=== PATIENT | female | born 1940 | race Caucasian/White ===

== ENCOUNTER → 2018-03-18 10:06 | Outpatient (POV) | payer MEDICARE, SELFPAY | PROVIDERS: PCP Nurse Practitioner Family; Visit Provider Physician Assistant | DX: Z00.00 Encounter for general adult medical examination without abnormal findings (principal) ==

== ENCOUNTER → 2018-03-18 10:09 | Outpatient (POV) | payer MEDICARE, SELFPAY | PROVIDERS: Visit Provider Physician Assistant | DX: Z00.00 Encounter for general adult medical examination without abnormal findings (principal) ==

== ENCOUNTER → 2019-04-24 14:37 | Outpatient (CLI) | payer MEDICARE, SELFPAY | PROVIDERS: Visit Provider Urology | DX: N39.0 Urinary tract infection, site not specified (principal) | CPT/HCPCS: 87086; 87088; 87186 ==

== ENCOUNTER → 2019-04-29 13:47 | Outpatient (POV) | payer MEDICARE, SELFPAY | PROVIDERS: Visit Provider Dermatology | DX: Z00.00 Encounter for general adult medical examination without abnormal findings (principal) ==

== ENCOUNTER → 2020-09-21 15:11 | Outpatient (POV) | payer MEDICARE, SELFPAY | PROVIDERS: Visit Provider Dermatology | DX: Z00.00 Encounter for general adult medical examination without abnormal findings (principal) ==

== ENCOUNTER 2022-01-21 16:16 | Emergency (ER) | payer MEDICARE, SELFPAY ==
[2022-01-21] VITALS (11 sets, daily range): BP systolic 134–171; BP diastolic 67–89; PULSE 72–81; RESP 16–18; TEMP 36.8–36.9; O2SAT 91–95; BMI 26.6
--- NOTE | 2022-01-21 16:16 | CT_ITS ---
PROCEDURE INFORMATION: Exam: CT Head Without Contrast Exam date and time: 01/21/2022 4:22 PM Age: 81 years old Clinical indication: Injury or trauma; Fall; Blunt trauma (contusions or hematomas) TECHNIQUE: Imaging protocol: Computed tomography of the head without contrast. Radiation optimization: All CT scans at this facility use at least one of these dose optimization techniques: automated exposure control; mA and/or kV adjustment per patient size (includes targeted exams where dose is matched to clinical indication); or iterative reconstruction. COMPARISON: No relevant prior studies available. FINDINGS: Brain: Age related brain involution is present. No acute intracranial hemorrhage, mass effect, midline shift, or brain herniation. Diffuse subcortical and periventricular white matter hypodensities are most in favor with chronic small vessel disease. Intracranial atherosclerosis is present. Cerebral ventricles: There is ex vacuo ventriculomegaly. Paranasal sinuses: Visualized sinuses are unremarkable. No fluid levels. Mastoid air cells: Visualized mastoid air cells are well aerated. Orbital cavities: There is asymmetriy of the lenses consistent with right intraocular lens prosthesis. Bones/joints: Unremarkable. No acute fracture. Soft tissues: Right parietal scalp swelling. IMPRESSION: 1. Right parietal scalp swelling. 2. No acute intracranial pathology.
--- NOTE | 2022-01-21 16:16 | XR_ITS ---
PROCEDURE INFORMATION: Exam: XR Right Hip Exam date and time: 01/21/2022 4:39 PM Age: 81 years old Clinical indication: Injury or trauma; Fall; Blunt trauma (contusions or hematomas); Right; Hip TECHNIQUE: Imaging protocol: Radiologic exam of the Right hip. Views: 2 or 3 views hip with pelvis when performed. COMPARISON: No relevant prior studies available. FINDINGS: Bones/joints: No definite fracture or dislocation. Mild degenerative sclerosis and spurring of the right acetabulum. Minimal medial right femur head spurring. Degenerative enthesophytes of the greater trochanter of the right femur.There are no lytic skeletal lesions seen. Bones overall appear slightly demineralized. Left femur prosthesis appears grossly intact and normally aligned. There are degenerative changes in the lower lumbar spine with spondylosis and facet arthropathy. Soft tissues: No acute findings in the soft tissues at the right hip joint. Vasculature: Multiple rounded pelvic calcifications are probably phleboliths, less likely would be urinary tract stones. IMPRESSION: 1. No acute fracture or dislocation. 2. Mild degenerative changes in the right hip and lumbar spine. 3. Additional nonemergency and chronic findings as above.
--- NOTE | 2022-01-21 16:16 | CT_ITS ---
PROCEDURE INFORMATION: Exam: CT Cervical Spine Without Contrast Exam date and time: 01/21/2022 4:24 PM Age: 81 years old Clinical indication: Injury or trauma; Fall; Blunt trauma TECHNIQUE: Imaging protocol: Computed tomography of the cervical spine without contrast. Radiation optimization: All CT scans at this facility use at least one of these dose optimization techniques: automated exposure control; mA and/or kV adjustment per patient size (includes targeted exams where dose is matched to clinical indication); or iterative reconstruction. COMPARISON: CT HEAD/BRAIN WO CON 01/21/2022 4:22 PM FINDINGS: Bones/joints: Multilevel degenerative changes of the vertebra are present, as manifested by multilevel anterior osteophytes, endplate sclerosis, and multilevel posterior disc osteophyte complexes. The spinal canal is patent. There is no evidence of joint dislocation. No aggressive osseous lesions. There is no evidence of acutely displaced skeletal fractures. Discs/Spinal canal/Neural foramina: No significant bony neural foraminal stenosis. Lungs: Lung apices are normal. Soft tissues: Unremarkable. IMPRESSION: No acute skeletal pathology.
--- NOTE | 2022-01-21 16:24 | PC.NURSE ---
PT GOING TO X RAY
--- NOTE | 2022-01-21 16:37 | HMH.EDGENADL ---
ED Disposition Clinical Impression: Fall Qualifiers: Encounter type: initial encounter Qualified Code(s): W19.XXXA - Unspecified fall, initial encounter Contusion of right hip Qualifiers: Encounter type: initial encounter Qualified Code(s): S70.01XA - Contusion of right hip, initial encounter Closed head injury Qualifiers: Encounter type: initial encounter Qualified Code(s): S09.90XA - Unspecified injury of head, initial encounter Disposition: Home, Self-Care Condition on Discharge: Fair Instructions: How to Prevent Falls, DI for Closed Head Injury Additional Instructions: You have been evaluated for fall, closed head injury and right hip contusion. No fracture seen on x-rays. Please use care when standing and walking. Follow-up with your primary care doctor. Tylenol and Motrin for aches or pains. Return to the emergency department for any new or worsening symptoms. Referrals: Corina Berger [Primary Care Provider] - Time of Disposition: 17:46 - Critical Care Critical Care Time: No Attestation: On 01/21/22, the high probability of a clinically significant, sudden or life threatening deterioration of the following system(s) required my full and direct attention, intervention and personal management. The time I documented below is in addition to time spent performing reported procedures but includes the following listed in this critical care notation. Medical Decision Making - Medical Records Medical records reviewed: Yes: I reviewed the patient's medical records. - Raf Inquiry Pt receiving controlled substance: No Vital Signs: 01/21/22 16:14 01/21/22 16:41 01/21/22 17:12 Temperature 98.5 F Temperature Source Oral Pulse Rate 74 77 Pulse Rate [Right Radial] 72 Respiratory Rate 18 18 18 Blood Pressure 153/84 H 143/75 H Blood Pressure [Right Arm] 154/79 H Blood Pressure Mean 107 104 Blood Pressure Mean [Right Arm] 104 Blood Pressure Source [Right Arm] Automatic Cuff Blood Pressure Position [Right Arm] Sitting 02 Sat by Pulse Oximetry 95 92 L 92 L Oxygen Delivery Method Room Air Room Air 01/21/22 17:41 01/21/22 18:11 01/21/22 18:30 Temperature 98.3 F Temperature Source Pulse Rate 76 77 79 Pulse Rate [Right Radial] Respiratory Rate 18 18 16 Blood Pressure 140/72 134/68 134/68 Blood Pressure [Right Arm] Blood Pressure Mean 94 93 Blood Pressure Mean [Right Arm] Blood Pressure Source [Right Arm] Blood Pressure Position [Right Arm] 02 Sat by Pulse Oximetry 91 L 93 L Oxygen Delivery Method 01/21/22 18:41 01/21/22 19:11 Temperature Temperature Source Pulse Rate 80 78 Pulse Rate [Right Radial] Respiratory Rate 18 18 Blood Pressure 171/89 H 136/67 Blood Pressure [Right Arm] Blood Pressure Mean 116 94 Blood Pressure Mean [Right Arm] Blood Pressure Source [Right Arm] Blood Pressure Position [Right Arm] 02 Sat by Pulse Oximetry 92 L 94 L Oxygen Delivery Method - Lab Data Lab Results 01/21/22 18:45: WBC 12.8 H, RBC 4.64, Hgb 14.8, Hct 44.5, MCV 95.8, MCH 31.9 H, MCHC 33.3, RDW 12.8, Plt Count 257, MPV 7.9, Neut % (Auto) 79.7, Lymph % (Auto) 14.4, [place] % (Auto) 4.5, Eos % (Auto) 0.9, Baso % (Auto) 0.4, Neut # (Auto) 10.2 H, Lymph # (Auto) 1.9, [place] # (Auto) 0.6, Eos # (Auto) 0.1, Baso # (Auto) 0.1 01/21/22 18:45: Sodium 142, Potassium 3.7, Chloride 108 H, Carbon Dioxide 26, Anion Gap 11.7, BUN 19 H, Creatinine 0.60, Estimated Creat Clear 56, Estimated GFR 96, Est GFR ( Amer) 117, Glucose 201 H, Calcium 9.8, Total Bilirubin 0.6, AST 45 H, ALT 34, Alkaline Phosphatase 55, Total Protein 7.3, Albumin 4.5, Globulin 2.8, Albumin/Globulin Ratio 1.6 01/21/22 18:45: SARS-CoV-2 (PCR) Not detected, Influenza A Untype (PCR) Not detected, Influenza Type B (PCR) Not detected Result diagrams: 01/21/22 18:45 01/21/22 18:45 Orders (Tests/Meds): ED MEDICATIONS Generic Name Dose Route Start Last Admin Trade Name Freq PRN Reason Stop
--- NOTE | 2022-01-21 16:37 | PC.NURSE ---
pt returning from xr
--- NOTE | 2022-01-21 16:38 | PC.NURSE ---
PT BACK FROM CT, FAMILY AT BS
--- NOTE | 2022-01-21 17:05 | PC.NURSE ---
OTHER DAUGHTER IS HERE WANTING AN UPDATE ON HER MOM DR CHAU AWARE
--- NOTE | 2022-01-21 17:15 | PC.NURSE ---
at the bedside speaking to family
--- NOTE | 2022-01-21 18:12 | PC.NURSE ---
rounded on pt at this time. no needs voiced
[2022-01-21 18:55] LABS: Coronavirus 19, PCR Not Detected (NotDetected); Influenza A, PCR Not Detected (NotDetected); Influenza B, PCR Not Detected (NotDetected)
[2022-01-21 18:59] LABS: Basophils # 0.1 K/mm3 (0-0.2); Basophils % 0.4 % (0.1-2.0); Chloride 108 mmol/L (98-107); Eosinophils # 0.1 K/mm3 (0.0-0.4); Eosinophils % 0.9 % (0.1-12.0); Hematocrit 44.5 % (37.0-47.0); Hemoglobin 14.8 g/dL (12.2-16.2); Lymphocytes # 1.9 K/mm3 (0.7-4.5); Lymphocytes % 14.4 % (10-50); Mean Corpuscular HGB Conc 33.3 g/dL (31.8-35.4); Mean Corpuscular Hemoglobin 31.9 pg (27.0-31.2); Mean Corpuscular Volume 95.8 fl (81-99); Mean Platelet Volume 7.9 fl (7.4-10.4); Monocytes # 0.6 K/mm3 (0.1-1.0); Monocytes % 4.5 % (1.7-9.3); Neutrophils # 10.2 K/mm3 (1.8-7.8); Neutrophils % 79.7 % (37.0-80.0); Platelet Count 257 K/mm3 (142-424); Red Blood Count 4.64 M/mm3 (4.20-5.40); Red Cell Distribution Width 12.8 % (11.5-17.5); White Blood Count 12.8 K/mm3 (4.8-10.8)
[2022-01-21 19:00] LABS: Potassium 3.7 mmoL/L (3.5-5.1); Sodium 142 mmol/L (136-145)
[2022-01-21 19:02] LABS: Alanine Aminotransferase 34 U/L (12-78); Alkaline Phosphatase 55 U/L (38-126); Aspartate Amino Transferase 45 U/L (14-36); Bilirubin,Total 0.6 mg/dl (0.2-1.3); Blood Urea Nitrogen 19 mg/dl (7-17); Creatinine Clearance Estimated 56 mL/min (50-200); Estimated Glomerular Filt Rate 96 ml/min (>60); GFR (African American) 117 ML/MIN (>60)
[2022-01-21 19:03] LABS: Albumin Level 4.5 g/dl (3.5-5.0); Albumin/Globulin Ratio 1.6 (1.1-1.8); Anion Gap 11.7 mEq/L (5-15); Calcium 9.8 mg/dl (8.4-10.2); Carbon Dioxide 26 mmol/L (22.0-30.0); Globulin 2.8 g/dL (1.3-3.2); Glucose 201 mg/dl (74-100); Total Protein,Serum 7.3 g/dl (6.3-8.2)
--- NOTE | 2022-01-21 19:05 | PC.NURSE ---
WENT TO D/C PT , SHE GOT IN WHEEL CHAIR BECAME VERY DIZZY STARTED VOMITING AND GOT REALLY HOT AND DIAPHORETIC PT STATES THATS HOW SHE FELT WHEN SHE FELL EARLIER TODAY . WE GO PT BACK IN BED AND STARTED A WORK UP ON HER
--- NOTE | 2022-01-21 20:21 | PC.NURSE ---
Daughter updated on D/C and new test results. States she will be back soon to roller picker pt.
== END 2022-01-21 20:52 | disposition home or self-care (01) ==
PROVIDERS: Emergency Provider Emergency Medicine; PCP Nurse Practitioner Family
DX: S09.90XA Unspecified injury of head, initial encounter (principal); S70.01XA Contusion of right hip, initial encounter; W18.30XA Fall on same level, unspecified, initial encounter; E11.9 Type 2 diabetes mellitus without complications; I10 Essential (primary) hypertension; Z79.84 Long term (current) use of oral hypoglycemic drugs; Z95.0 Presence of cardiac pacemaker; G40.89 Other seizures
CPT/HCPCS: 70450; 72125; 73502; 80053; 85025; 93005; 96361; 96374; 99285; C9803; J2405; U0003; U0005

== ENCOUNTER 2023-07-03 08:49 | Outpatient (POV) | payer MEDICARE, SELFPAY | END 2023-07-03 23:59 | disposition home or self-care (01) | LOC: SC 08:49 | PROVIDERS: PCP Nurse Practitioner Family; Visit Provider Dermatology | DX: Z00.00 Encounter for general adult medical examination without abnormal findings (principal) ==

== ENCOUNTER 2025-06-30 10:46 | Outpatient (CLI) | payer MEDICARE, SELFPAY ==
[2025-06-30 17:14] LABS: Hematocrit 39.5 % (37.0-47.0); Hemoglobin 12.9 g/dL (12.2-16.2); Immature Granulocytes % 0.4 %; Mean Corpuscular HGB Conc 32.7 g/dL (31.8-35.4); Mean Corpuscular Hemoglobin 31.9 pg (27.0-31.2); Mean Corpuscular Volume 97.8 fl (81-99); Nucleated Red Blood Cells % 0 %; Platelet Count 195 K/mm3 (142-424); Red Blood Count 4.04 M/mm3 (4.20-5.40); Red Cell Distribution Width-SD 42.8 fL; White Blood Count 8.2 K/mm3 (4.8-10.8)
[2025-06-30 18:13] LABS: Chloride 104 mmol/L (98-107)
[2025-06-30 18:14] LABS: Albumin Level 4.2 g/dl (3.5-5.0); Potassium 4.6 mmoL/L (3.5-5.1); Sodium 138 mmol/L (136-145)
[2025-06-30 18:17] LABS: Alanine Aminotransferase 44 U/L (12-78); Albumin/Globulin Ratio 2.0 (1.1-1.8); Alkaline Phosphatase 52 U/L (38-126); Anion Gap 13.6 mEq/L (5-15); Aspartate Amino Transferase 37 U/L (14-36); Bilirubin,Total 0.3 mg/dl (0.2-1.3); Blood Urea Nitrogen 27 mg/dl (7-17); Carbon Dioxide 25 mmol/L (22.0-30.0); Creatinine,Serum 1.00 mg/dl (0.52-1.04); Estimated Glomerular Filt Rate 53 ml/min (>60); GFR (African American) 64 ML/MIN (>60); Globulin 2.1 g/dL (1.3-3.2); Total Protein,Serum 6.3 g/dl (6.3-8.2)
[2025-06-30 18:18] LABS: Calcium 9.8 mg/dl (8.4-10.2); Glucose 311 mg/dl (74-100)
[2025-06-30 19:06] LABS: Hepatitis C Ab Qual. W/ RFX NEGATIVE (Negative)
[2025-06-30 19:46] LABS: Hemoglobin A1C 9.4 % (4.0-6.0)
--- OUTSIDE RECORDS SUMMARY | 2025-07-01 10:26 | XMS_ITS | Encounter Summary ---
Author Organization [employer] ([place], [place], [place], [place], [place]) Address [address] [place] [address] Care Team Providers Care Rug Hooker Name Role Phone Unavailable Primary Care Provider Unavailabl e Encounter Details Date Type Department Care Team (Late st Contact Info) Description 12/20/[address] [facility] [place] Family Medicine [address] [place] [address] ProviderCl MD [address] [place] [address] Social History Tobacco Use Types Packs/Day Years Used Date Smoking Tobacco: Never Assessed Comments Unknown Sex and Gender Information Value Date Recorded Sex Assigned at Not on file Legal Sex Female 5:11 PM CDT Gender Identity Not on file Sexual Orientation Not on file documented as of this encounter Miscellaneous Notes * Cerner Conversion Note - Historical ProviderMD - 12/20/2019 2:11 PM CDT [facility] OR PACU Summary Primary Physician: TARIQ TILLMAN MD-ORT Finalized Date/Time: 12/20/19 16:11:29 Pt. Name: GALI JAMESJEREMIAH Coleman/Sex: 1940 Female Med Rec #: [id number] Physician: JUAN J DEL ROSARIO MD-INT Financial #: [id number] Pt. Type: I Room/Bed: 410/1 Admit/Disch: 12/19/19 18:29:00 - Institution: [facility] OR PACU Case Times Entry 1 In PACU I 12/20/19 15:35:00 Ready for PACU 12/20/19 16:11:00 Discharge Discharge from PACU 12/20/19 16:11:00 I Last Modified By: Amairani Head RN 12/20/19 16:11:27 [facility] OR PACU Case Times Audit 12/20/19 16:11:27 Blood Bank Credit Clerk: AMAIRANIABRAHAM Modifier: [email or web address] <+> 1 Ready for PACU Discharge <+> 1 Discharge from PACU I Finalized By: Amairani Head RN Document Signatures Signed By: Amairani Head RN 12/20/19 16:11 Electronically signed by [facility] Conversion Diesel Mechanic Apprentice Cerner at 10/17/2022 2:59 PM CDT documented in this encounter Plan of Treatment Not on file documented as of this encounter Visit Diagnoses Not on filedocumented in this encounter
--- OUTSIDE RECORDS SUMMARY | 2025-07-01 10:27 | XMS_ITS | Encounter Summary ---
Author Organization [employer] ([place], [place], [place], [place], [place]) Address [address] [place] [address] Care Team Providers Care Food Service Tray Attendant Name Role Phone Unavailable Primary Care Provider Unavailabl e Encounter Details Date Type Department Care Team (Late st Contact Info) Description 12/22/2019 Transcribed Document [facility] [place] Family Medicine [address] [place] [address] ProviderCl MD [address] [place] [address] Social History Tobacco Use Types Packs/Day Years Used Date Smoking Tobacco: Never Assessed Comments Unknown Sex and Gender Information Value Date Recorded Sex Assigned at Not on file Legal Sex Female 5:11 PM CDT Gender Identity Not on file Sexual Orientation Not on file documented as of this encounter Miscellaneous Notes * Cerner Conversion Note - Historical ProviderMD - 12/22/2019 1:09 PM CDT Treatment Intervention, OT Entered On: 12/25/2019 12:52 EDT Performed On: 12/25/2019 12:48 EDT by LOGAN LEDEZMA OTR/Ashley General Information, OT Visit Type, OT : Treatment Note Patient Orders : Order Date Order Ordering 12/20/2019 15:42 OT Evaluation and Treatment Ordered By: TARIQ TILLMAN MD-ORT 12/22/2019 13:09 Occupational Therapy Additional Tx Ordered By: Active Diagnoses : 12/21/2019 12:00 Other specified postprocedural states 12/19/2019 12:00 Essential (primary) hypertension 12/19/2019 12:00 Fracture of unspecified part of neck of left femur, initial encounter for closed fracture 12/19/2019 12:00 Gastro-esophageal reflux disease without esophagitis 12/19/2019 12:00 Hip injury - Minor 12/19/2019 12:00 Hip pain-swelling 12/19/2019 12:00 Hyperglycemia, unspecified 12/19/2019 12:00 Major depressive disorder, single episode, unspecified 12/19/2019 12:00 Other chronic pain 12/19/2019 12:00 Unspecified fall, initial encounter Therapy Diagnosis, OT : Aftercare following joint replacement surgery--L hip Admission Date : 12/19/2019 18:29 Assisted by, OT : miner assistant (CONSTRUCTION SCHEDULER) Personal Devices : Personal Devices No Devices Recorded Assistive Devices : Assistive Devices No Devices Recorded Precautions in Place : Fall prevention measures, Fall prevention measures, high risk, Hip precautions, posterior LOGAN LEDEZMA OTR/L - 12/25/2019 12:48 EDT General Status Patient Received Status : Supine in bed, Bed alarm activated, Other: abductor wedge Treatment Start Time : 12/25/2019 11:28 EDT Patient Left Status : Up in chair, Chair alarm activated, RN/PCT informed, All needs met and within reach, Other: abductor wedge RN/PCT Informed Comment : RN ok'd to tx, ID and verified Treatment End Time : 12/25/2019 11:43 EDT Treatment Time : 15 Minute(s) LOGAN LEDEZMA OTR/L - 12/25/2019 12:48 EDT Self Care/Home Management, OT Toileting Assist Level : Assist, maximal Toileting Device : Commode, bedside Toileting Comment : max/total for hygiene and clothing mgt, pt was incontinent of bowel in bed and soiled. pt was assisted to BSC to complete toileting and hygiene Toilet Transfer Assist Level : Assist, minimal Toilet Transfer Device : Belt, gait, Commode, bedside, Walker, rolling Toilet Transfer Device Comment : cues for safety bed to BSC Bed/Chair/WC Transfer Assist Level : Assist, minimal Bed/Chair/WC Transfer Device : Belt, gait, Walker, front wheel Bed/Chair/WC Device Comment : BSC to chair and cues LOGAN LEDEZMA OTR/L - 12/25/2019 12:48 EDT Mobility Device/Prosthesis/Wt Bearing Weight Bearing Status Maintained : Yes Weight Bearing Status : As tolerated Functional Mobility Device : Gait belt, Walker, front wheel Mobility Device/Prosthesis/Wt Bearing Cmnt : abductor wedge in bed and seated in chair LOGAN LEDEZMA OTR/L - 12/25/2019 12:48 EDT Functional Mobility Mobility Grid Supine to Sit : Rehab Minimal assistance Sit to Stand : Rehab Minimal assistance Bed to Chair : Rehab Minimal assistance Stand to Sit : Rehab Minimal assistance DARIENLOGANJENNIFFER/Ashley - 12/25/2019 12:48 EDT Functional MobilityComment : gait belt and rw, transfer bed to BSC to chair with min assist and cues for safety and maintain hip precautions LOGAN LEDEZMA OTR/Ashley - 12/25/2019 12:48 EDT Education OT Occupational Therapy Education Grid Activity of Daily Living Training : Returns demonstration, Needs further teaching Functional Mobility Training : Returns demonstration, Needs further teaching LOGAN LEDEZMA OTR/Ashley - 12/25/2019 12:48 EDT Plan of Care, OT OT Tx Plan/Goals Established w Patient : Yes DARIEN JENNIFFER FORD/Ashley - 12/25/2019 12:48 EDT Intermediate Goals, OT Other LTG Grid Goal #1 Goal #2 Goal : Perform LB ADL with mod A with use of AE PRN Perform ADL transfer with min A Date to Meet : 01/05/2020 EDT 01/05/2020 EDT Goal Status : Initial goal Goal met Date Met : 12/25/2019 EDT Comment : min A on 12/23 LOGAN LEDEZMA OTR/Ashley - 12/25/2019 12:48 EDT LOGAN LEDEZMA OTR/Ashley - 12/25/2019 12:48 EDT Treatment Note Subjective Comment : pt agrees to tx Additional Objective Information : ADL Assessment : pt met transfer goal, will continue to benefit from OT while inpt. pt again lethargic, demo some confusion Plan for Treatment : continue POC, may discharge to rehab today LOGAN LEDEZMA OTR/Ashley - 12/25/2019 12:48 EDT Pain Assessment Pain Scaled Used : 0-10 Pain scale Pain Score Pre-Intervention : 0 LOGAN LEDEZMA OTR/Ashley - 12/25/2019 12:48 EDT Image 1 - Images currently included in the form version of this document have not been included in the text rendition version of the form. [facility] OT Charges OT Selfcare/Hm Mgmt Ea 15 Min : 1 LOGAN LEDEZMA OTR/Ashley - 12/25/2019 12:48 EDT documented in this encounter Plan of Treatment Not on file documented as of this encounter Visit Diagnoses Not on filedocumented in this encounter
--- OUTSIDE RECORDS SUMMARY | 2025-07-01 10:27 | XMS_ITS | Encounter Summary ---
Author Organization [employer] ([place], [place], [place], [place], [place]) Address [address] [place] [address] Care Team Providers Care Public Health Sanitarian Name Role Phone Unavailable Primary Care Provider Unavailabl e Encounter Details Date Type Department Care Team (Late st Contact Info) Description 12/25/2019 Transcribed Document [facility] [place] Family Medicine [facility] [place] [address] ProviderCl MD [address] [place] [address] Social History Tobacco Use Types Packs/Day Years Used Date Smoking Tobacco: Never Assessed Comments Unknown Sex and Gender Information Value Date Recorded Sex Assigned at Not on file Legal Sex Female 5:11 PM CDT Gender Identity Not on file Sexual Orientation Not on file documented as of this encounter Miscellaneous Notes * Cerner Conversion Note - Historical ProviderMD - 12/25/2019 6:00 PM CDT Discharge Summary, PT Entered On: 12/29/2019 8:12 EDT Performed On: 12/25/2019 18:00 EDT by CARMINE GILL, PT Discharge Summary Reason for Discharge : Discharged from hospital Discharge Summary Comment, PT : At time of discharge from hospital, pt had met 2/5 acute care goals and was discharged home. At time of last PT treatment session, pt's functional status was documented as follows: chair to stand Kp with RWx - amb ~ 8' to EOB Kp with RWx - demonstrated slow pace, foot flat, 1 LOB - cues for safe sequence to bed - stand pivot to sit EOB CGA with RWx - cues for no hip flexion passed 90* - EOB to supine Kp with BLE - extra time spent attending to pt's needs CARMINE GILL, PT - 12/29/2019 8:12 EDT [facility] Goals Other PT LTG Grid Goal #1 Goal #2 Goal #3 Goal #4 Other : Patient will transfer with Min A to decrease caregiver burden. CARMINE GILL, PT - 12/29/2019 8:12 EDT Patient will ambulate 50' with RWx CGA/Min A for limited household distances. CARMINE GILL, PT - 12/29/2019 8:12 EDT Patient will perform LJ HEP A/AROM x 15 reps to improve strength/endurance with functional activities. CARMINE GILL, PT - 12/29/2019 8:12 EDT Patient will verbalized posterior hip precautions to prevent dislocation. CARMINE GILL, PT - 12/29/2019 8:12 EDT Date to Meet : 12/24/2019 EDT CARMINE GILL, PT - 12/29/2019 8:12 EDT 12/24/2019 EDT CARMINE GILL, PT - 12/29/2019 8:12 EDT 12/24/2019 EDT CARMINE GILL, PT - 12/29/2019 8:12 EDT 12/24/2019 EDT CARMINE GILL, PT - 12/29/2019 8:12 EDT Goal Status : Goal met CARMINE GILL, PT - 12/29/2019 8:12 EDT Not met CARMINE GILL, PT - 12/29/2019 8:12 EDT Goal met CARMINE GILL, PT - 12/29/2019 8:12 EDT Not met CARMINE GILL, PT - 12/29/2019 8:12 EDT Date Met : 12/24/2019 EDT CARMINE GILL, PT - 12/29/2019 8:12 EDT 12/24/2019 EDT CARMINE GILL, PT - 12/29/2019 8:12 EDT CARMINE GILL, PT - 12/29/2019 8:09 EDT CARMINE GILL, PT - 12/29/2019 8:09 EDT CARMINE GILL, PT - 12/29/2019 8:09 EDT CARMINE GILL, PT - 12/29/2019 8:09 EDT Goal #5 Other : Patient will ascend/descend 2 steps with RWx Min A. (IF D/C HOME) CARMINE GILL, PT - 12/29/2019 8:12 EDT Date to Meet : 12/24/2019 EDT CARMINE GILL, PT - 12/29/2019 8:12 EDT Goal Status : Not met CARMINE GILL, PT - 12/29/2019 8:12 EDT Date Met : CARMINE GILL, PT - 12/29/2019 8:09 EDT documented in this encounter Plan of Treatment Not on file documented as of this encounter Visit Diagnoses Not on filedocumented in this encounter
--- OUTSIDE RECORDS SUMMARY | 2025-07-01 10:27 | XMS_ITS | Encounter Summary ---
Author Organization [employer] ([place], [place], [place], [place], [place]) Address [address] [place] [address] Care Team Providers Care Construction Supervisor Name Role Phone Unavailable Primary Care Provider Unavailabl e Encounter Details Date Type Department Care Team (Late st Contact Info) Description 12/23/2019 Transcribed Document [facility] [place] [facility] [place] [address] ProviderCl MD [address] [place] [address] Social History Tobacco Use Types Packs/Day Years Used Date Smoking Tobacco: Never Assessed Comments Unknown Sex and Gender Information Value Date Recorded Sex Assigned at Not on file Legal Sex Female 5:11 PM CDT Gender Identity Not on file Sexual Orientation Not on file documented as of this encounter Miscellaneous Notes * Cerner Conversion Note - Cl ProviderMD - 12/23/2019 11:02 AM CDT On Going Discharge Planning Entered On: 12/23/2019 11:04 EDT Performed On: 12/23/2019 11:02 EDT by LAZ GLEASON RN-Automatic Mold SanderShooter Helper Progress Note Discharge Arrangements : Patient Post-Acute Information Patient Name: JAMES BUSTILLO Gender: Female : [birth year] Age: 79 Years No Post-Acute Placement(s) Listed No Post-Acute Service(s) Listed No [place] Referral(s) Listed Discharge Options Discussed with Patient : Other: TBD Barriers to Discharge Identified : Clinical Condition of Patient, Follow-Up appointments needed Barriers to Discharge Unresolved : Clinical Condition of Patient LAZ GLEASON RN-Automatic Mold Sander - 12/23/2019 11:02 EDT Narrative Progress Note Narrative Progress Note : Received call from [facility], can accept patient on 12/24/19, however, will need another Covid test due to results not being within the allotted time frame from the first test.................allen Historical Progress Note : Spoke with patient regarding transport to facility on 12/24/2019 she will call her spouse to transport. LARISSA THORNTON Rn-Court Assistant - 12/22/19 14:15:07 Recieved call from Rina at [facility] with bed offer. Spoke with Ms Bustillo she is in agreement with this plan notified Rina she will init precert. Patient will need a Covid 19 test prior to going to their facility will order test. LARISSA THORNTON Rn-Court Assistant - 12/22/19 10:19:13 Patient extremely drowsy and lethargic upon trying to speak with patient. Patient was accidently dropping phone in floor multiple times, spilled her water and was knocking over things on her table while attempting to speak. Pain medication has not wore off yet for lengthy conversation. Patient did state her does not get out of the house due to Pulmonary Fibrosis and she normally takes care of him at home. Has RW and commode at home, is agreeable for inaptient rehab, would like [facility] for rehab in [place] or [facility]. Patient wants to stay close to home if all possible. SNF referrals sent through [facility]....................LAZ Grasyon RN-Automatic Mold Sander - 12/21/19 14:52:39 LAZ GLEASON RN-Automatic Mold Sander - 12/23/2019 11:02 EDT documented in this encounter Plan of Treatment Not on file documented as of this encounter Visit Diagnoses Not on filedocumented in this encounter
--- OUTSIDE RECORDS SUMMARY | 2025-07-01 10:27 | XMS_ITS | Encounter Summary ---
Author Organization [employer] ([place], [place], [place], [place], [place]) Address [address] [place] [address] Care Team Providers Care Corporate Attorney Name Role Phone Unavailable Primary Care Provider Unavailabl e Encounter Details Date Type Department Care Team (Late st Contact Info) Description 12/20/2019 Transcribed Document [facility] [place] [address] [place] [address] ProviderCl MD [address], [place] [id number] Social History Tobacco Use Types Packs/Day Years Used Date Smoking Tobacco: Never Assessed Comments Unknown Sex and Gender Information Value Date Recorded Sex Assigned at Not on file Legal Sex Female 5:11 PM CDT Gender Identity Not on file Sexual Orientation Not on file documented as of this encounter Miscellaneous Notes * Cerner Conversion Note - Cl ProviderMD - 12/20/2019 11:34 AM CDT Patient: JAMES TALBERT Age: 79 years Sex: Female : 1940 Associated Diagnoses: Fall; Chronic pain syndrome; Depression; Diabetes mellitus; Hip pain-swelling; Hip injury - Minor; GERD; Hip fracture, left; Hypertension Author: JUAN J DEL ROSARIO MD-INT Basic Information awake alert comfortable, ???Pain under control ???Hemoglobin A1c is 8.6 ???Vitamin D level 15.6 Review of Systems Constitutional: No fever, No chills. Eye: No discharge, No blurring, No double vision, No visual disturbances. Ear/Nose/Mouth/Throat: No nasal congestion, No sore throat. Respiratory: No shortness of breath, No cough. Cardiovascular: No chest pain, No palpitations. Gastrointestinal: No nausea, No vomiting. Genitourinary: No change in urine stream. Musculoskeletal: Negative. Integumentary: wound stable covered w. clean dressing. Neurologic: Alert and oriented X4. Health Status Allergies: Allergies (1) Active Reaction No Known Medication Allergies None Documented Current medications: Medications (32) Active Scheduled: (11) amLODIPine 5 mg tab 5 mg 1 Tab, Oral, Daily ceFAZolin/D5w 2 Gram 50 mL, IV Piggyback, 1-Time cyanocobalamin 1,000 mcg tab 1,000 mcg 1 Tab, Oral, Daily docusate sodium 100 mg cap 100 mg 1 Cap, Oral, BID DULoxetine DR 60 mg cap 60 mg 1 Cap, Oral, Daily furosemide 20 mg tab 20 mg 1 Tab, Oral, Daily gabapentin 300 mg cap 300 mg 1 Cap, Oral, TID insulin lispro 1 unit/0.01 mL inj Scale A:, SubCutaneous, AC and at Bedtime metoprolol succinate XL 100 mg tab 100 mg 1 Tab, Oral, Daily NaCl 0.45% 500 mL, IV Piggyback, 1-Time oxybutynin 5 mg tab 10 mg 2 Tab, Oral, Daily Continuous: (1) NaCl 0.45% 1,000 mL 1,000 mL, IntraVENous, 100 mL/Hr PRN: (20) acetaminophen 325 mg tab 650 mg 2 Tab, Oral, Q4H ALPRAZolam 0.25 mg tab 0.25 mg 1 Tab, Oral, Q6H bisacodyl 10 mg supp 10 mg 1 Supp, Rectal, BID calcium gluconate 1 Gram 10 mL, IV Piggyback, Daily calcium gluconate + NaCl 0.9% 100 mL 2 Gram 20 mL, IV Piggyback, Daily calcium gluconate + NaCl 0.9% 100 mL 2 Gram 20 mL, IV Piggyback, Q12H cloNIDine 0.1 mg tab 0.1 mg 1 Tab, Oral, Q4H HYDROmorphone 1 mg/1 mL inj 0.5 mg 0.5 mL, IV Push, Q2H magnesium hydroxide 8% liq 30 mL 30 mL, Oral, Daily magnesium sulfate 2 Gram 50 mL, IV Piggyback, Daily magnesium sulfate 2 Gram 50 mL, IV Piggyback, Q2H metoclopramide 10 mg/2 mL inj 5 mg 1 mL, IV Push, Q6H ondansetron 4 mg/2 mL inj 4 mg 2 mL, IV Push, Q4H potassium chloride 10 mEq 100 mL, IV Piggyback, Q1H potassium chloride CR 20 mEq tab 20 mEq 1 Tab, Oral, Q2H potassium chloride CR 20 mEq tab 60 mEq 3 Tab, Oral, Q2H scopolamine 1.5 mg/72 hr patch 1 Patch, TransDermal, Q3Days sodium phosphate 15 mMole 5 mL, IV Piggyback, Daily sodium phosphate 15 mMole 5 mL, IV Piggyback, Q6H traZODone 50 mg tab 50 mg 1 Tab, Oral, At Bedtime Problem list: Active Problems (9) Acid reflux At risk for sleep apnea Chronic pain Depression H. pylori infection Heart murmur Hypertension Incontinent of urine Kidney stones Physical Examination VS/Measurements Vital Measurements 12/20/2019 9:31 EDT Systolic Blood Pressure 146 mmHg HI Diastolic Blood Pressure 53 mmHg LOW Mean Arterial Pressure (MAP)-BMDI 78 Temperature Source Oral Temperature Mode Fahrenheit Temperature, Fahrenheit 98.8 Deg F Clinical Temperature, C 37.1 Deg C Heart Rate Monitored 90 bpm Respiratory Rate 17 Breaths/Min Oxygen Saturation 98 % Oxygen Therapy Mode Nasal cannula Oxygen Flow Rate 2 Liter/Min General: Alert and oriented, No acute distress. Eye: Pupils are equal, round and reactive to light, Extraocular movements are intact. HENT: Oral mucosa is moist. Neck: Supple, No carotid bruit, No jugular venous distention, No lymphadenopathy, No thyromegaly. Respiratory: Lungs are clear to auscultation, Breath sounds are equal. Cardiovascular: Normal rate, Regular rhythm, No murmur. Gastrointestinal: Soft, Non-tender, Normal bowel sounds, No organomegaly. Genitourinary: No costovertebral angle tenderness, No inguinal tenderness. Lymphatics: No lymphadenopathy neck, axilla, groin. Musculoskeletal: Normal strength, No swelling. Integumentary: Warm, Intact, No rash, WOUND STABLE. Neurologic: Alert, Oriented, No focal deficits. Psychiatric: Cooperative, Appropriate mood & affect. Review / Management Results review: All Results 12/20/2019 6:13 EDT Glucose POC2 145 mg/dL HI 12/20/2019 3:42 EDT Sodium Level 143 mmol/L Potassium Level 4.1 mmol/L Chloride Level 107 mmol/L Carbon Dioxide Level 13 mmol/L LOW Anion Gap 27 HI Glucose Level 149 mg/dL HI Blood Urea Nitrogen 15 mg/dL Creatinine Level 0.76 mg/dL eGFR >60 mL/min/1.73m2 eGFR NonAfrican >60 mL/min/1.73m2 Bun/Creatinine 19.7 Calcium Level 8.9 mg/dL Protein Total 7.7 Gram/dL Albumin Level 4.2 Gram/dL Globulin 3.5 Gram/dL A/G Ratio 1.2 Bilirubin Total 0.6 mg/dL Alk Phos 69 Units/Liter AST 20 Units/Liter ALT 34 Units/Liter WBC 13.0 K/uL HI RBC 4.83 Million/uL Hgb 15.4 Gram/dL Hct 48.7 % HI MCV 100.8 fL HI MCH 31.9 pg MCHC 31.6 Gram/dL LOW Platelet Count 226 K/uL MPV 11.2 fL RDW 12.4 % Neut % 82.2 % HI Neut # 10.66 K/uL HI Lymph % 12.7 % LOW Lymph # 1.65 K/uL [place] % 4.4 % LOW [place] # 0.57 K/uL Eos % 0.0 % LOW Eos # 0.00 K/uL LOW Baso % 0.2 % Baso # 0.03 K/uL Slide Review No IG# 0 x10(3)/uL IG% 0 % 12/19/2019 14:41 EDT Potassium Level 4.1 mmol/L Chloride Level 106 mmol/L Carbon Dioxide Level 24 mmol/L Anion Gap 13 Glucose Level 212 mg/dL HI Blood Urea Nitrogen 16 mg/dL Creatinine Level 0.73 mg/dL eGFR >60 mL/min/1.73m2 eGFR NonAfrican >60 mL/min/1.73m2 Bun/Creatinine 21.9 HI Calcium Level 8.6 mg/dL Protein Total 7.5 Gram/dL Albumin Level 3.9 Gram/dL Globulin 3.6 Gram/dL A/G Ratio 1.1 Bilirubin Total 0.5 mg/dL Alk Phos 60 Units/Liter AST 21 Units/Liter ALT 35 Units/Liter Hgb A1C 8.40 % HI eAVG Glucose 194 mg/dL NA WBC 11.7 K/uL HI RBC 4.41 Million/uL Hgb 14.1 Gram/dL Hct 43.2 % MCV 98.0 fL HI MCH 32.0 pg MCHC 32.6 Gram/dL Platelet Count 176 K/uL MPV 10.8 fL RDW 12.2 % Neut % 82.4 % HI Neut # 9.61 K/uL HI Lymph % 11.0 % LOW Lymph # 1.28 K/uL [place] % 5.4 % [place] # 0.63 K/uL Eos % 0.4 % LOW Eos # 0.05 K/uL Baso % 0.3 % Baso # 0.04 K/uL Slide Review No IG# 0 x10(3)/uL IG% 0 % 12/19/2019 14:02 EDT Urine Type U CleanCatch Urine Color Yellow Urine Appearance Clear Urine Specific [place] 1.024 Urine pH Dipstick 7.0 Urine Leukocyte Esterase Negative Urine Nitrite Negative Urine Protein Dipstick Negative Urine Glucose Dipstick >=1000 Urine Ketones Dipstick 40 Urine Urobilinogen Dipstick 0.2 EU/dL Urine Bilirubin Dipstick Negative Urine Blood Dipstick Negative Ur RBC 0-2 /HPF Ur WBC 5-10 /HPF Ur Bacteria 3+ Ur Epithelial Cells 0-2 /HPF . Condition: Stable. Impression and Plan Diagnosis Fall - Admitting, Emergency medicine, Medical. Chronic pain syndrome - Admitting, Patient Stated. Depression - Admitting, Medical. Diabetes mellitus - Admitting, Emergency medicine, Medical. Complaint of Hip pain-swelling - Reason For Visit, Medical. Hip injury - Minor - Reason For Visit, Emergency medicine, Medical. GERD - Admitting, Patient Stated. Hip fracture, left - Admitting, Emergency medicine, Medical. Hypertension - Admitting, Emergency medicine, Medical. Course: Plan/ cont. current care, pt/ot, nutritional support, encourage use of respirometer, motoring blood pressure, renal function, blood glucose, and urine output. IV hydration. Continue nothing by mouth for now for surgical intervention today . Orders Order Profile (Selected) Inpatient Orders Ordered (Scheduled) CMP Comprehensive Metabolic Panel: Specimen Type: Blood, AM Draw collect, 12/21/19 4:00:00 EDT, 1-Time, Stop: 12/21/19 4:00:00 EDT, Lab Collect Hemoglobin and Hematocrit: Specimen Type: Blood, AM Draw collect, 12/21/19 4:00:00 EDT, 1-Time, Stop: 12/21/19 4:00:00 EDT, Lab Collect. documented in this encounter Plan of Treatment Not on file documented as of this encounter Visit Diagnoses Not on filedocumented in this encounter
--- OUTSIDE RECORDS SUMMARY | 2025-07-01 10:27 | XMS_ITS | Encounter Summary ---
Author Organization [employer] ([place], [place], [place], [place], [place]) Address [address] [place] [address] Care Team Providers Care Town Planner Name Role Phone Unavailable Primary Care Provider Unavailabl e Encounter Details Date Type Department Care Team (Late st Contact Info) Description 12/19/2019 Transcribed Document [facility] [place] [address] [place] [address] ProviderCl MD [address] [place] [address] Social History Tobacco Use Types Packs/Day Years Used Date Smoking Tobacco: Never Assessed Comments Unknown Sex and Gender Information Value Date Recorded Sex Assigned at Not on file Legal Sex Female 5:11 PM CDT Gender Identity Not on file Sexual Orientation Not on file documented as of this encounter Miscellaneous Notes * Cerner Conversion Note - Cl Landaverde MD - 12/19/2019 7:18 PM CDT Patient: JAMES BUSTILLO Age: 79 years Sex: Female : 1940 Associated Diagnoses: Fall; Chronic pain syndrome; Depression; Diabetes mellitus; Hip pain-swelling; Hip injury - Minor; GERD; Hip fracture, left; Hypertension Author: JUAN J DEL ROSARIO MD-INT Date of admission 12/19/2019 PCP Halie Aguiar NP Admitting physician: Internal medicineJuan J M.D. Admitting diagnosis: 1???left hip fracture status post a fall 2???accidental fall 3???left hip pain 4???uncontrolled diabetes mellitus 5???hypertension 6???GERD 7???History of H. pylori Infection 8???chronic pain syndrome 9???depression History of present illness 79 years old white female with a history of DM, HTN, GERD, chronic pain syndrome, depression, who was coming out of the shower and then she tripped on a cord on the floor and fell on the left side. Patient was unable to get up and walk and bear weight in addition she was complaining of severe intractable pain and swelling on her left hip. Patient was then brought to [facility] ED where x-ray revealed left hip fracture. Patient Usually Is ambulating well without a walker or a cane. She denies any head trauma, loss of consciousness, headache, dizziness, seizure activity, syncopal or presyncopal symptoms. Review of Systems Constitutional: No fever, No chills. Eye: No visual disturbances. Ear/Nose/Mouth/Throat: No nasal congestion, No sore throat. Respiratory: No shortness of breath, No cough. Cardiovascular: No chest pain, No tachycardia. Gastrointestinal: No nausea, No vomiting, No abdominal pain. Genitourinary: No change in urine stream. Hematology/Lymphatics: No bleeding tendency. Endocrine: No polyuria, No cold intolerance, No heat intolerance. Immunologic: Negative. Musculoskeletal: left hip pain and swelling. Integumentary: Negative. Neurologic: No confusion, No numbness, No tingling, No headache. Psychiatric: No anxiety, No depression. All other systems are negative Health Status Allergies: Allergies (1) Active Reaction No Known Medication Allergies None Documented Current medications: Home Medications (10) Active Cymbalta 60 mg, Oral, Daily Ditropan 10 mg, Oral, Daily gabapentin 300 mg, Oral, TID Lasix 20 mg, Oral, Daily Levsin SL Metoprolol Tartrate 100 mg oral tablet , Oral, Daily Micro-K 10 oral capsule, extended release 10 mEq = 1 Cap, Oral, Daily Norvasc 5 mg, Oral, Daily Percocet 10/325 oral tablet 2 Tab, PRN, Oral, BID Vitamin B12 1,000 mg, Oral, Daily , Medications (31) Active Scheduled: (9) amLODIPine 5 mg tab 5 mg 1 Tab, Oral, Daily cefTRIAXone + NaCl 0.9% 50 mL 1 Gram, IV Piggyback, 1-Time cyanocobalamin 1,000 mg, Oral, Daily docusate sodium 100 mg cap 100 mg 1 Cap, Oral, BID DULoxetine DR 60 mg cap 60 mg 1 Cap, Oral, Daily furosemide 20 mg tab 20 mg 1 Tab, Oral, Daily gabapentin 300 mg cap 300 mg 1 Cap, Oral, TID insulin lispro Scale C:, SubCutaneous, AC and at Bedtime oxybutynin 5 mg tab 10 mg 2 Tab, Oral, Daily Continuous: (0) PRN: (22) acetaminophen 325 mg tab 650 mg 2 Tab, Oral, Q4H acetaminophen/oxyCODONE 325/10 mg tab 2 Tab, Oral, QID ALPRAZolam 0.25 mg tab 0.25 mg 1 Tab, Oral, Q6H bisacodyl 10 mg supp 10 mg 1 Supp, Rectal, BID calcium gluconate 1 Gram 10 mL, IV Piggyback, Daily calcium gluconate 2 Gram, IV Piggyback, Daily calcium gluconate 2 Gram, IV Piggyback, Q12H cloNIDine 0.1 mg tab 0.1 mg 1 Tab, Oral, Q4H HYDROmorphone 0.5 mg 0.5 mL, IV Push, Q2H magnesium hydroxide 8% liq 30 mL 30 mL, Oral, Daily magnesium sulfate 2 Gram, IV Piggyback, Daily magnesium sulfate 2 Gram, IV Piggyback, Q2H metoclopramide 10 mg/2 mL inj 5 mg 1 mL, IV Push, Q6H ondansetron 4 mg/2 mL inj 4 mg 2 mL, IV Push, Q4H potassium chloride 20 mEq, Oral, Q2H potassium chloride 60 mEq, Oral, Q2H potassium chloride 10 mEq 50 mL, IV Piggyback, Q1H scopolamine 1.5 mg/72 hr patch 1 Patch, TransDermal, Q3Days sodium phosphate 15 mMole 5 mL, IV Piggyback, Daily sodium phosphate 15 mMole 5 mL, IV Piggyback, Q6H temazepam 15 mg cap 15 mg 1 Cap, Oral, At Bedtime traZODone 50 mg tab 50 mg 1 Tab, Oral, At Bedtime Problem list: Active Problems (8) Acid reflux Chronic pain Depression H. pylori infection Heart murmur Hypertension Incontinent of urine Kidney stones Histories Family History: family history significant for CAD, DM, HTN and cancer Procedure history: choleycystectomy. hysterectomy 2012. back sugery x 2. Social History patient is and has 2 children that is no history of smoking or drinking alcohol. Physical Examination VS/Measurements Vital Signs/Vital Measures 12/19/2019 13:15 EDT Systolic Blood Pressure 194 mmHg HI Diastolic Blood Pressure 92 mmHg HI Temperature Source Temporal artery scanning Temperature Mode Fahrenheit Temperature, Fahrenheit 97.7 Deg F Clinical Temperature, C 36.5 Deg C Peripheral Pulse Rate 66 bpm Respiratory Rate 18 Breaths/Min Oxygen Saturation 91 % LOW Oxygen Therapy Mode Room air General: Alert and oriented, No acute distress. Eye: Pupils are equal, round and reactive to light, Normal conjunctiva, Vision unchanged. HENT: Normocephalic, Tympanic membranes are clear, Normal hearing, Oral mucosa is moist, No pharyngeal erythema, No sinus tenderness. Neck: Supple, Non-tender, No carotid bruit, No jugular venous distention, No lymphadenopathy, No thyromegaly. Respiratory: Lungs are clear to auscultation, Respirations are non-labored, Breath sounds are equal, Symmetrical chest wall expansion, No chest wall tenderness. Cardiovascular: Normal rate, Regular rhythm, No murmur, No gallop, Good pulses equal in all extremities, Normal peripheral perfusion, No edema. Gastrointestinal: Soft, Non-tender, Non-distended, Normal bowel sounds, No organomegaly. Genitourinary: No costovertebral angle tenderness, No inguinal tenderness, No urethral discharge, No lesions. Lymphatics: No lymphadenopathy neck, axilla, groin. Musculoskeletal: left hip pain with any movement. Integumentary: Warm, [place], Intact, No pallor, No rash. Neurologic: Alert, Oriented, Normal sensory, Normal motor function, No focal deficits, Cranial Nerves II-XII are grossly intact, Normal deep tendon reflexes. Psychiatric: Cooperative, Appropriate mood & affect, Normal judgment, Non-suicidal. Review / Management Results review: Lab results 12/19/2019 14:41 EDT Sodium Level 139 mmol/L Potassium Level 4.1 mmol/L Chloride Level 106 mmol/L Carbon Dioxide Level 24 mmol/L Anion Gap 13 Glucose Level 212 mg/dL HI Blood Urea Nitrogen 16 mg/dL CREATININE 0.73 mg/dL eGFR >60 mL/min/1.73m2 eGFR NonAfrican >60 mL/min/1.73m2 Bun/Creatinine 21.9 HI Calcium Level 8.6 mg/dL Protein Total 7.5 Gram/dL Albumin Level 3.9 Gram/dL Globulin 3.6 Gram/dL A/G Ratio 1.1 Bilirubin Total 0.5 mg/dL Alk Phos 60 Units/Liter AST 21 Units/Liter ALT 35 Units/Liter WBC 11.7 K/uL HI RBC 4.41 Million/uL Hgb 14.1 Gram/dL Hct 43.2 % MCV 98.0 fL HI MCH 32.0 pg MCHC 32.6 Gram/dL Platelet Count 176 K/uL MPV 10.8 fL RDW 12.2 % Neut % 82.4 % HI Neut # 9.61 K/uL HI Lymph % 11.0 % LOW Lymph # 1.28 K/uL [place] % 5.4 % [place] # 0.63 K/uL Eos % 0.4 % LOW Eos # 0.05 K/uL Baso % 0.3 % Baso # 0.04 K/uL Slide Review No IG# 0 x10(3)/uL IG% 0 % 12/19/2019 14:02 EDT Urine Type U CleanCatch Urine Color Yellow Urine Appearance Clear Urine Specific [place] 1.024 Urine pH Dipstick 7.0 Urine Leukocyte Esterase Negative Urine Nitrite Negative Urine Protein Dipstick Negative Urine Glucose Dipstick >=1000 Urine Ketones Dipstick 40 Urine Urobilinogen Dipstick 0.2 EU/dL Urine Bilirubin Dipstick Negative Urine Blood Dipstick Negative Ur RBC 0-2 /HPF Ur WBC 5-10 /HPF Ur Bacteria 3+ Ur Epithelial Cells 0-2 /HPF . Impression and Plan Diagnosis Fall - Admitting, [...] Hypertension - Admitting, Emergency medicine, Medical. Course: Plan/pain control. DVT prophylaxis. Close monitoring fluid and electrolytes. Fall risk precautions. Sleep apnea precautions. Stress ulcer prophylaxis. Close monitoring blood pressure, blood glucose and renal function. We'll check her hemoglobin A1c and 25 hydroxyvitamin D level. Nothing by mouth after midnight.. documented in this encounter Plan of Treatment Not on file documented as of this encounter Visit Diagnoses Not on filedocumented in this encounter
--- OUTSIDE RECORDS SUMMARY | 2025-07-01 10:27 | XMS_ITS | Encounter Summary ---
Author Organization [employer] ([place], [place], [place], [place], [place]) Address [address] [place] [address] Care Team Providers Care Lumber Kiln Operator Name Role Phone Unavailable Primary Care Provider Unavailabl e Encounter Details Date Type Department Care Team (Late st Contact Info) Description 12/20/2019 Transcribed Document [facility] [place] [address] [place] [address] ProviderCl MD [address] [place] [address] Social History Tobacco Use Types Packs/Day Years Used Date Smoking Tobacco: Never Assessed Comments Unknown Sex and Gender Information Value Date Recorded Sex Assigned at Not on file Legal Sex Female 5:11 PM CDT Gender Identity Not on file Sexual Orientation Not on file documented as of this encounter Miscellaneous Notes * Cerner Conversion Note - Historical ProviderMD - 12/20/2019 2:00 AM CDT [employer] Details Entered On: 12/20/2019 6:10 EDT Performed On: 12/20/2019 2:00 EDT by Shena Sharma, RN Order Details Transport Mode Order Detail : Stretcher/Gurney Isolation Precautions Order Detail : Standard Precautions Order Detail : N/A IV Order Detail : 1 Oxygen Order Detail : 0 Nurse Collect Order Detail : 0 Lift/Transfer : Maximal assist Central Line Order Detail : No Arterial Line : No Shena Sharma, RN - 12/20/2019 6:10 EDT documented in this encounter Plan of Treatment Not on file documented as of this encounter Visit Diagnoses Not on filedocumented in this encounter
--- OUTSIDE RECORDS SUMMARY | 2025-07-01 10:27 | XMS_ITS | Encounter Summary ---
Author Organization [employer] ([place], [place], [place], [place], [place]) Address [address] [place] [address] Care Team Providers Care Honing Machine Operator Tool Name Role Phone Unavailable Primary Care Provider Unavailabl e Encounter Details Date Type Department Care Team (Late st Contact Info) Description 12/20/2019 Transcribed Document [facility] [place] [facility] [place] [address] ProviderCl MD [address], [place] [id number] Social History Tobacco Use Types Packs/Day Years Used Date Smoking Tobacco: Never Assessed Comments Unknown Sex and Gender Information Value Date Recorded Sex Assigned at Not on file Legal Sex Female 5:11 PM CDT Gender Identity Not on file Sexual Orientation Not on file documented as of this encounter Miscellaneous Notes * Cerner Conversion Note - Cl ProviderMD - 12/20/2019 3:53 PM CDT DATE OF PROCEDURE: 12/20/2019 SURGEON: Demarcus Malloy MD PREOPERATIVE DIAGNOSIS: Left hip femoral neck fracture. POSTOPERATIVE DIAGNOSIS: Left hip femoral neck fracture. PROCEDURE: Left hip hemiarthroplasty. ANESTHESIA: General. IMPLANTS USED: Joe Accolade II press-fit stem size 3 with a 46 mm outer diameter head and a +8 neck. ESTIMATED BLOOD LOSS: 200 cc. COMPLICATIONS: None apparent. SPECIMENS: None. INDICATIONS FOR SURGERY: Patient is a 79-year-old female who presented after a trip and fall, landing on the left side, sustaining left hip femoral neck fracture. Treatment options were discussed with the patient including operative versus nonoperative treatment. We discussed the risks and benefits of surgery including but not limited to bleeding, infection, injury to surrounding structures such as blood vessels, tendons, and nerves. We discussed the risk of instability, leg length discrepancy, persistent pain, persistent weakness, persistent stiffness, loss of function, need for future surgery, as well as risk of heart attack, stroke, or . She does understand all these and does like to proceed with surgical treatment at this point. DESCRIPTION OF PROCEDURE: The patient was identified in the preoperative holding area and her left hip was marked. She was transported to the operating room where she was placed supine while still supine on the operative stretcher. General anesthesia was induced. She was then transferred to the surgical table where she was flipped right lateral decubitus with all bony prominences padded. The left leg was then prepped and draped in the usual sterile fashion. Preoperative time-out was performed, indicating correct patient, correct site, correct procedure, and that preoperative antibiotics had been given. Next, an incision was made over the posterior aspect of the hip using the standard posterior lateral approach. This was carried down through the subcutaneous tissues and the fascia shania was split in line with the incision. The hip was externally rotated and the short external rotators were removed off the posterior aspect of the hip, exposing the capsule. A T capsulotomy was performed exposing the femoral head. The femoral head was noted to be fractured as anticipated. It was removed from the acetabulum using a corkscrew. This was taped on the back table where it was sized. Retractors were then placed around the acetabulum and sizing using trial heads was undertaken and a 46 mm head was found to be appropriate size. Next, I turned my attention to the femoral side, a saw was used to perform a neck cut approximately 1 cm from the lesser trochanter. Excess bone and soft tissue were removed. I next proceeded with preparing the femur. I did feel that she had pretty good bone quality; therefore, I felt that she would be a reasonable candidate for press-fit stem as I thought that the shape of her bone would allow for appropriate press-fit fixation. Therefore, using the press-fit broaches, she was sequentially broached until a size 3 was noted to be appropriate fit and fill. I next trialed and found that the hip had good stability between a size 4 and size 8; therefore, the femoral canal was washed and cleaned and the final femoral implant was malleted into place. I again trialed using a +4 and +8 sized head and I felt that the +8 provided slightly additional stability. It may have slightly lengthened her leg, but I felt this was reasonable to ensure a stable hip. Once this was decided, the final head and neck were then malleted into place. The hip was reduced. The stability was checked 1 more time and found to have good stability intraoperatively. Leg lengths were again checked and found to be symmetric. The wound was then copiously irrigated. A dilute Betadine solution was then used to help with irrigation process. This was rinsed out after allowing it to sit for approximately 3 minutes. The posterior capsular tissue was then closed using 0 Vicryl, as were the short external rotators with 0 Vicryl suture. Next, the fascial layer was closed with a running #1 Stratafix followed by 2-0 Monocryl in subcuticular and subcutaneous layers. The wound was then closed with Prineo dressing. The leg was washed and dressed. The patient was then flipped supine and transferred to the stretcher where she was awoken and taken to the recovery room. DISPOSITION: Patient will be weightbearing as tolerated to her left lower extremity. She will start physical therapy as soon as possible. She will have posterior hip precautions. She will be placed on Lovenox for 30 days for DVT prophylaxis. She will be given antibiotics for 24 hours. She will be admitted back to the hospital for pain control and likely will need rehab placement. /[id number] Demarcus Malloy MD OM/AQ / NONA / MODL /[id number] Electronically signed by Ryanne Moise Conversion Manufacturing Engineering Professor Roberto at 10/17/2022 3:03 PM CDT documented in this encounter Plan of Treatment Not on file documented as of this encounter Visit Diagnoses Not on filedocumented in this encounter
--- OUTSIDE RECORDS SUMMARY | 2025-07-01 10:27 | XMS_ITS | Encounter Summary ---
Author Organization [employer] ([place], [place], [place], [place], [place]) Address [address] [place] [address] Care Team Providers Care Shredder Operator Name Role Phone Unavailable Primary Care Provider Unavailabl e Encounter Details Date Type Department Care Team (Late st Contact Info) Description 12/20/2019 Transcribed Document [facility] [place] Family Medicine [address] [place] [address] ProviderCl MD [address] [place] [address] Social History Tobacco Use Types Packs/Day Years Used Date Smoking Tobacco: Never Assessed Comments Unknown Sex and Gender Information Value Date Recorded Sex Assigned at Not on file Legal Sex Female 5:11 PM CDT Gender Identity Not on file Sexual Orientation Not on file documented as of this encounter Miscellaneous Notes * Cerner Conversion Note - Historical ProviderMD - 12/20/2019 6:23 PM CDT Event Note Entered On: 12/20/2019 18:23 EDT Performed On: 12/20/2019 18:23 EDT by Candida Meza RN Event Note Event Date/Time : 12/20/2019 18:15 EDT Event Location : Assigned room Description of Event : attempted to transfer pt to chair. pt is very somnolent and unable to sit up in bed. will defer transfer at this time. Candida Meza, JOSE ALBERTO - 12/20/2019 18:23 EDT documented in this encounter Plan of Treatment Not on file documented as of this encounter Visit Diagnoses Not on filedocumented in this encounter
--- OUTSIDE RECORDS SUMMARY | 2025-07-01 10:27 | XMS_ITS | Encounter Summary ---
Author Organization [employer] ([place], [place], [place], [place], [place]) Address [address] [place] [address] Care Team Providers Care Foreign Collection Clerk Name Role Phone Unavailable Primary Care Provider Unavailabl e Encounter Details Date Type Department Care Team (Late st Contact Info) Description 12/19/2019 Transcribed Document [facility] [place] Family Medicine [address] [place] [address] ProviderCl MD [address] [place] [id number] Social History Tobacco Use Types Packs/Day Years Used Date Smoking Tobacco: Never Assessed Comments Unknown Sex and Gender Information Value Date Recorded Sex Assigned at Not on file Legal Sex Female 5:11 PM CDT Gender Identity Not on file Sexual Orientation Not on file documented as of this encounter Miscellaneous Notes * Cerner Conversion Note - Historical ProviderMD - 12/19/2019 8:33 PM CDT ED Discharge Entered On: 12/19/2019 20:33 EDT Performed On: 12/19/2019 20:33 EDT by HAROLDO ECHEVARRIA RN Discharge Process Patient Disposition : Admit/Observe Personal Belongings With Patient : Yes Patient Education Completed : Yes Teaching Evaluation : Verbalizes understanding IV Discontinued : No HAROLDO ECHEVARRIA RN - 12/19/2019 20:33 EDT Admission, ED Nurse Report Accepted By : car LawsonNurse Report (Hand Off) : Called Accompanied By, Discharge : Care provider HAROLDO ECHEVARRIA RN - 12/19/2019 20:33 EDT Electronically signed by Ryanne Moise Conversion Infection Prevention Practitioner Cerner at 10/17/2022 3:20 PM CDT documented in this encounter Plan of Treatment Not on file documented as of this encounter Visit Diagnoses Not on filedocumented in this encounter
--- OUTSIDE RECORDS SUMMARY | 2025-07-01 10:27 | XMS_ITS | Encounter Summary ---
Author Organization [employer] ([place], [place], [place], [place], [place]) Address [address] [place] [address] Care Team Providers Care Armored Car Messenger Name Role Phone Unavailable Primary Care Provider Unavailabl e Encounter Details Date Type Department Care Team (Late st Contact Info) Description 12/19/2019 Transcribed Document [facility] [place] Family Medicine [address] [place] [address] ProviderCl MD [address] [place] [address] Social History Tobacco Use Types Packs/Day Years Used Date Smoking Tobacco: Never Assessed Comments Unknown Sex and Gender Information Value Date Recorded Sex Assigned at Not on file Legal Sex Female 5:11 PM CDT Gender Identity Not on file Sexual Orientation Not on file documented as of this encounter Miscellaneous Notes * Cerner Conversion Note - Cl ProviderMD - 12/19/2019 8:34 PM CDT [address] [address] PERSON INFORMATION Name JAMES BUSTILLO Age 79 Years 1940 Sex Female Language [place] PCP JANICE ARNETT NP-DEBORAH Marital Status Med Service Internal Medicine Acct# Arrival 12/19/2019 13:12:00 Visit Reason Hip injury - Minor; Hip pain-swelling; DISPLACED INTERTROCHANTERIC FRACTURE OF LEFT FEMUR, INIT Acuity 3 - Urgent LOS 000 07:22 Depart Date: 00:00 AM Address: [place] [address] Comment: PROVIDER INFORMATION Provider Role Assigned Unassigned LINDA OLVERA MD-[facility] ED Physician 12/19/2019 13:27:27 12/19/2019 19:21:15 Mariza Stanley, SHIFT MANAGER Nurse 12/19/2019 15:32:07 12/19/2019 19:19:36 HAROLDO ECHEVARRIA, SHIFT MANAGER Nurse 12/19/2019 19:19:37 [facility] ED Physician 12/19/2019 19:21:16 DIAGNOSIS PHYS DOC NOTES VITALS INFORMATION Vital Sign Triage Latest Temp Source Temporal artery scanning Oral Temp Mode Fahrenheit Fahrenheit Temp Fahrenheit 97.7 Deg F 98.0 Deg F Temp Celsius 02 Sat 91 % 96 % Respiratory Rate 18 Breaths/Min 20 Breaths/Min Peripheral Pulse Rate 66 bpm 62 bpm Apical Heart Rate Blood Pressure 194 mmHg / 92 mmHg 132 mmHg / 91 mmHg Comment: MEDICAL INFORMATION Allergy Info: No Known Medication Allergies Medications: Comment: DISCHARGE INFORMATION Discharge Disposition: Admitted as Inpatient Discharge Location: PATIENT EDUCATION INFORMATION Instructions: Follow up: Comment: Electronically signed by Ryanne Moise Conversion Aboriginal Education Worker Coordinator Cerner at 10/17/2022 3:11 PM CDT documented in this encounter Plan of Treatment Not on file documented as of this encounter Visit Diagnoses Not on filedocumented in this encounter
--- OUTSIDE RECORDS SUMMARY | 2025-07-01 10:27 | XMS_ITS | Encounter Summary ---
Author Organization [employer] ([place], [place], [place], [place], [place]) Address [address] [place] [address] Care Team Providers Care State Editor Name Role Phone Unavailable Primary Care Provider Unavailabl e Encounter Details Date Type Department Care Team (Late st Contact Info) Description 12/20/2019 Transcribed Document [facility] [place] Family Medicine [address] [place] [address] ProviderCl MD [address] [place] [address] Social History Tobacco Use Types Packs/Day Years Used Date Smoking Tobacco: Never Assessed Comments Unknown Sex and Gender Information Value Date Recorded Sex Assigned at Not on file Legal Sex Female 5:11 PM CDT Gender Identity Not on file Sexual Orientation Not on file documented as of this encounter Miscellaneous Notes * Cerner Conversion Note - Historical ProviderMD - 12/20/2019 5:00 AM CDT Chart Check - Review Order Profile Entered On: 12/20/2019 6:10 EDT Performed On: 12/20/2019 5:00 EDT by Shena Sharma RN Chart Check Powerplans Initiated/Discontinued as Appropriate : Yes All Active Orders Reviewed : Yes Shena Sharma RN - 12/20/2019 6:10 EDT Electronically signed by Ryanne Moise Conversion Automatic Punch Press Operator Cerner at 10/17/2022 3:29 PM CDT documented in this encounter Plan of Treatment Not on file documented as of this encounter Visit Diagnoses Not on filedocumented in this encounter
--- OUTSIDE RECORDS SUMMARY | 2025-07-01 10:27 | XMS_ITS | Encounter Summary ---
Author Organization [employer] ([place], [place], [place], [place], [place]) Address [address] [place] [address] Care Team Providers Care Cafeteria Assistant Name Role Phone Unavailable Primary Care Provider Unavailabl e Encounter Details Date Type Department Care Team (Late st Contact Info) Description 12/20/2019 Transcribed Document [facility] Family Medicine [facility] [place] [address] ProviderCl MD [facility] [place] [address] Social History Tobacco Use Types Packs/Day Years Used Date Smoking Tobacco: Never Assessed Comments Unknown Sex and Gender Information Value Date Recorded Sex Assigned at Not on file Legal Sex Female 5:11 PM CDT Gender Identity Not on file Sexual Orientation Not on file documented as of this encounter Miscellaneous Notes * Cerner Conversion Note - Cl ProviderMD - 12/20/2019 2:11 PM CDT MARK Main OR IntraOp Summary Primary Physician: TARIQ TILLMAN MD-ORT Finalized Date/Time: 12/22/19 09:21:04 Pt. Name: POLY TALBERT Soy GrajedaB./Sex: 1940 Female Med Rec #: [id number] Physician: JUAN J DEL ROSARIO MD-INT Financial #: [id number] Pt. Type: I Room/Bed: [facility]/1 Admit/Disch: 12/19/19 18:29:00 - Institution: [facility] IntraOp Case Attendance Entry 1 Entry 2 Entry 3 Case Attendee TARIQ TILLMAN MD-LINDY PANG, RN Anastacia Parra Role Performed Surgeon/Proceduralist, Airway Controller, First Scrub, First First Time In 12/20/19 13:43:00 12/20/19 13:43:00 12/20/19 13:43:00 Time Out 12/20/19 15:33:00 12/20/19 15:33:00 12/20/19 15:33:00 Procedure Hip Eduardo Replacement Hip Eduardo Replacement Hip Eduardo Replacement Other Attendee Superficial Wound Closed By: Last Modified By: LINDY RODRIGUEZ, LINDY MENENDEZ, LINDY MENENDEZ RN 12/20/19 15:24:31 12/20/19 15:24:31 12/20/19 15:24:31 Entry 4 Entry 5 Entry 6 Case Attendee Tez Euceda, Alexander FULLER, VALENTIN ENGEL, OTHER, ATTENDEE Grapple Yarder Operator SJ Role Performed Photographic Colorist, First Anesthesiologist Surgeon/Proceduralist, Third Time In 12/20/19 13:43:00 12/20/19 13:43:00 12/20/19 13:43:00 Time Out 12/20/19 15:33:00 12/20/19 15:33:00 12/20/19 15:33:00 Procedure Hip Eduardo Replacement Hip Eduardo Replacement Hip Eduardo Replacement Other Attendee miguel hussein Superficial Wound Closed By: Last Modified By: LINDY RODRIGUEZ, LINDY MENENDEZ, LINDY MENENDEZ RN 12/20/19 15:24:31 12/20/19 15:24:31 12/20/19 14:15:39 SJ IntraOp Case Attendance Audit 12/20/19 15:24:31 News Cameraman: VERONIQUE Modifier: VERONIQUE 1 <+> Time Out 1 <*> Procedure Hip Eduardo Replacement 2 <+> Time Out 2 <*> Procedure Hip Eduardo Replacement 3 <+> Time Out 3 <*> Procedure Hip Eduardo Replacement 4 <+> Time Out 4 <*> Procedure Hip Eduardo Replacement 5 <+> Time Out 5 <*> Procedure Hip Eduardo Replacement 6 <+> Time Out 6 <*> Procedure Hip Eduardo Replacement 12/20/19 14:15:39 News Cameraman: VERONIQUE Modifier: VERONIQUE 1 <+> Time In 1 <*> Procedure Hip Eduardo Replacement <+> 2 Case Attendee <+> 2 Role Performed <+> 2 Time In <+> 2 Procedure <+> 3 Case Attendee <+> 3 Role Performed <+> 3 Time In <+> 3 Procedure <+> 4 Case Attendee <+> 4 Role Performed <+> 4 Time In <+> 4 Procedure <+> 5 Case Attendee <+> 5 Role Performed <+> 5 Time In <+> 5 Procedure <+> 6 Case Attendee <+> 6 Role Performed <+> 6 Time In <+> 6 Procedure <+> 6 Other Attendee 12/20/19 14:09:44 News Cameraman: VERONIQUE Modifier: VERONIQUE 1 <*> Procedure Hip Eduardo Replacement, Femur Intramedullary Nailing Hip Gamma [facility] IntraOp Case Times Entry 1 Patient In Room Time 12/20/19 13:43:00 Out Room Time 12/20/19 15:33:00 Anesthesia Start Time 12/20/19 13:43:00 Stop Time 12/20/19 15:33:00 Anesthesia Ready 12/20/19 13:43:00 Surgery / Procedure Times Start Time 12/20/19 14:11:00 Stop Time 12/20/19 15:23:00 Last Modified By: LINDY RODRIGUEZ RN 12/20/19 14:11:33 [facility] IntraOp Case Times Audit 12/20/19 15:24:15 News Cameraman: VERONIQUE Modifier: VERONIQUE <+> 1 Out Room Time <+> 1 Stop Time <+> 1 Stop Time [facility] IntraOp Cautery Entry 1 ESU Identification Cautery Type Monopolar ESU ID Number [id number] ID Type Hospital Number Cautery Settings Cut Setting 40 Coag Setting 40 ESU Grounding Pad Ground Pad Type Adult Grounding Pad Site Right thigh Grounding Pad LINDY RODRIGUEZ RN Applied By Grounding Pad Site Intact Skin Condition Before Cautery Grounding Pad Site Unchanged Skin Condition After Cautery Last Modified By: LINDY RODRIGUEZ RN 12/20/19 14:23:23 [facility] IntraOp Counts Verification Entry 1 Entry 2 Procedure Hip Eduardo Replacement Hip Eduardo Replacement Count Info Count Type Sponge, Sharps Sponge, Sharps Counts Verification Baseline/pre-procedure Before wound closure Sequence Count Results Not Applicable Correct, surgeon notified If Incorrect or Waived complete the Counts Action Taken form: If Intentional Retention, complete the Intential Retention form: Counts Performed By Count Performed By Anastacia Parra Sarah (Scrub) Count Performed By LINDY RODRIGUEZ RN GRAHAM, KIMBERLY RN (RN) Last Modified By: LINDY RODRIGUEZ RN GRAHAM, KIMBERLY, RN 12/20/19 14:21:54 12/20/19 14:21:54 [facility] IntraOp Counts Final Entry 1 Procedure Hip Eduardo Replacement Final Count Info Count Type Sponge, Sharps Counts Verification Skin Closure/end of Sequence procedure Count Results Correct, surgeon notified Counts Performed By Count Performed By Anastacia Parra (Scrub) Count Performed By LINDY RODRIGUEZ RN (RN) Last Modified By: LINDY RODRIGUEZ RN 12/20/19 14:24:33 [facility] IntraOp Cultures and Spec Summary Entry 1 Cultrures and Specimens Specimen Ordered: Yes Test(s) Routine/Path-Lab Requested/Final Disposition Last Modified By: LINDY RODRIGUEZ RN 12/20/19 14:24:16 [facility] IntraOp Departure from OR Entry 1 Integumentary Assessment Integumentary WDL Assessment WDL Transfer/Handoff Transfer to PACU Phase I Handoff Method Bedside/Face to face Post-op Transport Bed (including Via specialty) Patient Transport LINDY RODRIGUEZ RN, Accompanied by VALENTIN FULLER MD-ANS Last Modified By: LINDY RODRIGUEZ RN 12/20/19 14:25:03 [facility] IntraOp Dressing and Packing Entry 1 Type Dressing Location OPERATIVE SITE Wound Dressing Item Occlusive dressing Tape Type Paper Applied By Tez Euceda, Coal Getter Other Comments AQUACEL DRESSING X 2 Last Modified By: LINDY RODRIGUEZ RN 12/20/19 14:24:39 [facility] IntraOp Fire Risk Assessment Entry 1 Fire Info Surgical Site or 0- No Incision Above the Xyphoid Open O2 Source 0- No (Mask or Cannula) Available Ignition 1- Yes (ESU, Laser, Light Source) Fire Risk 1 Assessment Score Fire Score Fire Risk Yes Assessment Complete Fire Risk LINDY RODRIGUEZ RN Assessment Verified By Fire Risk 12/20/19 13:43:00 Assessment Verified Date/Time Fire Risk Standard Fire Yes Safety Precautions Followed Last Modified By: LINDY RODRIGUEZ RN 12/20/19 14:09:37 [facility] IntraOp Fire Risk Assessment Audit 12/20/19 14:19:41 News Cameraman: VERONIQUE Modifier: VERONIQUE <+> 1 Fire Risk Assessment Verified By <+> 1 Fire Risk Assessment Verified Date/Time S[facility] IntraOp General Case Radioactive Waste Disposal Dispatcher 1 Case Information OR OR 01 [facility] Case Level 1 Room Verified Yes Wound Class I - Clean Specialty SN Orthopedic Anesthesia Type General ASA Class 3 Diagnosis Preop Diagnosis fracture left hip Postop Same As Preop Yes Postop Diagnosis fracture left hip Last Modified By: LINDY RODRIGUEZ RN 12/20/19 14:22:13 [facility] IntraOp Implant Log Entry 1 Entry 2 Entry 3 Type Implant (Synthetic) Implant (Synthetic) Implant (Synthetic) Implant Log Implant Type Bone Cement Hardware Hardware Tissue Implant Type Implant CEMENT BONE SMPLX TOBRA HIP STEM ACCOLADE II HEAD FEM BPLR UNIV UHR Identification [id number] Description Implant Quantity 2 1 1 Implant Site Implant Identification Model Number Implant Identification Serial Number Implant [id number] Identification Lot Number Implant Woodstock:Joe Woodstock:Joe Woodstock:Woodstock Identification Orthopaedics Orthopaedics Orthopaedics Training And Development Coordinator Name: Implant [id number] Identification Catalog Number Implant Size Implant Has an Yes Yes Yes Expiration Date Implant Expiration 03/01/21 09/08/23 11/10/23 Date Wasted Yes Radioactive Material Time Implanted Tissue Implant Continue for Tissue Implant Documentation Tissue Identification Number Graft Prep Per Training And Development Coordinator Instructions: Tissue Preparation Method: Reconstitution Solution: Reconstitution Solution Lot Number Reconstitution Solution Expiration Date: Thawing Solution Thawing Solution Lot Number Thawing Solution Expiration Date Preparation Materials, Other Preparation Materials, Other Lot Number Preparation Materials, Other Expiration Date Tissue Prepared/Processed By Training And Development Coordinator Paperwork Completed Implant Type Comment Last Modified By: LINDY RODRIGUEZ RN GRAHAM, KIMBERLY, LINDY MENENDEZ RN 12/20/19 14:42:43 12/20/19 15:04:57 12/20/19 15:04:57 Entry 4 Type Implant (Synthetic) Implant Log Implant Type Hardware Tissue Implant Type Implant HEAD FEM LFIT [id number] 28MM Identification [id number] Description Implant Quantity 1 Implant Site Implant Identification Model Number Implant Identification Serial Number Implant [id number] Identification Lot Number Implant Joe:Woodstock Identification Orthopaedics Training And Development Coordinator Name: Implant [id number] Identification Catalog Number Implant Size Implant Has an Yes Expiration Date Implant Expiration 11/04/23 Date Wasted Radioactive Material Time Implanted Tissue Implant Continue for Tissue Implant Documentation Tissue Identification Number Graft Prep Per Training And Development Coordinator Instructions: Tissue Preparation Method: Reconstitution Solution: Reconstitution Solution Lot Number Reconstitution Solution Expiration Date: Thawing Solution Thawing Solution Lot Number Thawing Solution Expiration Date Preparation Materials, Other Preparation Materials, Other Lot Number Preparation Materials, Other Expiration Date Tissue Prepared/Processed By Training And Development Coordinator Paperwork Completed Implant Type Comment Last Modified By: LINDY RODRIGUEZ RN 12/20/19 15:04:57 [facility] IntraOp Implant Log Audit 12/20/19 15:04:57 News Cameraman: VERONIQUE Modifier: VERONIQUE 1 <*> Implant Identification Description CEMENT BONE SMPLX TOBRA [id number] <+> Wasted <+> 2 Implant Identification Description <+> 2 Implant Identification Lot Number <+> 2 Implant Identification Training And Development Coordinator Name: <+> 2 Implant Expiration Date <+> 2 Implant Quantity <+> 2 Implant Identification Catalog Number <+> 2 Implant Type <+> 2 Implant Has an Expiration Date <+> 2 Type <+> 3 Implant Identification Description <+> 3 Implant Identification Lot Number <+> 3 Implant Identification Training And Development Coordinator Name: <+> 3 Implant Expiration Date <+> 3 Implant Quantity <+> 3 Implant Identification Catalog Number <+> 3 Implant Type <+> 3 Implant Has an Expiration Date <+> 3 Type <+> 4 Implant Identification Description <+> 4 Implant Identification Lot Number <+> 4 Implant Identification Training And Development Coordinator Name: <+> 4 Implant Expiration Date <+> 4 Implant Quantity <+> 4 Implant Identification Catalog Number <+> 4 Implant Type <+> 4 Implant Has an Expiration Date <+> 4 Type [facility] IntraOp Intraoperative Assessment Entry 1 Handoff Method Bedside/Face to face Valid History / Yes Physical in Chart Preoperative Yes Checklist Reviewed/Evaluated Allergies Reviewed Yes Patient is Latex No Sensitive Isolation Not applicable Precautions Noted Level of WDL Consciousness (WDL = Alert, Oriented to Person, Place, and Time) Skin Assessment Yes Verified Present Upon IVs, Urinary catheter Arrival to OR Last Modified By: LINDY RODRIGUEZ RN 12/20/19 14:21:24 [facility] IntraOp Intraoperative Equipment Entry 1 Equipment Intraop Monitoring Electrocardiogram Three lead placement (ECG) Electrode Placement Blood Pressure Non-Invasive BP Device Source Blood Pressure Arm, right upper Location Pulse Oximeter Hand, left Probe Site Antiembolic Devices Antiembolic Devices Sequential compression device, knee high Antiembolic Device Right Location Scopes Photo/Video Documentation Photo No Video No Last Modified By: LINDY RODRIGUEZ RN 12/20/19 14:22:53 [facility] IntraOp Medication Admin Entry 1 Medication/Irrigant TRANEXAMIC ACID 1000MG/10 ML [id number] Combo Med List 1 - Combo Med Route of iv Administration Dose Dose 0.8 Unit of Measure ml Administered By VALENTIN FULLER MD-ANS Procedure Irrigation Last Modified By: LINDY RODRIGUEZ RN 12/20/19 14:23:54 S[facility] IntraOp Patient Positioning Entry 1 Procedure Hip Eduardo Replacement Body Position Supine Left Arm Position Secured across chest Right Arm Position Secured on padded arm board Left Leg Position Held on field Right Leg Position Uncrossed, parallel Feet Uncrossed Yes Pressure Points Yes Checked Positioning Devices Arm Board, Peg Board, Safety Strap, Chest Device Position OPERATIVE LEG PLACED IN TRACTION, PADDED WITH SOFT ROLL. NON-OPERATIVE LEG SUPPORTED ON POPLITEAL WELL LEG LUCIANO, PADDED WITH GEL PAD. OPERATIVE-SIDE ARM SECURED ACROSS CHEST WITH PADDING AND LG. IRA WRAP. NON-OPERATIVE ARM ON PADDED ARM BOARD. Positioned By Tez Euceda, Coal Getter, TARIQ TILLMAN MD-ORT, LINDY RODRIGUEZ, JOSE ALBERTO Position Verified Positioning Yes Verified by Anesthesia Positioning Yes Verified by Surgeon Last Modified By: LINDY RODRIGUEZ RN 12/20/19 14:18:51 [facility] IntraOp Sign In Entry 1 Patient, Site, Yes Procedure Identified Surgical Consent Yes Confirmed Relevant Surgical Yes Documents Available Surgical Site Yes Marked by person performing procedure Anesthesia Machine Yes Check Completed Medication Checks Yes Completed Allergies No Airway Difficult No Airway/Aspiration Risk Difficult No Airway/Aspiration Intervention Equipment Available Blood Loss Risk No Blood Loss No Intervention Equipment Prepared and Ready Blood Identifiers Not applicable Verified Per Policy Hypothermia Risk Yes Warming Measures Yes Taken Last Modified By: LINDY RODRIGUEZ RN 12/20/19 14:11:49 [facility] Intra Op Sign Out Entry 1 RN Confirmation Surgical Yes Procedure(s) Identified Instrument, Sponge Yes and Sharps Counts Correct/Documented Equipment Problems N/A Documented Specimen Labeled N/A Correctly Urinary Catheter N/A Documented in IView Wall Patient Yes Recovery Concerns Reviewed with Anesthesia Provider, Surgeon and RN Wall Patient Yes Management Concerns Reviewed with Anesthesia Provider, Surgeon and RN Safety Checklist Yes Elements Complete? RN Sign Out LINDY RODRIGUEZ RN Signature RN Sign Out 12/20/19 15:23:00 Signature Date/Time Plan of Care Outcome - Fire Risk OUTCOME STATEMENT: Goal met Patient is free from injury related to surgical fire Plan of Care Outcome - Pt Positioning OUTCOME STATEMENT: Goal met Absence of signs and symptoms of positioning injury. Plan of Care Outcome - Skin Prep OUTCOME STATEMENT: Goal met Intraoperative care is consistent with measures to prevent infection Plan of Care Outcome - Xray/Images OUTCOME STATEMENT: Goal met Absence of observable signs or symptoms of radiation injury Plan of Care Outcome - Counts OUTCOME STATEMENT: Goal met Absence of signs and symptoms of injury related to extraneous objects Last Modified By: LINDY RODRIGUEZ RN 12/20/19 14:24:52 [facility] Intra Op Sign Out Audit 12/20/19 15:24:02 News Cameraman: VERONIQUE Modifier: VERONIQUE <+> 1 RN Sign Out Signature Date/Time [facility] IntraOp Skin Prep Entry 1 Procedure Hip Eduardo Replacement Prescribed Yes Pre-Surgical Prep Completed Prep Area OPERATIVE SITE Intraop Prep Integumentary WDL Assessment WDL Prep Agents Chloraprep Prep by LINDY RODRIGUEZ RN Hair Removal Last Modified By: LINDY RODRIGUEZ RN 12/20/19 14:22:21 [facility] IntraOp Surgical Procedures Entry 1 Procedure Hip Eduardo Replacement Additional right hip Procedure hemiarthroplasty Description Primary Procedure Yes Primary Surgeon TARIQ TILLMAN MD-ORT Start 12/20/19 14:11:00 Stop 12/20/19 15:23:00 Anesthesia Type General Specialty SN Orthopedic Wound Class I - Clean Last Modified By: LINDY RODRIGUEZ RN 12/20/19 14:43:21 [facility] IntraOp Surgical Procedures Audit 12/20/19 15:23:49 News Cameraman: VERONIQUE Modifier: VERONIQUE 1 <*> Procedure Hip Eduardo Replacement 1 <+> Primary Procedure 1 <+> Stop 12/20/19 14:43:21 News Cameraman: VERONIQUE Modifier: VERONIQUE 1 <*> Procedure Hip Eduardo Replacement 1 <+> Additional Procedure Description 12/20/19 14:18:57 News Cameraman: VERONIQUE Modifier: VERONIQUE <+> 1 Start 12/20/19 14:11:03 News Cameraman: VERONIQUE Modifier: JENNIFERLAUREEN Entry 1 was deleted. Higher numbered entries shifted one position to fill the gap. <-> 1 Procedure Femur Intramedullary Nailing Hip Gamma <-> 1 Primary Procedure Yes <-> 1 Primary Surgeon TARIQ TILLMAN MD-ORT <-> 1 Specialty <-> 1 Wound Class I - Clean <-> 1 Anesthesia Type General <-> 1 Additional Procedure Description Left Hip Im nail [facility] IntraOp Temp Regulation Devices Entry 1 Temp Regulation Temperature Forced Air Warming Regulation Device device Temperature VALENTIN FULLER, Regulation Device SJ Applied by Last Modified By: LINDY RODRIGUEZ RN 12/20/19 14:23:01 [facility] IntraOp Time Out Entry 1 Procedure to be Hip Eduardo Replacement Performed Time Out Time Out Pause Time 12/20/19 14:10:00 All activity Yes suspended (unless life threatening emergency) Team Verbally Correct patient Confirms Information identity, Correct side and site are marked, Consent form is present and accurate, Agreement on the procedure to be done, Correct patient position, Relevant images/results properly labeled/appropriately displayed, Confirm antibiotics have been administered, Confirm the skin prep has dried, Confirm prosthesis/implant/devic e is present, Performed in location of procedure after prepped/draped Antibiotic Yes Prophylaxis Administered Or In Progress Within the Last 60 Minutes Beta Don Yes Administered Venous Yes Thromboembolism Prophylaxis Required Anticipated Critical Events Surgeon None expected Anesthesia Provider None expected Nursing Assures Sterility of instruments Essential Imaging N/A Labeled and Displayed Last Modified By: LINDY RODRIGUEZ RN 12/20/19 14:21:11 Case Comments <None> Finalized By: Cierra Stafford, RN Document Signatures Signed By: LINDY RODRIGUEZ RN 12/20/19 15:24 Cierra Stafford RN 12/22/19 09:21 Unfinalized History Date/Time Username Reason for Unfinalizing Freetext Reason for Unfinalizing 12/22/19 09:20 LEATHA Correct Billing Electronically signed by Navid Moise Conversion Classroom Technology Technician Cerner at 10/17/2022 3:12 PM CDT documented in this encounter Plan of Treatment Not on file documented as of this encounter Visit Diagnoses Not on filedocumented in this encounter
--- OUTSIDE RECORDS SUMMARY | 2025-07-01 10:27 | XMS_ITS | Encounter Summary ---
Author Organization [employer] ([place], [place], [place], [place], [place]) Address [address] [place] [address] Care Team Providers Care Brush And Broom Clipper Name Role Phone Unavailable Primary Care Provider Unavailabl e Encounter Details Date Type Department Care Team (Late st Contact Info) Description 12/19/2019 Transcribed Document [facility] [address] [place] [address] ProviderCl MD [address] [place] [address] Social History Tobacco Use Types Packs/Day Years Used Date Smoking Tobacco: Never Assessed Comments Unknown Sex and Gender Information Value Date Recorded Sex Assigned at Not on file Legal Sex Female 5:11 PM CDT Gender Identity Not on file Sexual Orientation Not on file documented as of this encounter Miscellaneous Notes * Cerner Conversion Note - Historical ProviderMD - 12/19/2019 1:12 PM CDT ED Assessment Entered On: 12/19/2019 19:44 EDT Performed On: 12/19/2019 14:00 EDT by Mariza Stanley RN ED Quick Look Assessment Level of Consciousness : Alert, Awake Affect/Behavior : Appropriate, Calm, Cooperative Orientation : Oriented x 4 Skin Description : Normal for ethnicity Mariza Stanley RN - 12/19/2019 19:43 EDT ED General-Functional Assess Preferred Communication Mode : Verbal Communication Barrier : None Primary Language : Slovenian Any Spiritual/Cultural Needs or Requests : No Currently in Unsafe Situation : No Mariza Stanley RN - 12/19/2019 19:43 EDT Social Habits Smoking Status : Never (less than 100 in lifetime; none in last 30 days) Smokeless Tobacco Status : Never Desires Tobacco Cessation Calc : 0 Mariza Stanley RN - 12/19/2019 19:43 EDT Social History (As Of: 12/19/2019 19:44:34 EDT) Tobacco: Use in Last 12 Months: No. Smoking Status Never smoker. (Last Updated: 12/16/2013 06:28:55 EDT by LUC ACOSTA, JOSE ALBERTO) Never (less than 100 in lifetime) Smoking Status. (Last Updated: 12/19/2019 19:44:06 EDT by Mariza Stanley, RN) Alcohol: Use in Last 12 Months: No. (Last Updated: 12/16/2013 06:28:59 EDT by LUC ACOSTA, RN) Alcohol Use History No. (Last Updated: 12/19/2019 19:44:06 EDT by Mariza Stanley, JOSE ALBERTO) Substance Abuse: Drug Use Hx: No. (Last Updated: 12/19/2019 19:44:06 EDT by Mariza Stanley, JOSE ALBERTO) Cardiovascular ASMT, ED Cardiovascular Assessment WDL : WDL Mariza Stanley RN - 12/19/2019 19:43 EDT Respiratory Respiratory Assessment WDL : WDL Cough : None Mariza Stanley RN - 12/19/2019 19:43 EDT Breath Sounds Assessment Grid All Lobes Breath Sounds : Clear Mariza Stanley RN - 12/19/2019 19:43 EDT Musculoskeletal Musculoskeletal Assessment WDL : WDL with exceptions Musculoskeletal Assessment Comment : left pain s/p fall Mariza Stanley RN - 12/19/2019 19:43 EDT documented in this encounter Plan of Treatment Not on file documented as of this encounter Visit Diagnoses Not on filedocumented in this encounter
--- OUTSIDE RECORDS SUMMARY | 2025-07-01 10:27 | XMS_ITS | Encounter Summary ---
Author Organization [employer] ([place], [place], [place], [place], [place]) Address [address] [place] [address] Care Team Providers Care President And Chief Commercial Officer Name Role Phone Unavailable Primary Care Provider Unavailabl e Encounter Details Date Type Department Care Team (Late st Contact Info) Description 12/25/2019 Transcribed Document [facility] [place] [facility] [place] [address] ProviderCl MD [address] [place] [address] Social History Tobacco Use Types Packs/Day Years Used Date Smoking Tobacco: Never Assessed Comments Unknown Sex and Gender Information Value Date Recorded Sex Assigned at Not on file Legal Sex Female 5:11 PM CDT Gender Identity Not on file Sexual Orientation Not on file documented as of this encounter Miscellaneous Notes * Cerner Conversion Note - Cl Landaverde MD - 12/25/2019 2:24 PM CDT Patient Education Materials Follows: Discharge Instructions for Posterior Total Hip Replacement Your Hip Incision: No swimming, soaking or bathing in a tub until cleared by the surgeon. If you have an Aquacel (light brown) dressing: Keep your dressing in place for 7-10 days. This type of dressing is water resistant. Please check the edges of the dressing, if they are intact, you may shower until the dressing is removed. Either the home health Physical Therapist or Nurse will remove the dressing after 7- 10 days, or your surgeon will take it off at your follow-up appointment. Then your incision may be open to air. Ideally, sponge bathe from the time the dressing is removed until your follow-up appointment. If you have a dry, white dressing: Change every day as needed. Wash your hands before and after changing the dressing. Activity: ?? You may put weight on your leg as tolerated, unless your surgeon instructs otherwise. Use your walker until cleared by therapist. Continue your exercises from physical therapy. ?? Stay active, getting up every 1-2 hours, walk short distances, and walk a little more each week. No driving until cleared by your surgeon. ?? If your surgery was from the back approach, remember to follow your hip precautions, written out on the last page. ?? If your surgeon has ordered support hose, continue to wear them for 6 weeks in order to prevent blood clots. Take them off 1-2 times per day for about 30 minutes-1 hour. Check your skin for red or open areas under stockings. Thigh-high support hose can be bought online and at many pharmacies, be sure that compression is 15-20mmHg. ?? For swelling, prop your leg up above your heart. Cold therapy 30 minutes on 30 minutes off frequently. General Instructions: ?? Eat more protein and fiber. ?? Drink 8-10 glasses of water a day and take stool softeners while you are on pain medication, since they cause constipation. If you do not have a bowel movement in 3-4 days after your surgery, try an over the counter laxative, such as milk of magnesia, miralax, dulcolax tablet or suppository, or fleets enema. If you do not have success after this, contact your home health nurse or surgeon office. ?? Keep using your incentive spirometer so you do not get a fever or lung infection. Aim for 10 breaths every hour while you are awake. ?? Take pain medicine as needed, especially before therapy. ?? Let your doctors and dentist know you have a prosthetic hip. They may need to give you an antibiotic before a procedure. Call Your Surgeon: Infection: Your hip has increased swelling that does not get better with time, propping up your leg and with rest. Your incision has a foul smell or your incision begins to open. Your incision gets red, is warm or has increased drainage after 2 days. You have a fever over 101 degrees for more than 24 hours. A blood clot: You have increased swelling, redness, warmth or pain in your calf. A Fall You fall without obvious injury Call 911: 1) Sudden shortness of breath and/or chest pain 2) You fall down and cannot get up 3) Stroke signs and symptoms: Facial droop, uneven smile, arm numbness, arm weakness, slurred speech, difficulty speaking or understanding Remember your hip precautions! Be sure to avoid movements that will cause your new hip to come out of joint: DO NOT point or turn your toes or leg inward, bend down to flower picker objects, bend at the waist or knee over 90 degrees, cross your legs in your sleep, when sitting or lying down. DO sleep with triangle pillow and knee brace on. Last revised August 2016 Total Hip Replacement, Posterior, Care After This sheet gives you information about how to care for yourself after your procedure. Your doctor may also give you more specific instructions. If you have problems or questions, contact your doctor. What can I expect after the procedure? After the procedure, it is common to have: ??? Pain and swelling. ??? A small amount of blood or clear fluid coming from the cut that was made during surgery (incision). Follow these instructions at home: Medicines ??? Take cvly-liu-hslfdcs and prescription medicines only as told by your doctor. ??? If you were prescribed a medicine to thin your blood (anticoagulant), take it as told by your doctor. Activity ??? Ask your doctor what activities are safe for you. ??? Do exercises as told by your doctor or physical therapist. ??? Rest often, but move around as much as you can. Movement helps you heal and helps prevent problems. ??? Do not use your legs to support (bear) your body weight until your doctor says it is okay. Follow instructions about how much weight you may safely support on your affected leg (weight-bearing restrictions). ??? Use crutches or a walker as told by your doctor. Movement restrictions ??? To keep from dislocating your hip, follow instructions about movement restrictions as told by your doctor. For example: ? Do not cross your legs at the knees. To remind yourself about this, you may keep a pillow between your legs while lying in bed. ? Do not bend farther than 90 degrees at the hip and waist. To keep from bending this far: ? Do not bring your knees higher than your hips. ? Do not flower picker something from the floor while sitting in a chair. ? Avoid sitting in low chairs. ? Use a raised toilet seat. ? When standing up from a seated position, keep the injured leg out in front of you. ? Avoid twisting at your waist and reaching across your body to the side of the affected leg. ? Avoid rotating your toes inward on the affected leg. ??? When getting into a car: 1. Raise the seat as high as you can. 2. Move the seat as far back as it will go. 3. Recline the upper part of the seat slightly. 4. Sit down into the seat with your injured leg extended out of the car. 5. Scoot back in the seat as you move the lower half of your body into the car. Try to avoid bumping your foot or leg as you bring it into the car. To make this motion smooth and easy on a cloth seat, try placing a plastic bag on the seat. Surgery cut care ??? Follow instructions from your doctor about how to take care of your cut from surgery. Make sure you: ? Wash your hands with soap and water before you change your bandage (dressing). If you cannot use soap and water, use alcohol-based hand lcac radar operator/navigator. ? Change your bandage as told by your doctor. ? Leave stitches (sutures), skin glue, or skin tape (adhesive) strips in place. They may need to stay in place for 2 weeks or longer. If tape strips get loose and curl up, you may trim the loose edges. Do not remove tape strips completely unless your doctor tells you to do that. ??? Do not take baths, swim, or use a hot tub until your doctor says it is okay. ??? Check your surgical cut every day for signs of infection. Check for: ? More redness, swelling, or pain. ? More fluid or blood. ? Warmth. ? Pus or a bad smell. Managing pain, stiffness, and swelling ??? If directed, put ice on the hip area. ? Put ice in a plastic bag. ? Place a towel between your skin and the bag. ? Leave the ice on for 20 minutes, 2?3 times a day. ??? Move your toes often to avoid stiffness and to lessen swelling. ??? Raise (elevate) your leg above the level of your heart while you are sitting or lying down. Driving ??? Ask your doctor when it is safe to drive. This may not be recommended for up to 6 weeks after surgery. ??? Do not drive or use heavy machinery while taking prescription pain medicine. General instructions ??? Do not use any products that have nicotine or tobacco in them, such as cigarettes and e-cigarettes. These can delay bone healing. If you need help quitting, ask your doctor. ??? Tell your doctor before you have any dental procedures done, including teeth cleaning. ??? Wear compression stockings as told by your doctor. These help to prevent blood clots and reduce swelling in your legs. ??? If you are taking prescription pain medicine, take actions to prevent or treat constipation. Your doctor may recommend that you: ? Drink enough fluid to keep your pee (urine) pale yellow. ? Eat foods that are high in fiber. This includes fresh fruits and vegetables, whole grains, and beans. ? Limit foods that are high in fat and processed sugars, such as fried or sweet foods. ? Take an bdzm-upz-gsclckn or prescription medicine for constipation. ??? Keep all follow-up visits as told by your doctor. This is important. Contact a doctor if: ??? You have trouble breathing. ??? You have either of these at your surgery site: ? Any signs of infection. ? Bleeding that will not stop. ??? Your surgical cut opens up after stitches or sukhi are taken out. ??? You have a fever. Get help right away if: ??? You have more redness, swelling, or pain in the leg you had surgery on. ??? You have pain or swelling in your thigh or on the back of your lower leg. ??? You have shortness of breath. ??? You have chest pain. ??? You have pain that is not helped by pain medicine. Summary ??? Do not use your legs to support your body weight until your doctor says it is okay. Use crutches or a walker as told. ??? To keep from dislocating your hip, follow instructions about movement restrictions as told. ??? If you were prescribed a medicine to thin your blood (anticoagulant), take it as told by your doctor. ??? Keep all follow-up visits as told by your doctor. This is important. This information is not intended to replace advice given to you by your health care provider. Make sure you discuss any questions you have with your health care provider. Document Released: 09/09/2012 Document Revised: 07/11/2019 Document Reviewed: 07/30/2018 [employer] Patient Education ? 2020 [employer] What to expect after the Procedure: After the procedure, it is common to have: ?? Pain and swelling. ?? A small amount of blood or clear fluid coming from your incision for up to 7 days ?? It is normal to have a moderate amount of bleeding from the site of the drain that was pulled on the morning after surgery. You can hold pressure on the area for 3-5 minutes and cover with a bandage as needed. Diet: ?? Resume usual diet ?? No alcoholic beverages while taking pain medication ?? Drink 8-10 glasses of water a day to prevent constipation from pain medication ?? Increase fiber to help prevent constipation. Straining can cause increased pressure and pain in your incision area ?? Increase protein to promote healing Driving: ?? Do not drive until your health care provider approves. Ask your health care provider when it is safe to drive if you have an immobilizer on your knee. ?? Do not drive or operate heavy machinery while taking prescription pain medicine. ?? Do not drive for 24 hours if you received a sedative. Activity: ?? Do not lift anything that is heavier than 10 lb (4.5 kg) until your health care provider approves. ?? No strenuous activity ?? Avoid high-impact activities, including running, jumping rope, and jumping jacks. ?? Avoid sitting for a long time without moving. Get up and move around at least every few hours. ?? Keep legs elevated while seated and place surgery leg on 2-3 pillows, this will decrease swelling ?? Continue using walker until cleared by physical therapy Bathing: ?? Do not take baths, swim, or use a hot tub for one month after surgery. ?? May shower on the third day after surgery by covering incision with Glad Brand Press and Seal saran wrap. After showering, dry off completely BEFORE removing saran wrap. ?? Use Press and Seal saran wrap to shower for one month after surgery ?? You must be seated to shower until you are no longer using the walker Other: ?? Use ice therapy for 20-30 minutes at a time and leave off for 20-30 minutes at a time. Always keep a towel or cloth between the ice pack and your skin ?? Continue to use Incentive Spirometer 10 times an hour while awake for one month to help prevent pneumonia Contact a health care provider if: ?? You have more redness, swelling, or pain around your incision. ?? You have more fluid or blood coming from your incision. ?? Your incision or drain site feels warm to the touch. ?? You have pus or a bad smell coming from your incision. ?? You have a fever. ?? Your incision breaks open after your health care provider removes your sutures, skin glue, or adhesive tape. ?? Your prosthesis feels loose. ?? You have knee pain that does not go away. DVT: Blood Clot Blood clots are a common risk after an orthopedic surgery Symptoms: ?? Swelling of your leg or arm, especially if one side is much worse. ?? Warmth and redness of your leg or arm, especially if one side is much worse. ?? Pain in your arm or leg. If the clot is in your leg, symptoms may be more noticeable or worse when you stand or walk. ?? A feeling of pins and needles, if the clot is in the arm. The symptoms of a DVT that has traveled to the lungs (pulmonary embolism, PE) usually start suddenly and include: ?? Shortness of breath while active or at rest. ?? Coughing or coughing up blood or blood-tinged mucus. ?? Chest pain that is often worse with deep breaths. ?? Rapid or irregular heartbeat. ?? Feeling light-headed or dizzy. ?? Fainting. ?? Feeling anxious. ?? Sweating. There may also be pain and swelling in a leg if that is where the blood clot started. How is this prevented? ?? Exercise regularly. For at least 30 minutes every day, engage in: -Activity that involves moving your arms and legs. -Activity that encourages good blood flow through your body by increasing your heart rate. ?? Exercise your arms and legs every hour during long-distance travel (over 4 hours). ?? Drink plenty of water and avoid drinking alcohol while traveling. ?? Avoid sitting or lying in bed for long periods of time without moving your legs. ?? Maintain a weight that is appropriate for your height. Ask your health care provider what weight is healthy for you. ?? If you are a woman who is over 35 years of age, avoid unnecessary use of medicines that contain estrogen. These include control pills. ?? Do not smoke, especially if you take estrogen medicines. If you need help quitting, ask your health care provider. ?? Wear compression stockings (if told by your health care provider) to help prevent blood clots from forming. High Fiber/High Protein Diet High fiber foods: To prevent constipation Grains Whole-grain breads. Multigrain cereal. Oats and oatmeal. Brown rice. Barley. Bulgur wheat. Millet. Bran muffins. Popcorn. [place] wafer crackers. Vegetables Sweet potatoes. Spinach. Kale. Artichokes. Cabbage. Broccoli. Green peas. Carrots. Squash. Fruits Berries. Pears. Apples. Oranges. Avocados. Prunes and raisins. Dried figs. Meats and Other Protein Sources Barnett, kidney, mayfield, and soy beans. Split peas. Lentils. Nuts and seeds. Dairy Fiber-fortified yogurt. Beverages Fiber-fortified soy milk. Fiber-fortified orange juice. Other Fiber bars. High-protein foods: To promote healing High-protein foods contain 4 grams (4 g) or more of protein per serving. They include: ?? Beef, ground sirloin (cooked) - 3 oz have 24 g of protein. ?? Cheese (hard) - 1 oz has 7 g of protein. ?? Chicken breast, boneless and skinless (cooked) - 3 oz have 13.4 g of protein. ?? Cottage cheese - 1/2 cup has 13.4 g of protein. ?? Egg - 1 egg has 6 g of protein. ?? Fish, filet (cooked) - 1 oz has 6-7 g of protein. ?? Garbanzo beans (canned or cooked) - 1/2 cup has 6-7 g of protein. ?? Kidney beans (canned or cooked) - 1/2 cup has 6-7 g of protein. ?? Euceda (cooked) - 3 oz has 24 g of protein. ?? Milk - 1 cup (8 oz) has 8 g of protein. ?? Nuts (peanuts, pistachios, almonds) - 1 oz has 6 g of protein. ?? Peanut butter - 1 oz has 7-8 g of protein. ?? Pork tenderloin (cooked) - 3 oz has 18.4 g of protein. ?? Pumpkin seeds - 1 oz has 8.5 g of protein. ?? Soybeans (roasted) - 1 oz has 8 g of protein. ?? Soybeans (cooked) - 1/2 cup has 11 g of protein. ?? Soy milk - 1 cup (8 oz) has 5-10 g of protein. ?? Soy or vegetable rios - 1 rios has 11 g of protein. ?? Cavalier seeds - 1 oz has 5.5 g of protein. ?? Tofu (firm) - 1/2 cup has 20 g of protein. ?? Tuna (canned in water) - 3 oz has 20 g of protein. ?? Yogurt - 6 oz has 8 g of protein. Fall Prevention ?? Use night lights. ?? Install grab bars by the toilet and in the tub and shower. Do not use towel bars as grab bars. ?? Use non-skid mats or decals on the floor of the tub or shower. ?? If you need to sit down while you are in the shower, use a plastic, non-slip stool. ?? Keep the floor dry. Immediately clean up any water that spills on the floor. ?? Remove soap buildup in the tub or shower on a regular basis. ?? Remove throw rugs and other tripping hazards from the floor. ?? Place frequently used items in tspi-bb-irazy places ?? Keep electrical cables out of the way. ?? Do not leave any items on the stairs. ?? Make sure that there are handrails on both sides of the stairs. Fix handrails that are broken or loose. Make sure that handrails are as long as the stairways. ?? Check any carpeting to make sure that it is firmly attached to the stairs. Fix any carpet that is loose or worn. ?? Avoid having throw rugs at the top or bottom of stairways, or secure the rugs with carpet tape to prevent them from moving. ?? Wear closed-toe shoes that fit well and support your feet. Wear shoes that have rubber soles or low heels. ?? Use mobility aids as needed, such as canes, walkers, scooters, and crutches. ?? Turn on lights if it is dark. Replace any light bulbs that burn out. ?? Set up furniture so that there are clear paths. Keep the furniture in the same spot. ?? Be aware of any and all pets. ?? Review your medicines with your healthcare provider. Some medicines can cause dizziness or changes in blood pressure, which increase your risk of falling. Hand Washing You should wash your hands whenever you think they are dirty. You should also wash your hands: ??? After: ?? Working or playing outside. ?? Touching an animal or its toys or leash. ?? Handling livestock. ?? Using the bathroom. ?? Using household analytical technician or toxic chemicals. ?? Touching or taking out the garbage. ?? Touching anything dirty around your home. ?? Handling soiled clothes or rags. ?? Taking care of a sick child. This includes touching used tissues, toys, and clothes. ?? Sneezing, coughing, or blowing your nose. ?? Using public transportation. ?? Shaking hands. ?? Using a phone, including your mobile phone. ?? Touching money. ??? Before and after: ?? Preparing food. ?? Feeding a baby or young child. ?? Eating. ?? Visiting or taking care of someone who is sick. ?? Changing a diaper. ?? Changing a bandage (dressing) or taking care of an injury or wound. ?? Giving or taking medicine. If soap and clean water are not available, use an alcohol-based wipe, spray, or hand gel. Use a hand-sanitizing agent that contains at least 60% alcohol. If you are preparing food, hand sanitizers are not recommended as a substitute for hand washing. Walker Use To Walk With a Front-Wheeled Walker: 1. Slide your front-wheeled walker one step-length in front of you. Your toes should be farther forward than the back legs of your walker. 2. Hold on to the walker for support, and step your weaker (surgery) leg into the middle of the walker. 3. Step your stronger leg forward to land next to your weaker leg. 4. Repeat the process for each step. ?? Always keep both feet within the width of the walker's legs or wheels. ?? When using your walker, you should not feel like you need to lean forward or to the side to keep your hands on the handgrips. ?? Make sure you are following any weight-bearing instructions that your health care provider has given you. ?? Be careful not to let the walker get too far ahead of you as you walk. ?? If your walker does not glide well over carpet, consider cutting an X into two tennis balls and placing the balls over the back legs of your walker. How to use a walker on a curb or step To Use a Walker to Step Up: 1. Put all four legs of the walker on the curb or step. 2. Get your feet as close to the curb or step as you can. 3. Test the steadiness of the walker by pressing down on the handgrips. 4. If the walker is steady, press down on it with your hands as you step up with your stronger leg. 5. Step up with your weaker leg. To Use a Walker to Step Down: 1. Put all four legs of the walker on the surface that is lower than the curb or step. 2. Get your feet as close to the curb or step as you can. 3. Test the steadiness of the walker by pressing down on the handgrips. 4. If the walker is steady, press down on it with your hands as you step down with your weaker leg. 5. Step down with your stronger leg. documented in this encounter Plan of Treatment Not on file documented as of this encounter Visit Diagnoses Not on filedocumented in this encounter
--- OUTSIDE RECORDS SUMMARY | 2025-07-01 10:27 | XMS_ITS | Encounter Summary ---
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 Tender Name Role Phone Unavailable Primary Care Provider Unavailabl e Encounter Details Date Type Department Care Team (Late st Contact Info) Description 12/19/2019 Transcribed Document [facility] [place] Family Medicine Formerly [facility], [facility] [place] [address] ProviderCl MD [address] [place], [place] [id number] Social History Tobacco Use Types Packs/Day Years Used Date Smoking Tobacco: Never Assessed Comments Unknown Sex and Gender Information Value Date Recorded Sex Assigned at Not on file Legal Sex Female 5:11 PM CDT Gender Identity Not on file Sexual Orientation Not on file documented as of this encounter Miscellaneous Notes * Cerner Conversion Note - Historical ProviderMD - 12/19/2019 1:55 PM CDT Patient: JAMES BUSTILLO Age: 79 years Sex: Female : 1940 Associated Diagnoses: Hip fracture, left; Hyperglycemia; Hypertension; Fall Author: LINDA OLVERA MD-EMR Basic Information Time seen: Date & time 12/19/2019 13:38:00. History source: Patient. Arrival mode: Ambulance. History limitation: None. 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 History of Present Illness The patient presents with left, hip injury. The onset was just prior to arrival. The course/duration of symptoms is constant. Type of injury: fall. Location: Left hip. The character of symptoms is pain, not redness and no bleeding. The degree at onset was moderate. The degree at present is moderate. The exacerbating factor is movement. The relieving factor is immobilization. The location where the incident occurred was at home. Risk factors consist of hypertension. Therapy today: see nurses notes. Associated symptoms: denies fever, denies vomiting, denies chest pain, denies syncope, denies dizziness, denies palpitations, denies back pain, denies abdominal pain and denies focal weakness. Patient complaining of tripped on the cord, lost balance, fell on her left hip, was unable to stand up, denies hitting her head, no loss of consciousness, denies any numbness, tingling, focal weakness, denies any headache, no neck pain, no chest pain, no back pain, no abdominal pain, denies any other injuries or symptoms. Review of Systems Constitutional symptoms: No fever, no chills, no decreased activity. Skin symptoms: No rash, no pruritus, no teixeira, no petechiae, no lesion. Eye symptoms: No recent vision problems, no pain, no discharge. ENMT symptoms: No ear pain, no sore throat, no nasal congestion. Respiratory symptoms: No shortness of breath, no cough. Cardiovascular symptoms: No chest pain, no palpitations, no syncope, no diaphoresis, no peripheral edema. Gastrointestinal symptoms: No abdominal pain, no nausea, no vomiting, no diarrhea. Genitourinary symptoms: No dysuria, no hematuria. Musculoskeletal symptoms: No back pain, Neurologic symptoms: No headache, no dizziness, no altered level of consciousness, no numbness, no tingling, no weakness. Psychiatric symptoms: No anxiety, no depression. Endocrine symptoms: No polyuria, Hematologic/Lymphatic symptoms: Bleeding tendency negative, Allergy/immunologic symptoms: No seasonal allergies, Additional review of systems information: No recent travel or surgery. No Abx recently. No change in meds recently -NO TRAVEL OR EXPOSURE TO POTENTIAL OR DIAGNOSED COVID-19 VIRUS . Health Status Allergies: Allergic Reactions (Selected) No Known Medication Allergies. Medications: (Selected) Documented Medications Documented Cymbalta: 60 mg, Oral, Daily Ditropan: 10 mg, Oral, Daily Lasix: 20 mg, Oral, Daily Levsin SL: Metoprolol Tartrate 100 mg oral tablet: Oral, Daily Micro-K 10 oral capsule, extended release: 1 Cap, Oral, Daily Norvasc: 5 mg, Oral, Daily Percocet 10/325 oral tablet: 2 Tab, Oral, BID, PRN: for pain Vitamin B12: 1,000 mg, Oral, Daily gabapentin: 300 mg, Oral, TID. Immunizations: Per nurse's notes. Past Medical/ Family/ Social History Medical history Reviewed as documented in chart. Cardiovascular: hypertension. Gastrointestinal: gastroesophageal reflux. Genitourinary: renal stone. Psychiatric: depression. Musculoskeletal: chronic pain. Surgical history: choleycystectomy. hysterectomy 2013. back sugery x 2., Reviewed as documented in chart. Family history: No family history items have been selected or recorded., Reviewed as documented in chart. Social history: Social & Psychosocial Habits Alcohol 12/16/2013 Alcohol Use in Last Twelve Months No Tobacco 12/16/2013 Tobacco Use Within Last Twelve Months No Smoking Status Never smoker , Reviewed as documented in chart. Problem list: Active Problems (8) Acid reflux Chronic pain Depression H. pylori infection Heart murmur Hypertension Incontinent of urine Kidney stones , per nurse's notes. Physical Examination Vital Signs Vital Signs/Vital Measures 12/19/2019 13:15 EDT Systolic Blood Pressure 194 mmHg HI Diastolic Blood Pressure 92 mmHg HI Temperature Source Temporal artery scanning Temperature Mode Fahrenheit Temperature, Fahrenheit 97.7 Deg F Clinical Temperature, C 36.5 Deg C Peripheral Pulse Rate 66 bpm Respiratory Rate 18 Breaths/Min Oxygen Saturation 91 % LOW Oxygen Therapy Mode Room air . Measurements 12/19/2019 13:15 EDT Height Source Stated Height Entry Format [place] Height/Length, MONEGASQUE (ft) 5 ft Height/Length MONE[place]QUE 7 Inch CLINICALHEIGHT 170.18 cm [place] Body Weight 61.16 kg Weight Source, ED Critical estimated dosing weight Weight Entry Format [place] Weight [place] lb 169 lb CLINICALWEIGHT 76.82 kg Body Surface Area (BSA) 1.88 m2 Body Mass Index 26.5 kg/m2 HI . Oxygen Saturation 12/19/2019 13:15 EDT Oxygen Saturation 91 % LOW . General: Alert, no acute distress. Skin: Warm, dry, pink, intact, no pallor, no rash, not cyanotic, not cool, not pale. Head: Normocephalic, atraumatic. Neck: Supple, no JVD, NECK: No Swelling, no redness, no tenderness, Normal alignment, No Step-offs or deformities ROM full. Eye: Pupils are equal, round and reactive to light, extraocular movements are intact, normal conjunctiva. Ears, nose, mouth and throat: Oral mucosa moist, no pharyngeal erythema or exudate, Hearing unchanged. Cardiovascular: Regular rate and rhythm, No murmur, Normal peripheral perfusion, No edema, no cardiac rub, no click. Respiratory: Lungs are clear to auscultation, respirations are non-labored, breath sounds are equal, Symmetrical chest wall expansion. Chest wall: No tenderness, No deformity. Back: Nontender, Normal range of motion, Normal alignment, no step-offs. Musculoskeletal: LEFT HIP: Shortening and external rotation of the left lower extremity, no redness, positive tenderness over left hip joint tenderness, ROM unable to move left hip because of pain LEFT KNEE/ANKLE/FOOT: No swelling, no redness, no tenderness, ROM full LEFT THIGH/LEG: No Swelling, no redness, no tenderness. No signs of DVT LEFT Femoral, DP & PT Arteries normal, Capillary Refil brisk Sensations normal. . Gastrointestinal: Soft, Nontender, Non distended, No organomegaly. Neurological: Alert and oriented to person, place, time, and situation, No focal neurological deficit observed, CN II-XII intact, normal sensory observed, normal motor observed, normal speech observed, normal coordination observed. Lymphatics: No lymphadenopathy. Psychiatric: Cooperative, appropriate mood & affect, normal judgment. Medical Decision Making Differential Diagnosis: Hip fracture, hip contusion, hip sprain, hip dislocation, pelvic fracture, fall, hip strain. Documents reviewed: Emergency department nurses' notes. Electrocardiogram: Time 12/19/2019 13:19:00, rate 69, normal sinus rhythm, no ectopy, EP Interp, Prolonged QTC of 482 ms, nonspecific ST-T abnormality. Results review: Lab results : Lab Results 12/19/2019 14:41 EDT Sodium Level 139 mmol/L [...] 11.0 % LOW Lymph # 1.28 K/uL [place] % 5.4 % [place] # 0.63 K/uL Eos % 0.4 % LOW Eos # 0.05 K/uL Baso % 0.3 % Baso # 0.04 K/uL Slide Review No IG# 0 x10(3)/uL IG% 0 % . Radiology results: Radiology Results (Last 48 hours) [id number] -- 12/19/2019 13:12 CR Chest 1 Vw Portable (12/19/2019 14:25) Result: PORTABLE CHEST 12/19/2019 1:56 PM HISTORY: Left-sided chest pain from a fall today.COMPARISON: None.FINDINGS: The heart is proper size. The mediastinum is unremarkable.There is a right infrahilar opacity. There is no pneumothorax. Theosseous structures are unremarkable. IMPRESSION: Opacity as above, probably secondary to pneumonia.Follow-up to complete resolution recommended.LEFT HIP SERIES.HISTORY: Left hip pain from a fall today.COMPARISON: None.FINDINGS: A two view exam demonstrates an impacted subcapital hipfracture. No other fracture identified. IMPRESSION: Acute hip fracture as above. Images reviewed, interpreted, and dictated by Dr. Chai Centeno.Transcribed by Augusto García (R).I have personally viewed, interpreted and dictated the examination. Ihave read and agree with the above final transcribed report. CR Hip Uni Comp Min 2 Vws LT (12/19/2019 14:25) Result: PORTABLE CHEST 12/19/2019 1:56 PM HISTORY: Left-sided chest pain from a fall today.COMPARISON: None.FINDINGS: The heart is proper size. The mediastinum is unremarkable.There is a right infrahilar opacity. There is no pneumothorax. Theosseous structures are unremarkable. IMPRESSION: Opacity as above, probably secondary to pneumonia.Follow-up to complete resolution recommended.LEFT HIP SERIES.HISTORY: Left hip pain from a fall today.COMPARISON: None.FINDINGS: A two view exam demonstrates an impacted subcapital hipfracture. No other fracture identified. IMPRESSION: Acute hip fracture as above. Images reviewed, interpreted, and dictated by Dr. Chai Centeno.Transcribed by Augusto García (R).I have personally viewed, interpreted and dictated the examination. Ihave read and agree with the above final transcribed report. CTA Chest PE Protocol (12/19/2019 17:51) Result: PE PROTOCOL CHEST CT: HISTORY: Low oxygen saturation.COMPARISON: None.The patient was injected with IV contrast . Axial images were obtainedthrough the chest in a PE protocol. 3 D reconstruction images were alsoperformed. Individualized dose reduction techniques using automatedexposure control or adjustment of the mA and/or kV according to patientsize were employed.FINDINGS: There is no axillary adenopathy. There is no hilar ormediastinal adenopathy . The heart size is normal. There is nopericardial or pleural effusion . No filling defects are identified tosuggest PE . There is no aortic dissection . Limited images of theupper abdomen are unremarkable . The gallbladder is surgically absent.There is mild bibasilar atelectasis or scarring. IMPRESSION: 1. No convincing evidence of acute pulmonary embolism. Images reviewed, interpreted, and dictated by Ozzie Ortez MD . Reexamination/ Reevaluation Time: 12/19/2019 14:23:00 . Course: improving. Pain status: decreased. Assessment: exam unchanged. Time: 12/19/2019 15:14:00 . Course: improving. Pain status: decreased. Assessment: exam unchanged. Notes: Discussed with patient/family, her x-rays, her diagnosis, will call hospitalist and orthopedic. Time: 12/19/2019 17:05:00 . Course: unchanged. Assessment: exam unchanged. Notes: Patient was seen by Dr. Juan J Del Rosario, still trying to get hold of the orthopedic. Time: 12/19/2019 18:36:00 . Course: improving. Assessment: exam unchanged. Notes: Spoke with Dr. Malloy, will admit the patient. Impression and Plan Diagnosis Hip fracture, left - Admitting, Emergency medicine, Medical Hyperglycemia - Discharge, Emergency medicine, Medical Hypertension - Discharge, Emergency medicine, Medical Fall - Discharge, Emergency medicine, Medical Calls-Consults - 12/19/2019 16:27:00 , TARIQ MALLOY MD-ORT, recommends Paged him, did not get any call back. - 12/19/2019 16:49:00 , JUAN J DEL ROSARIO MD-INT, phone call, recommends will admit pt, advised to give patient Rocephin for possible pneumonia, and get a CTA chest to rule out PE/pneumonia. - 12/19/2019 16:51:00 , TARIQ MALLOY MD-ORT, recommends Dr. Juan J Del Rosario also try to call TARIQ Greene,, did not get hold of him. - 12/19/2019 17:34:00 , TARIQ MALLOY MD-ORT, recommends Called TARIQ MALLOY MD-ORT, again, did not get any call back. - 12/19/2019 18:10:00 , MONIE JAMES MD-ORT, phone call, recommends He said to go ahead and admit the patient, Dr. Durham is probably doing surgery at [facility]. - 12/19/2019 18:27:00 , TARIQ MALLOY MD-ORT, phone call, recommends He will see the patient,. Plan Condition: Improved, Stable. Disposition: Admit Admit/Transfer/Discharge: Admit to Inpatient (Order): Start: 12/19/2019 18:29 EDT, Admit reason: Left hip fracture, hyperglycemia, fall, Estimated length of stay 2 Midnights or LONGER, Level of Care: Med-Surg, Admitting: JUAN J DEL ROSARIO MD-INT. Counseled: Patient, Family, Regarding diagnosis, Regarding diagnostic results, Regarding treatment plan, Regarding prescription, Patient indicated understanding of instructions. documented in this encounter Plan of Treatment Not on file documented as of this encounter Visit Diagnoses Not on filedocumented in this encounter
--- OUTSIDE RECORDS SUMMARY | 2025-07-01 10:27 | XMS_ITS | Encounter Summary ---
Author Organization [employer] ([place], [place], [place], [place], [place]) Address [address] [place] [address] Care Team Providers Care Barrel Raiser Helper Name Role Phone Unavailable Primary Care Provider Unavailabl e Encounter Details Date Type Department Care Team (Late st Contact Info) Description 12/23/2019 Transcribed Document [facility] [place] [address] [place] [address] ProviderCl MD [address] [place], [place] [id number] Social History Tobacco Use Types Packs/Day Years Used Date Smoking Tobacco: Never Assessed Comments Unknown Sex and Gender Information Value Date Recorded Sex Assigned at Not on file Legal Sex Female 5:11 PM CDT Gender Identity Not on file Sexual Orientation Not on file documented as of this encounter Miscellaneous Notes * Cerner Conversion Note - Historical ProviderMD - 12/23/2019 2:00 AM CDT Regulatory Compliance Officer Details Entered On: 12/23/2019 3:12 EDT Performed On: 12/23/2019 2:00 EDT by Yanique Jimenez, RN Order Details Transport Mode Order Detail : Wheelchair Isolation Precautions Order Detail : Standard Precautions Order Detail : N/A IV Order Detail : 1 Oxygen Order Detail : 0 Nurse Collect Order Detail : 0 Lift/Transfer : Maximal assist Central Line Order Detail : No Room Service : Not Appropriate Arterial Line : No Yanique Jimenez, RN - 12/23/2019 3:12 EDT documented in this encounter Plan of Treatment Not on file documented as of this encounter Visit Diagnoses Not on filedocumented in this encounter
--- OUTSIDE RECORDS SUMMARY | 2025-07-01 10:27 | XMS_ITS | Encounter Summary ---
Author Organization [employer] ([place], [place], [place], [place], [place]) Address [address] [place] [address] Care Team Providers Care Chief Talent Officer Name Role Phone Unavailable Primary Care Provider Unavailabl e Encounter Details Date Type Department Care Team (Late st Contact Info) Description 12/20/2019 Transcribed Document [facility] [address] [place] [address] ProviderCl MD [address] [place] [address] Social History Tobacco Use Types Packs/Day Years Used Date Smoking Tobacco: Never Assessed Comments Unknown Sex and Gender Information Value Date Recorded Sex Assigned at Not on file Legal Sex Female 5:11 PM CDT Gender Identity Not on file Sexual Orientation Not on file documented as of this encounter Miscellaneous Notes * Cerner Conversion Note - Historical ProviderMD - 12/20/2019 5:00 PM CDT Chart Check - Review Order Profile Entered On: 12/20/2019 18:31 EDT Performed On: 12/20/2019 17:00 EDT by Candida Meza RN Chart Check Powerplans Initiated/Discontinued as Appropriate : Yes All Active Orders Reviewed : Yes Candida Meza RN - 12/20/2019 18:31 EDT documented in this encounter Plan of Treatment Not on file documented as of this encounter Visit Diagnoses Not on filedocumented in this encounter
--- OUTSIDE RECORDS SUMMARY | 2025-07-01 10:27 | XMS_ITS | Encounter Summary ---
Author Organization [employer] ([place], [place], [place], [place], [place]) Address [address] [place] [address] Care Team Providers Care Topper Packer Name Role Phone Unavailable Primary Care Provider Unavailabl e Encounter Details Date Type Department Care Team (Late st Contact Info) Description 12/24/2019 Transcribed Document [facility] [place] Family Medicine [facility] [place] [address] ProviderCl MD [address] [place] [address] Social History Tobacco Use Types Packs/Day Years Used Date Smoking Tobacco: Never Assessed Comments Unknown Sex and Gender Information Value Date Recorded Sex Assigned at Not on file Legal Sex Female 5:11 PM CDT Gender Identity Not on file Sexual Orientation Not on file documented as of this encounter Miscellaneous Notes * Cerner Conversion Note - Cl ProviderMD - 12/24/2019 12:47 PM CDT Patient: JAMES BUSTILLO Age: 79 Years Sex: Female : 1940 Assessment/Plan Of note patient seen on 12/23/19 79F POD#3 s/p left hip hemiarthroplasty. Labs show she has improving DANI. if returns back to baseline can change lovenox dose back to 40mg daily. Plan will be for 30 days total. WBAT, posterior hip precautions PT/OT Analgesia prn Bowel Regimen Dispo- will likely need d/c to rehab once medically stabilized from DANI. She should follow up with me in 2-3 weeks. Dressing should be removed in 1 week. waterproof dressing underneath should stay until follow up with me. WBAT Posterior hip precautions DVT ppx with lovenox. Will be for 30 days. call [phone] to make an appointment at my office. VTE Prophylaxis - Medical Enoxaparin 40 mg, SubCutaneous, Inj, [id number], Routine, Start 12/25/19 7:00:00 EDT (TARIQ TILLMAN) Sequential Compression Device Start: 12/19/19 19:16:00 EDT, Bilateral, Length: Knee High, While patient is in bed, Continuous Order (JUAN J DEL ROSARIO) Subjective No acute issues. She is somnolent but easily arousable Vital Signs T: 36.6 ??C TMIN: 36.4 ??C TMAX: 36.7 ??C HR: 70 RR: 16 BP: 160/62 SpO2: 97% Oxygen Settings (Last) Oxygen Therapy Mode: Room air (12/23/19 15:27:00) Oxygen Flow Rate: 2 Liter/Min (12/21/19 17:29:00) Intake & Output Totals Last 24 Hours (7a-7a) Input Total: 840 mL Output Total: 1950 mL Balance: -1110 mL Physical Exam NAD LLE: Dressing c/d/i no significant pain with log roll or gentle axial load leg appears equal length to contralateral side SILT in s/s/dp/sp/t dist fires ankle plantar flexors, dorsiflexor, inverts, everters wwp dist Medications calcium gluconate calcium gluconate + Sodium Chloride 0.9% intravenous solution 100 mL calcium gluconate + Sodium Chloride 0.9% intravenous solution 100 mL cloNIDine, 0.1 mg= 1 Tab, Oral, Q4H, PRN Colace, 100 mg= 1 Cap, Oral, BID Cymbalta, 60 mg= 1 Cap, Oral, Daily Ditropan, 10 mg= 2 Tab, Oral, Daily Dulcolax Laxative, 10 mg= 1 Supp, Rectal, BID, PRN insulin lispro sliding scale, Scale A:, SubCutaneous, AC and at Bedtime Lasix, 20 mg= 1 Tab, Oral, Daily Lovenox, 40 mg= 0.4 mL, SubCutaneous, [id number] magnesium sulfate, 2 Gram= 50 mL, IV Piggyback, Daily, PRN magnesium sulfate, 2 Gram= 50 mL, IV Piggyback, Q2H, PRN metoclopramide, 5 mg= 1 mL, IV Push, Q6H, PRN Milk of Magnesia 8% oral suspension, 30 mL, Oral, Daily, PRN Norvasc, 5 mg= 1 Tab, Oral, Daily oxyCODONE, 5 mg= 1 Tab, Oral, Q4H, PRN potassium chloride 10 mEq/50 mL intravenous solution, 10 mEq= 100 mL, IV Piggyback, Q1H, PRN potassium chloride 20 mEq oral tablet, extended release, 20 mEq= 1 Tab, Oral, Q2H, PRN potassium chloride 20 mEq oral tablet, extended release, 60 mEq= 3 Tab, Oral, Q2H, PRN Sodium Chloride 0.45% intravenous solution 1,000 mL, 1000 mL, IntraVENous sodium phosphate sodium phosphate Toprol-XL, 100 mg= 1 Tab, Oral, Daily Transderm-Scop 1.5 mg transdermal film, extended release, 1 Patch, TransDermal, Q3Days, PRN Tylenol, 650 mg= 2 Tab, Oral, Q4H, PRN Vitamin B12, 1000 mcg= 1 Tab, Oral, Daily Zofran, 4 mg= 2 mL, IV Push, Q4H, PRN Lab Results Test Name Test Result Date/Time Sodium Level 137 mmol/L 12/24/2019 05:13 EDT Potassium Level 3.5 mmol/L 12/24/2019 05:13 EDT Chloride Level 102 mmol/L 12/24/2019 05:13 EDT Carbon Dioxide Level 16 mmol/L (Low) 12/24/2019 05:13 EDT Anion Gap 22 (High) 12/24/2019 05:13 EDT Glucose Level 147 mg/dL (High) 12/24/2019 05:13 EDT Blood Urea Nitrogen 14 mg/dL 12/24/2019 05:13 EDT Creatinine Level 0.83 mg/dL 12/24/2019 05:13 EDT eGFR >60 mL/min/1.73m2 12/24/2019 05:13 EDT eGFR NonAfrican >60 mL/min/1.73m2 12/24/2019 05:13 EDT Bun/Creatinine 16.9 12/24/2019 05:13 EDT Calcium Level 8.4 mg/dL (Low) 12/24/2019 05:13 EDT documented in this encounter Plan of Treatment Not on file documented as of this encounter Visit Diagnoses Not on filedocumented in this encounter
--- OUTSIDE RECORDS SUMMARY | 2025-07-01 10:27 | XMS_ITS | Encounter Summary ---
Author Organization [employer] ([place], [place], [place], [place], [place]) Address [address] [place] [address] Care Team Providers Care Freight Loader Name Role Phone Unavailable Primary Care Provider Unavailabl e Encounter Details Date Type Department Care Team (Late st Contact Info) Description 12/25/2019 Transcribed Document [facility] [place] [address] ProviderCl MD [address] [place] [address] Social History Tobacco Use Types Packs/Day Years Used Date Smoking Tobacco: Never Assessed Comments Unknown Sex and Gender Information Value Date Recorded Sex Assigned at Not on file Legal Sex Female 5:11 PM CDT Gender Identity Not on file Sexual Orientation Not on file documented as of this encounter Miscellaneous Notes * Cerner Conversion Note - Cl ProviderMD - 12/25/2019 3:03 PM CDT On Going Discharge Planning Entered On: 12/25/2019 15:04 EDT Performed On: 12/25/2019 15:03 EDT by LAZ GLEASON RN-Crisis TherapistInformation Systems Auditor Progress Note Discharge Arrangements : Patient Post-Acute Information Patient Name: JAMES BUSTILLO Gender: Female : 44 Age: 79 Years [place] Referral(s): Service: Organization: Business Address: Phone Number: [phone] [facility], [place], [address] Discharge Options Discussed with Patient : Other: TBD Barriers to Discharge Identified : Clinical Condition of Patient, Follow-Up appointments needed Barriers to Discharge Unresolved : Clinical Condition of Patient LAZ GLEASON RN-Crisis Therapist - 12/25/2019 15:03 EDT Narrative Progress Note Narrative Progress Note : Faxed dc summary to [facility], packet along with report # attached to chart. Family to transport at time of dc.................................allen Historical Progress Note : Faxed Covid testing results to [facility]. Plan for dc today with family transporting. Awaiting dc summary.................LAZ Grayson, JOSE ALBERTO-Crisis Therapist - 12/25/19 09:10:13 Received call from [facility], can accept patient on 12/24/19, however, will need another Covid test due to results not being within the allotted time frame from the first test.................LAZ Grayson RN-Crisis Therapist - 12/23/19 11:04:32 Spoke with patient regarding transport to facility on 12/24/2019 she will call her spouse to transport. LARISSA THORNTON Rn-Senior J2Ee Developer - 12/22/19 14:15:07 Recieved call from Rina at [facility] with bed offer. Spoke with Ms Bustillo she is in agreement with this plan notified Rina she will init precert. Patient will need a Covid 19 test prior to going to their facility will order test. LARISSA THORNTON Rn-Senior J2Ee Developer - 12/22/19 10:19:13 Patient extremely drowsy and [...] is agreeable for inaptient rehab, would like [facility] for rehab in [place] or [facility]. Patient wants to stay close to home if all possible. SNF referrals sent through [facility]....................sds LAZ GLEASON RN-Crisis Therapist - 12/21/19 14:52:39 LAZ GLEASON RN-Crisis Therapist - 12/25/2019 15:03 EDT Electronically signed by Suma [facility] Conversion Riding Silks Custodian Cerner at 10/17/2022 3:10 PM CDT documented in this encounter Plan of Treatment Not on file documented as of this encounter Visit Diagnoses Not on filedocumented in this encounter
--- OUTSIDE RECORDS SUMMARY | 2025-07-01 10:27 | XMS_ITS | Encounter Summary ---
Author Organization [employer] ([place], [place], [place], [place], [place]) Address [address] [place] [address] Care Team Providers Care Materials Management Manager Name Role Phone Unavailable Primary Care Provider Unavailabl e Encounter Details Date Type Department Care Team (Late st Contact Info) Description 12/24/2019 Transcribed Document [facility] [place] Family Medicine [address] [place] [address] ProviderCl MD [address] [place] [address] Social History Tobacco Use Types Packs/Day Years Used Date Smoking Tobacco: Never Assessed Comments Unknown Sex and Gender Information Value Date Recorded Sex Assigned at Not on file Legal Sex Female 5:11 PM CDT Gender Identity Not on file Sexual Orientation Not on file documented as of this encounter Miscellaneous Notes * Cerner Conversion Note - Historical ProviderMD - 12/24/2019 5:00 AM CDT Chart Check - Review Order Profile Entered On: 12/24/2019 3:16 EDT Performed On: 12/24/2019 5:00 EDT by Yanique Jimenez RN Chart Check Powerplans Initiated/Discontinued as Appropriate : Yes All Active Orders Reviewed : Yes Yanique Jimenez RN - 12/24/2019 3:16 EDT Electronically signed by Ryanne Moise Conversion Bottling Equipment Sales Representative Cerner at 10/17/2022 3:30 PM CDT documented in this encounter Plan of Treatment Not on file documented as of this encounter Visit Diagnoses Not on filedocumented in this encounter
--- OUTSIDE RECORDS SUMMARY | 2025-07-01 10:27 | XMS_ITS | Encounter Summary ---
Author Organization [employer] ([place], [place], [place], [place], [place]) Address [address] [place] [address] Care Team Providers Care Field Services Manager Name Role Phone Unavailable Primary Care Provider Unavailabl e Encounter Details Date Type Department Care Team (Late st Contact Info) Description 12/24/2019 Transcribed Document [facility] [place] [address] [place] [address] ProviderCl MD [address] [place] [address] Social History Tobacco Use Types Packs/Day Years Used Date Smoking Tobacco: Never Assessed Comments Unknown Sex and Gender Information Value Date Recorded Sex Assigned at Not on file Legal Sex Female 5:11 PM CDT Gender Identity Not on file Sexual Orientation Not on file documented as of this encounter Miscellaneous Notes * Cerner Conversion Note - Historical ProviderMD - 12/24/2019 5:00 PM CDT Chart Check - Review Order Profile Entered On: 12/24/2019 16:20 EDT Performed On: 12/24/2019 17:00 EDT by Kia Bunch RN Chart Check Powerplans Initiated/Discontinued as Appropriate : Yes All Active Orders Reviewed : Yes Kia Bunch RN - 12/24/2019 16:20 EDT documented in this encounter Plan of Treatment Not on file documented as of this encounter Visit Diagnoses Not on filedocumented in this encounter
--- OUTSIDE RECORDS SUMMARY | 2025-07-01 10:27 | XMS_ITS | Encounter Summary ---
Author Organization [employer] ([place], [place], [place], [place], [place]) Address [address] [place] [address] Care Team Providers Care Poultry Farmworker Name Role Phone Unavailable Primary Care Provider Unavailabl e Encounter Details Date Type Department Care Team (Late st Contact Info) Description 12/20/2019 Transcribed Document [facility] [place] [address] [place] [address] ProviderCl MD [address] [place] [address] Social History Tobacco Use Types Packs/Day Years Used Date Smoking Tobacco: Never Assessed Comments Unknown Sex and Gender Information Value Date Recorded Sex Assigned at Not on file Legal Sex Female 5:11 PM CDT Gender Identity Not on file Sexual Orientation Not on file documented as of this encounter Miscellaneous Notes * Cerner Conversion Note - Historical ProviderMD - 12/20/2019 3:40 PM CDT Evaluation, Occupational Therapy Entered On: 12/22/2019 13:09 EDT Performed On: 12/22/2019 10:52 EDT by ISABELLA ACOSTA OTR/Ashley General Information, OT Visit Type, OT : Initial evaluation Patient Orders : Order Date Order Ordering 12/20/2019 15:42 OT Evaluation and Treatment Ordered By: TARIQ TILLMAN MD-ORT Active Diagnoses : 12/21/2019 12:00 Other specified [...] : Aftercare following joint replacement surgery--L hip Onset of Problem, OT : 12/19/2019 EDT Admission Date : 12/19/2019 18:29 Personal Devices : Personal Devices No Devices Recorded Assistive Devices : Assistive Devices No Devices Recorded Precautions in Place : Fall prevention measures, Fall prevention measures, high risk, Hip precautions, posterior General Information Comment, OT : WBAT; posterior hip precautions. Pt somewhat lethargic throughout eval. ISABELLA ACOSTA OTR/L - 12/22/2019 12:57 EDT General Status Patient Received Status : Supine in bed, Bed alarm activated Treatment Start Time : 12/22/2019 10:52 EDT Patient Left Status : Up in chair, Chair alarm activated, RN/PCT informed, All needs met and within reach RN/PCT Informed Comment : RN ok'ed to see Treatment End Time : 12/22/2019 11:20 EDT Treatment Time : 28 Minute(s) Actual Treatment Time : 28 Minute(s) ISABELLA ACOSTA OTR/L - 12/22/2019 12:57 EDT History and Environment, OT Living Situation, Therapy : Home Patient Lives With : Spouse Persons Assisting Patient at Home : Spouse Professional Skilled Services : None Persons Providing Information : Patient Home Equipment, Therapy : Shower Equipment, Walker Shower Equipment : Shower Chair, with back Walker : Walker, four wheel, Walker, front wheel Home Setup : One story Stairs : Yes Stair Location(s) : Outside Outside Stairs, Number of Steps : 4 Railing Outside : No ISABELLA ACOSTA OTR/L - 12/22/2019 12:57 EDT Prior LOF Bathing, OT : Independent Prior LOF Bed Mobility : Independent Prior LOF Upper Body Dressing, OT : Independent Prior LOF Lower Body Dressing, OT : Independent Prior LOF Toileting : Independent Prior LOF Transfer : Independent Prior LOF Grooming, OT : Independent ISABELLA ACOSTA OTR/L - 12/22/2019 12:57 EDT Prior LOF Assist with ADL Comment : Pt reports her is not in good health; she has to A him with things at home ISABELLA ACOSTA OTR/L - 12/22/2019 12:57 EDT Upper Extremity Upper Extremity Dominance : Right Right UE Active ROM : WFL Right UE Strength : WFL Left UE Active ROM : WFL Left UE Strength : WFL Right UE Strength Comment : Grossly 4/5 Left UE Strength Comment : Grossly 4/5 Hand Customer Development Manager Test : WFL bilaterally Fine Motor Coordination Impaired : No ACOSTA, ISABELLA OTR/Ashley - 12/22/2019 12:57 EDT Functional Mobility Mobility Grid Bed Roll Left : Rehab Moderate assistance (Comment: x 2 [ISABELLA ACOSTA OTR/Ashley - 12/22/2019 12:57 EDT] ) Bed Roll Right : Rehab Moderate assistance (Comment: x 2 [ISABELLA ACOSTA OTWarren/Ashley - 12/22/2019 12:57 EDT] ) Supine to Sit : Rehab Moderate assistance (Comment: x 2 [ISABELLA ACOSTA OTWarren/Ashley - 12/22/2019 12:57 EDT] ) Sit to Stand : Rehab Minimal assistance (Comment: x 2 [ISABELLA ACOSTA OTWarren/Ashley - 12/22/2019 12:57 EDT] ) Bed to Chair : Rehab Minimal assistance (Comment: x 2 [ISABELLA ACOSTA OTWarren/Ashley - 12/22/2019 12:57 EDT] ) Stand to Sit : Rehab Minimal assistance ISABELLA ACOSTA OTR/Ashley - 12/22/2019 12:57 EDT Functional MobilityComment : F safety awareness ISABELLA ACOSTA OTR/Ashley - 12/22/2019 12:57 EDT Activity Tolerance, OT Activity Comment : F- act. tolerance ISABELLA ACOSTA OTR/Ashley - 12/22/2019 12:57 EDT Neurological/Sensory Light Touch Response : Intact ISABELLA ACOSTA OTR/Ashley - 12/22/2019 12:57 EDT Cognition Assessment, OT Orientation : Oriented x 4 Cognition Assessment, OT : Intact ISABELLA ACOSTA OTR/Ashley - 12/22/2019 12:57 EDT Education OT Occupational Therapy Education Grid Activity of Daily Living Training : Verbalizes understanding Functional Mobility Training : Verbalizes understanding, Returns demonstration Home Safety : Verbalizes understanding Positioning : Verbalizes understanding Precaution/Contraindication : Verbalizes understanding Role of Occupational Therapy : Verbalizes understanding ISABELLA ACOSTA OTR/Ashley - 12/22/2019 12:57 EDT Teaching/Learning Assessment Barriers To Learning : Acuity of Illness, Other: Fatigue/lethargy Individuals Taught : Patient Readiness to Learn : Cooperative Baseline Knowledge of Topic : Limited Readiness to Learn : Demonstration, Explanation Learning Style Preferences Patient : None ACOSTA, GAYE MASON - 12/22/2019 12:57 EDT Indication Assessment, OT Occupational Therapy Indicated : Yes Problem List, OT : Impaired, bed mobility, Impaired, activities daily living, Impaired, endurance tolerance, Impaired functional mobility, Impaired, joint mobility, Impaired, muscle tone, Impaired, standing balance, Impaired, strength, Impaired, transfers Potential Barriers, OT : Acuity of illness, Desire/Motivation, Fatigue, Knowledge/education, Pain, Patient compliance Rehabilitation Potential, OT : Good ISABELLA ACOSTA OTR/L - 12/22/2019 12:57 EDT Plan of Care, OT OT Tx Plan/Goals Established w Patient : Yes OT Frequency Rehab : Other: 3-5x/wk Other OT Treatment Provided This Date : Self care: pt instruction provided re: ADL performance, safety, home safety, posterior hip precautions Eval=8 min Self care=20 min OT Duration Rehab : Fourteen days OT Treatments Planned : Activities of daily living, Caregiver training, Functional mobility training, Neuromuscular reeducation, Safety education, Therapeutic activities, Therapeutic exercises ISABELLA ACOSTA OTR/L - 12/22/2019 12:57 EDT Parts Professional Goals, OT Other LTG Grid Goal #1 Goal #2 Goal : Perform LB ADL with mod A with use of AE PRN Perform ADL transfer with min A Date to Meet : 01/05/2020 EDT 01/05/2020 EDT Goal Status : Initial goal Initial goal ISABELLA ACOSTA OTR/L - 12/22/2019 12:57 EDT ISABELLA ACOSTA OTR/L - 12/22/2019 12:57 EDT Pain Assessment Pain Scaled Used : 0-10 Pain scale Pain Score Pre-Intervention : 0 ISABELLA ACOSTA OTR/L - 12/22/2019 12:57 EDT Image 1 - Images currently included in the form version of this document have not been included in the text rendition version of the form. [facility] OT Charges OT Selfcare/Hm Mgmt Ea 15 Min : 1 OT Eval Moderate Complexity : 1 ISABELLA ACOSTA OTR/L - 12/22/2019 12:57 EDT Electronically signed by Suma, [facility] Conversion Heliarc Welder Cerner at 10/17/2022 3:14 PM CDT documented in this encounter Plan of Treatment Not on file documented as of this encounter Visit Diagnoses Not on filedocumented in this encounter
--- OUTSIDE RECORDS SUMMARY | 2025-07-01 10:27 | XMS_ITS | Encounter Summary ---
Author Organization [employer] ([place], [place], [place], [place], [place]) Address [address] [place] [address] Care Team Providers Care Global Marketing Coordinator Name Role Phone Unavailable Primary Care Provider Unavailabl e Encounter Details Date Type Department Care Team (Late st Contact Info) Description 12/19/2019 Transcribed Document [facility] [place] [facility] [place] [address] ProviderCl MD [address] [place] [address] Social History Tobacco Use Types [...] ProviderMD - 12/19/2019 1:12 PM CDT ED Triage Entered On: 12/19/2019 13:19 EDT Performed On: 12/19/2019 13:15 EDT by Mariza Stanley RN ED Triage Across the Room Chief Complaint : C/o L hip pain, tripped and fell, 50 mcg of Fentanyl given instructional systems designer Triage Date/Time : 12/19/2019 13:15 EDT Mariza Stanley RN - 12/19/2019 13:15 EDT DCP GENERIC CODE Tracking Acuity : 3 - Urgent Tracking Group : [facility] Mariza Stanley RN - 12/19/2019 13:15 EDT Mode of Arrival : Stretcher Transported to ED by : Ambulance/ALS EMS Service : [facility][note 3] To Room Via : Stretcher Accompanied By : Unaccompanied ED Vital Signs : Document Height & Weight : Document ED Allergies : Document ED Reason for Visit : Document Mariza Stanley RN - 12/19/2019 13:15 EDT Infectious Disease History Has the patient ever been tested for COVID-19? : No, Patient stated COVID19 Screening : No Experiencing Infectious Disease Symptoms : No symptoms Physical contact outside [place] in the last 30 days : No Infectious Disease Symptoms Score : 0 Infectious Disease History : None Tuberculosis Symptoms : None Mariza Stanley RN - 12/19/2019 13:15 EDT Vital Signs ED Temperature Source : Temporal artery scanning Temperature Mode : Fahrenheit Temperature, Fahrenheit : 97.7 Deg F Clinical Temperature, C : 36.5 Deg C Oxygen Therapy Mode : Room air Peripheral Pulse Rate : 66 bpm Respiratory Rate : 18 Breaths/Min Systolic Blood Pressure : 194 mmHg (HI) Diastolic Blood Pressure : 92 mmHg (HI) Oxygen Saturation : 91 % (LOW) Mariza Stanley RN - 12/19/2019 13:15 EDT Allergy (As Of: 12/19/2019 13:19:58 EDT) Allergies (Active) No Known Medication Allergies Estimated Onset Date: Unspecified ; Created By: WINSOME NAIK RN; Reaction Status: Active ; Category: Drug ; Substance: No Known Medication Allergies ; Type: Allergy ; Updated By: WINSOME NAIK RN; Reviewed Date: 12/16/2013 8:59 EDT Diagnosis Control ED (As Of: 12/19/2019 13:19:58 EDT) Problems(Active) Acid reflux (SNOMED CT :739093744 ) Name of Problem: Acid reflux ; Recorder: LUC ACOSTA RN; Confirmation: Confirmed ; Classification: Patient Stated ; Code: [id number] ; Contributor System: Fatsoma ; Last Updated: 12/16/2013 6:27 EDT ; Life Cycle Date: 12/16/2013 ; Life Cycle Status: Active ; Vocabulary: SNOMED CT Chronic pain (SNOMED CT :693475769 ) Name of Problem: Chronic pain ; Recorder: LUC ACOSTA RN; Confirmation: Confirmed ; Classification: Patient Stated ; Code: 216937633 ; Contributor System: Fatsoma ; Last Updated: 12/16/2013 6:25 EDT ; Life Cycle Date: 12/16/2013 ; Life Cycle Status: Active ; Vocabulary: SNOMED CT Depression (SNOMED CT :56432909 ) Name of Problem: Depression ; Recorder: WINSOME NAIK RN; Confirmation: Confirmed ; Classification: Medical ; Code: 54777256 ; Contributor System: PowerChart ; Last Updated: 12/15/2013 15:58 EDT ; Life Cycle Date: 12/15/2013 ; Life Cycle Status: Active ; Vocabulary: SNOMED CT H. pylori infection (SNOMED CT :665406931 ) Name of Problem: H. pylori infection ; Recorder: LUC ACOSTA RN; Confirmation: Confirmed ; Classification: Patient Stated ; Code: 139210020 ; Contributor System: PowerChart ; Last Updated: 12/16/2013 6:27 EDT ; Life Cycle Date: 12/16/2013 ; Life Cycle Status: Active ; Vocabulary: SNOMED CT Heart murmur (SNOMED CT :562477240 ) Name of Problem: Heart murmur ; Recorder: WINSOME NAIK RN; Confirmation: Confirmed ; Classification: Medical ; Code: 675544299 ; Contributor System: PowerChart ; Last Updated: 12/15/2013 15:55 EDT ; Life Cycle Date: 12/15/2013 ; Life Cycle Status: Active ; Vocabulary: SNOMED CT Hypertension (SNOMED CT :5189797145 ) Name of Problem: Hypertension ; Recorder: WINSOME NAIK RN; Confirmation: Confirmed ; Classification: Medical ; Code: [id number] ; Contributor System: PowerChart ; Last Updated: 12/15/2013 15:54 EDT ; Life Cycle Date: 12/15/2013 ; Life Cycle Status: Active ; Vocabulary: SNOMED CT Incontinent of urine (SNOMED CT :0803399617 ) Name of Problem: Incontinent of urine ; Recorder: WINSOME NAIK RN; Confirmation: Confirmed ; Classification: Medical ; Code: [id number] ; Contributor System: PowerChart ; Last Updated: 12/15/2013 15:56 EDT ; Life Cycle Date: 12/15/2013 ; Life Cycle Status: Active ; Vocabulary: SNOMED CT Kidney stones (SNOMED CT :702018525 ) Name of Problem: Kidney stones ; Recorder: WINSOME NAIK RN; Confirmation: Confirmed ; Classification: Medical ; Code: 323107113 ; Contributor System: PowerChart ; Last Updated: 12/15/2013 15:55 EDT ; Life Cycle Date: 12/15/2013 ; Life Cycle Status: Active ; Vocabulary: SNOMED CT Diagnoses(Active) Hip pain-swelling Date: 12/19/2019 ; Diagnosis Type: Reason For Visit ; Confirmation: Complaint of ; Clinical Dx: Hip pain-swelling ; Classification: Medical ; Clinical Service: Non-Specified ; Code: PNED ; Probability: 0 ; Diagnosis Code: [id number] ED Height and Weight Height Source : Stated Height Entry Format : [place] Height, Feet : 5 ft(Converted to: 152 cm, 60 Inch) Height, Inches : 7 Inch(Converted to: 0 ft 7 Inch, 17.78 cm) Clinical Height : 170.18 cm Weight Source, ED : Critical estimated dosing weight Weight Entry Format : [place] Weight, Pounds : 169 lb Clinical Dosing Weight : 76.82 kg Body Surface Area (BSA) : 1.88 m2 Body Mass Index : 26.5 kg/m2 (HI) [place] Body Weight (IBW) : 61.16 kg Mariza Stanley RN - 12/19/2019 13:15 EDT documented in this encounter Plan of Treatment Not on file documented as of this encounter Visit Diagnoses Not on filedocumented in this encounter
--- OUTSIDE RECORDS SUMMARY | 2025-07-01 10:27 | XMS_ITS | Encounter Summary ---
Author Organization [employer] ([place], [place], [place], [place], [place]) Address [address] [place] [address] Care Team Providers Care Highway Design Engineer Name Role Phone Unavailable Primary Care Provider Unavailabl e Encounter Details Date Type Department Care Team (Late st Contact Info) Description 12/25/2019 Transcribed Document [facility] [place] Family Medicine [address] [place] [address] ProviderCl MD [address] [place] [address] Social History Tobacco Use Types Packs/Day Years Used Date Smoking Tobacco: Never Assessed Comments Unknown Sex and Gender Information Value Date Recorded Sex Assigned at Not on file Legal Sex Female 5:11 PM CDT Gender Identity Not on file Sexual Orientation Not on file documented as of this encounter Miscellaneous Notes * Cerner Conversion Note - Historical ProviderMD - 12/25/2019 3:00 AM CDT Nutrition Assessment Entered On: 12/25/2019 12:26 EDT Performed On: 12/25/2019 15:37 EDT by Linda Bowen, IMANI, LD Nutrition Assessment Current Nutrition Regimen Comment : (12/25) RD rescreen; pt was asleep at time of visit. Noted that pt intake continues to be low. (12/21) Consult rec'd for wt loss with decrease in appetite (MST=2). Pt admitted s/p fal with left hip fracture s/p hemiarthroplasty. Pt was wanting to get back in bed at time of visit and therapy arrived at the same time to work with pt. Noted that pt has had minimal po intake. Will continue to monitor. Dx: fall, left hip fracture s/p hemiarthroplasty, DANI PMH: DM, HTN, GERD, chronic pain syndrome Labs: K+ 3.1, Glu 137 Ha1c 8.40 Meds: Vit B12, colace, lovenox, SSI, lasix Skin: left hip incision GI: LBM 12/24 Diet: regular + Ensure TID Eatin.5% x 6 meals Ht: 67 Wt: 169#, no new wt (12/24) BMI: 26.6 IBW/%IBW: 135#/125% Linda Bowen RD, LD - 12/25/2019 15:35 EDT Nutrition Assessment Reason : Follow Up Linda Bowen RD, LD - 12/25/2019 12:26 EDT Nutrition Diagnoses Oral or Nutrition Support Intake : Inadequate oral intake Oral or Nutr Support Intake Related To : decreased po intake Oral or Nutr Support Intake Evidenced by : 27.5% x 6 meals Oral or Nutrition Support Intake Status : Active Weight : Unintended weight loss Weight Related to : decreased appetite Weight As Evidenced by : reported wt loss of 2-13# per MST Weight Status : Active Linda Bowen RD, LD - 12/25/2019 15:35 EDT Nutrition Interventions Meals and Snacks : Carbohydrate-modified diet Nutrition Supplement Therapy : Commercial beverage Linda Bowen RD, LD - 12/25/2019 15:35 EDT Monitoring/Evaluation Energy Intake : Total energy intake Weight Status : Weight Maintanence Gastrointestinal Function : Bowel Function Linda Bowen RD, LD - 12/25/2019 15:35 EDT Nutrition Recommendations Dietitian Recommendations : 1. Continue current diet regimen. IMANI will add Glucerna TID to aid in po intake. goal: po intake >50% from meals and supplements 2. Monitor wt 2x/wk goal: no significant involuntary changes in wt Nutritional Risk: high Linda Bowen RD, LD - 12/25/2019 15:35 EDT documented in this encounter Plan of Treatment Not on file documented as of this encounter Visit Diagnoses Not on filedocumented in this encounter
--- OUTSIDE RECORDS SUMMARY | 2025-07-01 10:27 | XMS_ITS | Encounter Summary ---
Author Organization [employer] ([place], [place], [place], [place], [place]) Address [address] [place] [address] Care Team Providers Care Home Improvement Contractor Name Role Phone Unavailable Primary Care Provider Unavailabl e Encounter Details Date Type Department Care Team (Late st Contact Info) Description 12/25/2019 Transcribed Document [facility] [place] Family Medicine [address] [place] [address] ProviderCl MD [address] [place] [address] Social History Tobacco Use Types Packs/Day Years Used Date Smoking Tobacco: Never Assessed Comments Unknown Sex and Gender Information Value Date Recorded Sex Assigned at Not on file Legal Sex Female 5:11 PM CDT Gender Identity Not on file Sexual Orientation Not on file documented as of this encounter Miscellaneous Notes * Cerner Conversion Note - Historical ProviderMD - 12/25/2019 5:00 AM CDT Chart Check - Review Order Profile Entered On: 12/25/2019 5:38 EDT Performed On: 12/25/2019 5:00 EDT by Yanique Jimenez RN Chart Check Powerplans Initiated/Discontinued as Appropriate : Yes All Active Orders Reviewed : Yes Yanique Jimenez RN - 12/25/2019 5:38 EDT documented in this encounter Plan of Treatment Not on file documented as of this encounter Visit Diagnoses Not on filedocumented in this encounter
--- OUTSIDE RECORDS SUMMARY | 2025-07-01 10:27 | XMS_ITS | Encounter Summary ---
Author Organization [employer] ([place], [place], [place], [place], [place]) Address [address] [place] [address] Care Team Providers Care Supervisor Taping Name Role Phone Unavailable Primary Care Provider Unavailabl e Encounter Details Date Type Department Care Team (Late st Contact Info) Description 12/24/2019 Transcribed Document [facility] [place] Family Medicine [facility] [place] [address] ProviderCl MD [address] [id number] Social History Tobacco Use Types Packs/Day Years Used Date Smoking Tobacco: Never Assessed Comments Unknown Sex and Gender Information Value Date Recorded Sex Assigned at Not on file Legal Sex Female 5:11 PM CDT Gender Identity Not on file Sexual Orientation Not on file documented as of this encounter Miscellaneous Notes * Cerner Conversion Note - Cl Landaverde MD - 12/24/2019 10:23 PM CDT Patient: JAMES BUSTILLO Age: 79 years Sex: Female : 1940 Associated Diagnoses: Status post hemiarthroplasty of left hip fracture; Fall; Hip fracture, left; Diabetes mellitus; GERD; Hypertension; Chronic pain syndrome; Depression; Hip pain-swelling; Hip injury - Minor Author: JUAN J DEL ROSARIO MD-INT Basic Information awake alert comfortable, asympt. , pain under control, no trouble w. urination. Review of Systems Constitutional: No fever, No [...] Medication Allergies None Documented Current medications: Medications (28) Active Scheduled: (9) amLODIPine 5 mg tab 5 mg 1 Tab, Oral, Daily cyanocobalamin 1,000 mcg tab 1,000 mcg 1 Tab, Oral, Daily docusate sodium 100 mg cap 100 mg 1 Cap, Oral, BID DULoxetine DR 60 mg cap 60 mg 1 Cap, Oral, Daily enoxaparin 40 mg/0.4 mL inj 40 mg 0.4 mL, SubCutaneous, [id number] furosemide 20 mg tab 20 mg 1 Tab, Oral, Daily insulin lispro 1 unit/0.01 mL inj Scale A:, SubCutaneous, AC and at Bedtime metoprolol succinate XL 100 mg tab 100 mg 1 Tab, Oral, Daily oxybutynin 5 mg tab 10 mg 2 Tab, Oral, Daily Continuous: (1) NaCl 0.45% 1,000 mL 1,000 mL, IntraVENous, 100 mL/Hr PRN: (18) acetaminophen 325 mg tab 650 mg 2 Tab, Oral, Q4H bisacodyl 10 mg supp 10 mg 1 Supp, Rectal, BID calcium gluconate 1 Gram 10 mL, IV Piggyback, Daily calcium gluconate + NaCl 0.9% 100 mL 2 Gram 20 mL, IV Piggyback, Daily calcium gluconate + NaCl 0.9% 100 mL 2 Gram 20 mL, IV Piggyback, Q12H cloNIDine 0.1 mg tab 0.1 mg 1 Tab, Oral, Q4H magnesium hydroxide 8% liq 30 mL 30 mL, Oral, Daily magnesium sulfate 2 Gram 50 mL, IV Piggyback, Daily magnesium sulfate 2 Gram 50 mL, IV Piggyback, Q2H metoclopramide 10 mg/2 mL inj 5 mg 1 mL, IV Push, Q6H ondansetron 4 mg/2 mL inj 4 mg 2 mL, IV Push, Q4H oxyCODONE 5 mg tab 5 mg 1 Tab, Oral, Q4H potassium chloride 10 mEq 100 mL, IV Piggyback, Q1H potassium chloride CR 20 mEq tab 20 mEq 1 Tab, Oral, Q2H potassium chloride CR 20 mEq tab 60 mEq 3 Tab, Oral, Q2H scopolamine 1.5 mg/72 hr patch 1 Patch, TransDermal, Q3Days sodium phosphate 15 mMole 5 mL, IV Piggyback, Daily sodium phosphate 15 mMole 5 mL, IV Piggyback, Q6H Problem list: Active Problems (9) Acid reflux At risk for sleep apnea Chronic pain Depression H. pylori infection Heart murmur Hypertension Incontinent of urine Kidney stones Physical Examination VS/Measurements Vital Measurements 12/24/2019 17:54 EDT Systolic Blood Pressure 146 mmHg HI Diastolic Blood Pressure 61 mmHg Mean Arterial Pressure (MAP)-BMDI 83 Temperature Source Oral Temperature Mode Fahrenheit Temperature, Fahrenheit 99.2 Deg F Clinical Temperature, C 37.3 Deg C Heart Rate Monitored 61 bpm Respiratory Rate 15 Breaths/Min Oxygen Saturation 95 % General: Alert and oriented, No acute distress. [...] Review / Management Results review: All Results 12/24/2019 5:13 EDT Sodium Level 137 mmol/L Potassium Level 3.5 mmol/L Chloride Level 102 mmol/L Carbon Dioxide Level 16 mmol/L LOW Anion Gap 22 HI Glucose Level 147 mg/dL HI Blood Urea Nitrogen 14 mg/dL Creatinine Level 0.83 mg/dL eGFR >60 mL/min/1.73m2 eGFR NonAfrican >60 mL/min/1.73m2 Bun/Creatinine 16.9 Calcium Level 8.4 mg/dL LOW 12/23/2019 3:32 EDT Sodium Level 138 mmol/L Potassium Level 3.4 mmol/L LOW Chloride Level 105 mmol/L Carbon Dioxide Level 13 mmol/L LOW Anion Gap 23 HI Glucose Level 153 mg/dL HI Blood Urea Nitrogen 17 mg/dL Creatinine Level 0.85 mg/dL eGFR >60 mL/min/1.73m2 eGFR NonAfrican >60 mL/min/1.73m2 Bun/Creatinine 20.0 Calcium Level 7.9 mg/dL LOW Protein Total 5.7 Gram/dL LOW Albumin Level 2.5 Gram/dL LOW Globulin 3.2 Gram/dL A/G Ratio 0.8 LOW Bilirubin Total 0.7 mg/dL Alk Phos 54 Units/Liter AST 30 Units/Liter ALT 20 Units/Liter Hgb 12.5 Gram/dL Hct 38.2 % . Condition: Stable. Impression and Plan Diagnosis Status post hemiarthroplasty of left hip fracture - Admitting, Medical. Fall - Admitting, Emergency medicine, Medical. Hip fracture, left - Admitting, Emergency medicine, Medical. Diabetes mellitus - Admitting, Emergency medicine, Medical. GERD - Admitting, Patient Stated. Hypertension - Admitting, Emergency medicine, Medical. Chronic pain syndrome - Admitting, Patient Stated. Depression - Admitting, Medical. Complaint of Hip pain-swelling - Reason For Visit, Medical. Hip injury - Minor - Reason For Visit, Emergency medicine, Medical. Course: Plan/ cont. current care, pt/ot, encourage oral fluid intake, nutritional support, encourage use of respirometer, motoring blood pressure, renal function, blood glucose, and urine output. in control. DVT prophylaxis. Close monitoring fluid and electrolytes. Fall risk precautions. Sleep apnea precautions. Stress ulcer prophylaxis. pending insurance approval for rehabilitation. documented in this encounter Plan of Treatment Not on file documented as of this encounter Visit Diagnoses Not on filedocumented in this encounter
--- OUTSIDE RECORDS SUMMARY | 2025-07-01 10:27 | XMS_ITS | Encounter Summary ---
Author Organization [employer] ([place], [place], [place], [place], [place]) Address [address] [place] [address] Care Team Providers Care Form Grader Name Role Phone Unavailable Primary Care Provider Unavailabl e Encounter Details Date Type Department Care Team (Late st Contact Info) Description 12/20/2019 Transcribed Document [facility] [place] Family Medicine [address] [place] [address] ProviderCl MD [address] [place] [address] Social History Tobacco Use Types Packs/Day Years Used Date Smoking Tobacco: Never Assessed Comments Unknown Sex and Gender Information Value Date Recorded Sex Assigned at Not on file Legal Sex Female 5:11 PM CDT Gender Identity Not on file Sexual Orientation Not on file documented as of this encounter Miscellaneous Notes * Cerner Conversion Note - Historical ProviderMD - 12/20/2019 10:45 AM CDT UM Authorization Entered On: 12/20/2019 10:45 EDT Performed On: 12/20/2019 10:45 EDT by BORIS COLEMAN Rn-Utilization Review Primary Insurance Authorization Authorization and Policy Numbers : Insurance 1 Health Plan: [employer] PPO Policy Number: [id number] Authorization Number: Insurance Primary Name : [employer] PPO Authorization Status-Primary : Awaiting callback Reference Number-Primary : [id number] Authorization Number-Primary : PENDED Authorized Service Begin Date-Primary : 12/19/2019 EDT Authorization Comments-Primary : Auth retrieved from [employer] and clinicals attached Historical Authorization Comments-Primary : No Authorization Comments Found BORIS COLEMAN Rn-Utilization Review - 12/20/2019 10:45 EDT documented in this encounter Plan of Treatment Not on file documented as of this encounter Visit Diagnoses Not on filedocumented in this encounter
--- OUTSIDE RECORDS SUMMARY | 2025-07-01 10:27 | XMS_ITS | Encounter Summary ---
Author Organization [employer] ([place], [place], [place], [place], [place]) Address [address] [place] [address] Care Team Providers Care Complex Manager Name Role Phone Unavailable Primary Care Provider Unavailabl e Encounter Details Date Type Department Care Team (Late st Contact Info) Description 12/20/2019 Transcribed Document [facility] [place] [address] [place] [address] ProviderCl MD [address] [place] [address] Social History Tobacco Use [...] ProviderMD - 12/20/2019 3:40 PM CDT Evaluation, Physical Therapy Entered On: 12/21/2019 10:29 EDT Performed On: 12/21/2019 9:43 EDT by YORDAN FRENCH, PT General Information, PT Visit Type, PT : Initial evaluation Patient Orders : Order Date Order Ordering 12/20/2019 15:42 PT Evaluation and Treatment Ordered By: TARIQ TILLMAN [...] 12:00 Unspecified fall, initial encounter Therapy Diagnosis, PT : aftercare following L posterior hip hemiarthroplasty Admission Date : 12/19/2019 18:29 Personal Devices : Personal Devices No Devices Recorded Assistive Devices : Assistive Devices No Devices Recorded Precautions in Place : Fall prevention measures, high risk General Information Comment, PT : 79yo female s/p fall with L femur fracture - s/p posterior L hip hemiarthroplasty by Dr. Villalobos on 12/20/19. WBAT Posterior Hip Precautions PMH: chronic pain syndrome, depression, DM YORDAN FRENCH, PT - 12/21/2019 10:08 EDT General Status Patient Received Status : Supine in bed, Bed alarm activated, Other: 3L O2, IV, SCDS, PureWick catheter, hip abduction pillow Treatment Start Time : 12/21/2019 9:12 EDT Patient Left Status : Up in chair, Chair alarm activated, RN/PCT informed, Communication board completed, All needs met and within reach, Other: as found RN/PCT Informed Comment : RN ok'd PT EVAL. Patient agreeable to PT EVAL. Treatment End Time : 12/21/2019 9:43 EDT Treatment Time : 31 Minute(s) Actual Treatment Time : 31 Minute(s) YORDAN FRENCH, PT - 12/21/2019 10:08 EDT History and Environment Living Situation, Therapy : Home Patient Lives With : Spouse Professional Skilled Services : None Persons Providing Information : Patient (Comment: Very hard to keep patient awake and answering questions throughout EVAL. [YORDAN FRENCH, PT - 12/21/2019 10:08 EDT] ) Home Equipment Therapy, PT : Cane, Shower Equipment, Walker Cane : Cane, quad based Shower Equipment : Shower bench, with back Walker Comment : Patient was unsure what kind of walker she had at home. Home Setup : One story Stairs : Yes Stair Location(s) : Outside Outside Stairs, Number of Steps : 2 Railing Outside : No YORDAN FRENCH, PT - 12/21/2019 10:08 EDT Prior Level of Function PT GRID Prior LOF Ambulation, Household : Independent Prior LOF Ambulation, Community : Independent Prior LOF Bed Mobility : Independent Prior LOF Toileting : Independent Prior LOF Transfer : Independent YORDAN FRENCH, PT - 12/21/2019 10:08 EDT Prior LOF Assist with ADL Comment : Independent per patient report. Patient stated her is not in good shape to be able to help her out if she would need it. YORDAN FRENCH, PT - 12/21/2019 10:08 EDT Intervention Summary BP Systolic During Intervention : 130 mmHg BP Diastolic During Intervention : 49 mmHg SpO2 Post-Intervention : 96 % YORDAN FRENCH, PT - 12/21/2019 10:08 EDT Upper Extremity Upper Extremity Dominance : Right Right UE Active ROM : WFL Left UE Active ROM : WFL Left UE Strength : WFL YORDAN FRENCH, PT - 12/21/2019 10:08 EDT Lower Extremity RLE Active ROM : WFL Right LE Strength : WF LLE Active ROM : Impaired Left LE Strength : Impaired Lower Extremity Comment : L LE AROM/strength impaired d/t recent surgery YORDAN FRENCH, PT - 12/21/2019 10:08 EDT Functional Mobility Mobility Grid Bed Scooting : Rehab Maximal assistance (Comment: drawsheet used to scoot patient out to EOB [YORDAN FRENCH, PT - 12/21/2019 10:08 EDT] ) Supine to Sit : Rehab Moderate assistance (Comment: patient pulling on PT's hand [YORDAN FRENCH, PT - 12/21/2019 10:08 EDT] ) Stand to Sit : Rehab Moderate assistance (Comment: Patient thought she was going to fall - tipping walker up on 2 legs- posterior lean - not listening to cues to reach back for chair prior to sitting [YORDAN FRENCH, PT - 12/21/2019 10:08 EDT] ) YORDAN FRENCH, PT - 12/21/2019 10:08 EDT Sit to Stand Device : Belt, gait, Walker, front wheel Functional MobilityComment : Patient sat EOB with CGA to maintain position. YORDAN FRENCH, PT - 12/21/2019 10:08 EDT Gait Training/Assessment, PT Weight Bearing Status : As tolerated Gait Assistance Level : Assist, moderate Walking Distance : 5' bed to chair Ambulatory Devices : Gait belt, Walker, front wheel Gait Training Comment : Patient ambulated 5' with RWx Min/Mod A + verbal cues for gait sequencing and safety. Max A to help turn RWx and bring it backwards while backing up to chair. YORDAN FRENCH, PT - 12/21/2019 10:08 EDT Neuromuscular Reeducation, PT Balance Comment : Poor/Fair - needs AD YORDAN FRENCH, PT - 12/21/2019 10:08 EDT Neurological/Sensory Overall Sensory Response Comment : NT YORDAN FRENCH, PT - 12/21/2019 10:08 EDT Activity Tolerance, PT Activity Comment : Fair/Poor YORDAN FRENCH, PT - 12/21/2019 10:08 EDT Cognition Assessment, PT Orientation : Oriented x 4 Safety/Judgment Comment : Impaired Follows Basic Command Assessment : At times - otherwise just too groggy. Attention Assessment : Other: sleepy/groggy - kept eyes closed for most of EVAL. YORDAN FRENCH, PT - 12/21/2019 10:08 EDT Edu Topics Physical Therapy Education Grid Bed Mobility Training : Needs further teaching Gait Training : Needs further teaching Precaution/Contraindication : Needs further teaching (Comment: Posterior Hip Precautions: No flexion > 90 degrees, No crossing midline, No IR of hip [YORDAN FRENCH, PT - 12/21/2019 10:08 EDT] ) Safety : Needs further teaching Stair Training : Needs further teaching Therapeutic Exercises : Needs further teaching Transfer Training : Needs further teaching Use of Assistive Device : Needs further teaching YORDAN FRENCH, PT - 12/21/2019 10:08 EDT Teaching/Learning Assessment Barriers To Learning : None evident Individuals Taught : Patient Readiness to Learn : Cooperative Readiness to Learn : Demonstration, Explanation, Printed materials YORDAN FRENCH, PT - 12/21/2019 10:08 EDT Indication Assesessment, PT Physical Therapy Indicated : Yes PT Problem List : Impaired, bed mobility, Impaired, endurance tolerance, Impaired, gait, Impaired, sitting balance, Impaired, stair mobility, Impaired, standing balance, Impaired, strength, Impaired, transfers Potential Barriers To Therapy : Fatigue Rehabilitation Potential : YORDAN Monroe, PT - 12/21/2019 10:08 EDT Plan of Care, PT PT Tx Plan/Goals Established w Patient : Yes PT Frequency Rehab : Daily, twice (bid) PT Duration Rehab : Three days PT Treatments Planned : Balance training, Bed mobility training, Caregiver training, Gait training, Safety education, Stair training, Therapeutic exercises, Transfer training YORDAN FRENCH, PT - 12/21/2019 10:08 EDT Senior Care Goals Other PT LTG Grid Goal #1 Goal #2 Goal #3 Goal #4 Other : Patient will transfer with Min A to decrease caregiver burden. Patient will ambulate 50' with RWx CGA/Min A for limited household distances. Patient will perform LJ HEP A/AROM x 15 reps to improve strength/endurance with functional activities. Patient will verbalized posterior hip precautions to prevent dislocation. Date to Meet : 12/24/2019 EDT 12/24/2019 EDT 12/24/2019 EDT 12/24/2019 EDT Goal Status : Initial goal Initial goal Initial goal Initial goal YORDAN FRENCH, PT - 12/21/2019 10:08 EDT YORDAN FRENCH, PT - 12/21/2019 10:08 EDT YORDAN FRENCH, PT - 12/21/2019 10:08 EDT YORDAN FRENCH, PT - 12/21/2019 10:08 EDT Goal #5 Other : Patient will ascend/descend 2 steps with RWx Min A. (IF D/C HOME) Date to Meet : 12/24/2019 EDT Goal Status : Initial goal YORDAN FRENCH, PT - 12/21/2019 10:08 EDT Treatment Note Subjective Comment : [place] RN reports patient had no PO pain medicine ordered, so she was getting IV dilaudid all night and that is the likely explanation of how she is presenting currently. Patient started saying I'm burning up repeatedly once up in chair. PT gave patient cold ice water to drink and a cool rag for forhead + turned thermostat down. Patient's Response to Treatment : Poor - groggy/sleepy/eyes closed throughout EVAL. Assessment : Patient will benefit from acute skilled PT services for post op posterior LJ and to maxamize functional mobility potential prior to discharge. Patient with multiple impairments at this time and is a MODERATE EVAL. YORDAN FRENCH, PT - 12/21/2019 10:08 EDT Pain Assessment Pain Comment : When asked about pain, patient responded yes but when asked where and how bad - patient responded I don't know . FACES 10/09 YORDAN FRENCH, PT - 12/21/2019 10:08 EDT Image 1 - Images currently included in the form version of this document have not been included in the text rendition version of the form. Anticipated Discharge Needs, OT/PT Anticipated Discharge to : Unit, rehabilitation, Unit, usp Anticipated Home Equipment : Commode, Walker Recommend Continued Therapy at Discharge : Yes Commode : Commode, bedside Walker : Walker, front wheel YORDAN FRENCH, PT - 12/21/2019 10:[address] [facility] PT Charges PT Ther Activities Ea 15 Min : 1 Gait Training Each 15 Min : 1 PT Eval Moderate Complexity : 1 YORDAN FRENCH, PT - 12/21/2019 10:08 EDT documented in this encounter Plan of Treatment Not on file documented as of this encounter Visit Diagnoses Not on filedocumented in this encounter
--- OUTSIDE RECORDS SUMMARY | 2025-07-01 10:27 | XMS_ITS | Encounter Summary ---
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 Name Role Phone Unavailable Primary Care Provider Unavailabl e Encounter Details Date Type Department Care Team (Late st Contact Info) Description 12/25/2019 Transcribed Document [facility] [place] [facility] [place] [address] ProviderCl MD [address] [place] [address] Social History Tobacco Use Types Packs/Day Years Used Date Smoking Tobacco: Never Assessed Comments Unknown Sex and Gender Information Value Date Recorded Sex Assigned at Not on file Legal Sex Female 5:11 PM CDT Gender Identity Not on file Sexual Orientation Not on file documented as of this encounter Miscellaneous Notes * Cerner Conversion Note - Cl Landaverde MD - 12/25/2019 4:16 [place] [address] JAMES BUSTILLO :1940 Visit Time:12/19/2019 Your Visit Summary Your Care Team Admitting Physician - LINDA OLVERA MD-EMR HANNA, GEORGE T, MD-ANNA BUTCHER, UNKNOWN Attending Physician - LINDA OLVERA MD-EMR HANNA, GEORGE T, MD-INT Primary Care Physician - JANICE ARNETT NP-[facility] Referring Physician - HADLEY, SELF REFERRED Your Diagnosis Chronic pain syndrome Depression Diabetes mellitus2 Displaced intertrochanteric fracture of left femur, initial encounter for closed fracture, Displaced intertrochanteric fracture of left femur, initial encounter for closed fracture Fall GERD Hip fracture, left Hip injury - Minor Hip pain-swelling Hypertension Status post hemiarthroplasty of left hip fracture These Are Your Goals hip to feel better, pain control What to do next Instructions From Your Care Team Discharge Follow Up Instructions: Follow-up with Dr. Malloy is scheduled, Order Comment: Follow-up with PCP as scheduled or PRN Activity: As per recommendations, Discharge Activity: Other (use Special Instructions) Diet: Discharge Diet: Resume usual diet as tolerated Follow-Up Appointments Follow Up with TARIQ MALLOY MD-ORT When 01/06/2020 09:30 AM EDT Where: [address] [place] [id number]- Medications What How Much When Instructions Next Dose acetaminophen (Tylenol 325 mg oral tablet) 2 Tablet(s) Oral Every 4 Hours as needed for Other (See Comment) as needed amlodipine (Norvasc) 5 Milligram(s) Oral Every Day tomorrow cyanocobalamin (Vitamin B12) 1,000 Milligram(s) Oral Every Day tomorrow duloxetine (Cymbalta) 60 Milligram(s) Oral Every Day tomorrow furosemide (Lasix) 20 Milligram(s) Oral Every Day tomorrow hyoscyamine (Levsin SL) metoprolol (Metoprolol Tartrate 100 mg oral tablet) Oral Every Day tomorrow oxybutynin (Ditropan) 10 Milligram(s) Oral Every Day tomorrow potassium chloride (Micro-K 10 oral capsule, extended release) 1 Capsule(s) Oral Every Day tomorrow Take your medications faithfully. Do NOT skip medication. Do NOT stop taking medications without the direction of a physician. Carry a list of your medications with you at all times, and take this medication list with you to your first follow up visit. Report any side effects. Avoid herbal remedies unless discussed with your physician. As part of your treatment plan, your physician may have prescribed a limited course of a controlled substance. This medication may be given to help people with moderate or severe pain or for other medical conditions, but there are risks involved with treatment. Common side effects may include nausea, constipation, drowsiness, sweating, itching, dry mouth, and rash. More serious side effects may include cognitive and motor impairment, like problems with thinking, concentrating, alertness, and movement (e.g. slowed reflexes), and driving and operating heavy machinery can be dangerous. It is important for you to talk to your physician if you have these side effects or questions. These controlled substances can produce physical dependence and be habit-forming if taken for an extended period of time, which means that the body has gotten used to them and may experience withdrawal symptoms if they are abruptly stopped. Withdrawal symptoms can include runny nose, sweating, goose bumps, diarrhea, abdominal cramping, rapid heartbeat, difficulty sleeping, and nervousness. Please dispose of unused and medications per your retail pharmacy guidance. Allergies No Known Medication Allergies Immunizations This Visit No Immunizations Found Education Materials Discharge Instructions for Posterior Total Hip Replacement [...] before and after changing the dressing. Activity: ??? You may put weight on your leg as tolerated, unless your surgeon instructs otherwise. Use your walker until cleared by therapist. Continue your exercises from physical therapy. ??? Stay active, getting up every 1-2 hours, walk short distances, and walk a little more each week. No driving until cleared by your surgeon. ??? If your surgery was from the back approach, remember to follow your hip precautions, written out on the last page. ??? If your surgeon has ordered support hose, continue to wear them for 6 weeks in order to prevent blood clots. Take them off 1-2 times per day for about 30 minutes-1 hour. Check your skin for red or open areas under stockings. Thigh-high support hose can be bought online and at many pharmacies, be sure that compression is 15-20mmHg. ??? For swelling, prop your leg up above your heart. Cold therapy 30 minutes on 30 minutes off frequently. General Instructions: ??? Eat more protein and fiber. ??? Drink 8-10 glasses of water a day [...] your home health nurse or surgeon office. ??? Keep using your incentive spirometer so you do not get a fever or lung infection. Aim for 10 breaths every hour while you are awake. ??? Take pain medicine as needed, especially before therapy. ??? Let your doctors and dentist know you [...] toes or leg inward, bend down to excelsior picker objects, bend at the waist or [...] these instructions at home: Medicines ??? Take [id number] and prescription medicines only as told by [...] higher than your hips. ? Do not excelsior picker something from the floor while sitting [...] use soap and water, use alcohol-based hand urologist physician. ? Change your bandage as told by [...] Leave the ice on for 20 minutes, 2???3 times a day. ??? Move your toes [...] fried or sweet foods. ? Take an [id number] or prescription medicine for constipation. ??? Keep [...] 09/09/2012 Document Revised: 07/11/2019 Document Reviewed: 07/30/2018 [employer] Interactive Patient Education ?? 2020 [employer] What to expect after the Procedure: After the procedure, it is common to have: ??? Pain and swelling. ??? A small amount of blood or clear fluid coming from your incision for up to 7 days ??? It is normal to have a moderate amount of bleeding from the site of the drain that was pulled on the morning after surgery. You can hold pressure on the area for 3-5 minutes and cover with a bandage as needed. Diet: ??? Resume usual diet ??? No alcoholic beverages while taking pain medication ??? Drink 8-10 glasses of water a day to prevent constipation from pain medication ??? Increase fiber to help prevent constipation. Straining can cause increased pressure and pain in your incision area ??? Increase protein to promote healing Driving: ??? Do not drive until your health care provider approves. Ask your health care provider when it is safe to drive if you have an immobilizer on your knee. ??? Do not drive or operate heavy machinery while taking prescription pain medicine. ??? Do not drive for 24 hours if you received a sedative. Activity: ??? Do not lift anything that is heavier than 10 lb (4.5 kg) until your health care provider approves. ??? No strenuous activity ??? Avoid high-impact activities, including running, jumping rope, and jumping jacks. ??? Avoid sitting for a long time without moving. Get up and move around at least every few hours. ??? Keep legs elevated while seated and place surgery leg on 2-3 pillows, this will decrease swelling ??? Continue using walker until cleared by physical therapy Bathing: ??? Do not take baths, swim, or use a hot tub for one month after surgery. ??? May shower on the third day after surgery by covering incision with Glad Brand Press and Seal saran wrap. After showering, dry off completely BEFORE removing saran wrap. ??? Use Press and Seal saran wrap to shower for one month after surgery ??? You must be seated to shower until you are no longer using the walker Other: ??? Use ice therapy for 20-30 minutes at a time and leave off for 20-30 minutes at a time. Always keep a towel or cloth between the ice pack and your skin ??? Continue to use Incentive Spirometer 10 times an hour while awake for one month to help prevent pneumonia Contact a health care provider if: ??? You have more redness, swelling, or pain around your incision. ??? You have more fluid or blood coming from your incision. ??? Your incision or drain site feels warm to the touch. ??? You have pus or a bad smell coming from your incision. ??? You have a fever. ??? Your incision breaks open after your health care provider removes your sutures, skin glue, or adhesive tape. ??? Your prosthesis feels loose. ??? You have knee pain that does not go away. DVT: Blood Clot Blood clots are a common risk after an orthopedic surgery Symptoms: ??? Swelling of your leg or arm, especially if one side is much worse. ??? Warmth and redness of your leg or arm, especially if one side is much worse. ??? Pain in your arm or leg. If the clot is in your leg, symptoms may be more noticeable or worse when you stand or walk. ??? A feeling of pins and needles, if the clot is in the arm. The symptoms of a DVT that has traveled to the lungs (pulmonary embolism, PE) usually start suddenly and include: ??? Shortness of breath while active or at rest. ??? Coughing or coughing up blood or blood-tinged mucus. ??? Chest pain that is often worse with deep breaths. ??? Rapid or irregular heartbeat. ??? Feeling light-headed or dizzy. ??? Fainting. ??? Feeling anxious. ??? Sweating. There may also be pain and swelling in a leg if that is where the blood clot started. How is this prevented? Exercise regularly. For at least 30 minutes every day, engage in: -Activity that involves moving your arms and legs. -Activity that encourages good blood flow through your body by increasing your heart rate. ??? Exercise your arms and legs every hour during long-distance travel (over 4 hours). ??? Drink plenty of water and avoid drinking alcohol while traveling. ??? Avoid sitting or lying in bed for long periods of time without moving your legs. ??? Maintain a weight that is appropriate for your height. Ask your health care provider what weight is healthy for you. ??? If you are a woman who is over 35 years of age, avoid unnecessary use of medicines that contain estrogen. These include control pills. ??? Do not smoke, especially if you take estrogen medicines. If you need help quitting, ask your health care provider. ??? Wear compression stockings (if told by your health care provider) to help prevent blood clots from forming. High Fiber/High Protein Diet High fiber foods: To prevent constipation Grains Whole-grain breads. Multigrain cereal. Oats and oatmeal. Brown rice. Barley. Bulgur wheat. Millet. Bran muffins. Popcorn. [place] wafer crackers. Vegetables Sweet potatoes. Spinach. Kale. Artichokes. Cabbage. Broccoli. Green peas. Carrots. Squash. Fruits Berries. Pears. Apples. Oranges. Avocados. Prunes and raisins. Dried figs. Meats and Other Protein Sources [place], kidney, [place], and soy beans. Split peas. Lentils. Nuts and seeds. Dairy Fiber-fortified yogurt. Beverages Fiber-fortified soy milk. Fiber-fortified orange juice. Other Fiber bars. High-protein foods: To promote healing High-protein foods contain 4 grams (4 g) or more of protein per serving. They include: ??? Beef, ground sirloin (cooked) ??? 3 oz have 24 g of protein. ??? Cheese (hard) ??? 1 oz has 7 g of protein. ??? Chicken breast, boneless and skinless (cooked) ??? 3 oz have 13.4 g of protein. ??? Cottage cheese ??? 1/2 cup has 13.4 g of protein. ??? Egg ??? 1 egg has 6 g of protein. ??? Fish, filet (cooked) ??? 1 oz has 6???7 g of protein. ??? Garbanzo beans (canned or cooked) ??? 1/2 cup has 6???7 g of protein. ??? Kidney beans (canned or cooked) ??? 1/2 cup has 6???7 g of protein. ??? Euceda (cooked) ??? 3 oz has 24 g of protein. ??? Milk ??? 1 cup (8 oz) has 8 g of protein. ??? Nuts (peanuts, pistachios, almonds) ??? 1 oz has 6 g of protein. ??? Peanut butter ??? 1 oz has 7???8 g of protein. ??? Pork tenderloin (cooked) ??? 3 oz has 18.4 g of protein. ??? Pumpkin seeds ??? 1 oz has 8.5 g of protein. ??? Soybeans (roasted) ??? 1 oz has 8 g of protein. ??? Soybeans (cooked) ??? 1/2 cup has 11 g of protein. ??? Soy milk ??? 1 cup (8 oz) has 5???10 g of protein. ??? Soy or vegetable rios ??? 1 rios has 11 g of protein. ??? Quitman seeds ??? 1 oz has 5.5 g of protein. ??? Tofu (firm) ??? 1/2 cup has 20 g of protein. ??? Tuna (canned in water) ??? 3 oz has 20 g of protein. ??? Yogurt ??? 6 oz has 8 g of protein. Fall Prevention ??? Use night lights. ??? Install grab bars by the toilet and in the tub and shower. Do not use towel bars as grab bars. ??? Use non-skid mats or decals on the floor of the tub or shower. ??? If you need to sit down while you are in the shower, use a plastic, non-slip stool. ??? Keep the floor dry. Immediately clean up any water that spills on the floor. ??? Remove soap buildup in the tub or shower on a regular basis. ??? Remove throw rugs and other tripping hazards from the floor. ??? Place frequently used items in gkig-sj-phvcn places ??? Keep electrical cables out of the way. ??? Do not leave any items on the stairs. ??? Make sure that there are handrails on both sides of the stairs. Fix handrails that are broken or loose. Make sure that handrails are as long as the stairways. ??? Check any carpeting to make sure that it is firmly attached to the stairs. Fix any carpet that is loose or worn. ??? Avoid having throw rugs at the top or bottom of stairways, or secure the rugs with carpet tape to prevent them from moving. ??? Wear closed-toe shoes that fit well and support your feet. Wear shoes that have rubber soles or low heels. ??? Use mobility aids as needed, such as canes, walkers, scooters, and crutches. ??? Turn on lights if it is dark. Replace any light bulbs that burn out. ??? Set up furniture so that there are clear paths. Keep the furniture in the same spot. ??? Be aware of any and all pets. ??? Review your medicines with your healthcare provider. Some medicines can cause dizziness or changes in blood pressure, which increase your risk of falling. Hand Washing You should wash your hands whenever you think they are dirty. You should also wash your hands: ??? After: ??? Working or playing outside. ??? Touching an animal or its toys or leash. ??? Handling livestock. ??? Using the bathroom. ??? Using household dairy inspector or toxic chemicals. ??? Touching or taking out the garbage. ??? Touching anything dirty around your home. ??? Handling soiled clothes or rags. ??? Taking care of a sick child. This includes touching used tissues, toys, and clothes. ??? Sneezing, coughing, or blowing your nose. ??? Using public transportation. ??? Shaking hands. ??? Using a phone, including your mobile phone. ??? Touching money. ??? Before and after: ??? Preparing food. ??? Feeding a baby or young child. ??? Eating. ??? Visiting or taking care of someone who is sick. ??? Changing a diaper. ??? Changing a bandage (dressing) or taking care of an injury or wound. ??? Giving or taking medicine. If soap and [...] 4. Repeat the process for each step. ??? Always keep both feet within the width of the walker's legs or wheels. ??? When using your walker, you should not feel like you need to lean forward or to the side to keep your hands on the handgrips. ??? Make sure you are following any weight-bearing instructions that your health care provider has given you. ??? Be careful not to let the walker get too far ahead of you as you walk. ??? If your walker does not glide well [...] 5. Step down with your stronger leg. Emergency Awareness and Preventative Care STROKE is an EMERGENCY Every Minute Counts Act FAST and Check for these signs: FACE Does the face look uneven? ARM Does one arm drift down? SPEECH Does their speech sound strange? TIME Call at any sign of stroke Stroke Risk Factors Atrial Fibrillation (irregular heartbeat) Diabetes Family history of stroke Heart Disease Heavy alcohol use High Blood Pressure High Cholesterol Physical inactivity and obesity Smoking Cigarette Smoking The facts are clear, cigarette smoking will shorten your life. Smoking can cause many illnesses along the way. As a healthcare provider, we recommend that you stop smoking. Assistance with quitting is available by contacting -NOW. This is a free resource providing counseling, support, and referral. Or you may contact your personal physician. National Suicide Prevention Lifeline: The National Suicide Prevention Lifeline is a national network of local crisis centers that provides free and confidential emotional support to people in suicidal crisis or emotional distress 24 hours a day, 7 days a week. Don't Wait! Stop a Heart Attack Before it Starts What is a heart attack? A heart attack is damage or to a part of the heart from severely decreased or lack of blood flow to the heart. Over time, arteries can become narrow from the buildup of fat and cholesterol, which is called plaque. The plaque can rupture causing a blood clot to form. When the blood clot forms, the artery can become severely narrowed or completely blocked, causing a heart attack. Heart attack is the leading cause of in the [place]. 85% of muscle damage occurs within the first 2 hours. Delay in the recognition of heart attack symptoms increases the chances of . Know the early symptoms of a heart attack: Nausea Feeling of fullness in chest Jaw Pain Pain that travels down one or both arms Fatigue/being tired Anxiety Back Pain Chest pressure, squeezing, or discomfort Shortness of breath Sweating, or a cold sweat Feeling of impending doom There are unusual signs of a heart attack, too! Women, the elderly, and diabetics may present with atypical symptoms: Fainting/dizziness Weakness Confusion Risk Factors for a Heart Attack Some heart disease risk factors, such as age and family history, cannot be changed. Others, like smoking and lack of exercise, can be changed. Smoking High Cholesterol High Blood Pressure Family History Obesity Age Gender (Males are at higher risk) Lack of Exercise Diabetes Diet Stress Excessive Alcohol Intake If you or someone you know is experiencing the signs and symptoms of a heart attack, DON???T DELAY. Call immediately and seek help. If someone collapses, perform CPR! Do not attempt to drive if you are having symptoms of heart attack. Hands-Only CPR Why Hands-Only CPR? Hands-Only CPR has been shown to be as effective as conventional CPR for cardiac arrests that occur outside of a hospital. Survival depends on immediately receiving CPR from someone nearby. How do you perform Hands-Only CPR? There are two easy steps: Call if you see a teen or adult collapse Push hard and fast in the center of the chest at a beat of 100 beats per minute. Save a life! 4 WAYS TO GET AHEAD OF SEPSIS SEPSIS is a MEDICAL EMERGENCY. Time matters! Infections put you and your family at risk for a life-threatening condition called sepsis. Sepsis is the body's extreme response to an infection. It is life-threatening, and without timely treatment, sepsis can rapidly lead to tissue damage, organ failure, and . Sepsis happens when an infection you already have-in your skin, lungs, urinary tract or somewhere else-triggers a chain reaction throughout your body. 1 PREVENT INFECTIONS Take good care of chronic conditions. Talk to your doctor about getting the recommended vaccines. 2 PRACTICE GOOD HYGIENE Wash your hands frequently. Keep cuts or open sores clean and covered until they are healed. 3 KNOW THE SYMPTOMS Confusion or disorientation Shortness of breath High heart rate Fever, shivering, or feeling very cold Extreme pain or discomfort Clammy or sweaty skin 4 ACT FAST Get medical care IMMEDIATELY if you suspect sepsis or if you have an infection that is not getting better or is getting worse. To learn more about sepsis and how to prevent infections, visit www.cdc.gov/sepsis. Test Results Laboratory or Other Results This Visit (last charted value for your 12/19/2019 visit) Hematology 12/23/2019 3:32 AM Hct: 38.2 % -- Normal range between ( 34.1 and 44.9 ) Hgb: 12.5 Gram/dL -- Normal range between ( 11.2 and 15.7 ) 12/20/2019 3:42 AM WBC: 13.0 K/uL -- Normal range between ( 3.9 and 10.0 ) RBC: 4.83 Million/uL -- Normal range between ( 3.93 and 5.22 ) Platelet Count: 226 K/uL -- Normal range between ( 163 and 369 ) MCH: 31.9 pg -- Normal range between ( 25.6 and 32.2 ) MCHC: 31.6 Gram/dL -- Normal range between ( 32.3 and 36.5 ) MCV: 100.8 fL -- Normal range between ( 79.0 and 94.8 ) Slide Review: No Eos %: 0.0 % -- Normal range between ( 1.0 and 7.0 ) [place] #: 0.57 K/uL -- Normal range between ( 0.24 and 0.82 ) Eos #: 0.00 K/uL -- Normal range between ( 0.04 and 0.54 ) [place] %: 4.4 % -- Normal range between ( 4.7 and 12.5 ) Baso %: 0.2 % -- Normal range between ( 0.0 and 1.0 ) Baso #: 0.03 K/uL -- Normal range between ( 0.01 and 0.08 ) RDW: 12.4 % -- Normal range between ( 11.6 and 14.4 ) Neut %: 82.2 % -- Normal range between ( 34.0 and 71.0 ) Neut #: 10.66 K/uL -- Normal range between ( 1.56 and 6.13 ) Lymph %: 12.7 % -- Normal range between ( 19.3 and 53.0 ) Lymph #: 1.65 K/uL -- Normal range between ( 1.18 and 3.74 ) MPV: 11.2 fL -- Normal range between ( 9.4 and 12.4 ) IG#: 0 x10(3)/uL IG%: 0 % -- Normal range between ( 0 and 1 ) Urinalysis 12/19/2019 2:02 PM Ur RBC: 0-2 /HPF Urine Nitrite: Negative Urine Leukocyte Esterase: Negative Ur Epithelial Cells: 0-2 /HPF Urine Appearance: Clear Urine Glucose Dipstick: >=1000 Urine Blood Dipstick: Negative Urine Type: U CleanCatch Urine Urobilinogen Dipstick: 0.2 EU/dL -- Normal range between ( 0.2 and 1.0 ) Urine Protein Dipstick: Negative Ur Bacteria: 3+ Urine Color: Yellow Ur WBC: 5-10 /HPF Urine Ketones Dipstick: 40 Urine pH Dipstick: 7.0 -- Normal range between ( 6.0 and 8.0 ) Urine Bilirubin Dipstick: Negative Urine Specific [place]: 1.024 -- Normal range between ( 1.005 and 1.030 ) Microbiology 12/23/2019 11:44 AM Novel Coronavirus 2019: Negative General Chemistry 12/25/2019 4:34 AM Creatinine Level: 0.79 mg/dL -- Normal range between ( 0.55 and 1.02 ) Sodium Level: 137 mmol/L -- Normal range between ( 136 and 146 ) Potassium Level: 3.1 mmol/L -- Normal range between ( 3.5 and 5.1 ) Chloride Level: 102 mmol/L -- Normal range between ( 102 and 112 ) Carbon Dioxide Level: 21 mmol/L -- Normal range between ( 21 and 32 ) Anion Gap: 17 -- Normal range between ( 9 and 20 ) Bun/Creatinine: 17.7 -- Normal range between ( 8.0 and 20.0 ) Calcium Level: 8.2 mg/dL -- Normal range between ( 8.5 and 10.1 ) eGFR : >60 mL/min/1.73m2 eGFR NonAfrican: >60 mL/min/1.73m2 Glucose Level: 167 mg/dL -- Normal range between ( 74 and 106 ) Blood Urea Nitrogen: 14 mg/dL -- Normal range between ( 7 and 22 ) 12/23/2019 3:32 AM Bilirubin Total: 0.7 mg/dL -- Normal range between ( 0.2 and 1.3 ) A/G Ratio: 0.8 -- Normal range between ( 1.1 and 2.5 ) ALT: 20 Units/Liter -- Normal range between ( 12 and 78 ) AST: 30 Units/Liter -- Normal range between ( 5 and 37 ) Globulin: 3.2 Gram/dL -- Normal range between ( 1.5 and 4.5 ) Alk Phos: 54 Units/Liter -- Normal range between ( 27 and 136 ) Protein Total: 5.7 Gram/dL -- Normal range between ( 6.4 and 8.2 ) Albumin Level: 2.5 Gram/dL -- Normal range between ( 3.4 and 5.0 ) 12/20/2019 3:49 PM Glucose POC2: 202 mg/dL -- Normal range between ( 70 and 110 ) 12/19/2019 2:41 PM Hgb A1C: 8.40 % -- Normal range between ( 4.20 and 6.30 ) eAVG Glucose: 194 mg/dL Vitamin Chemistry 12/19/2019 7:41 PM Vitamin D 25 Hydroxy: 15.6 ng/mL -- Normal range between ( 30.0 and 100.0 ) Computed Tomography 12/19/2019 5:51 PM CTA Chest PE Protocol: CTA Chest PE Protocol Diagnostic Radiology 12/20/2019 4:13 PM CR Pelvis Portable: CR Pelvis Portable 12/19/2019 9:17 PM CR Femur 2 Vws LT: CR Femur 2 Vws LT 12/19/2019 2:25 PM CR Chest 1 Vw Portable: CR Chest 1 Vw Portable CR Hip Uni Comp Min 2 Vws LT: CR Hip Uni Comp Min 2 Vws LT Patient Name:JAMES BUSTILLO I have received and understand this information and was given the opportunity to ask questions. Patient/Rabies Inspector Name: Patient/Rabies Inspector Signature: Relationship to Patient: Clinician/Hospital Rabies Inspector Signature: Date: documented in this encounter Plan of Treatment Not on file documented as of this encounter Visit Diagnoses Not on filedocumented in this encounter
--- OUTSIDE RECORDS SUMMARY | 2025-07-01 10:27 | XMS_ITS | Encounter Summary ---
Author Organization [employer] ([place], [place], [place], [place], [place]) Address [address] [place] [address] Care Team Providers Care Superintendent System Operation Name Role Phone Unavailable Primary Care Provider Unavailabl e Encounter Details Date Type Department Care Team (Late st Contact Info) Description 12/25/2019 Transcribed Document [facility] [place] [address] [place] [address] ProviderCl MD [address] [place] [address] Social History Tobacco Use Types Packs/Day Years Used Date Smoking Tobacco: Never Assessed Comments Unknown Sex and Gender Information Value Date Recorded Sex Assigned at Not on file Legal Sex Female 5:11 PM CDT Gender Identity Not on file Sexual Orientation Not on file documented as of this encounter Miscellaneous Notes * Cerner Conversion Note - Historical ProviderMD - 12/25/2019 3:04 PM CDT Final Discharge Planning Entered On: 12/25/2019 15:04 EDT Performed On: 12/25/2019 15:04 EDT by LAZ GLEASON RN-Patternmaker Pressure Cast Final Discharge Planning Discharge Arrangements : Patient Post-Acute Information Patient Name: JAMES BUSTILLO Gender: Female : [birth year] Age: 79 Years [place] Referral(s): Service: Organization: Business Address: Phone Number: Shelter [facility] [address], [place], [address] Important Medicare Message Reviewed With : Patient Transportation Needs : Family/Friend Patient/Family Notified of Plan : Yes Discharge To Care Management : SNF with Medicare Certification-03 LAZ GLEASON RN-Patternmaker Pressure Cast - 12/25/2019 15:04 EDT Electronically signed by [facility] Conversion Kitchen Runner Cerner at 10/17/2022 3:14 PM CDT documented in this encounter Plan of Treatment Not on file documented as of this encounter Visit Diagnoses Not on filedocumented in this encounter
--- OUTSIDE RECORDS SUMMARY | 2025-07-01 10:27 | XMS_ITS | Encounter Summary ---
Author Organization [employer] ([place], [place], [place], [place], [place]) Address [address] [place] [address] Care Team Providers Care Document Restorer Name Role Phone Unavailable Primary Care Provider Unavailabl e Encounter Details Date Type Department Care Team (Late st Contact Info) Description 12/21/2019 Transcribed Document [facility] [place] Family Medicine [address] [place] [address] ProviderCl MD [address] [place] [address] Social History Tobacco Use Types Packs/Day Years Used Date Smoking Tobacco: Never Assessed Comments Unknown Sex and Gender Information Value Date Recorded Sex Assigned at Not on file Legal Sex Female 5:11 PM CDT Gender Identity Not on file Sexual Orientation Not on file documented as of this encounter Miscellaneous Notes * Cerner Conversion Note - Historical ProviderMD - 12/21/2019 2:00 AM CDT Frozen Food Department Manager Details Entered On: 12/21/2019 5:43 EDT Performed On: 12/21/2019 2:00 EDT by Ildefonso Lange Rn-Charge Order Details Transport Mode Order Detail : Wheelchair Isolation Precautions Order Detail : Standard Precautions Order Detail : N/A IV Order Detail : 1 Oxygen Order Detail : 1 Nurse Collect Order Detail : 0 Lift/Transfer : Maximal assist Central Line Order Detail : No Room Service : Not Appropriate Arterial Line : No Ildefonso Lange Rn-Charge - 12/21/2019 5:42 EDT documented in this encounter Plan of Treatment Not on file documented as of this encounter Visit Diagnoses Not on filedocumented in this encounter
--- OUTSIDE RECORDS SUMMARY | 2025-07-01 10:27 | XMS_ITS | Encounter Summary ---
Author Organization [employer] ([place], [place], [place], [place], [place]) Address [address] [place] [address] Care Team Providers Care Warehouse Worker Name Role Phone Unavailable Primary Care Provider Unavailabl e Encounter Details Date Type Department Care Team (Late st Contact Info) Description 12/23/2019 Transcribed Document [facility] [place] [address] [place] [address] ProviderCl MD [address] [place] [address] Social History Tobacco Use Types Packs/Day Years Used Date Smoking Tobacco: Never Assessed Comments Unknown Sex and Gender Information Value Date Recorded Sex Assigned at Not on file Legal Sex Female 5:11 PM CDT Gender Identity Not on file Sexual Orientation Not on file documented as of this encounter Miscellaneous Notes * Cerner Conversion Note - Historical ProviderMD - 12/23/2019 5:00 AM CDT Chart Check - Review Order Profile Entered On: 12/23/2019 3:14 EDT Performed On: 12/23/2019 5:00 EDT by Yanique Jimenez RN Chart Check Powerplans Initiated/Discontinued as Appropriate : Yes All Active Orders Reviewed : Yes Yanique Jimenez RN - 12/23/2019 3:14 EDT documented in this encounter Plan of Treatment Not on file documented as of this encounter Visit Diagnoses Not on filedocumented in this encounter
--- OUTSIDE RECORDS SUMMARY | 2025-07-01 10:27 | XMS_ITS | Encounter Summary ---
Author Organization [employer] ([place], [place], [place], [place], [place]) Address [address] [place] [address] Care Team Providers Care Scene Shifter Name Role Phone Unavailable Primary Care Provider Unavailabl e Encounter Details Date Type Department Care Team (Late st Contact Info) Description 12/24/2019 Transcribed Document [facility] [place] [address] [place] [address] ProviderCl MD [address] [place], [place] [id number] Social History Tobacco Use Types Packs/Day Years Used Date Smoking Tobacco: Never Assessed Comments Unknown Sex and Gender Information Value Date Recorded Sex Assigned at Not on file Legal Sex Female 5:11 PM CDT Gender Identity Not on file Sexual Orientation Not on file documented as of this encounter Miscellaneous Notes * Cerner Conversion Note - Historical ProviderMD - 12/24/2019 2:00 AM CDT Mammographer Details Entered On: 12/24/2019 3:14 EDT Performed On: 12/24/2019 2:00 EDT by Yanique Jimenez, RN Order Details Transport Mode Order Detail : Wheelchair Isolation Precautions Order Detail : Standard Precautions Order Detail : N/A IV Order Detail : 0 Oxygen Order Detail : 0 Nurse Collect Order Detail : 0 Lift/Transfer : Maximal assist Central Line Order Detail : No Room Service : Not Appropriate Arterial Line : No Yanique Jimenez, RN - 12/24/2019 3:14 EDT documented in this encounter Plan of Treatment Not on file documented as of this encounter Visit Diagnoses Not on filedocumented in this encounter
--- OUTSIDE RECORDS SUMMARY | 2025-07-01 10:27 | XMS_ITS | Encounter Summary ---
Author Organization [employer] ([place], [place], [place], [place], [place]) Address [address] [place] [address] Care Team Providers Care Gate Clerk Name Role Phone Unavailable Primary Care Provider Unavailabl e Encounter Details Date Type Department Care Team (Late st Contact Info) Description 12/19/2019 Transcribed Document [facility] [place] Medicine [facility] [place] [address] ProviderCl MD [facility] [place] [address] Social History Tobacco Use Types Packs/Day Years Used Date Smoking Tobacco: Never Assessed Comments Unknown Sex and Gender Information Value Date Recorded Sex Assigned at Not on file Legal Sex Female 5:11 PM CDT Gender Identity Not on file Sexual Orientation Not on file documented as of this encounter Miscellaneous Notes * Cerner Conversion Note - Historical ProviderMD - 12/19/2019 6:34 PM CDT Admission History, Adult Entered On: 12/19/2019 23:39 EDT Performed On: 12/19/2019 23:30 EDT by Shena Sharma RN Advance Directive Patient has Advance Directive *Q : Yes, Advance Directive not with the patient Advance Directive Type : Living will Copy Advance Directive Verified/on Chart : No Shena Sharma RN - 12/19/2019 23:33 EDT Anesthesia/Transfusion History Family History of Anesthesia Reaction : Prior transfusion reaction Type of Transfusion Reaction : Rash Transfusion History : No prior anesthesia Family History of Anesthesia Reaction : None Shena Sharma RN - 12/19/2019 23:33 EDT Anticipated Discharge Needs Discharge To, Anticipated : Home Shena Sharma RN - 12/19/2019 23:33 EDT Education Topics, Admission Orientation DCP GENERIC CODE Advance Directives : Verbalizes understanding Allergy Band Applied : Verbalizes understanding Assessment/Vital Signs : Verbalizes understanding Bed Control : Verbalizes understanding Call Light : Verbalizes understanding Confidentiality : Verbalizes understanding Diet/Room Service : Verbalizes understanding Fall Prevention : Verbalizes understanding Hand Hygiene : Verbalizes understanding Healthcare Provider Visit : Verbalizes understanding ID Band Applied : Verbalizes understanding Isolation Precautions : Verbalizes understanding Orientation to Room/Bathroom : Verbalizes understanding Patient Bill of Rights : Verbalizes understanding Patient Rights/Responsibilities : Verbalizes understanding Patient Safety : Verbalizes understanding Personal Privacy Code : Verbalizes understanding Rapid Response Initiated by Patient/Family : Verbalizes understanding Rounding : Verbalizes understanding Siderails use/risks : Verbalizes understanding Skin Precautions : Verbalizes understanding Smoking Policy : Verbalizes understanding Telemetry Monitoring : Verbalizes understanding Television/Phone : Verbalizes understanding Visiting Policy : Verbalizes understanding Shena Sharma RN - 12/19/2019 23:33 EDT Functional Assessment Living Situation : Home KE[place] Hx Falls Immediate/Within 3 Months : Yes Current Home Treatments : Blood glucose monitoring Shena Sharma RN - 12/19/2019 23:33 EDT General Info Mode of Arrival on Unit : Stretcher Legal Guardian : Unaccompanied Support Person/Patient Host/Hostess Ground : No Support Person/Pt Rep Name : Ashwini Andi - sister Support Person/Pt Rep Contact Information : [phone] Want Family/Rep/Phys Notified of Admit : No Emergency Contact #1 : vero sorenson Emergency Contact #1 Phone Number : [phone] Emergency Contact #1 Relationship : daughter Emergency Contact #2 : ashwini valle Emergency Contact #2 Phone Number : [phone] Emergency Contact #2 Relationship : sister Chief Complaint : C/o L hip pain, tripped and fell, 50 mcg of Fentanyl given block captain Primary Language : [place] Preferred Communication Mode : Verbal Communication Barrier : None Shena Sharma RN - 12/19/2019 23:33 EDT Fall Risk Scales ABCs Fall Injury Risk Identification : Age, Bones ABC Fall Injury Risk : Moderate to high injury risk KEENE Hx Falls Immediate/Within 3 Months : Yes Ke[place] Secondary Diagnosis : Yes KEENE Use of Ambulatory Aid : Crutches/Cane/Walker KEENE IV Therapy or IV Access : Yes [place] Gait/Transferring : Impaired [place] Mental Status : Oriented to own ability [place] Fall Risk Score : 95 KEENE Fall Scale Risk Level : 46 or > High Risk [place] Fall Interventions : Adequate lighting, Assistive devices within reach, Bed in low position, Call device within reach, Frequent orientation to call device, Frequent orientation to surroundings, Hourly comfort/safety rounds, Non-slip footwear, Personal items within reach, Reinforced to call for assistance before getting out of bed, Room free of clutter/spills, Upper side-rails up, Wheels locked, Wires/Cords secured Shena Sharma RN - 12/19/2019 23:33 EDT Health Histories Smoking Status : Never (less than 100 in lifetime; none in last 30 days) Smokeless Tobacco Status : Never Shena Sharma RN - 12/19/2019 23:33 EDT Social History (As Of: 12/19/2019 23:40:00 EDT) Tobacco: Use in Last 12 Months: No. Smoking Status Never smoker. (Last Updated: 12/16/2013 06:28:55 EDT by LUC ACOSTA, RN) Never (less than 100 in lifetime) Smoking Status. (Last Updated: 12/19/2019 19:44:06 EDT by Mariza Stanley, RN) Alcohol: Use in Last 12 Months: No. (Last Updated: 12/16/2013 06:28:59 EDT by LUC ACOSTA, RN) Alcohol Use History No. (Last Updated: 12/19/2019 19:44:06 EDT by Mariza Stanley, RN) Substance Abuse: Drug Use Hx: No. (Last Updated: 12/19/2019 19:44:06 EDT by Mariza Stanley, RN) Height and Weight, Clinical Dosing Height Source : Stated Height Entry Format : [place] Height, Feet : 5 ft(Converted to: 152 cm, 60 Inch) Height, Inches : 7 Inch(Converted to: 0 ft 7 Inch, 17.78 cm) Clinical Height : 170.18 cm Weight Source : Bed scale Weight Entry Format : [place] Clinical Dosing Weight : 76.82 kg Weight, Pounds : 169 lb Body Surface Area (BSA) : 1.88 m2 Body Mass Index : 26.5 kg/m2 (HI) [place] Body Weight : 61 kg Shena Sharma RN - 12/19/2019 23:33 EDT Infectious Disease History Has the patient ever been tested for COVID-19? : No, Patient stated Date of COVID-19 test known? : Yes Date of COVID-19 Test : 12/19/2019 EDT COVID19 Screening : No Experiencing Infectious Disease Symptoms : No symptoms Physical contact outside [place] in the last 30 days : No Infectious Disease Symptoms Score : 0 Infectious Disease History : None Tuberculosis Symptoms : None Shena Sharma RN - 12/19/2019 23:33 EDT Tetanus Immunization Status Previous Tetanus Immunizations : No qualifying data available. Tetanus Immunization : Less than 5 years Shena Sharma RN - 12/19/2019 23:33 EDT Influenza Vaccine Asmt, Adult Previous Vaccines from Immunization Schedule : No qualifying data available. Influenza Immunization, Current Season : Yes Shena Sharma RN - 12/19/2019 23:33 EDT Pneumococcal Vaccine Previous Vaccines from Immunization Schedule : No qualifying data available. Pneumonia Immunization Received : Yes Shena Sharma RN - 12/19/2019 23:33 EDT Order Details Transport Mode Order Detail : Stretcher/Gurney Isolation Precautions Order Detail : Standard Precautions Order Detail : N/A IV Order Detail : 1 Oxygen Order Detail : 0 Nurse Collect Order Detail : 0 Lift/Transfer : Maximal assist Central Line Order Detail : No Arterial Line : No Shena Sharma RN - 12/19/2019 23:33 EDT Nutrition History Eating Poorly Due to Decreased Appetite : Yes Unplanned Weight Loss in Past 3-6 Months : Yes Unplanned Weight Loss Amount : 2-13 lbs/0.9-5.9 kg Malnutrition Screening Tool Total(mal) : 2 Malnutrition Screening Tool Risk Level : Patient at risk Shena Sharma RN - 12/19/2019 23:33 EDT [place] Suicide Severity Rating Scale (C-SSRS) CSSRS Past Month Wish to be : No CSSRS Past Month Suicidal Thoughts : No CSSRS Lifetime Suicide Behavior : No Suicide Severity Rating Score : 0 Suicide Severity Rating : No Additional Care Required at this time Shena Sharma RN - 12/19/2019 23:33 EDT Psychosocial History Currently in Unsafe Situation : No Shena Sharma RN - 12/19/2019 23:33 EDT Sleep Apnea Risk Assmt Hx of Obstructive Sleep Apnea Diagnosis : No Snore Loudly : No Tired, Fatigued, or Sleepy During Day : No Observed Stopping Breathing During Sleep : No Have/Are Being Treated for Hypertension : Yes BMI Greater Than 35 kg/m2 : No Age over 50 Years Old : Yes Neck Circumference Greater Than 40 cm : No Gender Male : No STOP-BANG Sleep Apnea Risk Level Score : 2 Shena Sharma RN - 12/19/2019 23:33 EDT Spiritual/Cultural Needs Any Spiritual/Cultural Needs or Requests : No Shena Sharma RN - 12/19/2019 23:33 EDT Valuables and Belongings Valuables and Belongings : Clothing Clothing : Common streetwear Clothing Disposition : Bedside, Declines to send to security/safe Shena Sharma RN - 12/19/2019 23:33 EDT Electronically signed by Ryanne Moise Conversion Regional Environmental Manager Cerner at 10/17/2022 3:11 PM CDT documented in this encounter Plan of Treatment Not on file documented as of this encounter Visit Diagnoses Not on filedocumented in this encounter
--- OUTSIDE RECORDS SUMMARY | 2025-07-01 10:27 | XMS_ITS | Encounter Summary ---
Author Organization [employer] ([place], [place], [place], [place], [place]) Address [address] [place] [address] Care Team Providers Care Trimming Machine Operator Name Role Phone Unavailable Primary Care Provider Unavailabl e Encounter Details Date Type Department Care Team (Late st Contact Info) Description 12/21/2019 Transcribed Document [facility] [place] [facility] [place] [address] ProviderCl MD [address] [place], [place] [id number] Social History Tobacco Use Types Packs/Day Years Used Date Smoking Tobacco: Never Assessed Comments Unknown Sex and Gender Information Value Date Recorded Sex Assigned at Not on file Legal Sex Female 5:11 PM CDT Gender Identity Not on file Sexual Orientation Not on file documented as of this encounter Miscellaneous Notes * Cerner Conversion Note - Cl ProviderMD - 12/21/2019 9:53 AM CDT Patient: JAMES TALBERT Age: 79 years Sex: Female : 1940 Associated Diagnoses: Fall; Status post hemiarthroplasty of left hip fracture; Chronic pain syndrome; Depression; Diabetes mellitus; Hip pain-swelling; Hip injury - Minor; GERD; Hip fracture, left; Hypertension Author: JUAN J DEL ROSARIO MD-INT Basic Information ???Had left hip hemiarthroplasty yesterday ???Very somnolent and lethargic ???Unable to participate with PT/OT ???dehydrated ???Has acute kidney injury Review of Systems Constitutional: No fever, No [...] Medication Allergies None Documented Current medications: Medications (34) Active Scheduled: (13) amLODIPine 5 mg tab 5 mg 1 Tab, Oral, Daily cyanocobalamin 1,000 mcg tab 1,000 mcg 1 Tab, Oral, Daily docusate sodium 100 mg cap 100 mg 1 Cap, Oral, BID DULoxetine DR 60 mg cap 60 mg 1 Cap, Oral, Daily enoxaparin 40 mg/0.4 mL inj 40 mg 0.4 mL, SubCutaneous, [id number] furosemide 20 mg tab 20 mg 1 Tab, Oral, Daily gabapentin 300 mg cap 300 mg 1 Cap, Oral, TID insulin lispro 1 unit/0.01 mL inj Scale A:, SubCutaneous, AC and at Bedtime metoprolol succinate XL 100 mg tab 100 mg 1 Tab, Oral, Daily NaCl 0.45% 500 mL, IV Piggyback, 1-Time oxybutynin 5 mg tab 10 mg 2 Tab, Oral, Daily tranexamic acid 1 Gram 10 mL, IV Piggyback, Post Procedure tranexamic acid 1 Gram 10 mL, IV Piggyback, 1-Time Continuous: (1) NaCl 0.45% 1,000 mL 1,000 [...] Incontinent of urine Kidney stones Physical Examination General: Alert and oriented, No acute distress. [...] Review / Management Results review: All Results 12/21/2019 3:59 EDT Sodium Level 144 mmol/L Potassium Level 4.4 mmol/L Chloride Level 112 mmol/L Carbon Dioxide Level 14 mmol/L LOW Anion Gap 22 HI Glucose Level 251 mg/dL HI Blood Urea Nitrogen 36 mg/dL HI Creatinine Level 1.49 mg/dL HI eGFR 41 mL/min/1.73m2 LOW eGFR NonAfrican 34 mL/min/1.73m2 LOW Bun/Creatinine 24.2 HI Calcium Level 7.9 mg/dL LOW Protein Total 6.2 Gram/dL LOW Albumin Level 3.2 Gram/dL LOW Globulin 3.0 Gram/dL A/G Ratio 1.1 Bilirubin Total 0.7 mg/dL Alk Phos 56 Units/Liter AST 32 Units/Liter ALT 25 Units/Liter Hgb 13.1 Gram/dL Hct 42.1 % 12/20/2019 3:42 EDT Sodium Level 143 mmol/L [...] 12.7 % LOW Lymph # 1.65 K/uL [place] % 4.4 % LOW [place] # 0.57 K/uL Eos % 0.0 % LOW Eos # 0.00 K/uL LOW Baso % 0.2 % Baso # 0.03 K/uL Slide Review No IG# 0 x10(3)/uL IG% 0 % . Impression and Plan Diagnosis Fall - Admitting, Emergency medicine, Medical. Status post hemiarthroplasty of left hip fracture - Admitting, Medical. Chronic pain syndrome - Admitting, Patient [...] function, blood glucose, and urine output. IV fluid boluses.then Continue IV fluid to 100 h . DC Neurontin. DC IV Dilaudid. Oral pain medication when necessary. Tylenol for pain. May need to go to rehabilitation. We'll order COVID . documented in this encounter Plan of Treatment Not on file documented as of this encounter Visit Diagnoses Not on filedocumented in this encounter
--- OUTSIDE RECORDS SUMMARY | 2025-07-01 10:27 | XMS_ITS | Encounter Summary ---
Author Organization [employer] ([place], [place], [place], [place], [place]) Address [address] [place] [address] Care Team Providers Care Industrial Maintenance Millwright Name Role Phone Unavailable Primary Care Provider Unavailabl e Encounter Details Date Type Department Care Team (Late st Contact Info) Description 12/24/2019 Transcribed Document [facility] [place] [address] [place] [address] ProviderCl MD [address] [id number] Social History Tobacco Use Types Packs/Day Years Used Date Smoking Tobacco: Never Assessed Comments Unknown Sex and Gender Information Value Date Recorded Sex Assigned at Not on file Legal Sex Female 5:11 PM CDT Gender Identity Not on file Sexual Orientation Not on file documented as of this encounter Miscellaneous Notes * [employer]ner Conversion Note - Historical ProviderMD - 12/24/2019 8:00 PM CDT Patch Check Entered On: 12/24/2019 23:06 EDT Performed On: 12/24/2019 20:00 EDT by Yanique Jimenez RN Patch Check Patch Check Result : No Patch Check - Type of Patch : scopolamine (Transderm-Scop) Yanique Jimenez RN - 12/24/2019 23:06 EDT documented in this encounter Plan of Treatment Not on file documented as of this encounter Visit Diagnoses Not on filedocumented in this encounter
--- OUTSIDE RECORDS SUMMARY | 2025-07-01 10:27 | XMS_ITS | Encounter Summary ---
Author Organization [employer] ([place], [place], [place], [place], [place]) Address [address] [place] [address] Care Team Providers Care Poultry Processor Name Role Phone Unavailable Primary Care Provider Unavailabl e Encounter Details Date Type Department Care Team (Late st Contact Info) Description 12/25/2019 Transcribed Document [facility] [place] Family Medicine [facility] [place] [address] ProviderCl MD [address] [place] [address] Social History Tobacco Use Types Packs/Day Years Used Date Smoking Tobacco: Never Assessed Comments Unknown Sex and Gender Information Value Date Recorded Sex Assigned at Not on file Legal Sex Female 5:11 PM CDT Gender Identity Not on file Sexual Orientation Not on file documented as of this encounter Miscellaneous Notes * Cerner Conversion Note - Cl ProviderMD - 12/25/2019 11:33 AM CDT Patient: JAMES BUSTILLO Age: 79 Years Sex: Female : 1940 Assessment/Plan 79F POD#5 s/p left hip hemiarthroplasty. Lovenox for 30 days total. WBAT, posterior hip precautions PT/OT Analgesia prn Bowel Regimen Dispo- will likely need d/c to rehab once medically cleared and placement available. She should follow up with me in 2-3 weeks. Dressing should be removed in 1 week. waterproof dressing underneath should stay until follow up with me. WBAT Posterior hip precautions DVT ppx with lovenox. Will be for 30 days. call [phone] to make an appointment at my office. VTE Prophylaxis - Medical Enoxaparin 40 mg, SubCutaneous, Inj, Q97IBed, Routine, Start 12/25/19 7:00:00 EDT (TARIQ TILLMAN) Sequential Compression Device Start: 12/19/19 19:16:00 EDT, Bilateral, Length: Knee High, While patient is in bed, Continuous Order (JUAN J DEL ROSARIO) Subjective No acute issues. Vital Signs T: 36.4 ??C TMIN: 36 ??C TMAX: 37.3 ??C HR: 74 RR: 14 BP: 176/66 SpO2: 94% Oxygen Settings (Last) Oxygen Therapy Mode: Room air (12/24/19 10:21:00) Oxygen Flow Rate: 2 Liter/Min (12/21/19 17:29:00) Intake & Output Totals Last 24 Hours (7a-7a) Input Total: 1200 mL Output Total: 2600 mL Balance: -1400 mL Physical Exam NAD LLE: Dressing c/d/i [...] Daily Lovenox, 40 mg= 0.4 mL, SubCutaneous, [id number] magnesium sulfate, 2 Gram= 50 mL, IV [...] Test Result Date/Time Sodium Level 137 mmol/L 12/25/2019 04:34 EDT Potassium Level 3.1 mmol/L (Low) 12/25/2019 04:34 EDT Chloride Level 102 mmol/L 12/25/2019 04:34 EDT Carbon Dioxide Level 21 mmol/L 12/25/2019 04:34 EDT Anion Gap 17 12/25/2019 04:34 EDT Glucose Level 167 mg/dL (High) 12/25/2019 04:34 EDT Blood Urea Nitrogen 14 mg/dL 12/25/2019 04:34 EDT Creatinine Level 0.79 mg/dL 12/25/2019 04:34 EDT eGFR >60 mL/min/1.73m2 12/25/2019 04:34 EDT eGFR NonAfrican >60 mL/min/1.73m2 12/25/2019 04:34 EDT Bun/Creatinine 17.7 12/25/2019 04:34 EDT Calcium Level 8.2 mg/dL (Low) 12/25/2019 04:34 EDT documented in this encounter Plan of Treatment Not on file documented as of this encounter Visit Diagnoses Not on filedocumented in this encounter
--- OUTSIDE RECORDS SUMMARY | 2025-07-01 10:27 | XMS_ITS | Encounter Summary ---
Author Organization [employer] ([place], [place], [place], [place], [place]) Address [address] [place] [address] Care Team Providers Care Apron Cleaner Name Role Phone Unavailable Primary Care Provider Unavailabl e Encounter Details Date Type Department Care Team (Late st Contact Info) Description 12/19/2019 Transcribed Document [facility] [place] Family Medicine [address] [place] [address] ProviderCl MD [address] [place] [address] Social History Tobacco Use Types Packs/Day Years Used Date Smoking Tobacco: Never Assessed Comments Unknown Sex and Gender Information Value Date Recorded Sex Assigned at Not on file Legal Sex Female 5:11 PM CDT Gender Identity Not on file Sexual Orientation Not on file documented as of this encounter Miscellaneous Notes * Cerner Conversion Note - Historical ProviderMD - 12/19/2019 7:16 PM CDT Education-(VTE) / (DVT) Entered On: 12/20/2019 0:11 EDT Performed On: 12/19/2019 23:00 EDT by Shena Sharma, RN Teaching/Learning Assessment Barriers To Learning : None evident Individuals Taught : Patient Readiness to Learn : Cooperative Shena Sharma RN - 12/20/2019 0:10 EDT documented in this encounter Plan of Treatment Not on file documented as of this encounter Visit Diagnoses Not on filedocumented in this encounter
--- OUTSIDE RECORDS SUMMARY | 2025-07-01 10:27 | XMS_ITS | Encounter Summary ---
Author Organization [employer] ([place], [place], [place], [place], [place]) Address [address] [place] [address] Care Team Providers Care Delivery Director Name Role Phone Unavailable Primary Care Provider Unavailabl e Encounter Details Date Type Department Care Team (Late st Contact Info) Description 12/19/2019 Transcribed Document [facility] [place] Family Medicine [address] [place] [address] ProviderCl MD [address] [place] [address] Social History Tobacco Use Types [...] Historical ProviderMD - 12/19/2019 7:16 PM CDT Education-Diabetes Topics Entered On: 12/20/2019 0:11 EDT Performed On: 12/19/2019 23:00 EDT by Shena Sharma RN Teaching/Learning Assessment Barriers To Learning : None evident Individuals Taught : Patient Readiness to Learn : Cooperative Shena Sharma RN - 12/20/2019 0:11 EDT documented in this encounter Plan of Treatment Not on file documented as of this encounter Visit Diagnoses Not on filedocumented in this encounter
--- OUTSIDE RECORDS SUMMARY | 2025-07-01 10:27 | XMS_ITS | Encounter Summary ---
Author Organization [employer] ([place], [place], [place], [place], [place]) Address [address] [place] [address] Care Team Providers Care Store Loss Prevention Manager Name Role Phone Unavailable Primary Care Provider Unavailabl e Encounter Details Date Type Department Care Team (Late st Contact Info) Description 12/20/2019 Transcribed Document [facility] [place] Family Medicine [facility] [place] [address] ProviderCl MD [address] [place], [place] [id number] Social History Tobacco Use Types Packs/Day Years Used Date Smoking Tobacco: Never Assessed Comments Unknown Sex and Gender Information Value Date Recorded Sex Assigned at Not on file Legal Sex Female 5:11 PM CDT Gender Identity Not on file Sexual Orientation Not on file documented as of this encounter Miscellaneous Notes * Cerner Conversion Note - Cl ProviderMD - 12/20/2019 7:19 AM CDT Patient: JAMES BUSTILLO Age: 79 Years Sex: Female : 1940 Chief Complaint C/o L hip pain, tripped and fell, 50 mcg of 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 Patient was unable to get up and walk due to pain in her left hip. Presented to [facility] ED where x-ray revealed left hip femoral neck fracture. Patient reports at baseline she ambulates without a walker or a cane. She denies any head trauma, loss of consciousness, headache, dizziness, seizure activity, syncopal or presyncopal symptoms. No other injuries from the fall. Review of Systems Right hip pain. no other complaints Vital Signs T: 37.1 ??C TMIN: 36.5 ??C TMAX: 37.1 ??C HR: 96(Monitored) RR: 16 BP: 162/67 SpO2: 94% HT: 170.18 cm WT: 76.82 kg BMI: 26.5 Oxygen Settings (Last) Oxygen Therapy Mode: Nasal cannula (12/20/19 05:00:00) Physical Exam Well appearing in NAD Alert and answers questions appropriately LLE: Skin intact ROM and strength about the hip was deferred due to known fracture. NO ttp at the knee, ankle, or foot wwp distally, 2+dp pulse SILT in s/s/dp/sp/t dist fires ankle plantarflexors, dorsiflexor, inverts, everters RLE and bilateral upper extremities show no outward signs of trauma. she moves the freely without pain. no ttp Assessment/Plan 79F with left hip displaced femoral neck fracture. Plan will be for left hip hemiarthroplasty. We discussed treatment options at length including operative vs nonoperative treatment. We discussed the risks and benefits of surgery including but not limited to bleeding, injury to surrounding structures such as blood vessels, tendons, nerves, infection, instability, leg length difference, blood clot, loss of function, persistent pain, weakness, stiftness, need for future surgeries, heart attack, stroke, or . She does understand and wishes to proceed. Plan for OR today NPO hold chemical dvt ppx analgesia prn nwb LLE bed rest Chronic pain syndrome Depression Diabetes mellitus Displaced intertrochanteric fracture of left femur, initial encounter for closed fracture, Displaced intertrochanteric fracture of left femur, initial encounter for closed fracture Fall GERD Hip fracture, left Hip injury - Minor Hip pain-swelling Hypertension Orders: ceFAZolin, 2 Gram, IV Piggyback, Inj, 1-Time, Routine, Start 12/20/19 11:00:00 EDT, Stop 12/20/19 11:00:00 EDT, Indication: Surgical Prophylaxis Verify Patient Consent Obtained VTE Prophylaxis - Medical Sequential Compression Device Start: 12/19/19 19:16:00 EDT, Bilateral, Length: Knee High, While patient is in bed, Continuous Order (JUAN J DEL ROSARIO) Provider Information Primary Care Physician - JANICE ARNETT, [facility] Attending Physician - JUAN J DEL ROSARIO MD-INT Admitting Physician - JUAN J DEL ROSARIO MD-INT Consulting Physician - TARIQ TILLMAN MD-ORT Consulting Physician - VALENTIN FULLER MD-ANS Referring Physician - HADLEY, SELF REFERRED Problem List/Past Medical History Ongoing Acid reflux At risk for sleep apnea Chronic pain Depression H. pylori infection Heart murmur Hypertension Incontinent of urine Kidney stones Historical No qualifying data Procedure/Surgical History back sugery x 2, choleycystectomy, hysterectomy 2012. Medications Inpatient Ancef, 2 Gram, IV Piggyback, 1-Time calcium gluconate calcium gluconate + Sodium Chloride 0.9% intravenous solution 100 mL calcium gluconate + Sodium Chloride 0.9% intravenous solution 100 mL cloNIDine, 0.1 mg= 1 Tab, Oral, Q4H, PRN Colace, 100 mg= 1 Cap, Oral, BID Cymbalta, 60 mg= 1 Cap, Oral, Daily Dilaudid, 0.5 mg= 0.5 mL, IV Push, Q2H, PRN Ditropan, 10 mg= 2 Tab, Oral, Daily Dulcolax Laxative, 10 mg= 1 Supp, Rectal, BID, PRN gabapentin, 300 mg= 1 Cap, Oral, TID insulin lispro sliding scale, Scale A:, SubCutaneous, AC and at Bedtime Lasix, 20 mg= 1 Tab, Oral, Daily magnesium sulfate, 2 Gram= 50 mL, IV Piggyback, Daily, PRN magnesium sulfate, 2 Gram= 50 mL, IV Piggyback, Q2H, PRN metoclopramide, 5 mg= 1 mL, IV Push, Q6H, PRN Milk of Magnesia 8% oral suspension, 30 mL, Oral, Daily, PRN Norvasc, 5 mg= 1 Tab, Oral, Daily potassium chloride 10 mEq/50 mL intravenous solution, 10 mEq= 100 mL, IV Piggyback, Q1H, PRN potassium chloride 20 mEq oral tablet, extended release, 20 mEq= 1 Tab, Oral, Q2H, PRN potassium chloride 20 mEq oral tablet, extended release, 60 mEq= 3 Tab, Oral, Q2H, PRN sodium phosphate sodium phosphate Toprol-XL, 100 mg= 1 Tab, Oral, Daily Transderm-Scop 1.5 mg transdermal film, extended release, 1 Patch, TransDermal, Q3Days, PRN traZODone, 50 mg= 1 Tab, Oral, At Bedtime, PRN Tylenol, 650 mg= 2 Tab, Oral, Q4H, PRN Vitamin B12, 1000 mcg= 1 Tab, Oral, Daily Xanax, 0.25 mg= 1 Tab, Oral, Q6H, PRN Zofran, 4 mg= 2 mL, IV Push, Q4H, PRN Home Cymbalta, 60 mg, Oral, Daily Ditropan, 10 mg, Oral, Daily gabapentin, 300 mg, Oral, TID Lasix, 20 mg, Oral, Daily Levsin SL Metoprolol Tartrate 100 mg oral tablet, Oral, Daily Micro-K 10 oral capsule, extended release, 10 mEq= 1 Cap, Oral, Daily Norvasc, 5 mg, Oral, Daily Percocet 10/325 oral tablet, 2 Tab, Oral, BID, PRN Vitamin B12, 1000 mg, Oral, Daily Allergies No Known Medication Allergies Social History Alcohol Alcohol Use History No. Use in Last 12 Months: No. Substance Abuse Drug Use Hx: No. Tobacco Never (less than 100 in lifetime) Smoking Status. Use in Last 12 Months: No. Smoking Status Never smoker. Lab Results Test Name Test Result Date/Time Sodium Level 143 mmol/L 12/20/2019 03:42 EDT Sodium Level 139 mmol/L 12/19/2019 14:41 EDT Potassium Level 4.1 mmol/L 12/20/2019 03:42 EDT Potassium Level 4.1 mmol/L 12/19/2019 14:41 EDT Chloride Level 107 mmol/L 12/20/2019 03:42 EDT Chloride Level 106 mmol/L 12/19/2019 14:41 EDT Carbon Dioxide Level 13 mmol/L (Low) 12/20/2019 03:42 EDT Carbon Dioxide Level 24 mmol/L 12/19/2019 14:41 EDT Anion Gap 27 (High) 12/20/2019 03:42 EDT Anion Gap 13 12/19/2019 14:41 EDT Glucose Level 149 mg/dL (High) 12/20/2019 03:42 EDT Glucose Level 212 mg/dL (High) 12/19/2019 14:41 EDT Blood Urea Nitrogen 15 mg/dL 12/20/2019 03:42 EDT Blood Urea Nitrogen 16 mg/dL 12/19/2019 14:41 EDT Creatinine Level 0.76 mg/dL 12/20/2019 03:42 EDT Creatinine Level 0.73 mg/dL 12/19/2019 14:41 EDT eGFR >60 mL/min/1.73m2 12/20/2019 03:42 EDT eGFR >60 mL/min/1.73m2 12/19/2019 14:41 EDT eGFR NonAfrican >60 mL/min/1.73m2 12/20/2019 03:42 EDT eGFR NonAfrican >60 mL/min/1.73m2 12/19/2019 14:41 EDT Bun/Creatinine 19.7 12/20/2019 03:42 EDT Bun/Creatinine 21.9 (High) 12/19/2019 14:41 EDT Calcium Level 8.9 mg/dL 12/20/2019 03:42 EDT Calcium Level 8.6 mg/dL 12/19/2019 14:41 EDT Protein Total 7.7 Gram/dL 12/20/2019 03:42 EDT Protein Total 7.5 Gram/dL 12/19/2019 14:41 EDT Albumin Level 4.2 Gram/dL 12/20/2019 03:42 EDT Albumin Level 3.9 Gram/dL 12/19/2019 14:41 EDT Globulin 3.5 Gram/dL 12/20/2019 03:42 EDT Globulin 3.6 Gram/dL 12/19/2019 14:41 EDT A/G Ratio 1.2 12/20/2019 03:42 EDT A/G Ratio 1.1 12/19/2019 14:41 EDT Bilirubin Total 0.6 mg/dL 12/20/2019 03:42 EDT Bilirubin Total 0.5 mg/dL 12/19/2019 14:41 EDT Alk Phos 69 Units/Liter 12/20/2019 03:42 EDT Alk Phos 60 Units/Liter 12/19/2019 14:41 EDT AST 20 Units/Liter 12/20/2019 03:42 EDT AST 21 Units/Liter 12/19/2019 14:41 EDT ALT 34 Units/Liter 12/20/2019 03:42 EDT ALT 35 Units/Liter 12/19/2019 14:41 EDT Glucose POC2 145 mg/dL (High) 12/20/2019 06:13 EDT Glucose POC2 165 mg/dL (High) 12/19/2019 20:55 EDT Hgb A1C 8.40 % (High) 12/19/2019 14:41 EDT eAVG Glucose 194 mg/dL 12/19/2019 14:41 EDT Vitamin D 25 Hydroxy 15.6 ng/mL (Low) 12/19/2019 19:41 EDT WBC 13.0 K/uL (High) 12/20/2019 03:42 EDT WBC 11.7 K/uL (High) 12/19/2019 14:41 EDT RBC 4.83 Million/uL 12/20/2019 03:42 EDT RBC 4.41 Million/uL 12/19/2019 14:41 EDT Hgb 15.4 Gram/dL 12/20/2019 03:42 EDT Hgb 14.1 Gram/dL 12/19/2019 14:41 EDT Hct 48.7 % (High) 12/20/2019 03:42 EDT Hct 43.2 % 12/19/2019 14:41 EDT MCV 100.8 fL (High) 12/20/2019 03:42 EDT MCV 98.0 fL (High) 12/19/2019 14:41 EDT MCH 31.9 pg 12/20/2019 03:42 EDT MCH 32.0 pg 12/19/2019 14:41 EDT MCHC 31.6 Gram/dL (Low) 12/20/2019 03:42 EDT MCHC 32.6 Gram/dL 12/19/2019 14:41 EDT Platelet Count 226 K/uL 12/20/2019 03:42 EDT Platelet Count 176 K/uL 12/19/2019 14:41 EDT MPV 11.2 fL 12/20/2019 03:42 EDT MPV 10.8 fL 12/19/2019 14:41 EDT RDW 12.4 % 12/20/2019 03:42 EDT RDW 12.2 % 12/19/2019 14:41 EDT Neut % 82.2 % (High) 12/20/2019 03:42 EDT Neut % 82.4 % (High) 12/19/2019 14:41 EDT Neut # 10.66 K/uL (High) 12/20/2019 03:42 EDT Neut # 9.61 K/uL (High) 12/19/2019 14:41 EDT Lymph % 12.7 % (Low) 12/20/2019 03:42 EDT Lymph % 11.0 % (Low) 12/19/2019 14:41 EDT Lymph # 1.65 K/uL 12/20/2019 03:42 EDT Lymph # 1.28 K/uL 12/19/2019 14:41 EDT [place] % 4.4 % (Low) 12/20/2019 03:42 EDT [place] % 5.4 % 12/19/2019 14:41 EDT [place] # 0.57 K/uL 12/20/2019 03:42 EDT [place] # 0.63 K/uL 12/19/2019 14:41 EDT Eos % 0.0 % (Low) 12/20/2019 03:42 EDT Eos % 0.4 % (Low) 12/19/2019 14:41 EDT Eos # 0.00 K/uL (Low) 12/20/2019 03:42 EDT Eos # 0.05 K/uL 12/19/2019 14:41 EDT Baso % 0.2 % 12/20/2019 03:42 EDT Baso % 0.3 % 12/19/2019 14:41 EDT Baso # 0.03 K/uL 12/20/2019 03:42 EDT Baso # 0.04 K/uL 12/19/2019 14:41 EDT Slide Review No 12/20/2019 03:42 EDT Slide Review No 12/19/2019 14:41 EDT IG# 0 x10(3)/uL 12/20/2019 03:42 EDT IG# 0 x10(3)/uL 12/19/2019 14:41 EDT IG% 0 % 12/20/2019 03:42 EDT IG% 0 % 12/19/2019 14:41 EDT Urine Type U CleanCatch 12/19/2019 14:02 EDT Urine Color YELLOW2 12/19/2019 14:02 EDT Urine Appearance CLEAR2 12/19/2019 14:02 EDT Urine Specific [place] 1.024 12/19/2019 14:02 EDT Urine pH Dipstick 7.0 12/19/2019 14:02 EDT Urine Leukocyte Esterase NEGATIVE2 12/19/2019 14:02 EDT Urine Nitrite NEGATIVE2 12/19/2019 14:02 EDT Urine Protein Dipstick NEGATIVE2 12/19/2019 14:02 EDT Urine Glucose Dipstick >=1000 (Abnormal) 12/19/2019 14:02 EDT Urine Ketones Dipstick 40 (Abnormal) 12/19/2019 14:02 EDT Urine Urobilinogen Dipstick 0.2 12/19/2019 14:02 EDT Urine Bilirubin Dipstick NEGATIVE2 12/19/2019 14:02 EDT Urine Blood Dipstick NEGATIVE2 12/19/2019 14:02 EDT Ur RBC 0-2 (Abnormal) 12/19/2019 14:02 EDT Ur WBC 5-10 (Abnormal) 12/19/2019 14:02 EDT Ur Bacteria 3+ (Abnormal) 12/19/2019 14:02 EDT Ur Epithelial Cells 0-2 (Abnormal) 12/19/2019 14:02 EDT Electronically signed by Ryanne Moise Conversion [facility] Manager Cerner at 10/17/2022 3:05 PM CDT documented in this encounter Plan of Treatment Not on file documented as of this encounter Visit Diagnoses Not on filedocumented in this encounter
--- OUTSIDE RECORDS SUMMARY | 2025-07-01 10:28 | XMS_ITS | Encounter Summary ---
Author Organization [email or web address] ([place], [place], [place], [place], [place]) Address [address] [place] [address] Care Team Providers Care Account Executive Metalworking Name Role Phone Unavailable Primary Care Provider Unavailabl e Encounter Details Date Type Department Care Team (Late st Contact Info) Description 12/21/2019 Transcribed Document [facility] [place] Family Medicine [address] [place] [address] ProviderCl MD [address] [id number] Social History Tobacco Use Types Packs/Day Years Used Date Smoking Tobacco: Never Assessed Comments Unknown Sex and Gender Information Value Date Recorded Sex Assigned at Not on file Legal Sex Female 5:11 PM CDT Gender Identity Not on file Sexual Orientation Not on file documented as of this encounter Miscellaneous Notes * [employer]ner Conversion Note - Historical ProviderMD - 12/21/2019 9:45 AM CDT Event Note Entered On: 12/21/2019 9:48 EDT Performed On: 12/21/2019 9:45 EDT by Brooklyn Euceda RN Event Note Event Date/Time : 12/21/2019 9:47 EDT Description of Event : Discussed with Dr. Barr that patient is very drowsy/lethargic. Patient will respond when spoken to but has difficulty keeping eyes open. Noted that patient received IV dilaudid for pain overnight and has no oral pain medication ordered. I discussed this with Dr. Barr nad he is placing new orders. Vitals stable. Brooklyn Euceda RN - 12/21/2019 9:45 EDT documented in this encounter Plan of Treatment Not on file documented as of this encounter Visit Diagnoses Not on filedocumented in this encounter
--- OUTSIDE RECORDS SUMMARY | 2025-07-01 10:28 | XMS_ITS | Encounter Summary ---
Author Organization [employer] ([place], [place], [place], [place], [place]) Address [address] [place] [address] Care Team Providers Care Fuel Testing Technician Name Role Phone Unavailable Primary Care Provider Unavailabl e Encounter Details Date Type Department Care Team (Late st Contact Info) Description 12/23/2019 Transcribed Document [facility] [place] [facility] [place] [address] ProviderCl MD [address] [place] [address] Social History Tobacco Use Types Packs/Day Years Used Date Smoking Tobacco: Never Assessed Comments Unknown Sex and Gender Information Value Date Recorded Sex Assigned at Not on file Legal Sex Female 5:11 PM CDT Gender Identity Not on file Sexual Orientation Not on file documented as of this encounter Miscellaneous Notes * Cerner Conversion Note - Historical ProviderMD - 12/23/2019 6:34 PM CDT Event Note Entered On: 12/23/2019 18:39 EDT Performed On: 12/23/2019 18:34 EDT by Kia Bunch RN Event Note Event Date/Time : 12/23/2019 15:00 EDT Event Location : Assigned room Event Details : Nursing assessment additional narrative Description of Event : Patient has increased confusion throughout the day, Dr miller notifed 3 times. patients family came to visit and expressed concerns because she was talking to people who were not in the room and was out of her mind i expressed concern to that it was worse than yesterday that she would get confused when she woke up from a nap but not to this extent. PT expressed concern that she was falling asleep while working with them. Pt very drowsy. No new ordered recieved from Kia Hennessy, JOSE ALBERTO - 12/23/2019 18:34 EDT Electronically signed by [facility] Conversion Quirk Sander Cerner at 10/17/2022 3:04 PM CDT documented in this encounter Plan of Treatment Not on file documented as of this encounter Visit Diagnoses Not on filedocumented in this encounter
--- OUTSIDE RECORDS SUMMARY | 2025-07-01 10:28 | XMS_ITS | Referral Summary ---
Author Organization [employer] ([place], [place], [place], [place], [place]) Address [address] [place] [address] Care Team Providers Care Financial Operations Analyst Name Role Phone Unavailable Primary Care Provider Unavailabl e Social History Tobacco Use Types Packs/Day Years Used Date Smoking Tobacco: Never Assessed Comments Unknown Sex and Gender Information Value Date Recorded Sex Assigned at Not on file Legal Sex Female 5:11 PM CDT Gender Identity Not on file Sexual Orientation Not on file Plan of Treatment Not on file Insurance [employer] MEDICARE HMO
--- OUTSIDE RECORDS SUMMARY | 2025-07-01 10:28 | XMS_ITS | Encounter Summary ---
Author Organization [employer] ([place], [place], [place], [place], [place]) Address [address] [place] [address] Care Team Providers Care Pattern Hanger Name Role Phone Unavailable Primary Care Provider Unavailabl e Encounter Details Date Type Department Care Team (Late st Contact Info) Description 12/25/2019 Transcribed Document [facility] [place] [facility] [place] [address] ProviderCl MD [address] [place] [address] Social History Tobacco Use Types Packs/Day Years Used Date Smoking Tobacco: Never Assessed Comments Unknown Sex and Gender Information Value Date Recorded Sex Assigned at Not on file Legal Sex Female 5:11 PM CDT Gender Identity Not on file Sexual Orientation Not on file documented as of this encounter Miscellaneous Notes * [employer]ner Conversion Note - Historical ProviderMD - 12/25/2019 4:10 PM CDT Nursing Discharge Summary Entered On: 12/25/2019 16:12 EDT Performed On: 12/25/2019 16:10 EDT by Kia Bunch RN Discharge Documentation Discharge Date/Time : 12/25/2019 17:32 EDT Transporter Signature : Kia Bunch RN Meade, Makayla, RN - 12/25/2019 17:32 EDT Patient Disposition, General : Discharge Discharge To : care home facility Name of Receiving Facility/Provider : [facility] Mode Of Departure, General Discharge : Private vehicle, Wheelchair Accompanied By, Discharge : Daughter IV Discontinued : Yes Prescriptions Given to Patient : No Teaching Method : Explanation Teaching Evaluation : Verbalizes understanding Education Comment : continued education with each interaction. Report called to [facility] Discharge, Comment : Report called to [facility]. Kia Bunch RN - 12/25/2019 16:10 EDT Electronically signed by Suma, [facility] Conversion Vegetable Packer Cerner at 10/17/2022 3:02 PM CDT documented in this encounter Plan of Treatment Not on file documented as of this encounter Visit Diagnoses Not on filedocumented in this encounter
--- OUTSIDE RECORDS SUMMARY | 2025-07-01 10:28 | XMS_ITS | Encounter Summary ---
Author Organization [employer] ([place], [place], [place], [place], [place]) Address [address] [place] [address] Care Team Providers Care Foam Rubber Mixer Name Role Phone Unavailable Primary Care Provider Unavailabl e Encounter Details Date Type Department Care Team (Late st Contact Info) Description 12/23/2019 Transcribed Document [facility] [place] Family Medicine [address] [place] [address] ProviderCl MD [address] [place] [address] Social History Tobacco Use Types Packs/Day Years Used Date Smoking Tobacco: Never Assessed Comments Unknown Sex and Gender Information Value Date Recorded Sex Assigned at Not on file Legal Sex Female 5:11 PM CDT Gender Identity Not on file Sexual Orientation Not on file documented as of this encounter Miscellaneous Notes * Cerner Conversion Note - Cl Landaverde MD - 12/23/2019 2:19 PM CDT Patient: JAMES BUSTILLO Age: 79 years Sex: Female : 1940 Associated Diagnoses: Status post hemiarthroplasty of left hip fracture; Fall; Hip fracture, left; Diabetes mellitus; GERD; Hypertension; Chronic pain syndrome; Depression; Hip pain-swelling; Hip injury - Minor Author: JUAN J DEL ROSARIO MD-INT Basic Information awake alert comfortable, ???Walked only 10 feet with PT/OT ???Talking to herself ???When I started to communicate with her she knows where she is, she knows the name of the president of [employer]. She knows that she is is a hospital , shows that she is in [place]. I think the patient might have a psychological problem and/or dementia ???Labs reviewed ???Vitals reviewed Review of Systems Constitutional: No fever, No [...] 60 mg 1 Cap, Oral, Daily enoxaparin 30 mg/0.3 ml inj 30 mg 0.3 mL, SubCutaneous, [id number] furosemide 20 mg tab 20 mg 1 [...] Kidney stones Physical Examination VS/Measurements Vital Measurements 12/23/2019 6:00 EDT Systolic Blood Pressure 158 mmHg HI Diastolic Blood Pressure 69 mmHg Mean Arterial Pressure (MAP)-BMDI 91 Temperature, Fahrenheit 97.4 Deg F Clinical Temperature, C 36.3 Deg C Heart Rate Monitored 76 bpm Respiratory Rate 14 Breaths/Min General: Alert and oriented, No acute distress. [...] Review / Management Results review: All Results 12/23/2019 3:32 EDT Sodium Level 138 mmol/L [...] Units/Liter Hgb 12.5 Gram/dL Hct 38.2 % 12/22/2019 4:05 EDT Sodium Level 138 mmol/L Potassium Level 3.6 mmol/L Chloride Level 108 mmol/L Carbon Dioxide Level 14 mmol/L LOW Anion Gap 20 Glucose Level 154 mg/dL HI Blood Urea Nitrogen 22 mg/dL Creatinine Level 0.98 mg/dL eGFR >60 mL/min/1.73m2 eGFR NonAfrican 55 mL/min/1.73m2 LOW Bun/Creatinine 22.4 HI Calcium Level 8.2 mg/dL LOW . Condition: Stable. Impression and Plan Diagnosis [...] renal function, blood glucose, and urine output. Nonnarcotics. Tylenol only for pain. Needs to go to rehabilitation.. documented in this encounter Plan of Treatment Not on file documented as of this encounter Visit Diagnoses Not on filedocumented in this encounter
--- OUTSIDE RECORDS SUMMARY | 2025-07-01 10:28 | XMS_ITS | Encounter Summary ---
Author Organization [employer] ([place], [place], [place], [place], [place]) Address [address] [place] [address] Care Team Providers Care Department Helper Name Role Phone Unavailable Primary Care Provider Unavailabl e Encounter Details Date Type Department Care Team (Late st Contact Info) Description 12/23/2019 Transcribed Document [facility] [place] [address] [place] [address] ProviderCl MD [address] [place] [address] Social History Tobacco Use Types Packs/Day Years Used Date Smoking Tobacco: Never Assessed Comments Unknown Sex and Gender Information Value Date Recorded Sex Assigned at Not on file Legal Sex Female 5:11 PM CDT Gender Identity Not on file Sexual Orientation Not on file documented as of this encounter Miscellaneous Notes * Cerner Conversion Note - Cl ProviderMD - 12/23/2019 8:47 AM CDT UM Authorization Entered On: 12/23/2019 8:47 EDT Performed On: 12/23/2019 8:47 EDT by WILD ROLDAN RN-Utilization Review Primary Insurance Authorization Authorization and Policy Numbers : Insurance 1 Health Plan: [employer] CHOICE PPO Policy Number: [id number] Authorization Number: Insurance Primary Name : [employer] Choice PPO [id number] Authorization Status-Primary : Notification only Reference Number-Primary : [id number] Authorization Number-Primary : [id number] Authorized Service Begin Date-Primary : 12/19/2019 EDT Authorization Comments-Primary : [employer] Medicare approved per Carlos for inpt Historical Authorization Comments-Primary : Comment 1: Auth retrieved from [employer] and clinicals attached (BORIS COLEMAN Rn-Utilization Review 12/20/2019 10:45) WILD ROLDAN RN-Utilization Review - 12/23/2019 8:47 EDT Electronically signed by Interface, Sj Conversion Food Assembler [employer] Kitchen Cerner at 10/17/2022 3:06 PM CDT documented in this encounter Plan of Treatment Not on file documented as of this encounter Visit Diagnoses Not on filedocumented in this encounter
--- OUTSIDE RECORDS SUMMARY | 2025-07-01 10:28 | XMS_ITS | Data Portability ---
Author Organization [facility] [place] KATHIE Gunn LOWMAN CLOSED Address [address] [place] [address] Care Team Providers Care Tying Machine Operator Lumber Name Role Phone HANDY WALLER Referring Provider [phone] Assessment No assessment recorded. Plan of Treatment Reminders Order Date Submit Date Provider Last Modified By Organization Details Last Modified Time Details Appointments None recorded. Lab None recorded. Referral None recorded. Procedures cystoureth roscopy, with removal of foreign body, calculus, or ureteral stent from urethra or bladder; simple (PROC) 2024 [address] [facility], [address] [facility], [address], [place], [address], 5 09:16:46 Surgeries None recorded. Imaging None recorded. Medication Orders tizanidine 4 mg tablet 2016 017 INTERFACE [facility], [address] [place], [address], 7 14:28:51 tramadol 50 mg tablet 2016 017 [email or web address] [facility], [address] [place], [address], 7 14:27:04 tramadol 50 mg tablet 2016 017 [email or web address] [facility], [address] [place], [address], 7 13:56:13 lisinopril 10 mg tablet 2016 017 INTERFACE [facility], [address] , [place], [address], 7 14:30:47 Patient TargetsNo targets recorded. Patient Instructions Encounter Date Encounter Id Patient Instructions Last Modified By Organization Details Last Modified Time 08/11/2016 [id number] back care and preventing injuries: care instructions Not available 08/11/2016 13:58:58 getting back to normal after low back pain: care instructions Not available 08/11/2016 13:58:58 learning about relief for back pain Not available 08/11/2016 13:58:58 high blood pressure: care instructions [email or web address] Not available 08/11/2016 14:47:26 learning about high blood pressure jseehorn Not available 08/11/2016 14:47:26 She is to contac t her family physician for hypertension. Lisinopril 10 mg once a day. Tramadol 50 mg 3 times a day, 90 with 4 refills. Continue Zanaflex. Return in 4-5 months. Not available 08/11/2016 14:26:26 03/09/2017 [id number] Increase Zanafle x 4 mg to 2 at bedtime. New prescription for tramadol 50 mg 3 times a day, 90 with 5 refills. Return in 6 months. Not available 03/09/2017 14:30:38 Reason for Referral None Reported. Results Created Date Observation Date Name Description Value Unit Range Abnormal Flag Note LastModifiedBy Organization Detail LastModifiedTime Result Notes None recorded. 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 Procedures Surgical History Date Name Laterality Status Provider Name and Address Organization Details Recorded Time Cholecystectomy completed [facility] 07/04/2016 11:26:28 Caesarean Section completed [facility] 07/04/2016 11:26:31 Hysterectomy completed [facility] 07/04/2016 11:26:36 Back Surgery completed [facility] 07/04/2016 11:26:39 Imaging Results None recorded. Procedure Notes None recorded. Medical Equipment None Reported. Allergies No known drug allergies Medications Name Sig Start Date Stop Date Status Note LastModified by Organization Details LastModified Time metformin 500 mg tablet Two times a day active Frequenc y: bid;Alt Frequenc y: with food;Med ication Descript ion: metformi n; Dosage:1 ; Route:or al; refills: 0 Not Available Not Available Not Available Multiple Vitamin capsule Daily active Frequenc y: daily;Me dication Descript ion: multivit escamilla; Dosage:1 ; Route:or al; refills: 0 Not Available Not Available Not Available tizanidin e 4 mg tablet 1-2 at Bedtime 2016 active Frequenc y: hs;Medic ation Descript ion: tizanidi ne; Dosage:1 ; Route:or al; refills: 12; Quantity :30 tablet Not Available Not Available Not Available tramadol 50 mg tablet One tablet three times a day 2016 active Instruct ions: max 90/month ;Frequen cy: tid;Alt Frequenc y: prn pain;Med ication Descript ion: tramadol ; Dosage:1 ; Route:or al; refills: 3; Quantity :90 tablet Not Available Not Available Not Available lisinopri l 10 mg tablet Take 1 tablet every day by oral route. 2016 active Not Available Not Available Not Avai lable carbamaze pine 100 mg chewable tablet TAKE 1 BY MOUTH THREE TIMES A DAY 03/09 completed Not Available Not Available Not Available potassium chloride Daily active Frequenc y: daily;Me dication Descript ion: potassiu m chloride ; refills: 0 Not Available Not Available Not Available levothyro xine active Medicati on Descript ion: levothyr oxine; refills: 0 Not Available Not Available Not Available Lipitor active Medicati on Descript ion: atorvast atin; Dosage:1 ; Route:or al; refills: 0 Not Available Not Available Not Available Bumex active Medicati on Descript ion: bumetani de; refills: 0 Not Available Not Available Not Available Toprol XL active Medicati on Descript ion: metoprol ol succinat e; Route:or al; refills: 0 Not Available Not Available Not Available Fenofibra te active Medicati on Descript ion: fenofibr ate; Route:or al; refills: 0 Not Available Not Available Not Available Cymbalta active Medicati on Descript ion: duloxeti ne; Route:or al; refills: 0 Not Available Not Available Not Available Myrbetriq 50 mg tablet,ex tended release Daily 2015 active Duration : 90 days;Aguilar quency: daily;Me dication Descript ion: mirabegr on; Dosage:1 ; Route:or al; refills: 3; Quantity :90 tablet, extended release Not Available Not Available Not Available Vitamin B12 active Medicati on Descript ion: cyanocob alamin; refills: 0 Not Available Not Available Not Available Vitals Date Recorded Body height Body weight Body mass index (BMI) Heart rate Respiratory rate Systolic And Diastolic Provider Name and Address Organization Details Last Updated DateTime 7 170.18 cm 69496.6 3 g 28.2 kg/m2 84 /min 17 /min 139/89 mm[Hg] PATRICIA CHACON MD [address] [place], [address] 14:21:58 Date Recorded Body height Body mass index (BMI) Body weight Provider Name and Address Organization Details Last Updated DateTime 10/09/2024 170.18 cm 26 kg/m2 36257.33 g Julia Stone [facility] 10/09/2024 16:36:42 Date Recorded Body height Body mass index (BMI) Body weight Heart rate Respiratory rate Systolic And Diastolic Provider Name and Address Organization Details Last Updated DateTime 170.18 cm 28.3 kg/m2 16574.2 2 g 83 /min 17 /min 139/78 mm[Hg] PATRICIA CHACON MD [facility] [place], [address] [place] [address] 14:28:36 Social History Question Answer Notes LastModified by Organizat ion Details LastModified Time Tobacco Smoking Status Never Smoker Cynthia Rondon [facility] 07/04/2016 11:26:14 Marital Status Informatio n not available 07/04/2016 What Was The Date Of Your Most Recent Tobacco Screening? 10/09/2024 [email or web address] Information not available 10/09/2024 Sex: Unknown Functional Status Question Answer Note LastModified by Organization D etails LastModified Time What is your level of alcohol consumption? None Information not available 07/04/2016 What is your occupation? Retired Information not available 07/04/2016 Mental Status None recorded. Family History Relationship Description Onset Age of this Age Resolved Age Notes LastModified by Organization Details LastModified Time Brother Harmful pattern of use of alcohol Not available 2016 11:24:56 Brother Hypertensive disorder Not available 2016 11:25:27 Sister Family history of malignant neoplasm Not available 2016 11:25:01 Sister Heart disease Not available 2016 11:25:15 Sister Hypertensive disorder Not available 2016 11:25:27 Mother Heart disease Not available 2016 11:25:15 Father Hypertensive disorder Not available 2016 11:25:27 Father Family history of stroke Not available 2016 11:25:46 Medical History Condition Response Depression Y Neurological Problems Y Diabetes Y Anxiety Disorder Y Arthritis Y High Cholesterol Y Hypertension Y Gynecological HistoryNo gynecological history recorded. Obstetrics History GPAL:G 0 P 0 0 0 0 Past Encounters Encounter ID Performer Location Encounter Start Date Encounter Closed Date Diagnosis/Indication Diagnosis SNOMED-CT Code Diagnosis ICD10 Code Diagnosis IMO Codes Diagnosis Note [id number] PATRICIA CHACON MD NEUROLOGY [facility] [address] [address] [place] [address] 08/11/2016 13:47:57 08/11/2016 14:11:59 Low back pain 934389581 M54.5 The patient is a 76-year-ol d white female who has chronic low back pain. She had a history of compressio n fracture of the lumbar spine. Essential hypertension 93189802 I10 She had hypertensi on. Her blood pressure was recently found to be 200 systolical ly. [id number] PATRICIA CHACON MD NEUROLOGY [facility] [address] [place] [address] 03/09/2017 13:54:12 03/09/2017 14:30:53 Lumbosacral radiculopathy 3610469 M54.17 Low back pain 380510097 M54.5 The patient is a 76-year-ol d white female who has chronic low back pain. She had a history of compressio n fracture of the lumbar spine. She is having increasing muscle spasm. [id number] DAVID MONZON MD [facility] [address] [place] [address] 10/09/2024 15:30:40 10/09/2024 16:43:37 Kidney stone 94664342 N20.0 Retained u reteric stent 863358648 T83.89XA Health Concerns Section Related Observation LastModified by Organization Detai ls LastModified Time None Recorded Concern Status LastModified by Organization Details LastModified Time None Recorded Advance Directives Directive None Recorded Payers Insurance Date Sequence Insurance Name Policy Number Policy Jeronimo Covered Member ID Jeronimo Member ID Guarantor Name 05/04/2025 1 [employer] (MEDICARE REPLACEMENT/A DVANTAGE - PPO) Poly Bustillo [id number] Poly Bustillo Notes Date Note Type Note Provider Name and Address Organization Details Recorded Time 08/11/2016 text/html ROS as noted in the HPI Mrs. Bustillo is a 76-year-old white female with a history of compression fracture of the lumbar spine. She had 2 prior spinal surgery [address] Dr. Duron. She has bilateral L5-S1 radiculopathy. She has peripheral edema. She was recently found to be hypertensive. She is on Toprol and Bumex. Her swelling in her legs has decreased She is on tramadol 50 mg 3 times a day and Zanaflex 4 mg at bedtime. It controls her pain. PATRICIA CHACON MD [address] [place] [address], [phone], [facility] 08/11/2016 14:27:10 03/09/2017 text/html ROS as noted in the HPI Mrs. Bustillo is a 76-year-old white female who had a history of compression fracture of the lumbar spine. She had [address] Duron. She has chronic pain from bilateral L5-S1 radiculopathies. She is on tramadol 50 mg 3 times a day and Zanaflex 4 mg 1 at bedtime. She complains of muscle spasm in her back. She also has difficulty controlling hypertension. She is on lisinopril 40 mg daily,, Toprol 100 mg daily and Bumex. Her blood pressure remains elevated. PATRICIA CHACON MD [address] [place] [address], [phone], [facility] 03/09/2017 14:31:18 10/09/2024 text/html 84-year-old female who has been treated by Dr. Rodriguez in [place]. He placed a stiff several months ago and ended ESWL in August. She was scheduled to have stent removed in August but she was in a chcf and had to cancel the appointment. She is have a lot of discomfort from the stent. She is scheduled see him October 28 but would like to do something sooner possible. Will get a KUB if there are no stone fragments we will schedule stent removal DAVID MONZON MD [address], [place], [address], [facility] 10/09/2024 16:49:55 OBGyn Episode No OBEpisode recorded.
--- OUTSIDE RECORDS SUMMARY | 2025-07-01 10:28 | XMS_ITS | Encounter Summary ---
Author Organization [employer] ([place], [place], [place], [place], [place]) Address [address] [place] [address] Care Team Providers Care Build Manager Name Role Phone Unavailable Primary Care Provider Unavailabl e Encounter Details Date Type Department Care Team (Late st Contact Info) Description 12/21/2019 Transcribed Document [facility] [place] Family Medicine [facility] [place] [address] ProviderCl MD [address] [place] [address] Social History Tobacco Use Types Packs/Day Years Used Date Smoking Tobacco: Never Assessed Comments Unknown Sex and Gender Information Value Date Recorded Sex Assigned at Not on file Legal Sex Female 5:11 PM CDT Gender Identity Not on file Sexual Orientation Not on file documented as of this encounter Miscellaneous Notes * Cerner Conversion Note - Cl ProviderMD - 12/21/2019 10:48 AM CDT Patient: JAMES BUSTILLO Age: 79 Years Sex: Female : 1940 Assessment/Plan 79F POD#1 s/p left hip hemiarthroplasty. 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 I will change lovenox dose to 30mg daily. Plan will be for 30 days [...] lovenox. Will be for 30 days. call [phone] to make an appointment at my office. VTE Prophylaxis - Medical Enoxaparin 30 mg, SubCutaneous, Inj, [id number], Routine, Start 06/22/20 7:00:00 EDT (TARIQ TILLMAN) Sequential Compression Device Start: 12/19/19 19:16:00 EDT, Bilateral, Length: Knee High, While patient is in bed, Continuous Order (JUAN J DEL ROSARIO) Subjective Patient is sitting in chair. She appears somnolent. She reports pain is tolerable. Vital Signs T: 36.9 ??C TMIN: 36.2 ??C TMAX: 37.2 ??C HR: 57(Monitored) RR: 16 BP: 130/49 SpO2: 96% Oxygen Settings (Last) Oxygen Therapy Mode: Nasal cannula (12/21/19 02:17:00) Oxygen Flow Rate: 2 Liter/Min (12/21/19 02:17:00) Intake & Output Totals Last 24 Hours (7a-7a) Input Total: 2301.5 mL Output Total: 2700 mL Balance: -398.5 mL Physical Exam NAD LLE: Dressing c/d/i [...] 20 mg= 1 Tab, Oral, Daily Lovenox, 30 mg= 0.3 mL, SubCutaneous, [id number] magnesium sulfate, 2 Gram= 50 mL, IV Piggyback, Daily, PRN magnesium sulfate, 2 Gram= 50 mL, IV Piggyback, Q2H, PRN metoclopramide, 5 mg= 1 mL, IV Push, Q6H, PRN Milk of Magnesia 8% oral suspension, 30 mL, Oral, Daily, PRN NaCl 0.45% bolus, 500 mL, IV Piggyback, 1-Time Norvasc, 5 mg= 1 Tab, Oral, Daily oxyCODONE, 5 mg= 5 mL, Oral, Q4H, PRN potassium chloride 10 mEq/50 [...] Toprol-XL, 100 mg= 1 Tab, Oral, Daily tranexamic acid tranexamic acid Transderm-Scop 1.5 mg transdermal film, extended release, 1 Patch, TransDermal, Q3Days, PRN Tylenol, 650 mg= 2 Tab, Oral, Q4H, PRN Vitamin B12, 1000 mcg= 1 Tab, Oral, Daily Zofran, 4 mg= 2 mL, IV Push, Q4H, PRN Lab Results Test Name Test Result Date/Time Sodium Level 144 mmol/L 12/21/2019 03:59 EDT Potassium Level 4.4 mmol/L 12/21/2019 03:59 EDT Chloride Level 112 mmol/L 12/21/2019 03:59 EDT Carbon Dioxide Level 14 mmol/L (Low) 12/21/2019 03:59 EDT Anion Gap 22 (High) 12/21/2019 03:59 EDT Glucose Level 251 mg/dL (High) 12/21/2019 03:59 EDT Blood Urea Nitrogen 36 mg/dL (High) 12/21/2019 03:59 EDT Creatinine Level 1.49 mg/dL (High) 12/21/2019 03:59 EDT eGFR 41 mL/min/1.73m2 (Low) 12/21/2019 03:59 EDT eGFR NonAfrican 34 mL/min/1.73m2 (Low) 12/21/2019 03:59 EDT Bun/Creatinine 24.2 (High) 12/21/2019 03:59 EDT Calcium Level 7.9 mg/dL (Low) 12/21/2019 03:59 EDT Protein Total 6.2 Gram/dL (Low) 12/21/2019 03:59 EDT Albumin Level 3.2 Gram/dL (Low) 12/21/2019 03:59 EDT Globulin 3.0 Gram/dL 12/21/2019 03:59 EDT A/G Ratio 1.1 12/21/2019 03:59 EDT Bilirubin Total 0.7 mg/dL 12/21/2019 03:59 EDT Alk Phos 56 Units/Liter 12/21/2019 03:59 EDT AST 32 Units/Liter 12/21/2019 03:59 EDT ALT 25 Units/Liter 12/21/2019 03:59 EDT Glucose POC2 202 mg/dL (High) 12/20/2019 15:49 EDT Glucose POC2 166 mg/dL (High) 12/20/2019 12:21 EDT Hgb 13.1 Gram/dL 12/21/2019 03:59 EDT Hct 42.1 % 12/21/2019 03:59 EDT Electronically signed by [facility] Conversion Brand Designer Cerner at 10/17/2022 3:06 PM CDT documented in this encounter Plan of Treatment Not on file documented as of this encounter Visit Diagnoses Not on filedocumented in this encounter
--- OUTSIDE RECORDS SUMMARY | 2025-07-01 10:28 | XMS_ITS | Encounter Summary ---
Author Organization [employer] ([place], [place], [place], [place], [place]) Address [address] [place] [address] Care Team Providers Care Technical Internship Name Role Phone Unavailable Primary Care Provider Unavailabl e Encounter Details Date Type Department Care Team (Late st Contact Info) Description 12/23/2019 Transcribed Document [facility] [place] Family Medicine [address] [place] [address] ProviderCl MD [address] [place] [id number] Social History Tobacco Use Types Packs/Day Years Used Date Smoking Tobacco: Never Assessed Comments Unknown Sex and Gender Information Value Date Recorded Sex Assigned at Not on file Legal Sex Female 5:11 PM CDT Gender Identity Not on file Sexual Orientation Not on file documented as of this encounter Miscellaneous Notes * Cerner Conversion Note - Historical ProviderMD - 12/23/2019 8:00 PM CDT Patch Check Entered On: 12/24/2019 3:14 EDT Performed On: 12/23/2019 20:00 EDT by Yanique Jimenez RN Patch Check Patch Check Result : No Patch Check - Type of Patch : scopolamine (Transderm-Scop) Yanique Jimenez RN - 12/24/2019 3:14 EDT documented in this encounter Plan of Treatment Not on file documented as of this encounter Visit Diagnoses Not on filedocumented in this encounter
--- OUTSIDE RECORDS SUMMARY | 2025-07-01 10:28 | XMS_ITS | Encounter Summary ---
Author Organization [employer] ([place], [place], [place], [place], [place]) Address [address] [place] [address] Care Team Providers Care Power Driven Brush Maker Name Role Phone Unavailable Primary Care Provider Unavailabl e Encounter Details Date Type Department Care Team (Late st Contact Info) Description 12/25/2019 Transcribed Document [facility] [place] [address] [place] [address] ProviderCl MD [address] [place] [address] Social History Tobacco Use Types Packs/Day Years Used Date Smoking Tobacco: Never Assessed Comments Unknown Sex and Gender Information Value Date Recorded Sex Assigned at Not on file Legal Sex Female 5:11 PM CDT Gender Identity Not on file Sexual Orientation Not on file documented as of this encounter Miscellaneous Notes * Cerner Conversion Note - Historical ProviderMD - 12/25/2019 2:00 AM CDT Director Music Details Entered On: 12/25/2019 1:26 EDT Performed On: 12/25/2019 2:00 EDT by Yanique Jimenez, RN Order [...] Line : No Yanique Jimenez, RN - 12/25/2019 1:26 EDT documented in this encounter Plan of Treatment Not on file documented as of this encounter Visit Diagnoses Not on filedocumented in this encounter
--- OUTSIDE RECORDS SUMMARY | 2025-07-01 10:28 | XMS_ITS | Encounter Summary ---
Author Organization [employer] ([place], [place], [place], [place], [place]) Address [address] [place] [address] Care Team Providers Care Technical Assoc Name Role Phone Unavailable Primary Care Provider Unavailabl e Encounter Details Date Type Department Care Team (Late st Contact Info) Description 08/25/2024 Lab Requisition [facility] [address] [place] [address] Brayan Miller MD [facility] hospital [address] [address] Enterococcus as the cause of diseases classified elsewhere; Encounter for surgical aftercare following surgery on the genitourinary system Social History Tobacco Use Types Packs/Day Years Used Date Smoking Tobacco: Never Assessed Comments Unknown Sex and Gender Information Value Date Recorded Sex Assigned at Not on file Legal Sex Female 5:11 PM CDT Gender Identity Not on file Sexual Orientation Not on file documented as of this encounter Plan of Treatment Not on file documented as of this encounter Procedures Procedure Name Priority Date/Time Associated Diagnosis Comments CBC HEMOGRAM (SJ-BKR) Routine 08/25/2024 11:00 AM EST Enterococcus as the cause of diseases classified elsewhere Encounter for surgical aftercare following surgery on the genitourinary system COMPREHENSIVE METABOLIC PANEL Routine 08/25/2024 11:00 AM EST Enterococcus as the cause of diseases classified elsewhere Encounter for surgical aftercare following surgery on the genitourinary system documented in this encounter Results * (ABNORMAL) CBC - Hemogram (SJ-BKR) (08/25/2024 11:00 AM EST) WBC 8.5 4.8 - 10.8 K/ L 08/25/2024 2:09 PM [facility] RBC 3.50 3.50 - 5.20 M/ L 08/25/2024 2:09 PM [facility] Hemoglobin 10.6(L) 11.7 - 15.8 GM/DL 08/25/2024 2:09 PM [facility] Hematocrit 32.1(L) 35.0 - 47.0 % 08/25/2024 2:09 PM [facility] MCV 92 81 - 101 fL 08/25/2024 2:09 PM [facility] MCH 30.3 27.0 - 34.0 pg 08/25/2024 2:09 PM [facility] MCHC 33.0 32.0 - 36.0 GM/DL 08/25/2024 2:09 PM [facility] RDW 12.9 11.5 - 14.5 % 08/25/2024 2:09 PM [facility] Platelets 210 150 - 400 K/CU MM 08/25/2024 2:09 PM [facility] MPV 12.0 9.4 - 12.4 fL 08/25/2024 2:09 PM [facility] Blood 08/25/2024 11:0 0 AM EST 08/25/2024 1:59 PM EST us Brayan Miller MD LAB BLOOD ORDERABLES Final Re sult [facility] [address] [place], [place] [address] [phone] * (ABNORMAL) Comprehensive metabolic panel (08/25/2024 11:00 AM EST) Sodium 132(L) 136 - 145 meq/L 08/25/2024 4:09 PM [facility] Potassium 2.7(LL) 3.5 - 5.1 meq/L 08/25/2024 4:09 PM [facility] Chloride 95(L) 98 - 107 meq/L 08/25/2024 4:09 PM [facility] CO2 27 21 - 32 meq/L 08/25/2024 4:09 PM [facility] Calcium 8.5 8.5 - 10.1 mg/dL 08/25/2024 4:09 PM [facility] Glucose 293(H) 70 - 99 mg/dL 08/25/2024 4:09 PM [facility] BUN 10 7 - 18 mg/dL 08/25/2024 4:09 PM [facility] Creatinine 0.97 0.55 - 1.10 mg/dL 08/25/2024 4:09 PM [facility] BUN/Creatinine 10 08/25/2024 4:09 PM [facility] Albumin 1.9(L) 3.4 - 5.0 g/dL 08/25/2024 4:09 PM [facility] Alkaline Phosphatase 78 46 - 116 U/L 08/25/2024 4:09 PM [facility] ALT 26 12 - 78 U/L 08/25/2024 4:09 PM [facility] AST 34 15 - 37 U/L 08/25/2024 4:09 PM [facility] Total Bilirubin 0.3 0.2 - 1.0 mg/dL 08/25/2024 4:09 PM [facility] Protein, Total 6.1(L) 6.4 - 8.2 gm/dL 08/25/2024 4:09 PM [facility] Anion Gap 13 11 - 22 08/25/2024 4:09 PM [facility] A/G Ratio 0.5 08/25/2024 4:09 PM [facility] Globulin 4.2 g/dL 08/25/2024 4:09 PM [facility] Osmolality Calc 274.4 4:09 PM [facility] eGFR (mL/min/1.73m2) 58(L) >=60 mL/min/1.7 3m2 08/25/2024 4:09 PM EST [facility] Comment:ESTIMATED GFR IS NOT ACCURATE CREATININE CLEARANCE IN PREDICTING GLOMERULAR FILTRATION RATE. ESTIMATED GFR IS NOT APPLICABLE FOR DIALYSIS PATIENTS. Blood 08/25/2024 11:0 0 AM EST 08/25/2024 1:59 PM EST us Brayan Miller MD LAB BLOOD ORDERABLES Final Re sult [facility] [address] [place] [address] documented in this encounter Visit Diagnoses Diagnosis Enterococcus as the cause of diseases classified elsewhere Encounter for surgical aftercare following surgery on the genitourinary system documented in this encounter
--- OUTSIDE RECORDS SUMMARY | 2025-07-01 10:28 | XMS_ITS | Encounter Summary ---
Author Organization [employer] ([place], [place], [place], [place], [place]) Address [address] [place] [address] Care Team Providers Care Fabrication Manager Name Role Phone Unavailable Primary Care Provider Unavailabl e Encounter Details Date Type Department Care Team (Late st Contact Info) Description 12/22/2019 Transcribed Document [facility] [place] Family Medicine [address] [place] [address] ProviderCl MD [address] [place] [id number] Social History Tobacco Use Types Packs/Day Years Used Date Smoking Tobacco: Never Assessed Comments Unknown Sex and Gender Information Value Date Recorded Sex Assigned at Not on file Legal Sex Female 5:11 PM CDT Gender Identity Not on file Sexual Orientation Not on file documented as of this encounter Miscellaneous Notes * Cerner Conversion Note - Historical ProviderMD - 12/22/2019 4:42 PM CDT Event Note Entered On: 12/22/2019 16:46 EDT Performed On: 12/22/2019 16:42 EDT by Kia Bunch RN Event Note Event Date/Time : 12/22/2019 16:44 EDT Event Location : Assigned room Event Details : Nursing assessment additional narrative Description of Event : patient very drowsy, will arouse when entering the room and will answer questions but will dose back off to sleep, has been this way all shift and from report last night was the same way. Dr. Barr notifed he stated to not give any narcotic pain medicines only do tylenol for pain. Kia Bunch RN - 12/22/2019 16:42 EDT documented in this encounter Plan of Treatment Not on file documented as of this encounter Visit Diagnoses Not on filedocumented in this encounter
--- OUTSIDE RECORDS SUMMARY | 2025-07-01 10:28 | XMS_ITS | Clinical Summary ---
Author Organization [facility] Address [address] [place] [address] Care Team Providers Care Warehouse Shipper Name Role Phone Corina Berger EMEKA Primary Care Provider [phone] Allergies No known active allergies Medications amLODIPine (NORVASC) 10 MG tablet 06/07/2017 Active carBAMazepine (TEGretol) 100 MG chewable tablet 06/07/2017 Act belkys glimepiride (AMARYL) 4 MG tablet 06/07/2017 Active azelastine (ASTELIN) 0.1 % nasal spray 03/16/2017 Active QNASL 80 MCG/ACT aerosol solution 03/07/2017 Ac tive gabapentin (NEURONTIN) 300 MG capsule 05/16/2017 Active levothyroxine (SYNTHROID, LEVOTHROID) 50 MCG tablet 05/16/2017 Active lisinopril (PRINIVIL,ZESTRIL ) 40 MG tablet 05/28/2017 Acti ve metFORMIN (GLUCOPHAGE) 1000 MG tablet 05/02/2017 Active rosuvastatin (CRESTOR) 20 MG tablet 05/18/2017 Active montelukast (SINGULAIR) 10 MG tablet Take 10 mg by mouth Every Night. Active tiZANidine (ZANAFLEX) 4 MG tablet Take 4 mg by mouth At Night As Needed for Muscle Spasms. Active doxazosin (CARDURA) 2 MG tablet Take 2 mg by mouth Every Night. Active APAP-Salicylamide -Phenyltolox (LOBAC PO) Take 160 mg by mouth Daily. Active carvedilol (COREG) 12.5 MG tabletIndications :Essential hypertension Take 1 tablet by mouth 2 (Two) Times a Day. 180 tablet 3 06/12/2017 Active Active Problems Problem Noted Date Diagnosed Date Essential hypertension 06/12/2017 Overview (07/10/2017): Echo (05/22/2017): Normal LV systolic function. Mild LVH and diastolic dysfunction. No significant valve abnormalities. Mild MR. Renal duplex at [facility] (05/22/17): No evidence of renal artery stenosis CT angiogram (07/06/2017): No renal artery stenosis. 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 I suspect that chronic pain does play a role in her elevated blood pressure. She did have a suboptimal renal artery duplex performed which did not suggest renal artery stenosis. However, I do believe it would be reasonable to perform CT angiography of the renal arteries to ensure that we are not dealing with significant renal artery stenosis. Anxiety and depression 06/12/2017 Hyperlipidemia LDL goal <70 06/12/2017 Type 2 diabetes mellitus 06/12/2017 Hypothyroidism 06/12/2017 Encounters Date Type Department Care Team Description 05/13/2025 Travel from Last 3 Months Family History Medical History Relation Name Comments Diabetes Brother Diabetes Mother Diabetes Sister Heart disease Sister Hypertension Sister Relation Name Status Comments Brother Father Mother Sister Social History Tobacco Use Types Packs/Day Years Used Date Smoking Tobacco: Never Smokeless Tobacco: Never Alcohol Use Standard Drinks/Week Comments No 0 (1 standard drink = 0.6 oz pur e alcohol) Abuse Screen Answer Date Recorded Unsafe at Home or Work/School Not on file Feels Threatened by Someone? Not on file 05/2023 Does Anyone Keep You from Co ntacting Others or Doint Things Outside the Home? Not on file 04/11/2023 Physical Sign of Abuse Present Not on file 1 Housing Stability Answer Date Recorded Current Living Arrangements Not on file 04/01 Potentially Unsafe Housing Conditions Not on mark e 04/11/2023 Family and Community Support Answer Cain e Recorded Help with Day-to-Day Activities Not on file 04/11/2023 Lonely or Isolated Not on file 04/11/2023 Employment Answer Date Recorded Do you want help finding or keeping work or a edgardo b? Not on file 04/11/2023 Disabilities Answer Date Recorded Concentrating, Remembering, or Making Decisions Difficulty Not on file 04/11/2023 Doing Errands Independently Difficulty Not on fi le 04/11/2023 Education Answer Date Recorded Help with school or training? Not on file Preferred Language Not on file 04/11/2023 Comments Unknown Sex and Gender Information Value Date Recorded Sex Assigned at Not on file Legal Sex Female 10:07 AM EST Gender Identity Not on file Sexual Orientation Not on file Last Filed Vital Signs Vital Sign Reading Time Taken Comments Blood Pressure 84/52 05/13/2025 12:53 PM EST Pulse 68 05/13/2025 12:53 PM EST Temperature - - Respiratory Rate - - Oxygen Saturation 97% 05/13/2025 12:53 PM EST Inhaled Oxygen Concentration - - Weight 85.7 kg (189 lb) 06/12/2017 10:54 AM EST Height 170.2 cm (5' 7 ) 06/12/2017 10:54 AM EST Body Mass Index 29.6 06/12/2017 10:54 AM EST Plan of Treatment Health Maintenance Due Date Last Done Comments DXA SCAN 1942 DIABETIC EYE EXAM 1952 DIABETIC FOOT EXAM 1952 URINE MICROALBUMIN-CREATININ E RATIO (uACR) 1952 TDAP/TD VACCINES (1 - Tdap) 1961 COLOGUARD 1987 COLON CANCER SCREENING 5 YEA R SIGMOIDOSCOPY 1987 COLONOSCOPY 1987 COL[address]AL CANCER SCREENING 1987 CT COLONOGRAPHY 1987 FECAL OCCULT BLOOD TEST 1987 FIT Testing (1 year) 1987 ZOSTER VACCINE (1 of 2) 1992 ANNUAL WELLNESS VISIT 06/12/2017 RSV Vaccine - Adults (1 - 1- dose 75+ series) 2017 LIPID PANEL 06/12/2018 06/12/2017 Pneumococcal Vaccine 50+ (2 of 2 - PCV) 07/22/2019 07/22/2018, 11/18/2009 HEMOGLOBIN A1C 09/06/2024 03/09/2024, 03/09/2024 COVID-19 Vaccine ( - 2024-2 6 season) 2025 06/01/2022, 11/17/2021, 03/03/2021, Additional history exists INFLUENZA VACCINE Completed 04/14/2025, , 04/09/2023, Additional history exists Procedures Procedure Name Priority Date/Time Associated Diagnosis Comments ECG 12-LEAD Routine 05/13/2025 3:43 PM EST Essential hypertension LIPID PANEL Routine 06/12/2017 11:42 AM EST from Last 3 Months or Most Recently Relevant to Health Maintenance Results * ECG 12 Lead (05/13/2025 3:43 PM EST) Hanny Orozco INCLUSION PARAEDUCATOR ECG ORDERABLES Fin al Result ECG * (ABNORMAL) Lipid Panel (06/12/2017 11:42 AM EST) [facility] Total Cholesterol 158 0 - 200 mg/dL [facility] Comment: Cholesterol Reference Ranges: Desirable < 200 mg/dL Borderline 200-239 mg/dL High Risk > 239 mg/dL Triglyceride Reference Ranges: Normal < 150 mg/dL Borderline 150-199 mg/dL High 200-499 mg/dL Very High > 499 mg/dL HDL Reference Ranges: Low < 40 mg/dL High > 59 mg/dL LDL Reference Ranges: Optimal < 100 mg/dL Near Optimal 100-129 mg/dL Borderline 130-159 mg/dL High 160-189 mg/dL Very High > 189 mg/dL Triglycerides 191(H) 0 - 150 mg/dL [facility] HDL Cholesterol 48 40 - 60 mg/dL [facility] VLDL Cholesterol 38.2 mg/dL [facility] LDL Cholesterol 72 0 - 100 mg/dL [facility] 06/12/2017 11:4 2 AM EST 06/12/2017 Narrative [facility] - 06/13/2017 7:36 AM EST Performed at: [address] [place] [id number] Farm Operator: Francisco Rodriguez MD, Phone: [phone] Patient Fasting: N Eliud Plummer IV, MD LAB BLOOD ORDERA BLES Final Result [facility] [address] [place] [address], [place] [phone] [facility] [address] [place] [address], from Last 3 Months or Most Recently Relevant to Health Maintenance Insurance Care Teams Warehouse Shipper Relationship Specialty Start Date End Date Corina Berger APRN PCP - General Nurse Practitioner 05/22/17
--- OUTSIDE RECORDS SUMMARY | 2025-07-01 10:28 | XMS_ITS | Patient Health Record ---
Author Organization [facility] Address [address] [place] [address] Care Team Providers Care Hogshead Mat Assembler Name Role Phone XIMENA RODAS Primary Care Provider Reason For Referral No Information Medications Medication SIG (Take, Route, Frequency, Duration) Notes Start Date End Date Status Potassium Chloride ER 10 mEq 2 (two) tablet(s) or orally once a day 12/11/2013 Active oxyBUTYnin Chloride ER 10 mg/24 hr 1 (one) tablet(s) or orally once a day 12/11/2013 Active Bumetanide 2 mg 1 (one) tablet(s) or orally once a day 12/11/2013 Active Vitamin B12 1 (one) tablet(s) or 12/11/20131899 Active Gabapentin 1 (one) tablet(s) or 12/11/2013 900 Active Xanax 0.5 mg 1 (one) tablet(s) or oral 2 times a day; Duration: thirty 12/11/2013 Active ALPRAZolam 1 (one) tablet(s) or 12/11/2013 900 Active metFORMIN HCl 500 mg 1 (one) tablet(s) o r orally 2 times a day 12/11/2013 Active Problems Problem Type SNOMED Code ICD Code Onset Dates Problem Status W/U Status Risk Notes Problem Type II diabetes mellitus without complication (652310685) Type 2 diabetes mellitus without complications (E11.9) 12/12/19 14 Active confirmed Ortiz-Bin Problem Generalized anxiety disorder (82004907) Generalized anxiety disorder (F41.1) 12/12/19 14 Active confirmed Ortiz-Bin Problem Essential hypertension (30655049) Essential (primary) hypertension (I10) 12/12/19 14 Active confirmed Ortiz-Bin Problem Low back pain (036459588) Low back pain (M54.5) 12/12/19 14 Active confirmed Ortiz-Bin Plan Of Treatment No Information Insurance Providers Payer Name Payer Address Payer Phone Subscriber Number Group Number Insured Name Patient Relationship to Insured Coverage Start Date Coverage End Date [employer] [address] [address] [place] [id number] Poly Bustillo Self - patient is the insured Medical (General) History Surgical History Surgery Date(Month/Year) Appendix Gallbladder Hysterectomy
--- OUTSIDE RECORDS SUMMARY | 2025-07-01 10:28 | XMS_ITS | Encounter Summary ---
Author Organization [employer] ([place], [place], [place], [place], [place]) Address [address] [place] [address] Care Team Providers Care Pre Wave Assembler Name Role Phone Unavailable Primary Care Provider Unavailabl e Encounter Details Date Type Department Care Team (Late st Contact Info) Description 12/22/2019 Transcribed Document [facility] Family Medicine [address] [place] [address] ProviderCl MD [address] [place] [address] Social History Tobacco Use Types Packs/Day Years Used Date Smoking Tobacco: Never Assessed Comments Unknown Sex and Gender Information Value Date Recorded Sex Assigned at Not on file Legal Sex Female 5:11 PM CDT Gender Identity Not on file Sexual Orientation Not on file documented as of this encounter Miscellaneous Notes * Cerner Conversion Note - Historical ProviderMD - 12/22/2019 5:00 AM CDT Chart Check - Review Order Profile Entered On: 12/22/2019 4:21 EDT Performed On: 12/22/2019 5:00 EDT by Ildefonso Lange Rn-Charge Chart Check Powerplans Initiated/Discontinued as Appropriate : Yes All Active Orders Reviewed : Yes Ildefonso Lange Rn-Charge - 12/22/2019 4:21 EDT documented in this encounter Plan of Treatment Not on file documented as of this encounter Visit Diagnoses Not on filedocumented in this encounter
--- OUTSIDE RECORDS SUMMARY | 2025-07-01 10:28 | XMS_ITS | Encounter Summary ---
Author Organization [employer] ([place], [place], [place], [place], [place]) Address [address] [place] [address] Care Team Providers Care Rubber Goods Cutter Finisher Name Role Phone Unavailable Primary Care Provider Unavailabl e Encounter Details Date Type Department Care Team (Late st Contact Info) Description 08/18/2024 Lab Requisition [facility] [address] [place] [address] [facility], Provider Not In The System, [place] [address] Sepsis, unspecified organism (HCC) Social History Tobacco Use Types Packs/Day Years [...] Name Priority Date/Time Associated Diagnosis Comments CBC W/MANUAL DIFF (SJ-BKR) Routine 08/18/2024 2:42 PM EST Sepsis, unspecified organism (HCC) MANUAL DIFFERENTIAL Routine 08/18/2024 2 :42 PM EST Sepsis, unspecified organism (HCC) COMPREHENSIVE METABOLIC PANEL Routine 08/18/2024 2:42 PM EST Sepsis, unspecified organism (HCC) documented in this encounter Results * (ABNORMAL) Manual Differential (08/18/2024 2:42 PM EST) Total Counted 100 08/18/2024 6:16 PM EST [facility] % Neutros (manual) 46 15 - 67 % 08/18/2024 6:16 PM EST [facility] % Bands (manual) 22(H) 2 - 21 % 08/18/2024 6:16 PM EST [facility] % Lymphs (manual) 25 10 - 50 % 08/18/2024 6:16 PM EST [facility] % Monos (manual) 6 2 - 10 % 08/18/2024 6:16 PM EST [facility] % Eos (manual) 1 0 - 7 % 08/18/2024 6:16 PM EST [facility] RBC Morphology Normal Normal 08/18/2024 6:16 PM [facility] Platelet Estimate Adequate Adequate 08/18/2024 6:16 PM [facility] # Neutrophils (manual) 4.62 K/ L 08/18/2024 6:16 PM [facility] Blood 08/18/2024 2:42 PM EST 08/18/2024 5:08 PM EST us Provider Not In The System [facility] LAB BLOOD FREDDIE SWAN Final Result [facility] [address] [place] [address] * (ABNORMAL) Comprehensive metabolic panel (08/18/2024 2:42 PM EST) Sodium 140 136 - 145 meq/L 08/18/2024 5:33 PM [facility] Potassium 3.3(L) 3.5 - 5.1 meq/L 08/18/2024 5:33 PM [facility] Chloride 102 98 - 107 meq/L 08/18/2024 5:33 PM [facility] CO2 31 21 - 32 meq/L 08/18/2024 5:33 PM [facility] Calcium 8.6 8.5 - 10.1 mg/dL 08/18/2024 5:33 PM [facility] Glucose 226(H) 70 - 99 mg/dL 08/18/2024 5:33 PM [facility] BUN 10 7 - 18 mg/dL 08/18/2024 5:33 PM [facility] Creatinine 0.58 0.55 - 1.10 mg/dL 08/18/2024 5:33 PM [facility] BUN/Creatinine 17 08/18/2024 5:33 PM [facility] Albumin 2.4(L) 3.4 - 5.0 g/dL 08/18/2024 5:33 PM [facility] Alkaline Phosphatase 74 46 - 116 U/L 08/18/2024 5:33 PM [facility] ALT 17 12 - 78 U/L 08/18/2024 5:33 PM [facility] AST 28 15 - 37 U/L 08/18/2024 5:33 PM [facility] Total Bilirubin 0.3 0.2 - 1.0 mg/dL 08/18/2024 5:33 PM [facility] Protein, Total 6.0(L) 6.4 - 8.2 gm/dL 08/18/2024 5:33 PM [facility] Anion Gap 10(L) 11 - 22 08/18/2024 5:33 PM [facility] A/G Ratio 0.7 08/18/2024 5:33 PM [facility] Globulin 3.6 g/dL 08/18/2024 5:33 PM [facility] Osmolality Calc 285.5 5:33 PM [facility] eGFR (mL/min/1.73m2) >60 >=60 mL/min/1.7 3m2 08/18/2024 5:33 PM [facility] Comment:ESTIMATED GFR IS NOT ACCURATE CREATININE CLEARANCE IN PREDICTING GLOMERULAR FILTRATION RATE. ESTIMATED GFR IS NOT APPLICABLE FOR DIALYSIS PATIENTS. Blood 08/18/2024 2:42 PM EST 08/18/2024 5:08 PM EST us Provider Not In The System Ryanne MOYA LAB BLOOD FREDDIE SWAN Final Result [facility] [address] [place] [address], [place] [phone] * CBC w Manual Diff (SJ-BKR) (08/18/2024 2:42 PM EST) WBC 6.8 4.8 - 10.8 K/ L 08/18/2024 6:16 PM EST [facility] RBC 3.87 3.50 - 5.20 M/ L 08/18/2024 6:16 PM EST [facility] Hemoglobin 11.8 11.7 - 15.8 GM/DL 08/18/2024 6:16 PM EST [facility] Hematocrit 36.6 35.0 - 47.0 % 08/18/2024 6:16 PM EST [facility] MCV 95 81 - 101 fL 08/18/2024 6:16 PM EST [facility] MCH 30.5 27.0 - 34.0 pg 08/18/2024 6:16 PM EST [facility] MCHC 32.2 32.0 - 36.0 GM/DL 08/18/2024 6:16 PM EST [facility] RDW 12.9 11.5 - 14.5 % 08/18/2024 6:16 PM EST [facility] Platelets 264 150 - 400 K/CU MM 08/18/2024 6:16 PM EST [facility] MPV 10.7 9.4 - 12.4 fL 08/18/2024 6:16 PM EST [facility] Blood 08/18/2024 2:42 PM EST 08/18/2024 5:08 PM EST Narrative [facility] - 08/18/2024 6:16 PM EST Manual differentials can only be ordered once in a 24 hour time period. Please order CBC with Auto Diff if needed. us Provider Not In The System Ryanne MOYA LAB BLOOD ORDTania SWAN Final Result [facility] [address] [place] [address], [place] [phone] documented in this encounter Visit Diagnoses Diagnosis Sepsis, unspecified organism (HCC) documented in this encounter
--- OUTSIDE RECORDS SUMMARY | 2025-07-01 10:28 | XMS_ITS | Encounter Summary ---
Author Organization [employer] ([place], [place], [place], [place], [place]) Address [address] [place] [address] Care Team Providers Care Civil Engineering Professional Name Role Phone Unavailable Primary Care Provider Unavailabl e Encounter Details Date Type Department Care Team (Late st Contact Info) Description 12/22/2019 Transcribed Document [facility] [place] [address] [place] [address] ProviderCl MD [address] [place] [address] Social History Tobacco Use Types Packs/Day Years Used Date Smoking Tobacco: Never Assessed Comments Unknown Sex and Gender Information Value Date Recorded Sex Assigned at Not on file Legal Sex Female 5:11 PM CDT Gender Identity Not on file Sexual Orientation Not on file documented as of this encounter Miscellaneous Notes * Cerner Conversion Note - Cl ProviderMD - 12/22/2019 10:16 AM CDT On Going Discharge Planning Entered On: 12/22/2019 10:19 EDT Performed On: 12/22/2019 10:16 EDT by LARSISA THORNTON Rn-Environmental Services ManagerToolroom Clerk Progress Note Discharge Arrangements : Patient Post-Acute Information Patient Name: JAMES BUSTILLO Gender: Female : 42 Age: 79 Years No Post-Acute Placement(s) Listed No Post-Acute Service(s) Listed No Curaspan Referral(s) Listed Discharge Options Discussed with Patient : Other: TBD Barriers to Discharge Identified : Clinical Condition of Patient, Follow-Up appointments needed Barriers to Discharge Unresolved : Clinical Condition of Patient Is the Patient Meeting Medical Necessity : Yes Did you Attend Multidisciplinary Rounds? : No LARISSA THORNTON Rn-Environmental Services Manager - 12/22/2019 10:16 EDT Narrative Progress Note Narrative Progress Note : Recieved call from Rina at [facility] with bed offer. Spoke with Ms Bustillo she is in agreement with this plan notified Rina she will init precert. Patient will need a Covid 19 test prior to going to their facility will order test. Historical Progress Note : Patient extremely drowsy and lethargic upon trying [...] is agreeable for inaptient rehab, would like [facility] for rehab in [place] or [facility]. Patient wants to stay close to home if all possible. SNF referrals sent through [facility]....................sds LAZ GLEASON, RN-Flat Lock Machine Operator - 12/21/19 14:52:39 LARISSA THORNTON Rn-Environmental Services Manager - 12/22/2019 10:16 EDT documented in this encounter Plan of Treatment Not on file documented as of this encounter Visit Diagnoses Not on filedocumented in this encounter
--- OUTSIDE RECORDS SUMMARY | 2025-07-01 10:28 | XMS_ITS | Data Portability ---
Author Organization ID - Francisco wright MD, Main Office Address [address] , [facility] [address] [place] [address] Care Team Providers Care Automobile Body Repair Chief Name Role Phone JANICE ARNETT Primary Care Provider [phone] Assessment No assessment recorded. Plan of Treatment Reminders Order Date Submit Date Provider Last Modified By Organization Details Last Modified Time Details Appointments None recorded. Lab None recorded. Referral None recorded. Procedures None recorded. Surgeries None recorded. Imaging None recorded. Medication Orders carbamazep ine 100 mg chewable tablet 2018 019 INTERFACE [facility], [address] [place], [address], 9 13:54:13 tizanidine 4 mg tablet 2018 019 INTERFACE [facility], [address] [place], [address], 9 13:54:29 carbamazep ine 100 mg chewable tablet 2017 018 INTERFACE [facility], [address] [place], [address], 8 13:34:56 tizanidine 4 mg tablet 2017 018 INTERFACE [facility], [address] [place], [address], 8 13:34:34 Patient TargetsNo targets recorded. Patient Instructions Encounter Date Encounter Id Patient Instructions Last Modified By Organization Details Last Modified Time 01/04/2018 [id number] Neuropathic Pain : Care Instructions Not available 01/04/2018 13:32:57 back care and preventing injuries: care instructions Not available 01/04/2018 13:32:57 getting back to normal after low back pain: care instructions Not available 01/04/2018 13:32:57 learning about relief for back pain Not available 01/04/2018 13:32:57 Finding has been discussed with the patient in detail. Continue current regimen. Tegretol 100 mg 3 times a day for neuropathic pain. Zanaflex 4 mg 1-2 at bedtime for muscle spasm. Return in 6 months. Not available 01/04/2018 13:38:42 02/12/2019 [id number] Finding has been discussed with the patient in detail. Continue Tegretol 100 mg 3 times a day. Tizanidine 4 mg 1-2 tablets at bedtime for muscle spasm. I will see her back in one year. Not available 02/12/2019 13:58:21 Reason for Referral None Reported. Problems Name Problem SNOMED Code Status Onset Date Resolution Date Notes Provider Name and Address Organization Details Recorded Time Low back pain 553492304 Active 018 QIAN Lau MD 01/04/2018 13:09:47 Problem Notes None recorded. Procedures Surgical History Date Name Laterality Status Provider Name and Address Organization Details Recorded Time Back Surgery completed Jennifer Giron MD 01/04/2018 13:09:55 Caesarean Section completed Jennifer Giron MD 01/04/2018 13:10:00 Cholecystectomy completed Jennifer Giron MD 01/04/2018 13:10:05 Hysterectomy completed Jennifer Giron MD 01/04/2018 13:10:08 Imaging Results None recorded. Procedure Notes None recorded. Medical Equipment None Reported. Allergies No known drug allergies Medications Name Sig Start Date Stop Date Status Note LastModified by Organization Details LastModified Time cyclobenzapr ine 10 mg tablet 01/04 completed Not Available Not Available Not Available metformin 500 mg tablet 08/31 completed Not Available Not Available Not Available potassium chloride ER 10 mEq capsule,exte nded release active Not Available Not Available Not Available oxybutynin chloride ER 15 mg tablet,exten ded release 24 hr active Not Available Not Available Not Available cefuroxime axetil 250 mg tablet 01/04 completed Not Available Not Available Not Available carvedilol 12.5 mg tablet active Not Available Not Available Not Available bumetanide 2 mg tablet active Not Available Not Available No t Available triamcinolon e acetonide 0.5 % topical cream 01/04 completed Not Available Not Available Not Available tizanidine 4 mg tablet 1-2 tablets at bedtime 2018 active Not Available Not Available Not Avai lable fluconazole 150 mg tablet 02/12 completed Not Available Not Available Not Available fluconazole 200 mg tablet 02/12 completed Not Available Not Available Not Available lisinopril 20 mg tablet 08/31 completed Not Available Not Available Not Available metoprolol succinate ER 100 mg tablet,exten ded release 24 hr active Not Available Not Available Not Available sulfamethoxa zole 800 mg-trimethop rim 160 mg tablet 01/04 completed Not Available Not Available Not Available tramadol 50 mg tablet 01/04 completed Not Available Not Available Not Available levothyroxin e 75 mcg tablet 08/31 completed Not Available Not Available Not Available amlodipine 10 mg tablet active Not Available Not Available Not Available levothyroxin e 50 mcg tablet active Not Available Not Available Not Available metformin 1,000 mg tablet active Not Available Not Available Not Available lisinopril 10 mg tablet 08/31 completed Not Available Not Available Not Available glimepiride 4 mg tablet active Not Available Not Available Not Available carbamazepin e 100 mg chewable tablet One tablet 3 times a day 2018 active Not Available Not Available Not Avai lable gabapentin 300 mg capsule 01/04 completed Not Available Not Available Not Available sertraline 25 mg tablet active Not Available Not Available Not Available montelukast 10 mg tablet active Not Available Not Available Not Available azelastine 137 mcg (0.1 %) nasal spray 08/31 completed Not Available Not Available Not Available epinephrine 0.3 mg/0.3 mL injection, auto-injecto r 01/04 completed Not Available Not Available Not Available lisinopril 40 mg tablet active Not Available Not Available Not Available fluoxetine 20 mg capsule active Not Available Not Available Not Available fluticasone propionate 50 mcg/actuatio n nasal spray,suspen sindy active Not Available Not Available Not Available colestipol 1 gram tablet active Not Available Not Available Not Available doxazosin 2 mg tablet active Not Available Not Available No t Available amoxicillin 875 mg-potassium clavulanate 125 mg tablet 02/12 completed Not Available Not Available Not Available Ventolin HFA 90 mcg/actuatio n aerosol inhaler active Not Available Not Available Not Available rosuvastatin 20 mg tablet active Not Available Not Available Not Available fenofibrate 160 mg tablet active Not Available Not Available Not Available Januvia 100 mg tablet active Not Available Not Available No t Available Suprep Bowel Prep Kit 17.5 gram-3.13 gram-1.6 gram oral solution 01/04 completed Not Available Not Available Not Available QNASL 80 mcg/actuatio n nasal aerosol spray 08/31 completed Not Available Not Available Not Available Myrbetriq 50 mg tablet,exten ded release 01/04 completed Not Available Not Available Not Available Jardiance 25 mg tablet active Not Available Not Available No t Available Vitals Date Recorded Body height Body mass index (BMI) Body weight Heart rate Respiratory rate Systolic And Diastolic Provider Name and Address Organization Details Last Updated DateTime 8 170.18 cm 28.3 kg/m2 41367.2 2 g 78 /min 17 /min 131/82 mm[Hg] Francisco Giron MD [address], [place] [id number] 0QIAN MD 8 13:35:25 Date Recorded Body height Body mass index (BMI) Body weight Heart rate Respiratory rate Systolic And Diastolic Provider Name and Address Organization Details Last Updated DateTime 9 170.18 cm 27.9 kg/m2 16466.4 4 g 74 /min 17 /min 126/82 mm[Hg] Francisco Giron MD [address], [place] [id number] 0QIAN MD 9 13:56:10 Social History Question Answer Notes LastModified by Organizat ion Details LastModified Time Tobacco Smoking Status Never Smoker QIAN Lau MD 01/04/2018 13:09:16 Do You Have An Advance Directive? Yes Information not available 02/12/2019 Live Alone Or With Others? With Others Information not available 01/04/2018 What Was The Date Of Your Most Recent Tobacco Screening? 02/12/2019 Information not available 02/12/2019 Sex: Unknown Functional Status Question Answer Note LastModified by Organization D etails LastModified Time What is your level of alcohol consumption? None Information not available 01/04/2018 Mental Status None recorded. Family History Relationship Description Onset Age of this Age Resolved Age Notes LastModified by Organization Details LastModified Time Father No current problems or disability [email or web address] Not available 01/04 13:10:31 Mother No current problems or disability [email or web address] Not available 01/04 13:10:31 Medical History Condition Response Hypertension Y Gynecological HistoryNo gynecological history recorded. Obstetrics History GPAL:G 0 P 0 0 0 0 Past Encounters Encounter ID Performer Location Encounter Start Date Encounter Closed Date Diagnosis/Indication Diagnosis SNOMED-CT Code Diagnosis ICD10 Code Diagnosis IMO Codes Diagnosis Note [id number] Francisco Giron MD Main Office [address], [place] [address] [place] [address] 01/04/2018 13:05:43 01/04/2018 13:32:13 Low back pain 819015518 M54.5 The patient is a 77-year-ol d white female who has a lumbosacra l radiculopa thy on the right. Diabetic p eripheral neuropathy 947088858 E11.40 She also has a underlying diabetic peripheral neuropathy . [id number] Francisco Giron MD Main Office [address], [place] [address] [place] [address] 02/12/2019 13:26:00 02/12/2019 14:00:47 Diabetic peripheral neuropathy 151615633 E11.40 She also has a underlying diabetic peripheral neuropathy . Low back pain 067761396 M54.5 The patient is a 78-year-ol d white female who has a lumbosacra l radiculopa thy on the right. Health Concerns Section Related Observation LastModified by Organization Detai ls LastModified Time None Recorded Concern Status LastModified by Organization Details LastModified Time None Recorded Advance Directives Directive Y: Payers Insurance Date Sequence Insurance Name Policy Number Policy Jeronimo Covered Member ID Jeronimo Member ID Guarantor Name 02/12/2019 1 [employer] (MEDICARE REPLACEMENT/A DVANTAGE - PPO) Poly Bustillo [id number] Poly Bustillo Notes Date Note Type Note Provider Name a nd Address Organization Details Recorded Time 01/04/2018 text/html ROS as noted in the HPI Mrs. Bustillo is a 77-year-old white female. She has chronic low back pain radiates to her right leg with numbness. Pain is worse. She is on Tegretol 100 mg tablet 3 times a day for pain and for her diabetic neuropathy. She uses Zanaflex 4 mg 1-2 tablets at bedtime for muscle spasm. She no longer takes tramadol. Since I saw her, she has seen envelope addresser for poorly controlled hypertension. She is on lisinopril, amlodipine, Coreg and Bumex. She is on Jardiance, glimepiride and metformin for diabetes. She also has hyperlipidemia. Francisco Giron MD [address], [facility] [address], [place], [address], [facility] Francisco Giron MD 01/04/2018 13:39:27 02/12/2019 text/html ROS as noted in the HPI Mrs. Bustillo is a 78-year-old diabetic white female. She has a diabetic peripheral neuropathy. She is on Tegretol 100 mg 3 times a day. She is doing better. The pain and numbness has improved. She also has low back pain with muscle spasms in both legs. She ran out of tizanidine. 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 She is excited about going back to work. Francisco Giron MD [address], [facility] [address], [place], [address], [facility] Kaykay Giron MD 02/12/2019 13:58:59 OBGyn Episode No OBEpisode recorded.
--- OUTSIDE RECORDS SUMMARY | 2025-07-01 10:28 | XMS_ITS | Encounter Summary ---
Author Organization [employer] ([place], [place], [place], [place], [place]) Address [address] [place] [address] Care Team Providers Care Ethnographic Materials Conservator Name Role Phone Unavailable Primary Care Provider Unavailabl e Encounter Details Date Type Department Care Team (Late st Contact Info) Description 12/22/2019 Transcribed Document [facility] [place] [address] [place] [address] ProviderCl MD [address], [place] [address] Social History Tobacco Use Types Packs/Day Years Used Date Smoking Tobacco: Never Assessed Comments Unknown Sex and Gender Information Value Date Recorded Sex Assigned at Not on file Legal Sex Female 5:11 PM CDT Gender Identity Not on file Sexual Orientation Not on file documented as of this encounter Miscellaneous Notes * Cerner Conversion Note - Historical ProviderMD - 12/22/2019 1:15 PM CDT Spiritual Care Short Form Entered On: 12/22/2019 14:30 EDT Performed On: 12/22/2019 13:15 EDT by PAULA AMAYA Chaplain-Non Cert General Information, Spiritual Care Spiritual Care Referred by : Chief Guard initiated Reason for Visit : Initial Ministry Provided to : Patient Intervention/Comment/Summary Points : 3-day visit to patient. She shared that she was doing ok, but was caught off guard by her hospitalization because she didn't expect it. Patient ahd no needs other than a toothbrush and toothpaste, for whichshe received assistance in acquiring. PAULA AMAYA Chaplain-Non Cert - 12/22/2019 14:29 EDT documented in this encounter Plan of Treatment Not on file documented as of this encounter Visit Diagnoses Not on filedocumented in this encounter
--- OUTSIDE RECORDS SUMMARY | 2025-07-01 10:28 | XMS_ITS | Encounter Summary ---
Author Organization [employer] ([place], [place], [place], [place], [place]) Address [address] [place] [address] Care Team Providers Care Pants Maker Name Role Phone Unavailable Primary Care Provider Unavailabl e Encounter Details Date Type Department Care Team (Late st Contact Info) Description 12/21/2019 Transcribed Document [facility] [place] [address] [place] [address] ProviderCl MD [address] [place] [address] Social History Tobacco Use Types Packs/Day Years Used Date Smoking Tobacco: Never Assessed Comments Unknown Sex and Gender Information Value Date Recorded Sex Assigned at Not on file Legal Sex Female 5:11 PM CDT Gender Identity Not on file Sexual Orientation Not on file documented as of this encounter Miscellaneous Notes * Cerner Conversion Note - Historical ProviderMD - 12/21/2019 5:00 PM CDT Chart Check - Review Order Profile Entered On: 12/21/2019 18:52 EDT Performed On: 12/21/2019 18:52 EDT by Brooklyn Euceda RN Chart Check Powerplans Initiated/Discontinued as Appropriate : Yes All Active Orders Reviewed : Yes Brooklyn Euceda RN - 12/21/2019 18:52 EDT documented in this encounter Plan of Treatment Not on file documented as of this encounter Visit Diagnoses Not on filedocumented in this encounter
--- OUTSIDE RECORDS SUMMARY | 2025-07-01 10:28 | XMS_ITS | Encounter Summary ---
Author Organization [employer] ([place], [place], [place], [place], [place]) Address [address] [place] [address] Care Team Providers Care Per Diem Name Role Phone Unavailable Primary Care Provider Unavailabl e Encounter Details Date Type Department Care Team (Late st Contact Info) Description 12/22/2019 Transcribed Document [facility] [facility] [place] [address] [place] [address] ProviderCl MD [address] [place] [id number] Social History Tobacco Use Types Packs/Day Years Used Date Smoking Tobacco: Never Assessed Comments Unknown Sex and Gender Information Value Date Recorded Sex Assigned at Not on file Legal Sex Female 5:11 PM CDT Gender Identity Not on file Sexual Orientation Not on file documented as of this encounter Miscellaneous Notes * Cerner Conversion Note - Historical ProviderMD - 12/22/2019 8:00 PM CDT Patch Check Entered On: 12/23/2019 3:12 EDT Performed On: 12/22/2019 20:00 EDT by Yanique Jimenez RN Patch Check Patch Check Result : No Patch Check - Type of Patch : scopolamine (Transderm-Scop) Yanique Jimenez RN - 12/23/2019 3:11 EDT documented in this encounter Plan of Treatment Not on file documented as of this encounter Visit Diagnoses Not on filedocumented in this encounter
--- OUTSIDE RECORDS SUMMARY | 2025-07-01 10:28 | XMS_ITS | Encounter Summary ---
Author Organization [employer] ([place], [place], [place], [place], [place]) Address [address] [place] [address] Care Team Providers Care Laundry Operator Finishing Name Role Phone Unavailable Primary Care Provider Unavailabl e Encounter Details Date Type Department Care Team (Late st Contact Info) Description 12/21/2019 Transcribed Document [facility] [place] [address] [place] [address] ProviderCl MD [address] [place] [address] Social History Tobacco Use Types Packs/Day Years Used Date Smoking Tobacco: Never Assessed Comments Unknown Sex and Gender Information Value Date Recorded Sex Assigned at Not on file Legal Sex Female 5:11 PM CDT Gender Identity Not on file Sexual Orientation Not on file documented as of this encounter Miscellaneous Notes * Cerner Conversion Note - Historical ProviderMD - 12/21/2019 2:48 PM CDT On Going Discharge Planning Entered On: 12/21/2019 14:52 EDT Performed On: 12/21/2019 14:48 EDT by LAZ GLEASON RN-Paper InserterAerial Photograph Interpreter Progress Note Discharge Arrangements : Patient Post-Acute Information Patient Name: JAMES BUSTILLO Gender: Female : 42 Age: 79 Years No Post-Acute Placement(s) Listed No Post-Acute Service(s) Listed No Curaspan Referral(s) Listed Discharge Options Discussed with Patient : Other: TBD LAZ GLEASON RN-Paper Inserter - 12/21/2019 14:48 EDT Narrative Progress Note Narrative Progress Note : Patient extremely drowsy and [...] is agreeable for inaptient rehab, would like [facility] for rehab in [place] or [facility]. Patient wants to stay close to home if all possible. SNF referrals sent through [facility]....................sds LAZ GLEASON, JOSE ALBERTO-Paper Inserter - 12/21/2019 14:48 EDT documented in this encounter Plan of Treatment Not on file documented as of this encounter Visit Diagnoses Not on filedocumented in this encounter
--- OUTSIDE RECORDS SUMMARY | 2025-07-01 10:28 | XMS_ITS | Encounter Summary ---
Author Organization [facility] Address [address] [place] [address] Care Team Providers Care Treatment Manager Name Role Phone Corina Berger HIV/AIDS CARE NURSE Primary Care Provider [phone] Encounter Details Date Type Department Care Team (Latest Contact Info) Description 05/13/2025 Travel Social History Tobacco Use Types Packs/Day Years [...] Diagnoses Not on filedocumented in this encounter Care Teams Treatment Manager Relationship Specialty Start Date End Date Corina Berger APRN PCP - General Nurse Practitioner 05/22/17 documented as of this encounter
--- OUTSIDE RECORDS SUMMARY | 2025-07-01 10:28 | XMS_ITS | Encounter Summary ---
Author Organization [employer] ([place], [place], [place], [place], [place]) Address [address] [place] [address] Care Team Providers Care Flute Polisher Name Role Phone Unavailable Primary Care Provider Unavailabl e Encounter Details Date Type Department Care Team (Late st Contact Info) Description 12/22/2019 Transcribed Document [facility] [place] [address] [place] [address] ProviderCl MD [address] [place] [address] Social History Tobacco Use Types Packs/Day Years Used Date Smoking Tobacco: Never Assessed Comments Unknown Sex and Gender Information Value Date Recorded Sex Assigned at Not on file Legal Sex Female 5:11 PM CDT Gender Identity Not on file Sexual Orientation Not on file documented as of this encounter Miscellaneous Notes * Cerner Conversion Note - Historical ProviderMD - 12/22/2019 2:00 AM CDT Mcat Tutor Details Entered On: 12/22/2019 4:21 EDT Performed On: 12/22/2019 2:00 EDT by Ildefonso Lange Rn-Charge Order Details Transport Mode Order Detail : Wheelchair Isolation Precautions Order Detail : Standard Precautions Order Detail : N/A IV Order Detail : 1 Oxygen Order Detail : 0 Nurse Collect Order Detail : 0 Lift/Transfer : Maximal assist Central Line Order Detail : No Room Service : Not Appropriate Arterial Line : No lIdefonso Lange Rn-Charge - 12/22/2019 4:21 EDT documented in this encounter Plan of Treatment Not on file documented as of this encounter Visit Diagnoses Not on filedocumented in this encounter
--- OUTSIDE RECORDS SUMMARY | 2025-07-01 10:28 | XMS_ITS | Encounter Summary ---
Author Organization [employer] ([place], [place], [place], [place], [place]) Address [address] [place] [address] Care Team Providers Care Field Health Officer Name Role Phone Unavailable Primary Care Provider Unavailabl e Encounter Details Date Type Department Care Team (Late st Contact Info) Description 12/23/2019 Transcribed Document [facility] [place] [address] [place] [address] ProviderCl MD [address] [place] [address] Social History Tobacco Use Types Packs/Day Years Used Date Smoking Tobacco: Never Assessed Comments Unknown Sex and Gender Information Value Date Recorded Sex Assigned at Not on file Legal Sex Female 5:11 PM CDT Gender Identity Not on file Sexual Orientation Not on file documented as of this encounter Miscellaneous Notes * Cerner Conversion Note - Historical ProviderMD - 12/23/2019 5:00 PM CDT Chart Check - Review Order Profile Entered On: 12/23/2019 16:13 EDT Performed On: 12/23/2019 17:00 EDT by Kia Bunch RN Chart Check Powerplans Initiated/Discontinued as Appropriate : Yes All Active Orders Reviewed : Yes Kia Bunch RN - 12/23/2019 16:13 EDT documented in this encounter Plan of Treatment Not on file documented as of this encounter Visit Diagnoses Not on filedocumented in this encounter
--- OUTSIDE RECORDS SUMMARY | 2025-07-01 10:28 | XMS_ITS | Encounter Summary ---
Author Organization [employer] ([place], [place], [place], [place], [place]) Address [address] [place] [address] Care Team Providers Care Centralized Traffic Control Operator Name Role Phone Unavailable Primary Care Provider Unavailabl e Encounter Details Date Type Department Care Team (Late st Contact Info) Description 12/25/2019 Transcribed Document [facility] [place] Family Medicine [address] [place] [address] ProviderCl MD [address], [place] [id number] Social History Tobacco Use Types Packs/Day Years Used Date Smoking Tobacco: Never Assessed Comments Unknown Sex and Gender Information Value Date Recorded Sex Assigned at Not on file Legal Sex Female 5:11 PM CDT Gender Identity Not on file Sexual Orientation Not on file documented as of this encounter Miscellaneous Notes * Cerner Conversion Note - Historical ProviderMD - 12/25/2019 1:51 PM CDT SONYA Entered On: 12/25/2019 13:52 EDT Performed On: 12/25/2019 13:51 EDT by JUAN J DELR OSARIO MD-INT SONYA Indication of use for OOCS : Acute Illness OOCS Misuse Suspected : Other Was SONYA queried : Other Patient Advised to seek OOCS Treatment : Other Treatment to Include Limited Supply of OOCS : Other SONYA Result : Other SONYA Other Notes : As per referring facility medical records Patient cancelled on OOCS : Other SONYA : . JUAN J DEL ROSARIO MD-INT - 12/25/2019 13:51 EDT documented in this encounter Plan of Treatment Not on file documented as of this encounter Visit Diagnoses Not on filedocumented in this encounter
--- OUTSIDE RECORDS SUMMARY | 2025-07-01 10:28 | XMS_ITS | Encounter Summary ---
Author Organization [employer] ([place], [place], [place], [place], [place]) Address [address] [place] [address] Care Team Providers Care Commercial Lines Assistant Name Role Phone Unavailable Primary Care Provider Unavailabl e Encounter Details Date Type Department Care Team (Late st Contact Info) Description 12/22/2019 Transcribed Document [facility] [place] [address] [place] [address] ProviderCl MD [address] [place] [address] Social History Tobacco Use Types Packs/Day Years Used Date Smoking Tobacco: Never Assessed Comments Unknown Sex and Gender Information Value Date Recorded Sex Assigned at Not on file Legal Sex Female 5:11 PM CDT Gender Identity Not on file Sexual Orientation Not on file documented as of this encounter Miscellaneous Notes * Cerner Conversion Note - Historical ProviderMD - 12/22/2019 5:00 PM CDT Chart Check - Review Order Profile Entered On: 12/22/2019 15:36 EDT Performed On: 12/22/2019 17:00 EDT by Kia Bunch RN Chart Check Powerplans Initiated/Discontinued as Appropriate : Yes All Active Orders Reviewed : Yes Kia Bunch RN - 12/22/2019 15:35 EDT documented in this encounter Plan of Treatment Not on file documented as of this encounter Visit Diagnoses Not on filedocumented in this encounter
--- OUTSIDE RECORDS SUMMARY | 2025-07-01 10:28 | XMS_ITS | Clinical Summary ---
Author Organization [facility] Address [address] [place] [address] Care Team Providers Care Medical Front Desk Coordinator Name Role Phone Corina Berger APRN Primary Care Provider [phone] Allergies Active Allergy Reactions Criticality Noted Date Comments Methocarbamol Unknown - Patient st ates they do not know rxn details Low 03/24/2024 Medications methocarbamol (Robaxin) 500 MG tablet Take 1 tablet (500 mg) by mouth 4 (four) times a day if needed for muscle spasms for up to 10 days. 40 tablet Active Additional Information Patient not taking.Reported on 03/24/2024 levothyroxine (Synthroid, Levoxyl) 50 MCG tablet TAKE 1 TABLET BY MOUTH EVERY MORNING ON AN EMPTY STOMACH Active rosuvastatin (Crestor) 20 MG tablet Take 1 tablet (20 mg) by mouth Daily. Active hydrALAZINE (Apresoline) 25 MG tablet Take 1 tablet (25 mg) by mouth 2 (two) times a day. Active carvedilol (Coreg) 12.5 MG tablet Take 1 tablet (12.5 mg) by mouth 2 (two) times a day. Active furosemide (Lasix) 20 MG tablet Take 1 tablet (20 mg) by mouth 1 (one) time each day if needed. Active amLODIPine (Norvasc) 10 MG tablet Take 1 tablet (10 mg) by mouth 1 (one) time each day. Active Januvia 100 MG tablet Take 1 tablet (100 mg) by mouth 1 (one) time each day. Active DULoxetine (Cymbalta) [address] capsule Take 1 capsule (60 mg) by mouth 1 (one) time each day. 4 Active glipiZIDE XL 5 MG 24 hr tablet TAKE ONE TABLET BY MOUTH DAILY WITH MEAL FOR DIABETES Active donepezil (Aricept) 10 MG tablet TAKE ONE TABLET BY MOUTH NIGHTLY AT BEDTIME FOR memory Active lisinopril 40 MG tablet TAKE 1 TABLET(S) BY MOUTH DAILY Active naloxone (Narcan) 4 mg/0.1 mL nasal spray 1. Give 1 spray in nostril for no/slow breathing or cannot wake after opioid use 2. Call 911 3. Repeat in other nostril if symptoms continue 1 each 4 Active Active Problems No known active problems Immunizations Immunization Administration Dates Next Due Pneumococcal, Unspecified 11/18/2009 Social History Tobacco Use Types Packs/Day Years Used Date Smoking Tobacco: Never Smokeless Tobacco: Never Tobacco Cessation:Counseling Given: Not Answered Alcohol Use Standard Drinks/Week Comments Never 0 (1 standard drink = 0.6 oz pur e alcohol) PHQ-2 Answer Date Recorded Patient Health Questionnaire-2 Score 0 05/26/2024 PHQ-9 Answer Date Recorded Patient Health Questionnaire-9 Score 0 05/26/2024 Comments Unknown Sex and Gender Information Value Date Recorded Sex Assigned at Not on file Legal Sex Female 7:28 PM EDT Gender Identity Not on file Sexual Orientation Not on file Last Filed Vital Signs Vital Sign Reading Time Taken Comments Blood Pressure 186/72 05/26/2024 2:05 PM EST Pulse 75 05/26/2024 2:05 PM EST Temperature 37.2 C (98.9 F) 03/09/2024 9:32 PM EDT Respiratory Rate 18 03/09/2024 9:32 PM EDT Oxygen Saturation 97% 05/26/2024 2:05 PM EST Inhaled Oxygen Concentration - - Weight 77.1 kg (170 lb) 05/26/2024 2:05 PM EST Height 170.2 cm (5' 7 ) 05/26/2024 2:05 PM EST Body Mass Index 26.63 05/26/2024 2:05 PM EST Plan of Treatment Health Maintenance Due Date Last Done Comments [facility]-Bone Density Scan 1940 [facility]-Medicare Annual Wellness (AWV) 1940 [facility]-/Child/Adol SDOH Screenings 1940 [facility]- SDOH Screenings 1960 [facility]-Adult SDOH Screenings 1960 [facility]-DTaP,Tdap,and Td Vaccines (1 - Tdap) 1961 [facility]-Zoster Vaccines (1 of 2) 1992 [facility]-RSV Vaccine: 60+ Years or (1 - 1-dose 75+ series) 2017 [facility]-Pneumococcal Vaccine: 50+ Years (2 of 2 - PCV) 07/22/2019 07/22/2018, 11/18/2009 [facility]-WIKTK-19 Vaccine ( - 2024- season) 2025 06/01/2022, 11/17/2021, 03/03/2021, Additional history exists [facility]-Influenza Vaccine (#1) 03/02/202504/09, 05/25/2020, 05/09/2019, Additional history exists [facility]-Depression Screening 05/26/2025 05/26/2024, 05/03 [facility]-Diabetes: Hemoglobin A1C Discontinued 03/09/2024 [facility]-Obesity Intervention Completed 024, 04/14/2024, 03/24/2024 HPV Vaccines (No Doses Required) Completed [facility]-HIB Vaccines Aged Out No longer e ligible based on patient's age to complete this topic [facility]-Hepatitis A Vaccines Aged Out No longer eligible based on patient's age to complete this topic [facility]-IPV Vaccines Aged Out No longer e ligible based on patient's age to complete this topic [facility]-Rotavirus Vaccines Aged Out No lo nger eligible based on patient's age to complete this topic Procedures Procedure Name Priority Date/Time Associated Diagnosis Comments HEMOGLOBIN A1C Add-On 03/09/2024 7:21 PM EDT from Last 3 Months or Most Recently Relevant to Health Maintenance Results * (ABNORMAL) Hemoglobin A1c (03/09/2024 7:21 PM EDT) Hemoglobin A1c 7.7(H) <5.7 % 03/10/2024 12:10 AM EDT [facility] Blood Venous blood specimen / Unknown Venipuncture / Unknown 03/09/2024 7:21 PM EDT 03/09/2024 7:24 PM EDT Narrative [facility] - 03/10/2024 12:10 AM EDT HA1C Interpretive Data: Diagnosis of Diabetes: Diabetic > or = 6.5% Pre-diabetic 5.7 to 6.4% Non-diabetic < or = 5.6% Glycemic Targets for Type I and Type II Diabetics: Non- Adults <7.0% Adults <6.0% Children and Adolescents <7.5% Source: [place] [employer]. Standards of medical care in diabetes,2017. Diabetes Care.2017:40 (suppl 1):S1-S135. HbA1c assay performed by an ion-exchange chromatography method that is certified traceable to the DCCT. us Francisco Carter MD LAB BLOOD ORDERABLES Rachael grimes Result [facility] [address] [place] [address] from Last 3 Months or Most Recently Relevant to Health Maintenance Insurance [employer] MEDICARE Care Teams Medical Front Desk Coordinator Relationship Specialty Start Date End Date Corina Berger APRN [id number] PCP - General 07/07/24
--- OUTSIDE RECORDS SUMMARY | 2025-07-01 10:28 | XMS_ITS | Encounter Summary ---
Author Organization [employer] ([place], [place], [place], [place], [place]) Address [address] [place] [address] Care Team Providers Care Hogshead Wrecker Name Role Phone Unavailable Primary Care Provider Unavailabl e Encounter Details Date Type Department Care Team (Late st Contact Info) Description 12/21/2019 Transcribed Document [facility] [place] Family Medicine [facility] [address] ProviderCl MD [address] [place] [address] Social History Tobacco Use Types Packs/Day Years Used Date Smoking Tobacco: Never Assessed Comments Unknown Sex and Gender Information Value Date Recorded Sex Assigned at Not on file Legal Sex Female 5:11 PM CDT Gender Identity Not on file Sexual Orientation Not on file documented as of this encounter Miscellaneous Notes * Cerner Conversion Note - Historical ProviderMD - 12/21/2019 3:03 PM CDT On Going Discharge Planning Entered On: 12/21/2019 15:03 EDT Performed On: 12/21/2019 15:03 EDT by LAZ GLEASON RN-Range ManagerPoem Writer Progress Note Discharge Arrangements : Patient Post-Acute Information Patient Name: JAMES BUSTILLO Gender: Female : [birth year] Age: 79 Years No Post-Acute Placement(s) Listed No Post-Acute Service(s) Listed No [place] Referral(s) Listed Discharge Options Discussed with Patient : Other: TBD Barriers to Discharge Identified : Clinical Condition of Patient, Follow-Up appointments needed Barriers to Discharge Unresolved : Clinical Condition of Patient LAZ GLEASON RN-Range Manager - 12/21/2019 15:03 EDT Electronically signed by [facility] Conversion Cut Roll Machine Offbearer Cerner at 10/17/2022 3:12 PM CDT documented in this encounter Plan of Treatment Not on file documented as of this encounter Visit Diagnoses Not on filedocumented in this encounter
--- OUTSIDE RECORDS SUMMARY | 2025-07-01 10:28 | XMS_ITS | Encounter Summary ---
Author Organization [employer] ([place], [place], [place], [place], [place]) Address [address] [place] [address] Care Team Providers Care Buttonholer Name Role Phone Unavailable Primary Care Provider Unavailabl e Encounter Details Date Type Department Care Team (Late st Contact Info) Description 12/25/2019 Transcribed Document [facility] [place] Family Medicine [facility] [place] [address] ProviderCl MD [address] [place] [address] Social History Tobacco Use [...] Note - Cl Landaverde MD - 12/25/2019 1:52 PM CDT Patient: JAMES BUSTILLO Age: 79 years Sex: Female : 1940 Associated Diagnoses: Status post hemiarthroplasty of left hip fracture; Fall; Hip fracture, left; Diabetes mellitus2; GERD; Hypertension; Chronic pain syndrome; Depression; Hip pain-swelling; Hip injury - Minor Author: JUAN J BARR MD-INT Date of admission 12/19/2019 Date of discharge 12/25/2019 PCP Halie Aguiar SECURITY SERGEANT Orthopedic surgeon Demarcus Malloy M.D. Admitting and discharging physician internal medicine Juan J Barr M.D. Discharge diagnosis 1???left hip hemiarthroplasty 2???left hip fracture 3???fall 4???uncontrolled diabetes mellitus 5???GERD 6???chronic pain syndrome 7???depression Admission diagnoses 1???left hip fracture status post a fall 2???accidental fall 3???left hip pain 4???uncontrolled diabetes mellitus 5???hypertension 6???GERD 7???history of H. pylori infection 8???chronic pain syndrome 9???depression History of present illness, past medical history, past surgical history, family history, social history, please see H&P Surgery Please see operative report dictated by Dr. Malloy Brief history of present illness and course during hospital stay --------- A pleasant 79 years old white female with a history of DM, HTN, GERD, chronic pain syndrome, depression and fell on her left side and was unable to get up and walk and bear weight on her left lower extremity. X-ray revealed left hip fracture(please see H&P) Patient was then taken to the OR and underwent left hip hemiarthroplasty by Dr. Malloy. Patient had surgery and had a slow progressive recovery. She was unsteady with high fall risk. She did have some hallucination and delusions and we had to hold all her pain medications. Patient did well off all narcotics. Even Tylenol she doesn't ask for it. Postoperatively, she did not have any trouble with urination and her urine output is adequate. She was on scheduled bowel regimen. She was on diabetic diet. She was tolerating well oral by mouth intake. There was no nausea or vomiting, chest pain, shortness of breath diaphoresis. She started on PT/OT and was participating with physical therapy but she needs an extensive rehabilitation and the patient is unsteady and he has a fall risk. She continued to improve daily. Today, patient is awake alert cooperative responsive under no acute distress. Patient is stable for discharge to a penitentiary facility to continue her care and rehabilitation. 1???diabetes mellitus type 2 who continued on her current home medications in addition to insulin sliding scale per protocol. 2???benign essential hypertension, all blood pressure medications were on hold for systolic blood pressure less than 130 and resumed 1 blood pressure became stabilized. 3???GERD, Protonix 40 mg was given daily. Basic Information Review of Systems Constitutional: No fever, No weakness, No fatigue. Eye: No recent visual problem, No double vision, No visual disturbances. Ear/Nose/Mouth/Throat: No nasal congestion, No sore throat. Respiratory: No shortness of breath, No cough, No wheezing. Cardiovascular: No chest pain, No tachycardia. Gastrointestinal: No nausea, No vomiting. Genitourinary: Negative. Musculoskeletal: Negative. Integumentary: No rash, No pruritus. Neurologic: Alert and oriented X4, no dizziness. Health Status Allergies: Allergies (1) Active Reaction [...] mL inj 40 mg 0.4 mL, SubCutaneous, [id number] furosemide 20 mg tab 20 mg 1 [...] Kidney stones Physical Examination VS/Measurements Vital Measurements 12/25/2019 9:57 EDT Systolic Blood Pressure 163 mmHg HI Diastolic Blood Pressure 69 mmHg Mean Arterial Pressure (MAP)-BMDI 92 Temperature Source Oral Temperature Mode Fahrenheit Temperature, Fahrenheit 98.4 Deg F Clinical Temperature, C 36.9 Deg C Heart Rate Monitored 64 bpm Respiratory Rate 16 Breaths/Min Oxygen Saturation 96 % General: Alert and oriented, No acute [...] Review / Management Results review: All Results 12/25/2019 4:34 EDT Sodium Level 137 mmol/L Potassium Level 3.1 mmol/L LOW Chloride Level 102 mmol/L Carbon Dioxide Level 21 mmol/L Anion Gap 17 Glucose Level 167 mg/dL HI Blood Urea Nitrogen 14 mg/dL Creatinine Level 0.79 mg/dL eGFR >60 mL/min/1.73m2 eGFR NonAfrican >60 mL/min/1.73m2 Bun/Creatinine 17.7 Calcium Level 8.2 mg/dL LOW 12/24/2019 5:13 EDT Sodium Level 137 mmol/L Potassium Level 3.5 mmol/L Chloride Level 102 mmol/L Carbon Dioxide Level 16 mmol/L LOW Anion Gap 22 HI Glucose Level 147 mg/dL HI Blood Urea Nitrogen 14 mg/dL Creatinine Level 0.83 mg/dL eGFR >60 mL/min/1.73m2 eGFR NonAfrican >60 mL/min/1.73m2 Bun/Creatinine 16.9 Calcium Level 8.4 mg/dL LOW . Condition: Stable. Discharge Plan Discharge Summary Plan Discharge Status: stable. Orders Order Profile (Selected) Inpatient Orders Ordered Discharge Notification Pharmacy: Start: 12/25/19 13:51:48 EDT Discharge: Start: 12/25/19 13:51:00 EDT, Discharge to: Custodial unit/facility. Diagnosis Status post hemiarthroplasty of left hip fracture - Discharge, Medical. Fall - Discharge, Emergency medicine, Medical. Hip fracture, left - Discharge, Emergency medicine, Medical. Diabetes mellitus2 - Discharge, Emergency medicine, Medical. GERD - Discharge, Patient Stated. Hypertension - Discharge, Emergency medicine, Medical. Chronic pain syndrome - Discharge, Patient Stated. Depression - Discharge, Medical. Complaint of Hip pain-swelling - Reason For Visit, Medical. Hip injury - Minor - Reason For Visit, Emergency medicine, Medical. Course Improving. Stable. Plan/ pt is HD & CLINICALLY STABLE AFEBRILE OK TO D/C TO SENIOR LIVING FACILITY TO CONTINUE HER CARE AND REHABILITATION PATIENT IS STABLE FOR DISCHARGE. Orders Order Profile (Selected) Documented Medications Documented Cymbalta: 60 mg, Oral, Daily, 0 Refill(s) Ditropan: 10 mg, Oral, Daily, 0 Refill(s) Lasix: 20 mg, Oral, Daily, 0 Refill(s) Levsin SL: 0 Refill(s) Metoprolol Tartrate 100 mg oral tablet: Oral, Daily, 0 Refill(s) Micro-K 10 oral capsule, extended release: 1 Cap, Oral, CR Cap, Daily, 0 Refill(s) Norvasc: 5 mg, Oral, Daily, 0 Refill(s) Tylenol 325 mg oral tablet: 2 Tab, Oral, Tab, Q4H, PRN Other (See Comment), 0 Refill(s) Vitamin B12: 1,000 mg, Oral, Daily, 0 Refill(s). Impression and Plan twt 40 mn documented in this encounter Plan of Treatment Not on file documented as of this encounter Visit Diagnoses Not on filedocumented in this encounter
--- OUTSIDE RECORDS SUMMARY | 2025-07-01 10:28 | XMS_ITS | Encounter Summary ---
Author Organization [employer] ([place], [place], [place], [place], [place]) Address [address] [place] [address] Care Team Providers Care Cloud Software Engineer Name Role Phone Unavailable Primary Care Provider Unavailabl e Encounter Details Date Type Department Care Team (Late st Contact Info) Description 12/23/2019 Transcribed Document [facility] [place] Family Medicine [address] [place] [address] ProviderCl MD [address] [place] [address] Social History Tobacco Use Types Packs/Day Years Used Date Smoking Tobacco: Never Assessed Comments Unknown Sex and Gender Information Value Date Recorded Sex Assigned at Not on file Legal Sex Female 5:11 PM CDT Gender Identity Not on file Sexual Orientation Not on file documented as of this encounter Miscellaneous Notes * Cerner Conversion Note - Historical ProviderMD - 12/23/2019 10:08 AM CDT Treatment Intervention, OT Entered On: 12/24/2019 9:45 EDT Performed On: 12/23/2019 10:08 EDT by QUINN ESTEVEZ OTR/Ashley General Information, OT Visit Type, OT [...] surgery--L hip Admission Date : 12/19/2019 18:29 Personal Devices : Personal Devices No Devices Recorded Assistive Devices : Assistive Devices No Devices Recorded Precautions in Place : Fall prevention measures, Fall prevention measures, high risk, Hip precautions, posterior QUINN ESTEVEZ OTR/L - 12/24/2019 9:39 EDT General Status Patient Received Status : Supine in bed Treatment Start Time : 12/24/2019 10:08 EDT Patient Left Status : Up in chair, RN/PCT informed, All needs met and within reach RN/PCT Informed Comment : RN ok'ed. Client agrees to tx. Treatment End Time : 12/24/2019 10:31 EDT Treatment Time : 23 Minute(s) Actual Treatment Time : 23 Minute(s) QUINN ESTEVEZ OTR/L - 12/24/2019 9:39 EDT Self Care/Home Management, OT Self Care/Home Management Comment, OT : Client min A with adjusting socks QUINN ESTEVEZ OTR/L - 12/24/2019 9:39 EDT Functional Mobility Mobility Grid Supine to Sit : Rehab Minimal assistance Sit to Stand : Rehab Minimal assistance Bed to Chair : Rehab Minimal assistance (Comment: x2 for safety [QUINN ESTEVEZ OTR/L - 12/24/2019 9:39 EDT] ) QUINN ESTEVEZ OTR/L - 12/24/2019 9:39 EDT Functional MobilityComment : Client completed transfer from bed to walker, performed functional mobility but had to stop because of reported dizziness. Chair brought to client to sit, client has difficulty keeping eyes open, but could respond to questions. Nursing and doctor notified of event. Blood pressure WNL. QUINN ESTEVEZ OTR/L - 12/24/2019 9:39 EDT Education OT Occupational Therapy Education Grid Activity of Daily Living Training : Verbalizes understanding Functional Mobility Training : Verbalizes understanding, Returns demonstration Role of Occupational Therapy : Verbalizes understanding QUINN ESTEVEZ OTR/L - 12/24/2019 9:39 EDT Plan of Care, OT OT Tx Plan/Goals Established w Patient : Yes QUINN ESTEVEZ JENNIFFER/L - 12/24/2019 9:39 EDT Carbonation Equipment Operator Goals, OT Other LTG Grid Goal #1 Goal #2 Goal : Perform LB ADL with mod A with use of AE PRN Perform ADL transfer with min A Date to Meet : 01/05/2020 EDT 01/05/2020 EDT Goal Status : Initial goal Progressing, continue Comment : min A on 12/23 QUINN ESTEVEZ EDWINR/L - 12/24/2019 9:39 EDT QUINN ESTEVEZ JENNIFFER/L - 12/24/2019 9:39 EDT Treatment Note Subjective Comment : Client alert and cooperative upon entering room. Patient's Response to Treatment : Client was able to start with transfer, but was not able to complete functional mobility due to feeling dizzy and weak. Chair was brought to patient to sit. Additional Objective Information : see self-care and functional mobilty notes Assessment : Client is progressing slowly towards goals. May require placement. QUINN ESTEVEZ JENNIFFER/L - 12/24/2019 9:39 EDT Pain Assessment Pain Score Pre-Intervention : 0 Pain Score During-Intervention : 0 Pain Score Post-Intervention. : 0 QUINN ESTEVEZ JENNIFFER/L - 12/24/2019 9:39 EDT Image 1 - Images currently included in the form version of this document have not been included in the text rendition version of the form. [facility] OT Charges OT Selfcare/Hm Mgmt Ea 15 Min : 2 QUINN ESTEEVZJENNIFFER/L - 12/24/2019 9:39 EDT documented in this encounter Plan of Treatment Not on file documented as of this encounter Visit Diagnoses Not on filedocumented in this encounter
--- OUTSIDE RECORDS SUMMARY | 2025-07-01 10:28 | XMS_ITS | Encounter Summary ---
Author Organization [employer] ([place], [place], [place], [place], [place]) Address [address] [place] [address] Care Team Providers Care Brazing Machine Feeder Name Role Phone Unavailable Primary Care Provider Unavailabl e Encounter Details Date Type Department Care Team (Late st Contact Info) Description 12/22/2019 Transcribed Document [facility] [place] Medicine [facility] [place] [address] ProviderCl MD [address] [place], [place] [id number] Social History Tobacco Use Types Packs/Day Years Used Date Smoking Tobacco: Never Assessed Comments Unknown Sex and Gender Information Value Date Recorded Sex Assigned at Not on file Legal Sex Female 5:11 PM CDT Gender Identity Not on file Sexual Orientation Not on file documented as of this encounter Miscellaneous Notes * Cerner Conversion Note - Historical ProviderMD - 12/22/2019 2:14 PM CDT On Going Discharge Planning Entered On: 12/22/2019 14:15 EDT Performed On: 12/22/2019 14:14 EDT by LARISSA THORNTON Rn-BarkeepSecurity Assurance Specialist Progress Note Discharge Arrangements : Patient Post-Acute Information Patient Name: JAMES TALBERT Gender: Female : [birth year] Age: 79 Years No Post-Acute Placement(s) Listed No Post-Acute Service(s) Listed No Curaspan Referral(s) Listed Discharge Options Discussed with Patient : Other: TBD Barriers to Discharge Identified : Clinical Condition of Patient, Follow-Up appointments needed Barriers to Discharge Unresolved : Clinical Condition of Patient LARISSA THORNTON Rn-Barkeep - 12/22/2019 14:14 EDT Narrative Progress Note Narrative Progress Note : Spoke with patient regarding transport to facility on 12/24/2019 she will call her spouse to transport. Historical Progress Note : Recieved call from Rina at [facility] with bed offer. Spoke with Ms Talbert she is in agreement with this plan notified Rina she will init precert. Patient will need a Covid 19 test prior to going to their facility will order test. LARISSA THORNTON, Rn-Barkeep - 12/22/19 10:19:13 Patient extremely drowsy and [...] is agreeable for inaptient rehab, would like [facility] [place] for rehab in [place] or [facility]. Patient wants to stay close to home if all possible. SNF referrals sent through [facility]....................sds LAZ GLEASON RN-Delicate Fabrics Presser - 12/21/19 14:52:39 LARISSA THORNTON, Rn-Barkeep - 12/22/2019 14:14 EDT documented in this encounter Plan of Treatment Not on file documented as of this encounter Visit Diagnoses Not on filedocumented in this encounter
--- OUTSIDE RECORDS SUMMARY | 2025-07-01 10:28 | XMS_ITS ---
Author Organization Unknown TREATMENT PLAN Planned Care Start Date Provider Encounter for Check-up [id number] [facility]
--- OUTSIDE RECORDS SUMMARY | 2025-07-01 10:28 | XMS_ITS | Encounter Summary ---
Author Organization [employer] ([place], [place], [place], [place], [place]) Address [address] [place] [address] Care Team Providers Care Bolter Helper Name Role Phone Unavailable Primary Care Provider Unavailabl e Encounter Details Date Type Department Care Team (Late st Contact Info) Description 12/22/2019 Transcribed Document [facility] [place] Family Medicine [facility] [place] [address] ProviderCl MD [address] [place] [address] Social History Tobacco Use Types Packs/Day Years Used Date Smoking Tobacco: Never Assessed Comments Unknown Sex and Gender Information Value Date Recorded Sex Assigned at Not on file Legal Sex Female 5:11 PM CDT Gender Identity Not on file Sexual Orientation Not on file documented as of this encounter Miscellaneous Notes * Cerner Conversion Note - Cl Landaverde MD - 12/22/2019 6:24 PM CDT Patient: JAMES BUSTILLO Age: 79 years Sex: Female : 1940 Associated Diagnoses: Status post hemiarthroplasty of left hip fracture; Fall; Hip fracture, left; Diabetes mellitus; GERD; Hypertension; Chronic pain syndrome; Depression; Hip pain-swelling; Hip injury - Minor Author: JUAN J DEL ROSARIO MD-INT Basic Information awake alert comfortable, ???Participating to some extent. PT/OT ???Improving renal function ???High fall risk ???Unsteady ???May need to go to rehabilitation Review of Systems Constitutional: No fever, No [...] Medication Allergies None Documented Current medications: Medications (30) Active Scheduled: (11) amLODIPine 5 mg tab 5 mg 1 Tab, Oral, Daily cyanocobalamin 1,000 mcg tab 1,000 mcg 1 Tab, Oral, Daily docusate sodium 100 mg cap 100 mg 1 Cap, Oral, BID DULoxetine DR 60 mg cap 60 mg 1 Cap, Oral, Daily enoxaparin 30 mg/0.3 ml inj 30 mg 0.3 mL, SubCutaneous, [id number] furosemide 20 mg tab 20 mg 1 [...] Kidney stones Physical Examination VS/Measurements Vital Measurements 12/22/2019 17:45 EDT Systolic Blood Pressure 122 mmHg Diastolic Blood Pressure 46 mmHg LOW Mean Arterial Pressure (MAP)-BMDI 64 Temperature Source Oral Temperature Mode Fahrenheit Temperature, Fahrenheit 97.1 Deg F Clinical Temperature, C 36.2 Deg C Heart Rate Monitored 67 bpm Respiratory Rate 16 Breaths/Min Oxygen Saturation 94 % General: Alert and oriented, No acute [...] Review / Management Results review: All Results 12/22/2019 4:05 EDT Sodium Level 138 mmol/L Potassium Level 3.6 mmol/L Chloride Level 108 mmol/L Carbon Dioxide Level 14 mmol/L LOW Anion Gap 20 Glucose Level 154 mg/dL HI Blood Urea Nitrogen 22 mg/dL Creatinine Level 0.98 mg/dL eGFR >60 mL/min/1.73m2 eGFR NonAfrican 55 mL/min/1.73m2 LOW Bun/Creatinine 22.4 HI Calcium Level 8.2 mg/dL LOW 12/21/2019 3:59 EDT Sodium Level 144 mmol/L [...] Units/Liter Hgb 13.1 Gram/dL Hct 42.1 % . Condition: Stable. Impression and Plan [...] renal function, blood glucose, and urine output. May need to go to rehabilitation. Orders Order Profile (Selected) Inpatient Orders Ordered (Scheduled) CMP Comprehensive Metabolic Panel: Specimen Type: Blood, AM Draw collect, 12/23/19 4:00:00 EDT, 1-Time, Stop: 12/23/19 4:00:00 EDT, Lab Collect Hemoglobin and Hematocrit: Specimen Type: Blood, AM Draw collect, 12/23/19 4:00:00 EDT, 1-Time, Stop: 12/23/19 4:00:00 EDT, Lab Collect. Electronically signed by Ryanne Moise Conversion Training And Development Specialist Cerner at 10/17/2022 3:23 PM CDT documented in this encounter Plan of Treatment Not on file documented as of this encounter Visit Diagnoses Not on filedocumented in this encounter
--- OUTSIDE RECORDS SUMMARY | 2025-07-01 10:28 | XMS_ITS | Encounter Summary ---
Author Organization [employer] ([place], [place], [place], [place], [place]) Address [address] [place] [address] Care Team Providers Care Telephone Interceptor Operator Name Role Phone Unavailable Primary Care Provider Unavailabl e Encounter Details Date Type Department Care Team (Late st Contact Info) Description 12/21/2019 Transcribed Document [facility] Family Medicine [address] [place] [address] ProviderCl MD [address] [place], [place] [id number] Social History Tobacco Use Types Packs/Day Years Used Date Smoking Tobacco: Never Assessed Comments Unknown Sex and Gender Information Value Date Recorded Sex Assigned at Not on file Legal Sex Female 5:11 PM CDT Gender Identity Not on file Sexual Orientation Not on file documented as of this encounter Miscellaneous Notes * Cerner Conversion Note - Cl ProviderMD - 12/21/2019 9:17 AM CDT Initial Discharge Planning Entered On: 12/21/2019 9:20 EDT Performed On: 12/21/2019 9:17 EDT by LAZ GLEASON RN-Procurement Internship Initial Assessment I Previously Documented Living Environment : No qualifying data available. Living Situation : Home Patient Lives With : Spouse Emergency Contact #1 : vero sorenson Emergency Contact #1 Phone Number : [phone] Emergency Contact #1 Relationship : daughter Emergency Contact #2 : montez troi Emergency Contact #2 Phone Number : [phone] Emergency Contact #2 Relationship : sister Enter Doctors Name : Corina Berger Does Patient have PCP Listed? : Yes LAZ GLEASON RN-Procurement Internship - 12/21/2019 9:17 EDT Initial Assessment II Sensory and Motor Deficits : Weakness LAZ GLEASON RN-Procurement Internship - 12/21/2019 9:17 EDT Discharge Needs I Anticipated Discharge Date : 12/24/2019 EDT Anticipated Discharge To, CM : prison facility Current Home Treatment/Equipment : Current Home Treatment/Equipment No qualifying data available. Post Acute/Home Treatments : Other: TBD Documentation Status Complete : Yes LAZ GLEASON RN-Procurement Internship - 12/21/2019 9:17 EDT Discharge Needs II Professional Skilled Services : Professional Skilled Services No qualifying data available. Needs Assistance with Transportation : Maybe Discharge Options Discussed with Patient : Other: TBD LAZ GLEASON RN-Procurement Internship - 12/21/2019 9:17 EDT Narrative Note Narrative Note : Patient underwent left hip hemiarthroplasty after a fall at home. Lives at home with family, fairly iADLs prior to admission. Plan for possible SNF vs home with HH. Awaiting PT evals after surgery. CM will discuss options with patient after eval this morning.....................sds LAZ GLEASON RN-Procurement Internship - 12/21/2019 9:17 EDT documented in this encounter Plan of Treatment Not on file documented as of this encounter Visit Diagnoses Not on filedocumented in this encounter
--- OUTSIDE RECORDS SUMMARY | 2025-07-01 10:28 | XMS_ITS | Encounter Summary ---
Author Organization [employer] ([place], [place], [place], [place], [place]) Address [address] [place] [address] Care Team Providers Care Drafter Apprentice Name Role Phone Unavailable Primary Care Provider Unavailabl e Encounter Details Date Type Department Care Team (Late st Contact Info) Description 12/21/2019 Transcribed Document [facility] [place] Family Medicine [address] [place] [address] ProviderCl MD [address] [place] [address] Social History Tobacco Use Types Packs/Day Years Used Date Smoking Tobacco: Never Assessed Comments Unknown Sex and Gender Information Value Date Recorded Sex Assigned at Not on file Legal Sex Female 5:11 PM CDT Gender Identity Not on file Sexual Orientation Not on file documented as of this encounter Miscellaneous Notes * Cerner Conversion Note - Historical ProviderMD - 12/21/2019 10:29 AM CDT Treatment Intervention, PT Entered On: 12/25/2019 15:24 EDT Performed On: 12/25/2019 11:46 EDT by CHARLES HERRERA, SENIOR COMMISSARY AGENT General Information, PT Visit Type, PT : Treatment Note Patient Orders : Order Date Order Ordering 12/20/2019 15:42 PT Evaluation and Treatment Ordered By: TARIQ TILLMAN MD-ORT 12/21/2019 10:29 PT Additional Treatment Ordered By: YORDAN FRENCH, PT Active Diagnoses : 12/21/2019 12:00 Other specified [...] hip hemiarthroplasty Admission Date : 12/19/2019 18:29 Assisted by, PT : Occupational Therapist Personal Devices : Personal Devices No Devices Recorded Assistive Devices : Assistive Devices No Devices Recorded Precautions in Place : Fall prevention measures, Fall prevention measures, high risk, Hip precautions, posterior CHARLES HERRERA PTA - 12/25/2019 15:15 EDT General Status Patient Received Status : Long sitting in bed, Bed alarm activated, Other: abduction wedge, needs in reach Treatment Start Time : 12/25/2019 11:28 EDT Patient Left Status : Up in chair, Chair alarm activated, RN/PCT informed, All needs met and within reach, Other: abduction wedge RN/PCT Informed Comment : JOSE ALBERTO zavala pt for therapy session Treatment End Time : 12/25/2019 11:46 EDT Treatment Time : 18 Minute(s) CHARLES HERRERA PTA - 12/25/2019 15:15 EDT Edu Topics Physical Therapy Education Grid Bed Mobility Training : Verbalizes understanding, Returns demonstration Gait Training : Needs further teaching Precaution/Contraindication : Verbalizes understanding, Returns demonstration Transfer Training : Verbalizes understanding, Returns demonstration Use of Assistive Device : Verbalizes understanding, Returns demonstration CHARLES HERRERA PTA - 12/25/2019 15:15 EDT Plan of Care, PT PT Tx Plan/Goals Established w Patient : Yes CHARLES HERRERA PTA - 12/25/2019 15:15 EDT Long-Term Goals Other PT LTG Grid Goal #1 [...] 12/24/2019 EDT 12/24/2019 EDT Goal Status : Goal met Progressing, continue Goal met Progressing, continue Date Met : 12/24/2019 EDT 12/24/2019 EDT CHARLES HERRERA, SENIOR COMMISSARY AGENT - 12/25/2019 15:15 EDT CHARLES HERRERA, SENIOR COMMISSARY AGENT - 12/25/2019 15:15 EDT CHARLES HERRERA, SENIOR COMMISSARY AGENT - 12/25/2019 15:15 EDT CHARLES HERRERA, SENIOR COMMISSARY AGENT - 12/25/2019 15:15 EDT Goal #5 Other : Patient will ascend/descend 2 steps with RWx Min A. (IF D/C HOME) Date to Meet : 12/24/2019 EDT Goal Status : Initial goal Date Met : CHARLES HERRERA PTA - 12/25/2019 15:15 EDT Treatment Note Subjective Comment : Pt agreeable to physical therapy. Patient's Response to Treatment : Fair. Additional Objective Information : - supine to sit Kp - EOB to stand Kp with RWx - cues for proper hand placement and no hip flexion passed 90* - stand pivot to sit on BSC Kp with RWx - BSC to stand Kp with RWx - static standing while OT performed ronnie care Kp x2, 1 LOB - amb ~ 5' to recliner chair Kp with RWx - stand to sit CGA - cues for safe descent Ther Act: 18 minutes Assessment : Pt unsteady and had 1 LOB. Pt would benefit from rehab placement to improve functional mobility, gait training, and maximize recovery prior to going home with family. Plan for Treatment : Cont POC. CHARLES HERRERA, SENIOR COMMISSARY AGENT - 12/25/2019 15:15 EDT Pain Assessment Pain Scaled Used : 0-10 Pain scale Pain Score Pre-Intervention : 0 CHARLES HERRERA, SENIOR COMMISSARY AGENT - 12/25/2019 15:15 EDT Image 1 - Images currently included in the form version of this document have not been included in the text rendition version of the form. [place] PT Charges SENIOR COMMISSARY AGENT PT Ther Activities Ea 15 Min-SENIOR COMMISSARY AGENT : 1 CHARLES HERRERA, SENIOR COMMISSARY AGENT - 12/25/2019 15:15 EDT documented in this encounter Plan of Treatment Not on file documented as of this encounter Visit Diagnoses Not on filedocumented in this encounter
--- OUTSIDE RECORDS SUMMARY | 2025-07-01 10:28 | XMS_ITS | Encounter Summary ---
Author Organization [employer] ([place], [place], [place], [place], [place]) Address [address] [place] [address] Care Team Providers Care Cloth Opener Hand Name Role Phone Unavailable Primary Care Provider Unavailabl e Encounter Details Date Type Department Care Team (Late st Contact Info) Description 12/25/2019 Transcribed Document [facility] [place] Family Medicine [facility] [place] [address] ProviderCl MD [address] [place] [address] Social History Tobacco Use Types Packs/Day Years Used Date Smoking Tobacco: Never Assessed Comments Unknown Sex and Gender Information Value Date Recorded Sex Assigned at Not on file Legal Sex Female 5:11 PM CDT Gender Identity Not on file Sexual Orientation Not on file documented as of this encounter Miscellaneous Notes * Cerner Conversion Note - Cl ProviderMD - 12/25/2019 9:09 AM CDT On Going Discharge Planning Entered On: 12/25/2019 9:10 EDT Performed On: 12/25/2019 9:09 EDT by LAZ GLEASON RN-Sports DoctorHand Singer Progress Note Discharge Arrangements : Patient Post-Acute Information Patient Name: JAMES BUSTILLO Gender: Female : [birth year] Age: 79 Years No Post-Acute Placement(s) Listed No Post-Acute Service(s) Listed No Curaspan Referral(s) Listed Discharge Options Discussed with Patient : Other: TBD Barriers to Discharge Identified : Clinical Condition of Patient, Follow-Up appointments needed Barriers to Discharge Unresolved : Clinical Condition of Patient LAZ GLEASON RN-Sports Doctor - 12/25/2019 9:09 EDT Narrative Progress Note Narrative Progress Note : Faxed Covid testing results to [facility]. Plan for dc today with family transporting. Awaiting dc summary.................allen Historical Progress Note : Received call from [facility], can accept patient on 12/24/19, however, will need another Covid test due to results not being within the allotted time frame from the first test.................LAZ Grayson RN-Sports Doctor - 12/23/19 11:04:32 Spoke with patient regarding transport to facility on 12/24/2019 she will call her spouse to transport. LARISSA THORNTNO Rn-Legal Analyst - 12/22/19 14:15:07 Recieved call from Rina at [facility] with bed offer. Spoke with Ms Bustillo she is in agreement with this plan notified Rina she will init precert. Patient will need a Covid 19 test prior to going to their facility will order test. LARISSA THORNTON Rn-Legal Analyst - 12/22/19 10:19:13 Patient extremely drowsy and [...] is agreeable for inaptient rehab, would like [facility] for rehab in [place] or [facility]. Patient wants to stay close to home if all possible. SNF referrals [facility] through [facility]....................LAZ Grayson RN-Sports Doctor - 12/21/19 14:52:39 LAZ GLEASON RN-Sports Doctor - 12/25/2019 9:09 EDT documented in this encounter Plan of Treatment Not on file documented as of this encounter Visit Diagnoses Not on filedocumented in this encounter
--- OUTSIDE RECORDS SUMMARY | 2025-07-01 10:28 | XMS_ITS | Clinical Summary ---
Author Organization [employer] ([place], [place], [place], [place], [place]) Address [address] [place] [address] Care Team Providers Care Wallpaper Cleaner Name Role Phone Unavailable Primary Care Provider Unavailabl e Social History Tobacco Use Types Packs/Day Years Used Date Smoking Tobacco: Never Assessed Comments Unknown Sex and Gender Information Value Date Recorded Sex Assigned at Not on file Legal Sex Female 5:11 PM CDT Gender Identity Not on file Sexual Orientation Not on file Plan of Treatment Health Maintenance Due Date Last Done Comments DXA SCAN 1940 Depression Screening (12+) 1954 Tobacco Cessation Counseling and Screening (12+) 1954 DTAP/TDAP/TD VACCINES (1 - Tdap) 1961 Shingles Vaccine (Zoster) (1 of 2) 1992 Respiratory Syncytial Virus (RSV) Adult or (1 - 1-dose 75+ series) 2017 Pneumococcal 50+ years (2 of 2 - PCV) 07/22/2019 07/22/2018 Falls Risk Screening 07/02/2024 COVID-19 VACCINE (6 - 2024-2 6 season) 2025 06/01/2022, 11/17/2021, 03/03/2021, Additional history exists Influenza Vaccine (#1) 2025 , 05/25/2020, 05/09/[address] [place] [address] [phone] [employer] MEDIC[employer] HMO
--- OUTSIDE RECORDS SUMMARY | 2025-07-01 10:28 | XMS_ITS | Encounter Summary ---
Author Organization [employer] ([place], [place], [place], [place], [place]) Address [address] [place] [address] Care Team Providers Care Blueprint Engineer Name Role Phone Unavailable Primary Care Provider Unavailabl e Encounter Details Date Type Department Care Team (Late st Contact Info) Description 12/21/2019 Transcribed Document [facility] [place] [address] [place] [address] ProviderCl MD [address] [place] [address] Social History Tobacco Use Types Packs/Day Years Used Date Smoking Tobacco: Never Assessed Comments Unknown Sex and Gender Information Value Date Recorded Sex Assigned at Not on file Legal Sex Female 5:11 PM CDT Gender Identity Not on file Sexual Orientation Not on file documented as of this encounter Miscellaneous Notes * Cerner Conversion Note - Historical ProviderMD - 12/21/2019 5:00 AM CDT Chart Check - Review Order Profile Entered On: 12/21/2019 5:43 EDT Performed On: 12/21/2019 5:00 EDT by Ildefonso Lange Rn-Charge Chart Check Powerplans Initiated/Discontinued as Appropriate : Yes All Active Orders Reviewed : Yes Ildefonso Lange Rn-Charge - 12/21/2019 5:43 EDT Electronically signed by Ryanne Moise Conversion Business Analyst Project Manager [employer] at 10/17/2022 3:13 PM CDT documented in this encounter Plan of Treatment Not on file documented as of this encounter Visit Diagnoses Not on filedocumented in this encounter
--- OUTSIDE RECORDS SUMMARY | 2025-07-01 10:28 | XMS_ITS | Encounter Summary ---
Author Organization [employer] ([place], [place], [place], [place], [place]) Address [address] [place] [address] Care Team Providers Care Weigh Machine Operator Name Role Phone Unavailable Primary Care Provider Unavailabl e Encounter Details Date Type Department Care Team (Late st Contact Info) Description 12/22/2019 Transcribed Document [facility] [place] [facility] [place] [address] ProviderCl MD [address] [place] [address] Social History Tobacco Use Types Packs/Day Years Used Date Smoking Tobacco: Never Assessed Comments Unknown Sex and Gender Information Value Date Recorded Sex Assigned at Not on file Legal Sex Female 5:11 PM CDT Gender Identity Not on file Sexual Orientation Not on file documented as of this encounter Miscellaneous Notes * Cerner Conversion Note - Cl ProviderMD - 12/22/2019 8:30 PM CDT Patient: JAMES BUSTILLO Age: 79 Years Sex: Female : 1940 Assessment/Plan 79F POD#2 s/p left hip hemiarthroplasty. Labs show she [...] lovenox. Will be for 30 days. call [phone] to make an appointment at my office. VTE Prophylaxis - Medical Enoxaparin 30 mg, SubCutaneous, Inj, [id number], Routine, Start 12/22/19 7:00:00 EDT (TARIQ TILLMAN) Sequential Compression Device Start: 12/19/19 19:16:00 EDT, Bilateral, Length: Knee High, While patient is in bed, Continuous Order (JUAN J DEL ROSARIO) Subjective Patient reports she is doing well. She reports she worked will with PT today. Vital Signs T: 36.2 ??C TMIN: 36.2 ??C TMAX: 36.7 ??C HR: 67(Monitored) RR: 16 BP: 122/46 SpO2: 94% Oxygen Settings (Last) Oxygen Therapy Mode: Room air (12/22/19 06:38:00) Oxygen Flow Rate: 2 Liter/Min (12/21/19 17:29:00) Intake & Output Totals Last 24 Hours (7a-7a) Input Total: 1450 mL Output Total: 2850 mL Balance: -1400 mL Physical Exam NAD [...] Daily Lovenox, 30 mg= 0.3 mL, SubCutaneous, [id number] magnesium sulfate, 2 Gram= 50 mL, IV [...] mg= 1 Tab, Oral, Daily tranexamic acid Transderm-Scop 1.5 mg transdermal film, extended release, 1 Patch, TransDermal, Q3Days, PRN Tylenol, 650 mg= 2 Tab, Oral, Q4H, PRN Vitamin B12, 1000 mcg= 1 Tab, Oral, Daily Zofran, 4 mg= 2 mL, IV Push, Q4H, PRN Lab Results Test Name Test Result Date/Time Sodium Level 138 mmol/L 12/22/2019 04:05 EDT Potassium Level 3.6 mmol/L 12/22/2019 04:05 EDT Chloride Level 108 mmol/L 12/22/2019 04:05 EDT Carbon Dioxide Level 14 mmol/L (Low) 12/22/2019 04:05 EDT Anion Gap 20 12/22/2019 04:05 EDT Glucose Level 154 mg/dL (High) 12/22/2019 04:05 EDT Blood Urea Nitrogen 22 mg/dL 12/22/2019 04:05 EDT Creatinine Level 0.98 mg/dL 12/22/2019 04:05 EDT eGFR >60 mL/min/1.73m2 12/22/2019 04:05 EDT eGFR NonAfrican 55 mL/min/1.73m2 (Low) 12/22/2019 04:05 EDT Bun/Creatinine 22.4 (High) 12/22/2019 04:05 EDT Calcium Level 8.2 mg/dL (Low) 12/22/2019 04:05 EDT documented in this encounter Plan of Treatment Not on file documented as of this encounter Visit Diagnoses Not on filedocumented in this encounter
--- OUTSIDE RECORDS SUMMARY | 2025-07-01 10:29 | XMS_ITS | Encounter Summary ---
Author Organization [employer] ([place], [place], [place], [place], [place]) Address [address] [place] [address] Care Team Providers Care Mutton Puncher Name Role Phone Unavailable Primary Care Provider Unavailabl e Encounter Details Date Type Department Care Team (Late st Contact Info) Description 12/19/2019 Transcribed Document [facility] [address] [place] [address] ProviderCl MD [address], [place] [address] Social History Tobacco Use Types Packs/Day Years Used Date Smoking Tobacco: Never Assessed Comments Unknown Sex and Gender Information Value Date Recorded Sex Assigned at Not on file Legal Sex Female 5:11 PM CDT Gender Identity Not on file Sexual Orientation Not on file documented as of this encounter Miscellaneous Notes * Cerner Conversion Note - Historical ProviderMD - 12/19/2019 1:12 PM CDT [place] Suicide Severity Rating Scale (C-SSRS) Entered On: 12/19/2019 19:44 EDT Performed On: 12/19/2019 14:00 EDT by Mariza Stanley RN [place] Suicide Severity Rating Scale (C-SSRS) CSSRS Past Month Wish to be : No CSSRS Past Month Suicidal Thoughts : No CSSRS Lifetime Suicide Behavior : No Suicide Severity Rating Score : 0 Suicide Severity Rating : No Additional Care Required at this time Mariza Stanley RN - 12/19/2019 19:43 EDT documented in this encounter Plan of Treatment Not on file documented as of this encounter Visit Diagnoses Not on filedocumented in this encounter
--- OUTSIDE RECORDS SUMMARY | 2025-07-01 10:29 | XMS_ITS | Encounter Summary ---
Author Organization [employer] ([place], [place], [place], [place], [place]) Address [address] [place] [address] Care Team Providers Care Outpatient Program Coordinator Name Role Phone Unavailable Primary Care Provider Unavailabl e Encounter Details Date Type Department Care Team (Late st Contact Info) Description 12/19/2019 Transcribed Document [facility] [place] [facility] [address] [place] [address] ProviderCl MD [address] [place] [address] Social History Tobacco Use Types [...] Historical ProviderMD - 12/19/2019 7:16 PM CDT Pain Assessment Entered On: 12/21/2019 5:43 EDT Performed On: 12/21/2019 2:45 EDT by Ildefonso Lange, Rn-Charge Intervention Information: HYDROmorphone Performed by Ildefonso Lange Rn-Charge on 12/21/2019 02:15:00 EDT HYDROmorphone,0.5mg IV Push,Right Hand,Pain (Severe 7-10) Pain Assessment Pain Assessment : Follow-up assessment Pain Scale Goal : 3 Pain Scale Used : 0-10 Scale Ildefonso Lange Rn-Charge - 12/21/2019 5:43 EDT Pain Scale Intensity : 2 Ildefonso Lange Rn-Charge - 12/21/2019 5:43 EDT Image 4 - Images currently included in the form version of this document have not been included in the text rendition version of the form. documented in this encounter Plan of Treatment Not on file documented as of this encounter Visit Diagnoses Not on filedocumented in this encounter
--- OUTSIDE RECORDS SUMMARY | 2025-07-01 10:29 | XMS_ITS | Encounter Summary ---
Author Organization [employer] ([place], [place], [place], [place], [place]) Address [address] [place] [address] Care Team Providers Care Outside Plant Technician Name Role Phone Unavailable Primary Care Provider Unavailabl e Encounter Details Date Type Department Care Team (Late st Contact Info) Description 12/19/2019 Transcribed Document [facility] [place] [facility] [address] [place] [address] ProviderCl MD [address] [place] [address] Social History Tobacco Use Types [...] 7:16 PM CDT Pain Assessment Entered On: 12/24/2019 3:14 EDT Performed On: 12/23/2019 23:16 EDT by Yanique Jimenez RN Intervention Information: acetaminophen Performed by Yanique Jimenez RN on 12/23/2019 22:16:00 EDT acetaminophen,650mg Oral,Other (See Comment) Pain Assessment Pain Scale Goal : 3 Pain Scale Used : 0-10 Scale Yanique Jimenez RN - 12/24/2019 3:14 EDT Pain Scale Intensity : 2 Yanique Jimenez RN - 12/24/2019 3:14 EDT Image 4 - Images currently included in the form version of this document have not been included in the text rendition version of the form. documented in this encounter Plan of Treatment Not on file documented as of this encounter Visit Diagnoses Not on filedocumented in this encounter
--- OUTSIDE RECORDS SUMMARY | 2025-07-01 10:29 | XMS_ITS | Encounter Summary ---
Author Organization [employer] ([place], [place], [place], [place], [place]) Address [address] [place] [address] Care Team Providers Care Ager Tender Name Role Phone Unavailable Primary Care Provider Unavailabl e Encounter Details Date Type Department Care Team (Late st Contact Info) Description 12/19/2019 Transcribed Document [facility] [place] [facility] [place] [address] ProviderCl MD [facility] [place] [address] Social History Tobacco Use Types Packs/Day Years Used Date Smoking Tobacco: Never Assessed Comments Unknown Sex and Gender Information Value Date Recorded Sex Assigned at Not on file Legal Sex Female 5:11 PM CDT Gender Identity Not on file Sexual Orientation Not on file documented as of this encounter Miscellaneous Notes * Cerner Conversion Note - Historical ProviderMD - 12/19/2019 11:40 PM CDT Nutrition Assessment Entered On: 12/22/2019 11:25 EDT Performed On: 12/22/2019 14:59 EDT by Linda Bowen, IMANI, LD Nutrition Assessment Current Nutrition Regimen Comment : (12/21) Consult rec'd for wt loss with [...] DM, HTN, GERD, chronic pain syndrome Labs: Glu 154, Ca 8.2, FSB/166/145, Ha1c 8.40 Meds: Vit B12, colace, lovenox, SSI, oxybutynin, IVF Skin: left hip incision GI: LBM 12/21 Diet: regular Eatin% of breakfast this AM, 0% of all other meals recorded Ht: 67 Wt: 169# BMI: 26.6 IBW/%IBW: 135#/125% Linda Bowen RD, LD - 12/22/2019 14:55 EDT Nutrition Assessment Reason : Automatic referral Linda Bowen RD, LD 12/22/2019 11:22 EDT Nutrition Diagnoses Oral or Nutrition Support Intake : Inadequate oral intake Oral or Nutr Support Intake Related To : decreased po intake Oral or Nutr Support Intake Evidenced by : pt eating 0-40% of meals recorded Oral or Nutrition Support Intake Status : Active Weight : Unintended weight loss Weight Related to : decreased appetite Weight As Evidenced by : reported wt loss of 2-13# per MST Weight Status : Active Linda Bowen RD, LD 12/22/2019 14:55 EDT Nutrition Interventions Meals and Snacks : General/Healthful diet Nutrition Supplement Therapy : Commercial beverage Linda Bowen RD, LD 12/22/2019 14:55 EDT Monitoring/Evaluation Energy Intake : Total energy intake Weight Status : Weight Maintanence Gastrointestinal Function : Bowel Function Linda Bowen RD, LD 12/22/2019 14:55 EDT Nutrition Recommendations Dietitian Recommendations : 1. Continue current diet regimen. IMANI will add Ensure Enlive BID to aid in po intake. goal: po intake >50% from meals and supplements 2. Monitor wt 2x/wk goal: no significant involuntary changes in wt Nutritional Risk: high Linda Bowen RD, LD 12/22/2019 14:55 EDT documented in this encounter Plan of Treatment Not on file documented as of this encounter Visit Diagnoses Not on filedocumented in this encounter
[2025-07-02 05:23] LABS: Hepatitis B Surface Antigen Negative (Negative)
--- OUTSIDE RECORDS SUMMARY | 2025-07-16 19:00 | XMS_ITS | Clinical Summary ---
Author Organization Unknown Care Team Providers Care Flaker Operator Name Role Phone ANTONIO MOYA, NATHAN Unavailable Unavailable KHLOE RN, NAREN Unavailable Unavailable SERGIO JADEN, CAROLYN Unavailable Unavailable SOFYA PT, ROMINA Unavailable Unavailable CAROL PSYCHIATRIC ARNP, LOGAN Unavailable Unavaildaija NEWELL OT, ALONSO Unavailable Unavailable MICA LILLIE/BOND, MARIEA Unavailable Unavail able Payers Payer Name Policy Type Policy Number Effective Date Expira tion Date LUZ ELENA.PPO.C.AUTH [id number] Problems Condition Name Condition Details Condition Category Status Onset Date Resolution Date Last Treatment Date Treating Clinician Comments UNKNOWN DIAGNOSIS Active 2024-07 00:00: 00 DEHYDRATION Active 2024-07 00:00: 00 TYPE 2 DIABETES MELLITUS WITHOUT COMPLICATION S Active 2024-07 00:00: 00 ACUTE KIDNEY FAILURE, UNSPECIFIED Active 2024-07 00:00: 00 CUSTODIAL (CURRENT) USE OF ORAL HYPOGLYCEMIC DRUGS Active 07-02 00:00: 00 Allergies, Adverse Reactions, Alerts Allergy Name Allergy Type Status Severity Reaction(s) Onset Date Inactive Date Treating Clinician Comments NO KNOWN ALLERGIES Propensity to adverse reactions Active 2024-07 10:22: 46 Medications Ordered Medication Name Filled Medication Name Start Date Stop Date Current Medication? Ordering Clinician Indication Dosage Frequency Signature (SIG) Comments Components amlodipine 10 mg tablet 01-04 00:00: 00 08-10 23:59 :00 No [id number] 1 tablet DAILY 1 tablet DAILY (route: oral) Med Classific ation: Cardiovas cular Therapy Agents carvedilol 12.5 mg tablet 01-04 00:00: 00 08-10 23:59 :00 No [id number] 1 tablet TWICE DAILY 1 tablet TWICE DAILY (route: oral) Med Classific ation: Cardiovas cular Therapy Agents diphenhydra mine 25 mg tablet 7-06 00:00: 00 08-10 23:59 :00 No [id number] 1 tablet NEEDED 1 tablet NEEDED (route: oral) Med Classific ation: Respirato ry Therapy Agents fenofibrate 160 mg tablet 6-02 00:00: 00 08-10 23:59 :00 No [id number] 1 tablet DAILY 1 tablet DAILY (route: oral) Med Classific ation: Cardiovas cular Therapy Agents fluoxetine 20 mg capsule 4-30 00:00: 00 08-10 23:59 :00 No [id number] 1 capsule AT 1 capsule AT (route: oral) Alternate Route: BY MOUTH. Med Classific ation: Central Nervous System Agents Januvia 100 mg tablet 6-04 00:00: 00 08-10 23:59 :00 No [id number] 1 tablet DAILY 1 tablet DAILY (route: oral) Med Classific ation: Endocrine Jardiance 25 mg tablet 6-04 00:00: 00 08-10 23:59 :00 No [id number] 1 tablet DAILY 1 tablet DAILY (route: oral) Med Classific ation: Endocrine levothyroxi ne 50 mcg tablet 3-06 00:00: 00 08-10 23:59 :00 No [id number] 1 tablet DAILY 1 tablet DAILY (route: oral) Med Classific ation: Endocrine lisinopril 40 mg tablet 7-06 00:00: 00 08-10 23:59 :00 No [id number] 1 tablet DAILY 1 tablet DAILY (route: oral) Med Classific ation: Cardiovas cular Therapy Agents rosuvastati n 20 mg tablet 5-05 00:00: 00 08-10 23:59 :00 No [id number] 1 tablet DAILY 1 tablet DAILY (route: oral) Med Classific ation: Cardiovas cular Therapy Agents Tegretol XR 100 mg tablet,exte nded release 7-06 00:00: 00 08-10 23:59 :00 No [id number] 1 tablet THREE TIMES DAILY 1 tablet THREE TIMES DAILY (route: oral) Med Classific ation: Central Nervous System Agents tizanidine 4 mg tablet 7-06 00:00: 00 08-10 23:59 :00 No [id number] 1 tablet BEDTIME 1 tablet BEDTIME (route: oral) Med Classific ation: Locomotor System ampicillin 10 gram solution for injection 2-10 00:00: 00 08-17 23:59 :00 No [id number] SEPSIS Per instruc tions DAILY Per instructio ns DAILY (route: injection) Med Classific ation: Anti-Infe ctive Agents duloxetine 60 mg capsule,del ayed release 1- 00:00: 00 05-13 23:59 :00 No [id number] DEPRESSION 1 capsule EVERY DAY 1 capsule EVERY DAY (route: oral) Med Classific ation: Central Nervous System Agents buspirone 5 mg tablet - 00:00: 00 05-13 23:59 :00 No [id number] DEPRESSION 1 tablet TWICE DAILY 1 tablet TWICE DAILY (route: oral) Med Classific ation: Central Nervous System Agents Lantus Solostar U-100 Insulin 100 unit/mL (3 mL) subcutaneou s pen - 00:00: 00 05-13 23:59 :00 No [id number] DIABETES 15 unit SUBCUTANEO USLY TWICE DAILY 15 unit SUBCUTANEO USLY TWICE DAILY (route: subcutaneo us) Med Classific ation: Endocrine amlodipine 10 mg tablet -12 00:00: 00 05-13 23:59 :00 No [id number] HEART 1 tablet DAILY 1 tablet DAILY (route: oral) Med Classific ation: Cardiovas cular Therapy Agents carvedilol 12.5 mg tablet -12 00:00: 00 05-13 23:59 :00 No [id number] HEART 1 tablet 2 TIMES DAILY 1 tablet 2 TIMES DAILY (route: oral) Med Classific ation: Cardiovas cular Therapy Agents donepezil 10 mg tablet 2-12 00:00: 00 05-13 23:59 :00 No [id number] DEMENTIA 1 tablet BEDTIME 1 tablet BEDTIME (route: oral) Med Classific ation: Cognitive Disorder Therapy furosemide 20 mg tablet 2-12 00:00: 00 09-11 00:00 :00 No [id number] FLUID 1 tablet DAILY 1 tablet DAILY (route: oral) Med Classific ation: Cardiovas cular Therapy Agents glipizide 5 mg tablet 2-12 00:00: 00 05-13 23:59 :00 No [id number] DIABETES 1 tablet DAILY 1 tablet DAILY (route: oral) Med Classific ation: Endocrine hydralazine 25 mg tablet -12 00:00: 00 05-13 23:59 :00 No [id number] HEART 1 tablet 2 TIMES DAILY 1 tablet 2 TIMES DAILY (route: oral) Med Classific ation: Cardiovas cular Therapy Agents Januvia 100 mg tablet 2-12 00:00: 00 05-13 23:59 :00 No [id number] DIABETES 1 tablet DAILY 1 tablet DAILY (route: oral) Med Classific ation: Endocrine levothyroxi ne 50 mcg capsule -12 00:00: 00 05-13 23:59 :00 No [id number] THYROID 1 capsule 2 TIMES DAILY 1 capsule 2 TIMES DAILY (route: oral) Med Classific ation: Endocrine lisinopril 40 mg tablet 2-12 00:00: 00 05-13 23:59 :00 No [id number] HEART 1 tablet DAILY 1 tablet DAILY (route: oral) Med Classific ation: Cardiovas cular Therapy Agents methocarbam ol 500 mg tablet 2-12 00:00: 00 09-11 00:00 :00 No [id number] PAIN 1 tablet 4 TIMES DAILY 1 tablet 4 TIMES DAILY (route: oral) Med Classific ation: Locomotor System rosuvastati n 20 mg tablet 2-12 00:00: 00 05-13 23:59 :00 No [id number] CHOLESTEROL 1 tablet DAILY 1 tablet DAILY (route: oral) Med Classific ation: Cardiovas cular Therapy Agents tramadol 50 mg tablet 2-12 00:00: 00 09-11 00:00 :00 No [id number] SLEEP 1 tablet BEDTIME 1 tablet BEDTIME (route: oral) Med Classific ation: Analgesic , Anti-infl ammatory or Antipyret ic Normal Saline Flush 0.9 % injection syringe - 00:00: 00 09-11 00:00 :00 No [id number] patency 10 mL DAILY 10 mL DAILY (route: injection) Med Classific ation: Electroly te Balance-N utritiona l Products amoxicillin 250 mg-potassiu m clavulanate 125 mg tablet - 00:00: 00 09-30 23:59 :00 No [id number] INFECTION [id number] mg 2 TIMES DAILY 291038 mg 2 TIMES DAILY (route: oral) Med Classific ation: Anti-Infe ctive Agents fluconazole 100 mg tablet 09-18 00:00: 00 05-13 23:59 :00 No [id number] INFECTION 100 mg DAILY 100 mg DAILY (route: oral) Med Classific ation: Anti-Infe ctive Agents Gemtesa 75 mg tablet 10-08 00:00: 00 05-13 23:59 :00 No [id number] BLADDER 1 tablet DAILY 1 tablet DAILY (route: oral) Med Classific ation: Genitouri nary Therapy CARVEDILOL ORAL 1-30 00:00: 00 10-28 00:00 :00 No 12.5 mg 12.5 mg (route: ) Med Classific ation: CARDIOVAS CULAR THERAPY AGENTS AMLODIPINE ORAL 2-17 00:00: 00 11-15 00:00 :00 No 10 mg 10 mg (route: ) Med Classific ation: CARDIOVAS CULAR THERAPY AGENTS LISINOPRIL ORAL 2-17 00:00: 00 11-15 00:00 :00 No 40 mg 40 mg (route: ) Med Classific ation: CARDIOVAS CULAR THERAPY AGENTS CYCLOBENZAP RINE ORAL 4-02 00:00: 00 10-11 00:00 :00 No 10 mg1 TABLET EVERY 8 HOURS NEEDED 10 mg1 TABLET EVERY 8 HOURS NEEDED (route: ) Alternate Route: BY MOUTH . Med Classific ation: LOCOMOTOR SYSTEM CYCLOBENZAP RINE ORAL 10-01 00:00: 00 10-11 00:00 :00 No 10 mg1 TABLET EVERY 8 HOURS NEEDED 10 mg1 TABLET EVERY 8 HOURS NEEDED (route: ) Alternate Route: BY MOUTH . Med Classific ation: LOCOMOTOR SYSTEM Vital Signs Vital Name Observation Time Observation Value Commen ts Temperature 2025-06-23 14:56:00.000 98.4 [degF] Temperature 2025-06-19 10:11:00.000 98.2 [degF] Temperature 2025-06-16 12:29:00.000 96.9 [degF] Temperature 2025-06-15 11:40:00.000 97.6 [degF] Temperature 2025-06-13 12:52:00.000 97.2 [degF] Temperature 2025-06-11 14:40:00.000 97.8 [degF] Temperature 2025-06-09 10:34:00.000 97.6 [degF] Temperature 2025-06-08 13:16:00.000 97.6 [degF] Temperature 2025-06-03 17:22:00.000 98.2 [degF] Temperature 2025-05-26 16:18:00.000 97.9 [degF] Temperature 2025-05-22 11:32:00.000 97.2 [degF] Temperature 2025-05-22 10:01:00.000 97.2 [degF] Temperature 2025-05-19 11:07:00.000 97.5 [degF] Height 2025-05-19 11:07:00.000 67 [in_us] Pulse 2025-06-23 14:56:00.000 75 /min Pulse 2025-06-19 10:11:00.000 87 /min Pulse 2025-06-16 12:29:00.000 86 /min Pulse 2025-06-15 11:40:00.000 74 /min Pulse 2025-06-13 12:52:00.000 72 /min Pulse 2025-06-11 14:40:00.000 83 /min Pulse 2025-06-09 10:34:00.000 78 /min Pulse 2025-06-08 13:16:00.000 79 /min Pulse 2025-06-03 17:22:00.000 69 /min Pulse 2025-05-26 16:18:00.000 67 /min Pulse 2025-05-22 11:32:00.000 88 /min Pulse 2025-05-22 10:01:00.000 88 /min Pulse 2025-05-19 11:07:00.000 70 /min O2 Saturation (%) 2025-06-23 14:56:00.000 97 % O2 Saturation (%) 2025-06-19 10:11:00.000 97 % O2 Saturation (%) 2025-06-16 12:29:00.000 97 % O2 Saturation (%) 2025-06-15 11:40:00.000 98 % O2 Saturation (%) 2025-06-13 12:52:00.000 98 % O2 Saturation (%) 2025-06-11 14:40:00.000 97 % O2 Saturation (%) 2025-06-09 10:34:00.000 97 % O2 Saturation (%) 2025-06-08 13:16:00.000 97 % O2 Saturation (%) 2025-06-03 17:22:00.000 95 % O2 Saturation (%) 2025-05-26 16:18:00.000 97 % O2 Saturation (%) 2025-05-22 11:32:00.000 97 % O2 Saturation (%) 2025-05-22 10:01:00.000 97 % O2 Saturation (%) 2025-05-19 11:07:00.000 97 % Respirations 2025-06-23 14:56:00.000 16 /min Respirations 2025-06-19 10:11:00.000 16 /min Respirations 2025-06-16 12:29:00.000 18 /min Respirations 2025-06-15 11:40:00.000 18 /min Respirations 2025-06-13 12:52:00.000 18 /min Respirations 2025-06-11 14:40:00.000 16 /min Respirations 2025-06-09 10:34:00.000 18 /min Respirations 2025-06-08 13:16:00.000 18 /min Respirations 2025-06-03 17:22:00.000 16 /min Respirations 2025-05-26 16:18:00.000 16 /min Respirations 2025-05-22 11:32:00.000 18 /min Respirations 2025-05-22 10:01:00.000 18 /min Respirations 2025-05-19 11:07:00.000 18 /min Weight (lbs) 2025-06-23 14:56:00.000 153 [lb_av] Weight (lbs) 2025-06-03 17:22:00.000 151 [lb_av] Weight (lbs) 2025-05-19 11:07:00.000 Systolic Blood Pressure 2025-06-23 14:56:00.000 126 mm [Hg] Systolic Blood Pressure 2025-06-19 10:11:00.000 138 mm [Hg] Systolic Blood Pressure 2025-06-16 12:29:00.000 122 mm [Hg] Systolic Blood Pressure 2025-06-15 11:40:00.000 102 mm [Hg] Systolic Blood Pressure 2025-06-13 12:52:00.000 94 mm[ Hg] Systolic Blood Pressure 2025-06-11 14:40:00.000 119 mm [Hg] Systolic Blood Pressure 2025-06-09 10:34:00.000 128 mm [Hg] Systolic Blood Pressure 2025-06-08 13:16:00.000 132 mm [Hg] Systolic Blood Pressure 2025-06-03 17:22:00.000 122 mm [Hg] Systolic Blood Pressure 2025-05-26 16:18:00.000 130 mm [Hg] Systolic Blood Pressure 2025-05-22 11:32:00.000 129 mm [Hg] Systolic Blood Pressure 2025-05-22 10:01:00.000 129 mm [Hg] Systolic Blood Pressure 2025-05-19 11:07:00.000 130 mm [Hg] Diastolic Blood Pressure 2025-06-23 14:56:00.000 68 mm [Hg] Diastolic Blood Pressure 2025-06-19 10:11:00.000 70 mm [Hg] Diastolic Blood Pressure 2025-06-16 12:29:00.000 68 mm [Hg] Diastolic Blood Pressure 2025-06-15 11:40:00.000 53 mm [Hg] Diastolic Blood Pressure 2025-06-13 12:52:00.000 46 mm [Hg] Diastolic Blood Pressure 2025-06-11 14:40:00.000 64 mm [Hg] Diastolic Blood Pressure 2025-06-09 10:34:00.000 83 mm [Hg] Diastolic Blood Pressure 2025-06-08 13:16:00.000 64 mm [Hg] Diastolic Blood Pressure 2025-06-03 17:22:00.000 60 mm [Hg] Diastolic Blood Pressure 2025-05-26 16:18:00.000 74 mm [Hg] Diastolic Blood Pressure 2025-05-22 11:32:00.000 78 mm [Hg] Diastolic Blood Pressure 2025-05-22 10:01:00.000 78 mm [Hg] Diastolic Blood Pressure 2025-05-19 11:07:00.000 80 mm [Hg] Plan of Treatment Planned Activity Planned Date Details Comments Future Scheduled Test RN TO OBSE RVE, ASSESS, EVALUATE, AND DEVELOP AN INDIVIDUALIZED PLAN OF CARE. AGENCY MAY ACCEPT ORDERS FROM CONSULTING PHYSICIANS GORDON CASTILLO WASPEE-CARDIO, EVARISTO MACHINE SHORTHAND REPORTER TO OBSERVE AND ASSESS, RAILCAR SWITCHMAN/WELL PULLER TO OBSERVE FOR RISK FOR FALLS AND INSTRUCT IN FALL PREVENTION, HOME SAFETY, MEDICATION MANAGEMENT, INFECTION PREVENTION, AND NUTRITION MANAGEMENT. RN/RAILCAR SWITCHMAN/WELL PULLER NURSE MAY PERFORM O2 SATURATION LEVEL ON ADMISSION AND PRN FOR RN TO ASSESS/RAILCAR SWITCHMAN TO OBSERVE PATIENT, WITH NOTIFICATION TO THE PHYSICIAN IF SATURATION IS 90% IN THE ABSENCE OF MORE SPECIFIC PARAMETERS FROM THE PHYSICIAN. AGENCY MAY PERFORM A RESUMPTION OF CARE VISIT FOLLOWING ANY HOSPITAL ADMISSION. RN/RAILCAR SWITCHMAN/WELL PULLER TO MONITOR CO-MORBID CONDITIONS LISTED ON THE PLAN OF CARE AND ANY NEW CONDITIONS THAT PRESENT THEMSELVES DURING THIS EPISODE TO IDENTIFY CHANGES AND INTERVENE TO MINIMIZE COMPLICATIONS. [code = RN TO OBSERVE, ASSESS, EVALUATE, AND DEVELOP AN INDIVIDUALIZED PLAN OF CARE. AGENCY MAY ACCEPT ORDERS FROM CONSULTING PHYSICIANS GORDON CASTILLO WASPEE-CARDIO, DORIEEE MACHINE SHORTHAND REPORTER TO OBSERVE AND ASSESS, RAILCAR SWITCHMAN/WELL PULLER TO OBSERVE FOR RISK FOR FALLS AND INSTRUCT IN FALL PREVENTION, HOME SAFETY, MEDICATION MANAGEMENT, INFECTION PREVENTION, AND NUTRITION MANAGEMENT. RN/RAILCAR SWITCHMAN/WELL PULLER NURSE MAY PERFORM O2 SATURATION LEVEL ON ADMISSION AND PRN FOR RN TO ASSESS/RAILCAR SWITCHMAN TO OBSERVE PATIENT, WITH NOTIFICATION TO THE PHYSICIAN IF SATURATION IS 90% IN THE ABSENCE OF MORE SPECIFIC PARAMETERS FROM THE PHYSICIAN. AGENCY MAY PERFORM A RESUMPTION OF CARE VISIT FOLLOWING ANY HOSPITAL ADMISSION. RN/RAILCAR SWITCHMAN/WELL PULLER TO MONITOR CO-MORBID CONDITIONS LISTED ON THE PLAN OF CARE AND ANY NEW CONDITIONS THAT PRESENT THEMSELVES DURING THIS EPISODE TO IDENTIFY CHANGES AND INTERVENE TO MINIMIZE COMPLICATIONS.] Future Scheduled Test MEDICATION MANAGEMENT; RN/RAILCAR SWITCHMAN/WELL PULLER TO REVIEW MEDICATIONS FOR INTERACTIONS, EFFECTIVENESS OF DRUG THERAPY, AND SIGNS/SYMPTOMS OF ADVERSE REACTIONS. MAY INSTRUCT AND REINFORCE MEDICATION TEACHING RELATED TO THE USE OF MEDICATIONS, DOSAGE, FREQUENCY, PURPOSE, SIDE EFFECTS, AND TO REPORT COMPLICATIONS. [code = MEDICATION MANAGEMENT; RN/RAILCAR SWITCHMAN/WELL PULLER TO REVIEW MEDICATIONS FOR INTERACTIONS, EFFECTIVENESS OF DRUG THERAPY, AND SIGNS/SYMPTOMS OF ADVERSE REACTIONS. MAY INSTRUCT AND REINFORCE MEDICATION TEACHING RELATED TO THE USE OF MEDICATIONS, DOSAGE, FREQUENCY, PURPOSE, SIDE EFFECTS, AND TO REPORT COMPLICATIONS.] Future Scheduled Test DIABETES M ANAGEMENT; RN TO ASSESS AND TEACH, WELL PULLER/RAILCAR SWITCHMAN TO OBSERVE AND TEACH INSTRUCTIONS OF DIABETIC CARE TO INCLUDE: DIET LOW CARB SKIN CARE, SIGNS AND SYMPTOMS OF HYPO/HYPERGLYCEMIA, PROPER ADMINISTRATION OF DIABETIC MEDICATION. RN/WELL PULLER/RAILCAR SWITCHMAN TO INSTRUCT ON DIABETIC FOOT CARE AND MONITOR FOR SKIN LESIONS ON LOWER EXTREMITIES. BLOOD GLUCOSE TESTING 3X DAILY FREQ. RN TO ASSESS AND TEACH, WELL PULLER/RAILCAR SWITCHMAN TO OBSERVE AND TEACH PATIENT/CAREGIVER ABILITY TO PERFORM AND RECORD BLOOD GLUCOSE TESTING ORDERED AND TO REPORT ABNORMAL FINDINGS TO PHYSICIAN. RN/WELL PULLER/RAILCAR SWITCHMAN MAY PERFORM BLOOD GLUCOSE TEST NEEDED. RN/WELL PULLER/RAILCAR SWITCHMAN TO REPORT TO PHYSICIAN BLOOD GLUCOSE READINGS GREATER THAN 300 OR LESS THAN 70 RN/WELL PULLER/RAILCAR SWITCHMAN TO INSTRUCT PATIENT ON IMPORTANCE OF HGBA1C MONITORING, KIDNEY FUNCTION TEST, EYE AND FOOT EXAMS. [code = DIABETES MANAGEMENT; RN TO ASSESS AND TEACH, WELL PULLER/RAILCAR SWITCHMAN TO OBSERVE AND TEACH INSTRUCTIONS OF DIABETIC CARE TO INCLUDE: DIET LOW CARB SKIN CARE, SIGNS AND SYMPTOMS OF HYPO/HYPERGLYCEMIA, PROPER ADMINISTRATION OF DIABETIC MEDICATION. RN/WELL PULLER/RAILCAR SWITCHMAN TO INSTRUCT ON DIABETIC FOOT CARE AND MONITOR FOR SKIN LESIONS ON LOWER EXTREMITIES. BLOOD GLUCOSE TESTING 3X DAILY FREQ. RN TO ASSESS AND TEACH, WELL PULLER/RAILCAR SWITCHMAN TO OBSERVE AND TEACH PATIENT/CAREGIVER ABILITY TO PERFORM AND RECORD BLOOD GLUCOSE TESTING ORDERED AND TO REPORT ABNORMAL FINDINGS TO PHYSICIAN. RN/WELL PULLER/RAILCAR SWITCHMAN MAY PERFORM BLOOD GLUCOSE TEST NEEDED. RN/WELL PULLER/RAILCAR SWITCHMAN TO REPORT TO PHYSICIAN BLOOD GLUCOSE READINGS GREATER THAN 300 OR LESS THAN 70 RN/WELL PULLER/RAILCAR SWITCHMAN TO INSTRUCT PATIENT ON IMPORTANCE OF HGBA1C MONITORING, KIDNEY FUNCTION TEST, EYE AND FOOT EXAMS.] Future Scheduled Test INSULIN AD MINISTRATION; RN/WELL PULLER/RAILCAR SWITCHMAN TO ADMINISTER SQ INSULIN: LANTUS 25 UNITS TWICE DAILY IF PATIENT/CAREGIVER UNABLE/UNWILLING [code = INSULIN ADMINISTRATION; RN/WELL PULLER/RAILCAR SWITCHMAN TO ADMINISTER SQ INSULIN: LANTUS 25 UNITS TWICE DAILY IF PATIENT/CAREGIVER UNABLE/UNWILLING] Future Scheduled Test FALL REDUC TION MANAGEMENT; RN TO ASSESS AND OBSERVE, RAILCAR SWITCHMAN/WELL PULLER TO OBSERVE FALL RISK FACTORS AND EDUCATE PATIENT/CAREGIVER ON STRATEGIES TO MINIMIZE THE RISK OF FALLING. [code = FALL REDUCTION MANAGEMENT; RN TO ASSESS AND OBSERVE, RAILCAR SWITCHMAN/WELL PULLER TO OBSERVE FALL RISK FACTORS AND EDUCATE PATIENT/CAREGIVER ON STRATEGIES TO MINIMIZE THE RISK OF FALLING.] Future Scheduled Test PRN VISITS ; NUMBER OF RN/RAILCAR SWITCHMAN/WELL PULLER VISITS: 2 RN/RAILCAR SWITCHMAN/WELL PULLER TO PERFORM: OBSERVATION OVERALL HEALTH FOR THE FOLLOWING REASONS: FREQUENT UTIS, FALLS, KIDNEY INJURY, [code = PRN VISITS; NUMBER OF RN/RAILCAR SWITCHMAN/WELL PULLER VISITS: 2 RN/RAILCAR SWITCHMAN/WELL PULLER TO PERFORM: OBSERVATION OVERALL HEALTH FOR THE FOLLOWING REASONS: FREQUENT UTIS, FALLS, KIDNEY INJURY,] Future Scheduled Test PHYSICAL T HERAPIST TO EVALUATE FOR STRENGTH, ENDURANCE, BALANCE, GAIT [code = PHYSICAL THERAPIST TO EVALUATE FOR STRENGTH, ENDURANCE, BALANCE, GAIT] Future Scheduled Test OCCUPATION AL THERAPIST TO EVALUATE FOR ADLS AND IADLS [code = OCCUPATIONAL THERAPIST TO EVALUATE FOR ADLS AND IADLS] Future Scheduled Test DEMENTIA M ANAGEMENT WITHOUT BEHAVIORAL DISTURBANCES; RN TO ASSESS AND TEACH, WELL PULLER/RAILCAR SWITCHMAN TO OBSERVE AND TEACH AND TO PROVIDE EDUCATION ON DEMENTIA WITHOUT BEHAVIORAL DISTURBANCES. [code = DEMENTIA MANAGEMENT WITHOUT BEHAVIORAL DISTURBANCES; RN TO ASSESS AND TEACH, WELL PULLER/RAILCAR SWITCHMAN TO OBSERVE AND TEACH AND TO PROVIDE EDUCATION ON DEMENTIA WITHOUT BEHAVIORAL DISTURBANCES.] Future Scheduled Test AGENCY MAY PERFORM A RESUMPTION OF CARE VISIT FOLLOWING ANY HOSPITAL ADMISSION. OT TO EVALUATE, OBSERVE / ASSESS, AND MONITOR, LILLIE TO OBSERVE AND MONITOR, PROVIDE SKILLED THERAPEUTIC INTERVENTION, ACTIVITY, EDUCATION, AND TRAINING TO ADDRESS ADLS/IADLS, ADAPTIVE EQUIPMENT, STRENGTHENING, BALANCE, AND FUNCTIONAL TRANSFERS TO MAXIMIZE SAFETY AND FUNCTIONAL INDEPENDENCE IN HOME BATHING/SHOWERING (OT/SENIOR LOGISTICS MANAGER) DRESSING (OT/LILLIE) ACTIVITIES OF DAILY LIVING (OT/SENIOR LOGISTICS MANAGER) MEAL PREPARATION AND CLEANUP (OT/SENIOR LOGISTICS MANAGER) LIGHT HOUSEKEEPING (OT/SENIOR LOGISTICS MANAGER) POSTURAL CONTROL/BALANCE (OT/LILLIE) THERAPEUTIC EXERCISE (OT/SENIOR LOGISTICS MANAGER) OT/LILLIE MAY EDUCATE ON PAIN MANAGEMENT CLINICALLY INDICATED, INCLUDING NON-PHARMACOLOGICAL PAIN REDUCTION TECHNIQUES AND USE OF CRYOTHERAPY OR HEAT UP TO 20 MIN AT A TIME FOR PAIN MANAGEMENT TO MAXIMIZE ADL PERFORMANCE OT/SENIOR LOGISTICS MANAGER TO MONITOR FOR HYPO/HYPERGLYCEMIA AND CONDUCT ROUTINE FOOT INSPECTIONS. RECORD PATIENT REPORTED BLOOD SUGAR LEVELS AND NOTIFY PHYSICIAN AND/OR THE RN CLINICAL WHIPPED TOPPING MIXER FOR PHYSICIAN NOTIFICATION IF BLOOD SUGAR LEVELS ARE OUTSIDE ORDERED PARAMETERS. [code = AGENCY MAY PERFORM A RESUMPTION OF CARE VISIT FOLLOWING ANY HOSPITAL ADMISSION. OT TO EVALUATE, OBSERVE / ASSESS, AND MONITOR, LILLIE TO OBSERVE AND MONITOR, PROVIDE SKILLED THERAPEUTIC INTERVENTION, ACTIVITY, EDUCATION, AND TRAINING TO ADDRESS ADLS/IADLS, ADAPTIVE EQUIPMENT, STRENGTHENING, BALANCE, AND FUNCTIONAL TRANSFERS TO MAXIMIZE SAFETY AND FUNCTIONAL INDEPENDENCE IN HOME BATHING/SHOWERING (OT/SENIOR LOGISTICS MANAGER) DRESSING (OT/LILLIE) ACTIVITIES OF DAILY LIVING (OT/LILLIE) MEAL PREPARATION AND CLEANUP (OT/SENIOR LOGISTICS MANAGER) LIGHT HOUSEKEEPING (OT/SENIOR LOGISTICS MANAGER) POSTURAL CONTROL/BALANCE (OT/SENIOR LOGISTICS MANAGER) THERAPEUTIC EXERCISE (OT/SENIOR LOGISTICS MANAGER) OT/LILLIE MAY EDUCATE ON PAIN MANAGEMENT CLINICALLY INDICATED, INCLUDING NON-PHARMACOLOGICAL PAIN REDUCTION TECHNIQUES AND USE OF CRYOTHERAPY OR HEAT UP TO 20 MIN AT A TIME FOR PAIN MANAGEMENT TO MAXIMIZE ADL PERFORMANCE OT/LILLIE TO MONITOR FOR HYPO/HYPERGLYCEMIA AND CONDUCT ROUTINE FOOT INSPECTIONS. RECORD PATIENT REPORTED BLOOD SUGAR LEVELS AND NOTIFY PHYSICIAN AND/OR THE RN CLINICAL WHIPPED TOPPING MIXER FOR PHYSICIAN NOTIFICATION IF BLOOD SUGAR LEVELS ARE OUTSIDE ORDERED PARAMETERS.] Future Scheduled Test AGENCY MAY PERFORM A RESUMPTION OF CARE VISIT FOLLOWING ANY HOSPITAL ADMISSION. PT TO EVALUATE, OBSERVE / ASSESS, AND MONITOR, PSYCHIATRIC ARNP TO OBSERVE AND MONITOR, PROVIDE SKILLED THERAPEUTIC INTERVENTION, ACTIVITY, EDUCATION, AND TRAINING TO ADDRESS; PT/PSYCHIATRIC ARNP TO PROVIDE GAIT TRAINING FOR IMPROVED MOBILITY AND /OR TO NORMALIZE GAIT PATTERN NEUROMUSCULAR RE-EDUCATION / BALANCE / POSTURAL CONTROL (PT) THERAPEUTIC EXERCISES AND ESTABLISHING A HOME EXERCISE PROGRAM (PT/PSYCHIATRIC ARNP) PT/PSYCHIATRIC ARNP TO PROVIDE STAIR TRAINING SIT TO/FROM STAND TRANSFERS (PT/PSYCHIATRIC ARNP) PT / PSYCHIATRIC ARNP TO MONITOR AND EDUCATE ON OXYGEN SATURATION DURING ADLS/IADLS, NOTIFY PHYSICIAN AND/OR THE RN CLINICAL WHIPPED TOPPING MIXER FOR PHYSICIAN NOTIFICATION AND IF O2 SATS BELOW PHYSICIAN ORDERED PARAMETERS AFTER 10 MIN OF REST PT / PSYCHIATRIC ARNP TO MONITOR FOR HYPO/HYPERGLYCEMIA AND CONDUCT ROUTINE FOOT INSPECTIONS. RECORD PATIENT REPORTED BLOOD SUGAR LEVELS AND NOTIFY PHYSICIAN AND/OR THE RN CLINICAL WHIPPED TOPPING MIXER FOR PHYSICIAN NOTIFICATION IF BLOOD SUGAR LEVELS ARE OUTSIDE ORDERED PARAMETERS. TEACH PATIENT/CAREGIVER ON DAILY FOOT INSPECTIONS PT TO ASSESS / PSYCHIATRIC ARNP TO MONITOR CARDIO/RESPIRATORY SYSTEM; AND NOTIFY THE PHYSICIAN AND/OR THE RN CLINICAL WHIPPED TOPPING MIXER FOR PHYSICIAN NOTIFICATION FOR EARLY SIGNS AND SYMPTOMS OF EXACERBATION OR DETERIORATION. [code = AGENCY MAY PERFORM A RESUMPTION OF CARE VISIT FOLLOWING ANY HOSPITAL ADMISSION. PT TO EVALUATE, OBSERVE / ASSESS, AND MONITOR, PSYCHIATRIC ARNP TO OBSERVE AND MONITOR, PROVIDE SKILLED THERAPEUTIC INTERVENTION, ACTIVITY, EDUCATION, AND TRAINING TO ADDRESS; PT/PSYCHIATRIC ARNP TO PROVIDE GAIT TRAINING FOR IMPROVED MOBILITY AND /OR TO NORMALIZE GAIT PATTERN NEUROMUSCULAR RE-EDUCATION / BALANCE / POSTURAL CONTROL (PT) THERAPEUTIC EXERCISES AND ESTABLISHING A HOME EXERCISE PROGRAM (PT/PSYCHIATRIC ARNP) PT/PSYCHIATRIC ARNP TO PROVIDE STAIR TRAINING SIT TO/FROM STAND TRANSFERS (PT/PSYCHIATRIC ARNP) PT / PSYCHIATRIC ARNP TO MONITOR AND EDUCATE ON OXYGEN SATURATION DURING ADLS/IADLS, NOTIFY PHYSICIAN AND/OR THE RN CLINICAL WHIPPED TOPPING MIXER FOR PHYSICIAN NOTIFICATION AND IF O2 SATS BELOW PHYSICIAN ORDERED PARAMETERS AFTER 10 MIN OF REST PT / PSYCHIATRIC ARNP TO MONITOR FOR HYPO/HYPERGLYCEMIA AND CONDUCT ROUTINE FOOT INSPECTIONS. RECORD PATIENT REPORTED BLOOD SUGAR LEVELS AND NOTIFY PHYSICIAN AND/OR THE RN CLINICAL WHIPPED TOPPING MIXER FOR PHYSICIAN NOTIFICATION IF BLOOD SUGAR LEVELS ARE OUTSIDE ORDERED PARAMETERS. TEACH PATIENT/CAREGIVER ON DAILY FOOT INSPECTIONS PT TO ASSESS / PSYCHIATRIC ARNP TO MONITOR CARDIO/RESPIRATORY SYSTEM; AND NOTIFY THE PHYSICIAN AND/OR THE RN CLINICAL WHIPPED TOPPING MIXER FOR PHYSICIAN NOTIFICATION FOR EARLY SIGNS AND SYMPTOMS OF EXACERBATION OR DETERIORATION.] Goal Patient Goal - GET BETTER Goal Provider Goal - A PLAN OF CARE WILL BE ESTABLISHED THAT MEETS THE PATIENT S NEEDS. PATIENT WILL DEMONSTRATE OXYGEN SATURATION WITHIN NORMAL LIMITS OR PATIENT S OPTIMAL LEVEL ESTABLISHED BY THE PHYSICIAN THROUGHOUT CARE. CHANGES TO CO-MORBID CONDITIONS AND ANY NEW CONDITIONS WILL BE IDENTIFIED AND REPORTED TO THE PHYSICIAN. Goal Provider Goal - PATIENT/CAREGIVER TO VERBALIZE, AND CONSISTENTLY DEMONSTRATE EFFECTIVE, SAFE MANAGEMENT OF MEDICATION INCLUDING KNOWLEDGE OF EFFECTIVENESS, POTENTIAL SIDE EFFECTS AND DRUG REACTIONS AND WHEN TO CONTACT THE APPROPRIATE CARE PROVIDER. PATIENT/CAREGIVER WILL BE ABLE TO VERBALIZE UNDERSTANDING OF MEDICATION REGIMEN AND ACCURATELY TAKE MEDICATIONS PRESCRIBED WITHOUT ADVERSE EFFECTS BY 07/17/25 Goal Provider Goal - PATIENT / CAREGIVER WILL VERBALIZE / DEMONSTRATE AN ABILITY TO ADHERE TO SELF-MANAGEMENT OF DIABETES MANAGEMENT BY 07/17/25 Goal Provider Goal - INSULIN IS ADMINISTERED PER ORDERS BY 07/17/24 Goal Provider Goal - PATIENT/CAREGIVER WILL VERBALIZE/DEMONSTRATE UNDERSTANDING OF FALL RISK FACTORS AND IMPLEMENT STRATEGIES TO MINIMIZE FALL RISK. PATIENT/CAREGIVER WILL VERBALIZE/DEMONSTRATE AN ABILITY TO ADHERE TO FALL REDUCTION SELF-MANAGEMENT AND LIFE-STYLE CHANGES BY 07/17/25 Goal Provider Goal - Goal Provider Goal - Goal Provider Goal - Goal Provider Goal - FAMILY / CAREGIVERS WILL VERBALIZE/DEMONSTRATE DEMENTIA MANAGEMENT TECHNIQUES BY 07/17/24 Goal Provider Goal - OT STG: PATIENT WILL DEMONSTRATE IMPROVED ABILITY TO PERFORM BATHING/SHOWERING AND REDUCE CAREGIVER BURDEN FROM CGA TO SBA WITHIN 4 WEEKS OT LTG: PATIENT WILL DEMONSTRATE IMPROVED ABILITY TO PERFORM BATHING/SHOWERING AND REDUCE CAREGIVER BURDEN FROM CGA TO INDEPENDENT WITHIN 9 WEEKS OT STG: PATIENT WILL DEMONSTRATE IMPROVED ABILITY TO PERFORM UPPER BODY DRESSING TO REDUCE CAREGIVER BURDEN FROM SBA TO SUPERVISION WITHIN 4 WEEKS OT LTG: PATIENT WILL DEMONSTRATE IMPROVED ABILITY TO PERFORM UPPER BODY DRESSING TO REDUCE CAREGIVER BURDEN FROM SBA TO INDEPENDENT WITHIN 9 WEEKS OT STG: PATIENT WILL DEMONSTRATE IMPROVED ABILITY TO PERFORM LOWER BODY DRESSING TO REDUCE CAREGIVER BURDEN FROM CGA TO SBA WITHIN 4 WEEKS OT LTG: PATIENT WILL DEMONSTRATE IMPROVED ABILITY TO PERFORM LOWER BODY DRESSING TO REDUCE CAREGIVER BURDEN FROM CGA TO INDEPENDENT WITHIN 9 WEEKS OT LTG: PATIENT WILL DEMONSTRATE IMPROVEMENT IN MODIFIED TIMOTHY INDEX SCORE FROM 87 TO 94 INDICATING DECREASED DEPENDENCY ON CAREGIVER ASSISTANCE WITH ACTIVITIES OF DAILY LIVING WITHIN 9 WEEKS OT STG: PATIENT WILL DEMONSTRATE THE ABILITY TO COMPLETE MEAL PREPARATION AND CLEANUP TO REDUCE CAREGIVER BURDEN FROM MIN A TO SBA WITHIN 4 WEEKS OT LTG: PATIENT WILL DEMONSTRATE THE ABILITY TO COMPLETE MEAL PREPARATION AND CLEANUP TO REDUCE CAREGIVER BURDEN FROM MIN A TO INDEPENDENT WITHIN 9 WEEKS OT STG: PATIENT WILL DEMONSTRATE THE ABILITY TO COMPLETE LIGHT HOUSEKEEPING FOR IMPROVED QUALITY OF LIFE FROM MIN A TO SBA WITHIN 4 WEEKS OT LTG: PATIENT WILL DEMONSTRATE THE ABILITY TO COMPLETE LIGHT HOUSEKEEPING FOR IMPROVED QUALITY OF LIFE FROM MIN A TO INDEPENDENT WITHIN 9 WEEKS OT LTG: PATIENT WILL DEMONSTRATE IMPROVED POSTURAL CONTROL AND DECREASED FALL RISK EVIDENCED BY AN IMPROVEMENT IN FUNCTIONAL REACH SCORE FROM 5 INCHES TO 9 INCHES WITHIN IN ORDER TO MAXIMIZE SAFETY WITH TRANSITIONAL MOVEMENTS DURING ADL PERFORMANCE OT LTG: PATIENT WILL DEMONSTRATE IMPROVED BALANCE/SENSORY INTEGRATION OF BALANCE SYSTEMS EVIDENCED BY AN IMPROVEMENT IN MCTSIB SCORE FROM 1/4 TO 2/4 WITHIN 9 WEEKS IN ORDER TO MAXIMIZE SAFETY WITH TRANSITIONAL MOVEMENTS DURING ADL PERFORMANCE OT LTG: PATIENT WILL DEMONSTRATE IMPROVED BUE MUSCLE STRENGTH EVIDENCED BY AN IMPROVEMENT IN MMT/FUNCTIONAL STRENGTH FROM 3+/5 TO 4/5 WITHIN 9 WEEKS IN ORDER TO MAXIMIZE ADL PERFORMANCE OT LTG: PATIENT WILL DEMONSTRATE UNDERSTANDING OF PAIN MANAGEMENT TECHNIQUES EVIDENCED BY REDUCED PAIN IN BLE FROM 4/10 TO 0/10 WITHIN 9 WEEKS OT LTG: PATIENT S BLOOD SUGAR WILL REMAIN WELL CONTROLLED THROUGHOUT EPISODE OF CARE AND PATIENT WILL NOT HAVE ANY SIGNS OF SKIN BREAKDOWN OR COMPLICATIONS THROUGHOUT EPISODE OF CARE. Goal Provider Goal - PT LTG: PATIENT WILL DEMONSTRATE IMPROVED SAFE FUNCTIONAL MOBILITY BY MAINTAINING PROPER POSTURE AND STEP LENGTH ON EVEN SURFACES USING CANE FROM MIN TO CGA WITHIN 4 WEEKS IN ORDER TO ACCESS ALL OF HOME PT LTG: PATIENT WILL DEMONSTRATE REDUCED GAIT DEVIATIONS TO REDUCE THE RISK FOR FALLING AND MINIMIZE STRAIN ON KNEES/HIPS AND BACK EVIDENCED BY IMPROVED HEEL STRIKE / STANCE PHASE / SWING PHASE USING CANE TO WALK 200 FEET WITH SUPERVISION IN ORDER TO ACCESS OUTSIDE OF HOME WITHIN 9 WEEKS PT LTG: PATIENT WILL DEMONSTRATE REDUCED FALL RISK EVIDENCED BY TUG TEST (CUT SCORE >11 SECONDS INDICATES INCREASED FALL RISK) IMPROVING FROM 38 TO 15 WITHIN 8 WEEKS PT LTG: PATIENT WILL DEMONSTRATE IMPROVED POSTURAL CONTROL AND SENSORY INTEGRATION OF THEIR BALANCE SYSTEMS EVIDENCED BY MCTSIB IMPROVING FROM _20 /10_/0_/0_ TO 30_ /30_/30_/30_ WITHIN 9 WEEKS. PT STG: PATIENT WILL DEMONSTRATE INCREASED STRENGTH OF BILAT KNEES FROM 3 TO 4 WITHIN 6 WEEKS IN ORDER TO REDUCE FALL RISK PT LTG: PATIENT WILL DEMONSTRATE INCREASED STRENGTH OF BILAT HIPS FROM 3 TO 4 WITHIN 8 WEEKS IN ORDER TO ALLOW FOR INDEPENDENT TRANSFERS PT LTG: PATIENT WILL DEMONSTRATE IMPROVED ABILITY TO SAFELY NEGOTIATE STAIRS FROM INSIDE TO OUTSIDE WITH SBA USING CANE IN ORDER TO GET TO MD APPOINTMENTS WITHIN 9 WEEKS PT STG: PATIENT WILL DEMONSTRATE IMPROVED ABILITY TO PERFORM SIT TO/FROM STAND TRANSFERS TO REDUCE THE RISK OF SKIN BREAKDOWN AND REDUCE FALL RISK FROM LIZZY TO INDEPENDENT WITHIN 6 WEEKS PT LTG: PATIENT WILL MAINTAIN OXYGEN SATURATION WITHIN PHYSICIAN ORDERED PARAMETERS THROUGHOUT EPISODE OF CARE. PATIENT S BLOOD SUGAR WILL REMAIN WELL CONTROLLED WITH SELF-MANAGEMENT THROUGHOUT EPISODE OF CARE. PT LTG: PATIENT WILL NOT EXPERIENCE CARDIAC OR RESPIRATORY COMPLICATIONS THROUGHOUT THE EPISODE OF CARE. Encounters Start Date/Time End Date/Time Encounter Type Admission Type Attending [facility] Care Department Encounter ID Discharge Date Discharge Status Discharge Condition Discharge Reason Percent Goals Met 2025-05-19 00:00:00 2025-07-17 00:00:00 Outpatient NAREN MALDONADO [facility] [id number]
--- OUTSIDE RECORDS SUMMARY | 2025-07-16 19:00 | XMS_ITS | Clinical Summary ---
Author Organization Unknown Care Team Providers Care Buttonhole Maker Hand Name Role Phone ANTONIO MOYA, NATHAN Unavailable Unavailable KHLOE RN, NAREN Unavailable Unavailable SERGIO JADEN, CAROLYN Unavailable Unavailable SOFYA PT, ROMINA Unavailable Unavailable CAROL PINEAPPLE PLANTATION MANAGER, LOGAN Unavailable Unavaildaija NEWELL OT, ALONSO Unavailable Unavailable MICA LILLIE/BOND, MARIEA Unavailable Unavail able Payers Payer Name Policy Type Policy Number Effective Date Expira tion Date LUZ [employer]NA.[employer].AUTH [id number] Problems Condition Name Condition Details Condition Category Status Onset Date Resolution Date Last Treatment Date Treating Clinician Comments UNKNOWN DIAGNOSIS Active 2024-07 00:00: 00 DEHYDRATION Active 2024-07 00:00: 00 TYPE 2 DIABETES MELLITUS WITHOUT COMPLICATION S Active 2024-07 00:00: 00 ACUTE KIDNEY FAILURE, UNSPECIFIED Active 2024-07 00:00: 00 [facility] (CURRENT) USE OF ORAL HYPOGLYCEMIC DRUGS Active [...] 01-04 00:00: 00 08-10 23:59 :00 No [id number] 1 tablet DAILY 1 tablet DAILY (route: oral) Med Classific ation: Cardiovas cular Therapy Agents carvedilol 12.5 mg tablet 01-04 00:00: 00 08-10 23:59 :00 No [id number] 1 tablet TWICE DAILY 1 tablet TWICE DAILY (route: oral) Med Classific ation: Cardiovas cular Therapy Agents diphenhydra mine 25 mg tablet 7-06 00:00: 00 08-10 23:59 :00 No [id number] 1 tablet NEEDED 1 tablet NEEDED (route: oral) Med Classific ation: Respirato ry Therapy Agents fenofibrate 160 mg tablet 6-02 00:00: 00 08-10 23:59 :00 No [id number] 1 tablet DAILY 1 tablet DAILY (route: oral) Med Classific ation: Cardiovas cular Therapy Agents fluoxetine 20 mg capsule 4-30 00:00: 00 08-10 23:59 :00 No [id number] 1 capsule AT 1 capsule AT (route: oral) Alternate Route: BY MOUTH. Med Classific ation: Central Nervous System Agents Januvia 100 mg tablet 6-04 00:00: 00 08-10 23:59 :00 No [id number] 1 tablet DAILY 1 tablet DAILY (route: oral) Med Classific ation: Endocrine Jardiance 25 mg tablet 6-04 00:00: 00 08-10 23:59 :00 No [id number] 1 tablet DAILY 1 tablet DAILY (route: oral) Med Classific ation: Endocrine levothyroxi ne 50 mcg tablet 3-06 00:00: 00 08-10 23:59 :00 No [id number] 1 tablet DAILY 1 tablet DAILY (route: oral) Med Classific ation: Endocrine lisinopril 40 mg tablet 7-06 00:00: 00 08-10 23:59 :00 No [id number] 1 tablet DAILY 1 tablet DAILY (route: oral) Med Classific ation: Cardiovas cular Therapy Agents rosuvastati n 20 mg tablet 5-05 00:00: 00 08-10 23:59 :00 No [id number] 1 tablet DAILY 1 tablet DAILY (route: oral) Med Classific ation: Cardiovas cular Therapy Agents Tegretol XR 100 mg tablet,exte nded release 7-06 00:00: 00 08-10 23:59 :00 No [id number] 1 tablet THREE TIMES DAILY 1 tablet THREE TIMES DAILY (route: oral) Med Classific ation: Central Nervous System Agents tizanidine 4 mg tablet 7-06 00:00: 00 08-10 23:59 :00 No [id number] 1 tablet BEDTIME 1 tablet BEDTIME (route: oral) Med Classific ation: Locomotor System ampicillin 10 gram solution for injection 2-10 00:00: 00 08-17 23:59 :00 No [id number] SEPSIS Per instruc tions DAILY Per instructio ns DAILY (route: injection) Med Classific ation: Anti-Infe ctive Agents duloxetine 60 mg capsule,del ayed release 1- 00:00: 00 05-13 23:59 :00 No [id number] DEPRESSION 1 capsule EVERY DAY 1 capsule EVERY DAY (route: oral) Med Classific ation: Central Nervous System Agents buspirone 5 mg tablet - 00:00: 00 05-13 23:59 :00 No [id number] DEPRESSION 1 tablet TWICE DAILY 1 tablet TWICE DAILY (route: oral) Med Classific ation: Central Nervous System Agents Lantus Solostar U-100 Insulin 100 unit/mL (3 mL) subcutaneou s pen - 00:00: 00 05-13 23:59 :00 No [id number] DIABETES 15 unit SUBCUTANEO USLY TWICE DAILY 15 unit SUBCUTANEO USLY TWICE DAILY (route: subcutaneo us) Med Classific ation: Endocrine amlodipine 10 mg tablet -12 00:00: 00 05-13 23:59 :00 No [id number] HEART 1 tablet DAILY 1 tablet DAILY (route: oral) Med Classific ation: Cardiovas cular Therapy Agents carvedilol 12.5 mg tablet -12 00:00: 00 05-13 23:59 :00 No [id number] HEART 1 tablet 2 TIMES DAILY 1 tablet 2 TIMES DAILY (route: oral) Med Classific ation: Cardiovas cular Therapy Agents donepezil 10 mg tablet 2-12 00:00: 00 05-13 23:59 :00 No [id number] DEMENTIA 1 tablet BEDTIME 1 tablet BEDTIME (route: oral) Med Classific ation: Cognitive Disorder Therapy furosemide 20 mg tablet 2-12 00:00: 00 09-11 00:00 :00 No [id number] FLUID 1 tablet DAILY 1 tablet DAILY (route: oral) Med Classific ation: Cardiovas cular Therapy Agents glipizide 5 mg tablet 2-12 00:00: 00 05-13 23:59 :00 No [id number] DIABETES 1 tablet DAILY 1 tablet DAILY (route: oral) Med Classific ation: Endocrine hydralazine 25 mg tablet -12 00:00: 00 05-13 23:59 :00 No [id number] HEART 1 tablet 2 TIMES DAILY 1 tablet 2 TIMES DAILY (route: oral) Med Classific ation: Cardiovas cular Therapy Agents Januvia 100 mg tablet 2-12 00:00: 00 05-13 23:59 :00 No [id number] DIABETES 1 tablet DAILY 1 tablet DAILY (route: oral) Med Classific ation: Endocrine levothyroxi ne 50 mcg capsule -12 00:00: 00 05-13 23:59 :00 No [id number] THYROID 1 capsule 2 TIMES DAILY 1 capsule 2 TIMES DAILY (route: oral) Med Classific ation: Endocrine lisinopril 40 mg tablet 2-12 00:00: 00 05-13 23:59 :00 No [id number] HEART 1 tablet DAILY 1 tablet DAILY (route: oral) Med Classific ation: Cardiovas cular Therapy Agents methocarbam ol 500 mg tablet 2-12 00:00: 00 09-11 00:00 :00 No [id number] PAIN 1 tablet 4 TIMES DAILY 1 tablet 4 TIMES DAILY (route: oral) Med Classific ation: Locomotor System rosuvastati n 20 mg tablet 2-12 00:00: 00 05-13 23:59 :00 No [id number] CHOLESTEROL 1 tablet DAILY 1 tablet DAILY (route: oral) Med Classific ation: Cardiovas cular Therapy Agents tramadol 50 mg tablet 2-12 00:00: 00 09-11 00:00 :00 No [id number] SLEEP 1 tablet BEDTIME 1 tablet BEDTIME (route: oral) Med Classific ation: Analgesic , Anti-infl ammatory or Antipyret ic Normal Saline Flush 0.9 % injection syringe - 00:00: 00 09-11 00:00 :00 No [id number] patency 10 mL DAILY 10 mL DAILY (route: injection) Med Classific ation: Electroly te Balance-N utritiona l Products amoxicillin 250 mg-potassiu m clavulanate 125 mg tablet - 00:00: 00 09-30 23:59 :00 No [id number] INFECTION [id number] mg 2 TIMES DAILY [id number] mg 2 TIMES DAILY (route: oral) Med Classific ation: Anti-Infe ctive Agents fluconazole 100 mg tablet 09-18 00:00: 00 05-13 23:59 :00 No [id number] INFECTION 100 mg DAILY 100 mg DAILY (route: oral) Med Classific ation: Anti-Infe ctive Agents Gemtesa 75 mg tablet 10-08 00:00: 00 05-13 23:59 :00 No [id number] BLADDER 1 tablet DAILY 1 tablet DAILY [...] FROM CONSULTING PHYSICIANS GORDON CASTILLO WASPEE-CARDIO, [place] MANAGER TO OBSERVE AND ASSESS, OPEN SHANK COVERER/WHEAT AND OATS FLAKE MILLER TO OBSERVE FOR RISK FOR FALLS AND INSTRUCT IN FALL PREVENTION, HOME SAFETY, MEDICATION MANAGEMENT, INFECTION PREVENTION, AND NUTRITION MANAGEMENT. RN/OPEN SHANK COVERER/WHEAT AND OATS FLAKE MILLER NURSE MAY PERFORM O2 SATURATION LEVEL ON ADMISSION AND PRN FOR RN TO ASSESS/OPEN SHANK COVERER TO OBSERVE PATIENT, WITH NOTIFICATION TO THE PHYSICIAN IF SATURATION IS 90% IN THE ABSENCE OF MORE SPECIFIC PARAMETERS FROM THE PHYSICIAN. AGENCY MAY PERFORM A RESUMPTION OF CARE VISIT FOLLOWING ANY HOSPITAL ADMISSION. RN/OPEN SHANK COVERER/WHEAT AND OATS FLAKE MILLER TO MONITOR CO-MORBID CONDITIONS LISTED ON THE PLAN OF CARE AND ANY NEW CONDITIONS THAT PRESENT THEMSELVES DURING THIS EPISODE TO IDENTIFY CHANGES AND INTERVENE TO MINIMIZE COMPLICATIONS. [code = RN TO OBSERVE, ASSESS, EVALUATE, AND DEVELOP AN INDIVIDUALIZED PLAN OF CARE. AGENCY MAY ACCEPT ORDERS FROM CONSULTING PHYSICIANS GORDON CASTILLO WASPEE-CARDIO, [place] CITY MANAGER TO OBSERVE AND ASSESS, OPEN SHANK COVERER/WHEAT AND OATS FLAKE MILLER TO OBSERVE FOR RISK FOR FALLS AND INSTRUCT IN FALL PREVENTION, HOME SAFETY, MEDICATION MANAGEMENT, INFECTION PREVENTION, AND NUTRITION MANAGEMENT. RN/OPEN SHANK COVERER/WHEAT AND OATS FLAKE MILLER NURSE MAY PERFORM O2 SATURATION LEVEL ON ADMISSION AND PRN FOR RN TO ASSESS/OPEN SHANK COVERER TO OBSERVE PATIENT, WITH NOTIFICATION TO THE PHYSICIAN IF SATURATION IS 90% IN THE ABSENCE OF MORE SPECIFIC PARAMETERS FROM THE PHYSICIAN. AGENCY MAY PERFORM A RESUMPTION OF CARE VISIT FOLLOWING ANY HOSPITAL ADMISSION. RN/OPEN SHANK COVERER/WHEAT AND OATS FLAKE MILLER TO MONITOR CO-MORBID CONDITIONS LISTED ON THE PLAN OF CARE AND ANY NEW CONDITIONS THAT PRESENT THEMSELVES DURING THIS EPISODE TO IDENTIFY CHANGES AND INTERVENE TO MINIMIZE COMPLICATIONS.] Future Scheduled Test MEDICATION MANAGEMENT; RN/OPEN SHANK COVERER/WHEAT AND OATS FLAKE MILLER TO REVIEW MEDICATIONS FOR INTERACTIONS, EFFECTIVENESS OF DRUG THERAPY, AND SIGNS/SYMPTOMS OF ADVERSE REACTIONS. MAY INSTRUCT AND REINFORCE MEDICATION TEACHING RELATED TO THE USE OF MEDICATIONS, DOSAGE, FREQUENCY, PURPOSE, SIDE EFFECTS, AND TO REPORT COMPLICATIONS. [code = MEDICATION MANAGEMENT; RN/OPEN SHANK COVERER/WHEAT AND OATS FLAKE MILLER TO REVIEW MEDICATIONS FOR INTERACTIONS, EFFECTIVENESS OF DRUG THERAPY, AND SIGNS/SYMPTOMS OF ADVERSE REACTIONS. MAY INSTRUCT AND REINFORCE MEDICATION TEACHING RELATED TO THE USE OF MEDICATIONS, DOSAGE, FREQUENCY, PURPOSE, SIDE EFFECTS, AND TO REPORT COMPLICATIONS.] Future Scheduled Test DIABETES M ANAGEMENT; RN TO ASSESS AND TEACH, WHEAT AND OATS FLAKE MILLER/OPEN SHANK COVERER TO OBSERVE AND TEACH INSTRUCTIONS OF DIABETIC CARE TO INCLUDE: DIET LOW CARB SKIN CARE, SIGNS AND SYMPTOMS OF HYPO/HYPERGLYCEMIA, PROPER ADMINISTRATION OF DIABETIC MEDICATION. RN/WHEAT AND OATS FLAKE MILLER/OPEN SHANK COVERER TO INSTRUCT ON DIABETIC FOOT CARE AND MONITOR FOR SKIN LESIONS ON LOWER EXTREMITIES. BLOOD GLUCOSE TESTING 3X DAILY FREQ. RN TO ASSESS AND TEACH, WHEAT AND OATS FLAKE MILLER/OPEN SHANK COVERER TO OBSERVE AND TEACH PATIENT/CAREGIVER ABILITY TO PERFORM AND RECORD BLOOD GLUCOSE TESTING ORDERED AND TO REPORT ABNORMAL FINDINGS TO PHYSICIAN. RN/WHEAT AND OATS FLAKE MILLER/OPEN SHANK COVERER MAY PERFORM BLOOD GLUCOSE TEST NEEDED. RN/WHEAT AND OATS FLAKE MILLER/OPEN SHANK COVERER TO REPORT TO PHYSICIAN BLOOD GLUCOSE READINGS GREATER THAN 300 OR LESS THAN 70 RN/WHEAT AND OATS FLAKE MILLER/OPEN SHANK COVERER TO INSTRUCT PATIENT ON IMPORTANCE OF HGBA1C MONITORING, KIDNEY FUNCTION TEST, EYE AND FOOT EXAMS. [code = DIABETES MANAGEMENT; RN TO ASSESS AND TEACH, WHEAT AND OATS FLAKE MILLER/OPEN SHANK COVERER TO OBSERVE AND TEACH INSTRUCTIONS OF DIABETIC CARE TO INCLUDE: DIET LOW CARB SKIN CARE, SIGNS AND SYMPTOMS OF HYPO/HYPERGLYCEMIA, PROPER ADMINISTRATION OF DIABETIC MEDICATION. RN/WHEAT AND OATS FLAKE MILLER/OPEN SHANK COVERER TO INSTRUCT ON DIABETIC FOOT CARE AND MONITOR FOR SKIN LESIONS ON LOWER EXTREMITIES. BLOOD GLUCOSE TESTING 3X DAILY FREQ. RN TO ASSESS AND TEACH, WHEAT AND OATS FLAKE MILLER/OPEN SHANK COVERER TO OBSERVE AND TEACH PATIENT/CAREGIVER ABILITY TO PERFORM AND RECORD BLOOD GLUCOSE TESTING ORDERED AND TO REPORT ABNORMAL FINDINGS TO PHYSICIAN. RN/WHEAT AND OATS FLAKE MILLER/OPEN SHANK COVERER MAY PERFORM BLOOD GLUCOSE TEST NEEDED. RN/WHEAT AND OATS FLAKE MILLER/OPEN SHANK COVERER TO REPORT TO PHYSICIAN BLOOD GLUCOSE READINGS GREATER THAN 300 OR LESS THAN 70 RN/WHEAT AND OATS FLAKE MILLER/OPEN SHANK COVERER TO INSTRUCT PATIENT ON IMPORTANCE OF HGBA1C MONITORING, KIDNEY FUNCTION TEST, EYE AND FOOT EXAMS.] Future Scheduled Test INSULIN AD MINISTRATION; RN/WHEAT AND OATS FLAKE MILLER/OPEN SHANK COVERER TO ADMINISTER SQ INSULIN: LANTUS 25 UNITS TWICE DAILY IF PATIENT/CAREGIVER UNABLE/UNWILLING [code = INSULIN ADMINISTRATION; RN/WHEAT AND OATS FLAKE MILLER/OPEN SHANK COVERER TO ADMINISTER SQ INSULIN: LANTUS 25 UNITS TWICE DAILY IF PATIENT/CAREGIVER UNABLE/UNWILLING] Future Scheduled Test FALL REDUC TION MANAGEMENT; RN TO ASSESS AND OBSERVE, OPEN SHANK COVERER/WHEAT AND OATS FLAKE MILLER TO OBSERVE FALL RISK FACTORS AND EDUCATE PATIENT/CAREGIVER ON STRATEGIES TO MINIMIZE THE RISK OF FALLING. [code = FALL REDUCTION MANAGEMENT; RN TO ASSESS AND OBSERVE, OPEN SHANK COVERER/WHEAT AND OATS FLAKE MILLER TO OBSERVE FALL RISK FACTORS AND EDUCATE PATIENT/CAREGIVER ON STRATEGIES TO MINIMIZE THE RISK OF FALLING.] Future Scheduled Test PRN VISITS ; NUMBER OF RN/OPEN SHANK COVERER/WHEAT AND OATS FLAKE MILLER VISITS: 2 RN/OPEN SHANK COVERER/WHEAT AND OATS FLAKE MILLER TO PERFORM: OBSERVATION OVERALL HEALTH FOR THE FOLLOWING REASONS: FREQUENT UTIS, FALLS, KIDNEY INJURY, [code = PRN VISITS; NUMBER OF RN/OPEN SHANK COVERER/WHEAT AND OATS FLAKE MILLER VISITS: 2 RN/OPEN SHANK COVERER/WHEAT AND OATS FLAKE MILLER TO PERFORM: OBSERVATION OVERALL HEALTH FOR THE [...] BEHAVIORAL DISTURBANCES; RN TO ASSESS AND TEACH, WHEAT AND OATS FLAKE MILLER/OPEN SHANK COVERER TO OBSERVE AND TEACH AND TO PROVIDE EDUCATION ON DEMENTIA WITHOUT BEHAVIORAL DISTURBANCES. [code = DEMENTIA MANAGEMENT WITHOUT BEHAVIORAL DISTURBANCES; RN TO ASSESS AND TEACH, WHEAT AND OATS FLAKE MILLER/OPEN SHANK COVERER TO OBSERVE AND TEACH AND TO PROVIDE [...] SAFETY AND FUNCTIONAL INDEPENDENCE IN HOME BATHING/SHOWERING (OT/AUDIO VIDEO MECHANIC) DRESSING (OT/LILLIE) ACTIVITIES OF DAILY LIVING (OT/AUDIO VIDEO MECHANIC) MEAL PREPARATION AND CLEANUP (OT/AUDIO VIDEO MECHANIC) LIGHT HOUSEKEEPING (OT/AUDIO VIDEO MECHANIC) POSTURAL CONTROL/BALANCE (OT/LILLIE) THERAPEUTIC EXERCISE (OT/AUDIO VIDEO MECHANIC) OT/LILLIE MAY EDUCATE ON PAIN MANAGEMENT CLINICALLY INDICATED, INCLUDING NON-PHARMACOLOGICAL PAIN REDUCTION TECHNIQUES AND USE OF CRYOTHERAPY OR HEAT UP TO 20 MIN AT A TIME FOR PAIN MANAGEMENT TO MAXIMIZE ADL PERFORMANCE OT/AUDIO VIDEO MECHANIC TO MONITOR FOR HYPO/HYPERGLYCEMIA AND CONDUCT ROUTINE FOOT INSPECTIONS. RECORD PATIENT REPORTED BLOOD SUGAR LEVELS AND NOTIFY PHYSICIAN AND/OR THE RN CLINICAL RADIOLOGY RN FOR PHYSICIAN NOTIFICATION IF BLOOD SUGAR LEVELS ARE OUTSIDE ORDERED PARAMETERS. [code = AGENCY MAY PERFORM A RESUMPTION OF CARE VISIT FOLLOWING ANY HOSPITAL ADMISSION. OT TO EVALUATE, OBSERVE / ASSESS, AND MONITOR, LILILE TO OBSERVE AND MONITOR, PROVIDE SKILLED THERAPEUTIC INTERVENTION, ACTIVITY, EDUCATION, AND TRAINING TO ADDRESS ADLS/IADLS, ADAPTIVE EQUIPMENT, STRENGTHENING, BALANCE, AND FUNCTIONAL TRANSFERS TO MAXIMIZE SAFETY AND FUNCTIONAL INDEPENDENCE IN HOME BATHING/SHOWERING (OT/AUDIO VIDEO MECHANIC) DRESSING (OT/LILLIE) ACTIVITIES OF DAILY LIVING (OT/LILLIE) MEAL PREPARATION AND CLEANUP (OT/AUDIO VIDEO MECHANIC) LIGHT HOUSEKEEPING (OT/AUDIO VIDEO MECHANIC) POSTURAL CONTROL/BALANCE (OT/AUDIO VIDEO MECHANIC) THERAPEUTIC EXERCISE (OT/AUDIO VIDEO MECHANIC) OT/LILLIE MAY EDUCATE ON PAIN MANAGEMENT CLINICALLY INDICATED, INCLUDING NON-PHARMACOLOGICAL PAIN REDUCTION TECHNIQUES AND USE OF CRYOTHERAPY OR HEAT UP TO 20 MIN AT A TIME FOR PAIN MANAGEMENT TO MAXIMIZE ADL PERFORMANCE OT/LILLIE TO MONITOR FOR HYPO/HYPERGLYCEMIA AND CONDUCT ROUTINE FOOT INSPECTIONS. RECORD PATIENT REPORTED BLOOD SUGAR LEVELS AND NOTIFY PHYSICIAN AND/OR THE RN CLINICAL RADIOLOGY RN FOR PHYSICIAN NOTIFICATION IF BLOOD SUGAR LEVELS ARE OUTSIDE ORDERED PARAMETERS.] Future Scheduled Test AGENCY MAY PERFORM A RESUMPTION OF CARE VISIT FOLLOWING ANY HOSPITAL ADMISSION. PT TO EVALUATE, OBSERVE / ASSESS, AND MONITOR, PINEAPPLE PLANTATION MANAGER TO OBSERVE AND MONITOR, PROVIDE SKILLED THERAPEUTIC INTERVENTION, ACTIVITY, EDUCATION, AND TRAINING TO ADDRESS; PT/PINEAPPLE PLANTATION MANAGER TO PROVIDE GAIT TRAINING FOR IMPROVED MOBILITY AND /OR TO NORMALIZE GAIT PATTERN NEUROMUSCULAR RE-EDUCATION / BALANCE / POSTURAL CONTROL (PT) THERAPEUTIC EXERCISES AND ESTABLISHING A HOME EXERCISE PROGRAM (PT/PINEAPPLE PLANTATION MANAGER) PT/PINEAPPLE PLANTATION MANAGER TO PROVIDE STAIR TRAINING SIT TO/FROM STAND TRANSFERS (PT/PINEAPPLE PLANTATION MANAGER) PT / PINEAPPLE PLANTATION MANAGER TO MONITOR AND EDUCATE ON OXYGEN SATURATION DURING ADLS/IADLS, NOTIFY PHYSICIAN AND/OR THE RN CLINICAL RADIOLOGY RN FOR PHYSICIAN NOTIFICATION AND IF O2 SATS BELOW PHYSICIAN ORDERED PARAMETERS AFTER 10 MIN OF REST PT / PINEAPPLE PLANTATION MANAGER TO MONITOR FOR HYPO/HYPERGLYCEMIA AND CONDUCT ROUTINE FOOT INSPECTIONS. RECORD PATIENT REPORTED BLOOD SUGAR LEVELS AND NOTIFY PHYSICIAN AND/OR THE RN CLINICAL RADIOLOGY RN FOR PHYSICIAN NOTIFICATION IF BLOOD SUGAR LEVELS ARE OUTSIDE ORDERED PARAMETERS. TEACH PATIENT/CAREGIVER ON DAILY FOOT INSPECTIONS PT TO ASSESS / PINEAPPLE PLANTATION MANAGER TO MONITOR CARDIO/RESPIRATORY SYSTEM; AND NOTIFY THE PHYSICIAN AND/OR THE RN CLINICAL RADIOLOGY RN FOR PHYSICIAN NOTIFICATION FOR EARLY SIGNS AND SYMPTOMS OF EXACERBATION OR DETERIORATION. [code = AGENCY MAY PERFORM A RESUMPTION OF CARE VISIT FOLLOWING ANY HOSPITAL ADMISSION. PT TO EVALUATE, OBSERVE / ASSESS, AND MONITOR, PINEAPPLE PLANTATION MANAGER TO OBSERVE AND MONITOR, PROVIDE SKILLED THERAPEUTIC INTERVENTION, ACTIVITY, EDUCATION, AND TRAINING TO ADDRESS; PT/PINEAPPLE PLANTATION MANAGER TO PROVIDE GAIT TRAINING FOR IMPROVED MOBILITY AND /OR TO NORMALIZE GAIT PATTERN NEUROMUSCULAR RE-EDUCATION / BALANCE / POSTURAL CONTROL (PT) THERAPEUTIC EXERCISES AND ESTABLISHING A HOME EXERCISE PROGRAM (PT/PINEAPPLE PLANTATION MANAGER) PT/PINEAPPLE PLANTATION MANAGER TO PROVIDE STAIR TRAINING SIT TO/FROM STAND TRANSFERS (PT/PINEAPPLE PLANTATION MANAGER) PT / PINEAPPLE PLANTATION MANAGER TO MONITOR AND EDUCATE ON OXYGEN SATURATION DURING ADLS/IADLS, NOTIFY PHYSICIAN AND/OR THE RN CLINICAL RADIOLOGY RN FOR PHYSICIAN NOTIFICATION AND IF O2 SATS BELOW PHYSICIAN ORDERED PARAMETERS AFTER 10 MIN OF REST PT / PINEAPPLE PLANTATION MANAGER TO MONITOR FOR HYPO/HYPERGLYCEMIA AND CONDUCT ROUTINE FOOT INSPECTIONS. RECORD PATIENT REPORTED BLOOD SUGAR LEVELS AND NOTIFY PHYSICIAN AND/OR THE RN CLINICAL RADIOLOGY RN FOR PHYSICIAN NOTIFICATION IF BLOOD SUGAR LEVELS ARE OUTSIDE ORDERED PARAMETERS. TEACH PATIENT/CAREGIVER ON DAILY FOOT INSPECTIONS PT TO ASSESS / PINEAPPLE PLANTATION MANAGER TO MONITOR CARDIO/RESPIRATORY SYSTEM; AND NOTIFY THE PHYSICIAN AND/OR THE RN CLINICAL RADIOLOGY RN FOR PHYSICIAN NOTIFICATION FOR EARLY SIGNS AND [...] End Date/Time Encounter Type Admission Type Attending [facility] Care Department Encounter ID Discharge Date Discharge Status Discharge Condition Discharge Reason Percent Goals Met 2025-05-19 00:00:00 2025-07-17 00:00:00 Outpatient NAREN MALDONADO [facility] [id number]
== END 2025-06-30 23:59 | disposition home or self-care (01) ==
LOC: LAB.DROPOF 07-01 10:22
PROVIDERS: PCP Nurse Practitioner Family; Visit Provider Nurse Practitioner Family
DX: I10 Essential (primary) hypertension (principal); R39.9 Unspecified symptoms and signs involving the genitourinary system; E11.9 Type 2 diabetes mellitus without complications; Z11.4 Encounter for screening for human immunodeficiency virus [HIV]; Z11.59 Encounter for screening for other viral diseases
CPT/HCPCS: 80053; 83036; 85025; 86803; 87086; 87088; 87186; 87340; 87389